=== PATIENT | female | born 1955 | race Caucasian/White ===

== ENCOUNTER → 2017-11-07 06:50 | Outpatient (CLI) | payer MEDICARE, SELFPAY ==
--- NOTE | 2017-11-07 07:16 | CT_ITS ---
STUDY: CT MAXILLOFACIAL SINUSES REASON FOR EXAM: Female, 62 years old. Left nasal congestion. RADIATION DOSAGE (If Supplied By Facility): CTDIvol = ( 33.06 ) mGy, DLP = ( 825.58 ) mGycm TECHNIQUE: The patient was scanned in a multi detector CT scanner. High resolution axial imaging was performed without the administration of intravenous contrast material. Sagittal and coronal images were reconstructed. Individualized dose optimization techniques were used for this CT. COMPARISON: None. FINDINGS: FRONTAL SINUSES: Normal aeration, without mucosal inflammatory disease. ETHMOIDAL SINUSES: Normal aeration, without mucosal inflammatory disease. MAXILLARY SINUSES: Normal aeration, without mucosal inflammatory disease. SPHENOIDAL SINUSES: Normal aeration, without mucosal inflammatory disease. There is patency of the bilateral maxillary infundibuli with normal uncinate processes, ethmoid bullae, and hiatus semilunaris. There is a roxanne bullosa of the right middle turbinate. Normal bilateral inferior turbinates. There is a minimal left sided nasal septal deviation, but without a nasal septal spur. There is patency of the bilateral nasal airways. The visualized osseous structures are normal. The visualized bilateral orbital contents are normal. CT/Sinus/Facial Bone IMPRESSION: Roxanne bullosa of the right middle turbinate. Minimal left nasal septal deviation. Electronically Signed: Brandon Lee MD at 10:17 EST Tel [phone], Service support ,
== END ==
PROVIDERS: Family Provider Family Medicine; PCP Family Medicine; Visit Provider Otolaryngology
DX: J32.9 Chronic sinusitis, unspecified (principal)
CPT/HCPCS: 70486

== ENCOUNTER → 2017-12-26 06:35 | Outpatient (CLI) | payer MEDICARE, SELFPAY ==
[2017-11-22 14:25] VITALS: BP 115/63; PULSE 81; RESP 18; TEMP 36.2; BMI 38.1
--- NOTE | 2017-11-22 15:06 | RAD_ITS ---
STUDY: X-RAY CHEST REASON FOR EXAM: Female, 62 years old. Preoperative evaluation. Cough. TECHNIQUE: PA and lateral views of the chest. COMPARISON: None. FINDINGS: The lungs are clear and expanded. There is no demonstrated pleural abnormality. Normal size heart. Normal mediastinum and clark. Normal visualized pulmonary arteries. Normal visualized aortic arch and descending thoracic aorta. There are diffuse degenerative changes of the visualized thoracic spine. Normal visualized ribs, clavicles, and shoulders. There is no demonstrated abnormality of the visualized soft tissue structures of the upper abdomen. RAD/Chest PA and Lateral IMPRESSION: No acute abnormality is seen. Electronically Signed: Brandon Lee MD at 15:21 EST Tel [phone], Service support ,
[2017-11-22 15:26] LABS: Hematocrit 42.6 % (37-47); Hemoglobin 14.2 g/dl (12.0-15.0); Mean Corp Hgb Conc 33.3 g/gl (32-36); Mean Corpuscular Hgb 31.8 pg (27.0-32.0); Mean Corpuscular Volume 95.5 fL (81-99); Mean Platelet Vol. 8.6 fl (6.2-12.0); Platelet Count 310 K/mm3 (150-450); RBC Distribution Width SD 48.6 fl (35.1-43.9); Red Blood Count 4.46 M/mm3 (4.2-5.4); White Blood Count 10.8 K/mm3 (4.4-11.0)
[2017-11-22 15:33] LABS: Scan Indicated on CBC? Y/N NO
[2017-11-22 15:51] LABS: Anion Gap 9 (5-15); BUN 16 mg/dL (7-18); BUN/Creat Ratio 18.7 RATIO (10-20); Calcium,Total 8.7 mg/dL (8.5-10.1); Chloride 101 mmol/L (98-107); Creatinine, Serum 0.86 mg/dL (0.55-1.02); EST Glomerular Filtration Rate 71 mL/min (>60); Est Glom Filt Rate - Afr Amer 86 mL/min (>60); Estimated Creatinine Clearance 53.64 ml/min; Glucose 90 mg/dL (74-106); Potassium 3.9 mmol/L (3.5-5.1); Sodium Level 137 mmol/L (136-145)
[2017-11-22 16:11] LABS: Hemoglobin A1c 6.4 % (4.2-6.3)
== END ==
PROVIDERS: Anesthesiology; Family Provider Family Medicine; PCP Family Medicine; Visit Provider Otolaryngology
DX: Z01.818 Encounter for other preprocedural examination (principal); R05 Cough; Z01.812 Encounter for preprocedural laboratory examination; Z79.899 Other long term (current) drug therapy; I10 Essential (primary) hypertension; F17.200 Nicotine dependence, unspecified, uncomplicated; G47.30 Sleep apnea, unspecified; K21.9 Gastro-esophageal reflux disease without esophagitis; E11.9 Type 2 diabetes mellitus without complications; E78.00 Pure hypercholesterolemia, unspecified; K76.0 Fatty (change of) liver, not elsewhere classified; F32.9 Major depressive disorder, single episode, unspecified
CPT/HCPCS: 36415; 80048; 83036; 85027

== ENCOUNTER → 2018-10-30 08:02 | Outpatient (CLI) | payer MEDICARE, SELFPAY ==
[2018-10-03 07:10] VITALS: BMI 39.9
[2018-10-30 09:23] VITALS: PULSE 101; PULSE 107; PULSE 109; PULSE 111; PULSE 113; PULSE 83; PULSE 88; PULSE 99; O2SAT 93; O2SAT 94; O2SAT 95; O2SAT 97
--- NOTE | 2018-10-30 14:23 | PCM.PSN.6M ---
PSN 6 Minute Walk Test - 6 Minute Walk Test 6 Minute Walk Test: 6 Minute Walk Test PSN:6-Minute Walk Test Start: 10/30/18 09:23 Freq: Status: Active Protocol: [id number] Document 10/30/18 09:23 [facility] (Rec: 10/30/18 09:27 [facility] [id number]) 6 Minute Walk Test Date Performed 10/30/18 Time Performed 09:00 Height 5 ft 2 in Weight: 218 lb Weight in Pounds [address]: Jasper Lindo Assistive device used: None Pre-test Oxygen Delivery Method Room Air Pulse Ox (%) 95 Pulse Rate (60-100 beats/min) 83 Dyspnea Emerald Scale (0-10) 3 1st minute Oxygen Delivery Method Room Air Pulse Ox (%) 93 Pulse Rate (60-100 beats/min) 99 Dyspnea Emerald Scale (0-10) 3 2nd minute Oxygen Delivery Method Room Air Pulse Ox (%) 93 Pulse Rate (60-100 beats/min) 101 H Dyspnea Emerald Scale (0-10) 3 3rd minute Oxygen Delivery Method Room Air Pulse Ox (%) 94 Pulse Rate (60-100 beats/min) 107 H Dyspnea Emerald Scale (0-10) 4 Reported Symptoms Increased Work of Breathing 4th minute Oxygen Delivery Method Room Air Pulse Ox (%) 94 Pulse Rate (60-100 beats/min) 109 H Dyspnea Emerald Scale (0-10) 4 Reported Symptoms Increased Work of Breathing 5th minute Oxygen Delivery Method Room Air Pulse Ox (%) 94 Pulse Rate (60-100 beats/min) 111 H Dyspnea Emerald Scale (0-10) 5 Reported Symptoms Increased Work of Breathing 6th minute Oxygen Delivery Method Room Air Pulse Ox (%) 94 Pulse Rate (60-100 beats/min) 113 H Dyspnea Emerald Scale (0-10) 5 Reported Symptoms Increased Work of Breathing Post-test Oxygen Delivery Method Room Air Pulse Ox (%) 97 Pulse Rate (60-100 beats/min) 88 Dyspnea Emerald Scale (0-10) 3 Full Laps Walked 23 Partial Lap, Number of Tiles Walked 25 Total Distance Walked (ft) 1382 - Interpretation Interpretation: The patient ambulated 1382 feet over the course of 6 minutes beginning on room air without assistive devices or breaks. Pretesting oxygen saturation was noted to be 95% on room air. With ambulation, the hero oxygen saturation was 93%. There was no significant exertional oxygen desaturation. - Recommendations Recommendations: There is no indication for the use of supplemental oxygen at this time.
== END ==
PROVIDERS: Family Provider Family Medicine; PCP Family Medicine; Referring Provider Internal Medicine Critical Care Medicine; Visit Provider Internal Medicine Critical Care Medicine
DX: J44.9 Chronic obstructive pulmonary disease, unspecified (principal)
CPT/HCPCS: 94618

== ENCOUNTER → 2018-11-20 07:57 | Outpatient (CLI) | payer MEDICARE, SELFPAY ==
[2018-10-03 07:10] VITALS: BMI 39.9
--- NOTE | 2018-11-20 14:38 | PFTCOMP ---
COMPLETE PULMONARY FUNCTION TEST INTERPRETATION Brief HPI: Patient is a 63 year old female, currently under the care of myself, who presents to [facility] for complete pulmonary function tests secondary to diagnosis of dyspnea. Respiratory therapist reports good effort and reproducible results. Interpretation: Forced expiration spirometry shows no large airways obstructive ventilatory defect with an FEV1 of 77% predicted. There is no significant bronchodilator response by strict ATS criteria. Spirograms are of good quality and plateau normally. The respiratory flow volume loop shows a normal pattern. Lung volumes by body plethysmography show a normal total lung capacity at 4.34 L, 97% predicted. All other lung volumes are within normal limits. Diffusion capacity by carbon monoxide is decreased at 63% predicted. The airway resistance is normal. Compared to previous pulmonary function tests from 05/21/13 and 09/16/15, there has been a significant slow but steady improvement in DLCO. Impression: Isolated reduction in diffusion capacity consistent with a pulmonary vascular disorder. This appears to be improving with time.
== END ==
PROVIDERS: Family Provider Family Medicine; PCP Family Medicine; Referring Provider Internal Medicine Critical Care Medicine; Visit Provider Internal Medicine Critical Care Medicine
DX: J44.9 Chronic obstructive pulmonary disease, unspecified (principal)
CPT/HCPCS: 94060; 94726; 94729

== ENCOUNTER 2019-04-26 09:01 | Emergency (ER) | payer MEDICARE, SELFPAY ==
[2018-11-29 08:47] VITALS: BMI 40.4
[2019-04-26 09:02] VITALS: BP 141/70; PULSE 89; RESP 17; TEMP 36.8; O2SAT 97; BMI 39.1
[2019-04-26 09:08] VITALS: BP 141/70; PULSE 89; RESP 18; TEMP 36.8; O2SAT 97
--- NOTE | 2019-04-26 09:14 | CT_ITS ---
STUDY: CT ABDOMEN AND PELVIS WITHOUT CONTRAST REASON FOR EXAM: Female, 63 years old. Abdominal pain. RADIATION DOSAGE (If Supplied By Facility): CTDIvol = ( 19.11 ) mGy, DLP = ( 969.11 ) mGycm TECHNIQUE: Transaxial images were obtained from the dome of the diaphragm to the symphysis pubis without oral contrast, and without intravenous contrast. Sagittal and coronal images were reconstructed. Individualized dose optimization techniques were used for this CT. COMPARISON: May 15, 2014. FINDINGS: The visualized lung bases are unremarkable. The visualized portions of the heart are within normal limits. There is hepatomegaly with diffuse hepatic enlargement. There is decreased attenuation of the liver consistent with steatosis. There are surgical clips in the gallbladder fossa consistent with a prior cholecystectomy. Normal spleen. Normal pancreas. Normal bilateral adrenal glands. Normal right kidney. Normal left kidney. Normal visualized stomach. Normal small intestine. There are multiple colonic diverticula consistent with diverticulosis. There is non-visualization of the appendix. There is diffuse atherosclerotic calcification of the abdominal aorta, without a demonstrated aneurysm. Normal inferior vena cava. Normal retroperitoneum. Normal urinary bladder. There is absence of the uterus consistent with a prior hysterectomy. There is 2.4 cm left adnexal cyst. There is no free fluid in the abdomen or pelvis. Normal abdominal wall. Degenerative change of the spine with levoscoliosis CT/Abdomen/Pelvis without Cont IMPRESSION: Colonic diverticulosis. No obstruction or abscess. Liver is enlarged with diffuse fatty infiltration. Electronically Signed: Aron Crocker MD at 10:44 EDT , Service support ,
--- NOTE | 2019-04-26 09:14 | ED.VIS.GI ---
History of Present Illness Chief Complaint: Flank Pain Informant: Patient - Abdominal Pain/Flank Pain Onset: Yesterday Context: Gradual Onset Timing: Continuous Quality: Aching Location: Right Flank Current Severity: Moderate Maximum Severity: Moderate Worsened by: Nothing Relieved by: Nothing - Nausea/Vomiting/Emesis GI Symptom: Negative for: Nausea, Vomiting - Diarrhea/Melena/Hematochezia GI Symptom: Negative for: Diarrhea, Melena, Hematochezia Associated Symptoms: Frequency, Urgency. Negative for: Dysuria, Hematuria Narrative: Gradual onset of pain in her right low back almost at the same time is urinary frequency and urgency without any burning or hematuria, followed by worsening pain. Now her entire abdomen is hurting she feels bloated but has no nausea. Subjective chills. Never had this before. No history of kidney stones. Still has her gallbladder. - Past Medical History (1) COPD (chronic obstructive pulmonary disease) Status: Chronic (2) Depression Status: Chronic (3) Diabetes Status: Chronic (4) Fibromyalgia Status: Chronic (5) GERD (gastroesophageal reflux disease) Status: Chronic (6) Hyperlipemia Status: Chronic (7) NHI (obstructive sleep apnea) Status: Chronic (8) Restless leg syndrome Status: Chronic (9) Pulmonary hypertension Status: Suspected Past Medical History - Allergies and Home Meds Allergies/Adverse Reactions: Allergies No Known Allergies Allergy (Verified 04/26/19 09:01) Primary Care Physician: Qamar Mcmullen MD [Primary Care Provider] - Surgical History: appendectomy, hysterectomy, - - BTL Lives: Spouse/ Significant Other Smoking Status: Current every day smoker Drugs: None Review of Systems General: Reports: Chills, Malaise. Denies: Fever, Sweats Eyes: Denies: Visual changes - bilaterally, Diplopia ENT: Denies: Rhinorrhea, Sore throat Cardiovascular: Denies: Chest pain, Palpitations Respiratory: Denies: Dyspnea, Cough, Dyspnea on exertion Gastrointestinal: Reports: Abdominal pain. Denies: Nausea, Vomiting, Diarrhea, Melena, Hematochezia Genitourinary: Reports: Frequency. Denies: Dysuria, Hematuria Musculoskeletal: Reports: Back pain. Denies: Neck pain, Swelling, Extremity Pain Skin: Denies: Rash, Wounds Neurological: Denies: Headache, Weakness, Numbness Physical Exam Vital Signs/Narrative: Vital Signs Temp Pulse Resp BP Pulse Ox 04/26/19 09:08 98.2 F 89 18 141/70 H 97 04/26/19 09:02 98.2 F 89 17 141/70 H 97 Inital Vital Signs reviewed: Yes General: Well nourished, Well developed, No Acute Distress Head: Normocephalic, Atraumatic Eyes: Perrl, EOMI ENT: Moist mucous membranes, No rhinorrhea Neck: Supple, Nontender Cardiovascular: Regular rate, Regular rhythm, No murmurs Respiratory: No distress, CTA bilaterally, Chest nontender Abdomen: Soft, Nondistended, Normal bowel sounds, Tender - Diffusely. Negative for: Guarding, Rebound tenderness, Pulsatile mass Back: Normal Inspection - No rash, CVA tenderness - Right side only. Negative for: Spinal tenderness Extremities: Nontender, No edema. Negative for: Calf Tenderness Skin: Normal color, No rash, No Trauma Neurological: Alert, Oriented x3, Cranial nerves II-XII grossly intact, Normal Strength, Normal Sensation Psychological: Normal Mood, - - A little anxious Diagnostic/Tx/Re-eval Impressions Abdomen/Pelvis CT 04/26/19 09:14 IMPRESSION: Colonic diverticulosis. No obstruction or abscess. Liver is enlarged with diffuse fatty infiltration. Electronically Signed: Aron Crocker MD at 10:44 EDT , Service support , 04/26/19 09:14 Abdomen/Pelvis without Cont [CT] Stat Laboratory Results 04/26/19 04/26/19 04/26/19 09:20 09:20 09:30 WBC 16.1 H RBC 4.65 Hgb 15.3 H Hct 44.8 MCV 96.3 MCH 32.9 H MCHC 34.2 RDW Std Deviation 48.7 H RDW Coeff of Tonia 13.7 Plt Count 417 MPV 8.5 Immature Gran % (Auto) 0.600 Neut % (Auto) 69.6 Lymph % (Auto) 21.0 Eddy % (Auto) 7.5 Eos % (Auto) 0.9 Baso % (Auto) 0.4 Absolute Neuts (auto) 11.2 H Absolute Lymphs (auto) 3.38 Absolute Nucleated RBC 0.00 Nucleated RBC % 0 Sodium 136 Potassium 4.2 Chloride 106 Carbon Dioxide 24.0 Anion Gap 6 BUN 16 Creatinine 1.05 H Estim Creat Clear Calc 43.37 Est GFR (MDRD) Af Amer 68 Est GFR (MDRD) Non-Af 56 L BUN/Creatinine Ratio 15.2 Glucose 153 H Calcium 9.2 Total Bilirubin 0.40 AST 15 ALT 19 Alkaline Phosphatase 94 Total Protein 8.5 H Albumin 3.4 Globulin 5.1 H Albumin/Globulin Ratio 0.7 L Lipase 67 L Urine Color Yellow Urine Clarity Cloudy Urine pH 6.0 Ur Specific Cove 1.015 Urine Protein 500 H Urine Glucose (UA) Normal Urine Ketones Negative Urine Occult Blood 250 H Urine Nitrite Positive H Urine Bilirubin Negative Urine Urobilinogen Normal Ur Leukocyte Esterase 500 H Urine RBC 0-5 SEEN Urine WBC >100 SEEN Ur Squamous Epith Cells 0 SEEN Urine Bacteria 1+ Urine Mucus 0 SEEN - Medical Decision Making Patient feels a little better after morphine, she is stable clinically and hemodynamically. Work-up is consistent with urinary infection but the rest of her work-up including imaging is unremarkable. Clinically she is consistent with pyelonephritis. She was given IV Rocephin and discharged in stable condition on Bactrim, advised to return for intractable symptoms or follow-up with her doctor, we did send a culture of her urine. ED Disposition - Plan for ED Patient: Disposition: Home or Assisted Living Diagnosis: Pyelonephritis Instructions: PYELONEPHRITIS, Female (Adult) Prescriptions: Smz/Tmp Ds [Bactrim Ds] 1 tab PO BID #28 tab Transmission Status: Pending to [facility] [place] [facility] Referrals: Qamar Mcmullen MD [Primary Care Provider] - 3-5 Days
[2019-04-26] MEDS: Morphine 2 MG/ML Syringe 4 MG IV (09:27)
[2019-04-26] MEDS: 0.9% Normal Saline 1,000 ML 125 ML IV (09:27)
[2019-04-26 09:31] LABS: Absolute Lymphocyte Count 3.38 X10^3/uL (0.83-4.51); Absolute Neutrophil Count 11.2 X10^3/uL (2.0-7.7); Basophil# 0.06 X10^3/uL; Basophil% 0.4 % (0-1); Eosinophil# 0.15 X10^3/uL; Eosinophils% 0.9 % (0-5); Hematocrit 44.8 % (37-47); Hemoglobin 15.3 g/dL (12.0-15.0); Lymphocyte # 3.38 X10^3/ul (4.0); Mean Corp Hgb Conc 34.2 g/dL (32-36); Mean Corpuscular Hgb 32.9 pg (27.0-32.0); Mean Corpuscular Volume 96.3 fL (81-99); Mean Platelet Vol. 8.5 fl (6.2-12.0); Monocyte# 1.21 X10^3/uL; Monocyte% 7.5 % (0-10); NRBC Flagged by Analyzer 0 % (0-5); Neutrophil # 11.17 X10^3/uL (2.7-7.7); Neutrophil % 69.6 % (47-70); Platelet Count 417 K/mm3 (150-450); RBC Distribution Width CV 13.7 % (11.6-14.6); RBC Distribution Width SD 48.7 fl (35.1-43.9); Red Blood Count 4.65 M/mm3 (4.2-5.4); White Blood Count 16.1 K/mm3 (4.4-11.0)
[2019-04-26 09:44] LABS: ALB/GLOB Ratio 0.7 RATIO (0.9-2.4); AST(SGOT) 15 U/L (15-37); Alanine Aminotransfer ALT/SGPT 19 U/L (13-56); Albumin, Serum 3.4 g/dL (3.2-5.0); Alkaline Phosphatase 94 U/L (45-117); Anion Gap 6 (5-15); BUN 16 mg/dL (7-18); BUN/Creat Ratio 15.2 RATIO (10-20); Calcium,Total 9.2 mg/dL (8.5-10.1); Chloride 106 mmol/L (98-107); Creatinine, Serum 1.05 mg/dL (0.55-1.02); EST Glomerular Filtration Rate 56 mL/min (>60); Est Glom Filt Rate - Afr Amer 68 mL/min (>60); Estimated Creatinine Clearance 43.37 ml/min; Globulin 5.1 g/dL (2.2-4.2); Glucose 153 mg/dL (74-106); Lipase 67 U/L (73-393); Potassium 4.2 mmol/L (3.5-5.1); Protein, Total 8.5 g/dL (6.4-8.2); Sodium Level 136 mmol/L (136-145)
[2019-04-26 09:59] LABS: Mucous, Urine 0 SEEN /hpf (<or=2+); Squamous Epithelial Cells - UA 0 SEEN /hpf (5-10)
[2019-04-26 10:03] LABS: Color, Urine Yellow (Yellow); Glucose, Dipstick Normal (Normal); Ketone-Dipstick Negative (Negative); Leukocyte Esterase-Dipstick 500 /ul (Negative); Nitrite-Dipstick Positive (Negative); Occult Blood-Urine 250 /ul (Negative); Protein-Dipstick 500 mg/dl (Negative); Specific Gravity, Urine 1.015 (1.002-1.030); Urine Bilirubin Dipstick Negative (Negative); Urine Clarity Cloudy (Clear); Urine Urobilinogen Normal (Normal)
[2019-04-26 10:10] LABS: Bacteria 1+ /hpf (None Seen); Red Blood Cells-Urine 0-5 SEEN /hpf (0-5); White Blood Cells >100 SEEN /hpf (0-5)
[2019-04-26] MEDS: Ceftriaxone 1 GM/50 ML BAG IV (11:20)
[2019-04-26 11:23] VITALS: TEMP 37.2
[2019-04-26 12:52] VITALS: BP 131/78; PULSE 77; RESP 16; TEMP 37.1; O2SAT 98
== END 2019-04-26 12:55 | disposition home or self-care (01) ==
PROVIDERS: Emergency Provider Emergency Medicine; Family Provider Family Medicine; PCP Family Medicine
DX: N12 Tubulo-interstitial nephritis, not specified as acute or chronic (principal); K57.30 Diverticulosis of large intestine without perforation or abscess without bleeding; K76.0 Fatty (change of) liver, not elsewhere classified; J44.9 Chronic obstructive pulmonary disease, unspecified; F32.9 Major depressive disorder, single episode, unspecified; E11.9 Type 2 diabetes mellitus without complications; M79.7 Fibromyalgia; E78.5 Hyperlipidemia, unspecified; G47.33 Obstructive sleep apnea (adult) (pediatric); G25.81 Restless legs syndrome; K21.9 Gastro-esophageal reflux disease without esophagitis; Z79.84 Long term (current) use of oral hypoglycemic drugs; Z79.899 Other long term (current) drug therapy; F17.200 Nicotine dependence, unspecified, uncomplicated
CPT/HCPCS: 74176; 80053; 81001; 83690; 85025; 87086; 87088; 87186; 96361; 96365; 96366; 96374; 99283; A4216

== ENCOUNTER → 2020-04-10 08:00 | Outpatient (CLI) | payer MEDICARE, SELFPAY ==
[2020-03-31 09:21] VITALS: BMI 39.1
--- NOTE | 2020-04-10 08:03 | CT_ITS ---
STUDY: LOW DOSE CT LUNG CANCER SCREENING REASON FOR EXAM: Female, 64 years old. 1ppd x 40 years, LUNG SCREENING RADIATION DOSAGE (If Supplied By Facility): CTDIvol = ( 4.02 ) mGy, DLP = ( 130.89 ) mGycm TECHNIQUE: No contrast was administered. Low dose technique was utilized (average mAS-38 and kVp 120). 1.25 mm axial source images with a slice interval of 1.25-mm were reconstructed in lung windows. 2.5 mm axial source images with a slice interval of 2.5-mm were reconstructed in lung windows. 5.0 mm axial source images with a slice interval of 5.0-mm were reconstructed in soft tissue windows. Nodule measured using lung windows on PACS and/or independent workstation with automated measurement of minimum and maximum diameter. Nodule measurement reported as average diameter rounded to the nearest whole number. Growth is defined as an increase ins size of greater than 1.5 mm. COMPARISON: Comparison is made with prior chest radiograph dated November 22, 2017. NODULES: No nodules are seen. Emphysema: Mild degree of emphysematous changes in the upper lobes with a 1.1 cm bulla in the right upper lobe anteriorly. Aorta: Atherosclerotic calcification of the aortic arch. Coronary arteries: Coronary artery calcification. Heart: Unremarkable. Pulmonary artery: Unremarkable Mediastinal nodes: Benign appearing small mediastinal lymph nodes. Other chest and abdominal findings: Multilevel degenerative changes of the thoracic spine. CT/Low Dose CT Lung Screening IMPRESSION: Lung-RADS category 2 - Continue annual screening with LDCT in 12 months. IMPORTANT NOTES FOR USE: ACR Lung-RADS Version 1.0 Assessment Categories Release Date: January 27, 2014 Category: Coded 0-4 bases on nodule(s) with highest degree of suspicion. Negative screen is defined as categories 1 and 2; a positive screen is defined as categories 3 and 4. Category 3 and 4A nodules that are unchanged on interval CT should be coded as category 2, and individuals returned to screening in 12 months. Category 4X: Category 3 or 4 nodules with additional imaging findings that increase the suspicion of lung cancer, such as spiculation, GGN that doubles in size in 1 year, enlarged lymph notes, etc. Category Modifiers: S (significant finding unrelated to lung cancer) and C (prior history of treated lung cancer) may be added to the 0-4 Lung-RADS Electronically Signed: Brandon Lee, at 8:38 EDT , Service support ,
--- NOTE | 2020-04-10 08:11 | US_ITS ---
STUDY: ABDOMINAL ULTRASOUND REASON FOR EXAM: Female, 64 years old. ABD PAIN X 5 MONTHS TECHNIQUE: Transabdominal ultrasound was performed with real-time and static cota scale imaging. TECHNICAL QUALITY: Limited. Examination limited due to a combination of factors including obesity and bowel gas. COMPARISON: Comparison is made with prior study dated January 29, 2016. FINDINGS: Liver: The liver is enlarged and measures 19 cm. There is increased echogenicity consistent with fatty infiltration. The bile ducts are within normal limits. There is hepatic color flow. The direction of portal flow is hepatopetal. There is no demonstrated mass lesion. Gallbladder: Normal distended gallbladder. The gallbladder wall measures 2.0 mm. There is a negative sonographic Andrade''s sign. There is no pericholecystic fluid. There are no gallstones. Common Bile Duct (C.B.D.): The common bile duct measures 3.5 mm. Pancreas: Normal size of the head, body and tail of the pancreas. There is normal echogenicity of the pancreas. There is no demonstrated pancreatic mass or cyst. Spleen: Normal size of the spleen. The spleen measures 7.7 cm x 2.6 x 2.8 cm. Right Kidney: Normal size of the right kidney. The right kidney measures 11.4 cm x 5.7 cm x 4.1 cm. Normal renal cortex. The right cortex measures 1.0 cm. There is no demonstrated renal mass or cyst. There is no right hydronephrosis. Left Kidney: Normal size of the left kidney. The left kidney measures 10.4 cm x 4.8 cm by 4.5 cm. Normal renal cortex. The left cortex measures 1.5 cm. There is no demonstrated renal mass or cyst. There is no left hydronephrosis. Aorta: Unremarkable I.V.C.: The IVC is patent. There is no ascites. US/Abdomen Complete IMPRESSION: Hepatomegaly. Fatty infiltration of the liver. Electronically Signed: Brandon Lee, at 13:36 EDT , Service support ,
== END ==
LOC: US 08:03
PROVIDERS: PCP Nurse Practitioner; Referring Provider Nurse Practitioner; Visit Provider Nurse Practitioner
DX: R10.9 Unspecified abdominal pain (principal); Z87.891 Personal history of nicotine dependence
CPT/HCPCS: 76700; G0297

== ENCOUNTER → 2020-05-13 08:57 | Outpatient (CLI) | payer MEDICARE, SELFPAY ==
[2020-03-31 09:21] VITALS: BMI 39.1
--- NOTE | 2020-05-14 09:01 | PFT ---
INTRODUCTION: The patient is a 64-year-old female that presents for pulmonary function studies secondary to a diagnosis of dyspnea. Respiratory therapy reports good patient effort. Bronchodilators were used during testing. INTERPRETATION: Forced expiration spirometry demonstrates no evidence of a large airways obstructive ventilatory defect. There was no significant response to aerosolized bronchodilators. Spirograms are of fair quality and plateau normally. Body plethysmography was performed and reveals lung volumes to be within normal limits. Diffusing capacity by single breath CO is reduced at 62% of predicted. IMPRESSION: Mild reduction in diffusing capacity with subtle stigmata of small airways disease and robust mid flow bronchodilator response.
== END ==
LOC: PSN 08:58
PROVIDERS: PCP Nurse Practitioner; Referring Provider Internal Medicine Critical Care Medicine; Visit Provider Internal Medicine Critical Care Medicine
DX: R06.00 Dyspnea, unspecified (principal)
CPT/HCPCS: 94060; 94726; 94729

== ENCOUNTER → 2020-05-26 10:19 | Outpatient (CLI) | payer MEDICARE, SELFPAY ==
[2020-03-31 09:21] VITALS: BMI 39.1
--- NOTE | 2020-05-26 10:21 | NM_ITS ---
CLINICAL: 64-year-old female with reported history of right upper quadrant abdominal pain. RADIONUCLIDE HEPATOBILIARY SCINTIGRAPHY COMPARISON: Abdominal ultrasound report 04/10/2020 FINDINGS: Following the intravenous administration of 5.7 mCi of 99m Tc Mebrofenin, hepatobiliary images reveal: 1. Relatively prompt and homogeneous radiopharmaceutical concentration is noted by a normal sized liver. No parenchymal defects are identified. 2. Gallbladder activity is identified at 10 minutes post radiopharmaceutical administration. 3. Small intestinal tract is not visualized during 60 minutes of pre-CCK sequential imaging. Small bowel activity is identified following the administration of cholecystokinin. 4. Washout of the radiopharmaceutical by the hepatic parenchyma appears qualitatively normal. Cholecystokinin (0.02 ug/kg) was administered intravenously over a 30-minute period. The post CCK gallbladder ejection fraction calculated at 20 minutes following Cholecystokinin administration was noted to be 31.0 % (normal greater than 35%). NM/Hepatobilliary Img w/Pharm Int IMPRESSION: 1. ABNORMAL 99m Tc Mebrofenin hepatobiliary imaging examination with Cholecystokinin. A. A gallbladder ejection fraction calculated to be less than 35% following the administration of Cholecystokinin is consistent with a high probability of functional hepatobiliary disease (gallbladder and/or sphincter of Oddi dyskinesia) and/or organic hepatobiliary disease (chronic acalculous cholecystitis and/or cystic duct syndrome) in patients with intermediate to high pretest likelihoods of hepatobiliary illness. (Capo Jerez et al, Journal of Nuclear Medicine 32:1695, 1991). Electronically Signed: Jemal Jaramillo DO at 23:34 EDT Tel , Service support ,
== END ==
LOC: NM 10:20
PROVIDERS: PCP Nurse Practitioner; Referring Provider Nurse Practitioner; Visit Provider Nurse Practitioner
DX: R10.9 Unspecified abdominal pain (principal)
CPT/HCPCS: 78227; A9537; J2805

== ENCOUNTER 2020-06-11 07:34 | Day surgery (SDC) | payer MEDICARE, SELFPAY ==
[2020-05-29 08:28] VITALS: BMI 39.1
--- NOTE | 2020-05-29 10:24 | HP_ITS ---
Intake Vital Signs 05/29/20 Height 5 ft 2.5 in 05/29/20 Weight: 206 lb 4 oz 05/29/20 BMI 37.1 05/29/20 BP 113/56 L 05/29/20 Blood Pressure Location Rt brachial 05/29/20 Position Sitting 05/29/20 Respiration 18 05/29/20 Pulse 77 05/29/20 Temp 97.6 F L 05/29/20 Temp Source Temporal 05/29/20 Pulse Oximetry (%) 97 05/29/20 Oxygen Delivery Method room air Intake Visit Reasons: Abnormal HIDA Scan Chief Complaint: abn hida/ RUQ pain Auto Transport Driver Required: No Is patient in pain?: No Allergies No Known Allergies Allergy (Verified 05/29/20 08:24) Medications Ropinirole HCl [Requip] 0.5 mg PO QHS 05/15/14 [History Confirmed 05/29/20] Albuterol Inhaler [Ventolin Hfa (SP)] 1 - 2 puff INHALATION Q4H PRN PRN 11/22/17 [History Confirmed 05/29/20] Amitriptyline HCl [Elavil] 10 mg PO QHS 11/22/17 [History Confirmed 05/29/20] Ergocalciferol [Vitamin D] 1 tab PO QWEEK 11/22/17 [History Confirmed 05/29/20] Famotidine [Pepcid] 40 mg PO DAILY 11/22/17 [History Confirmed 05/29/20] albuterol sulfate 2.5 mg INHALATION Q4H PRN PRN #180 ml 10/03/18 [Rx Confirmed 05/29/20] ipratropium 0.5 mg-albuterol 3 mg (2.5 mg base)/3 mL nebulization soln 3 ml INHALATION Q4H PRN #180 ml 03/31/20 [Rx Confirmed 05/29/20] venlafaxine 150 mg capsule,extended release 24 hr 150 mg PO DAILY 05/29/20 [History Confirmed 05/29/20] Is last menstrual period known: No Post menopausal: Yes Patient : No PFSH Medical History Trigger finger of left thumb (Chronic) Tobacco abuse (Chronic) NHI (obstructive sleep apnea) (Chronic) Restless leg syndrome (Chronic) Hyperlipemia (Chronic) Fibromyalgia (Chronic) Diabetes (Chronic) Depression (Chronic) COPD (chronic obstructive pulmonary disease) (Chronic) Carpal tunnel syndrome of left wrist (Chronic) GERD (gastroesophageal reflux disease) (Chronic) Pneumonia (Acute) Osteoarthrosis (Chronic) Rheumatoid arthritis (Chronic) Thyroid disease (Chronic) Type 2 diabetes mellitus (Chronic) Surgical History History of tubal ligation (Resolved) History of hysterectomy (Resolved) Normal colonoscopy (Resolved) History of carpal tunnel surgery of right wrist (Resolved) History of carpal tunnel surgery of left wrist (Resolved) History of appendectomy (Resolved) Family History Father Colon cancer Kidney disease Mother Diabetes Heart disease Thyroid disorder Grandfather Alcohol abuse Sister Cancer Breast cancer Social History (Updated 05/29/20 @ 10:[address] Vicente Rendon MD) household members: significant other housing: other details: mobile home Smoking Status: Current every day smoker tobacco type: cigarettes second hand exposure: Yes alcohol intake: never substance use type: does not use HPI HPI Surgical H&P: Yes HPI: RANDEE ADLER, is a 64 F who presents to the office today for Biliary dyskinesia. Patient underwent a HIDA scan with ejection fraction completed at [facility] on 05/26/2020 this showed an ejection fraction of 31%. Patient has been experiencing right upper quadrant abdominal pain as well as looser stools. Pain is worse with food but it really does not matter what food she takes. The HIDA scan with ejection fraction did elicit the same type of abdominal discomfort she has been experiencing. ROS General General: Yes weight change and fatigue; no appetite, colon cancer, breast cancer or weakness HEENT HEENT: No difficulty swallowing, eye injury, eye surgery, swollen glands or hoarseness Endo Endocrine: Yes diabetes mellitus; no thyroid disease, thyroid cancer, Hair loss, heat intolerance or cold intolerance Musc Musculoskeletal: Yes rheumatoid arthritis; no back problems, arthritis, gout or joint pain Cardio Cardiovascular: No murmur, pacemaker, heart disease, atrial fibrillation, high blood pressure, heart attack, heart stent, palpitations, shortness of breat with exertion or chest pain Psych Psychiatric: Yes anxiety; no depression or hearing voices Resp Respiratory: Yes shortness of breath, Yes sleep apnea, No cough, Yes COPD, No asthma, No emphysema, No wheezing Gastro Gastrointestinal: No abdominal pain, No nausea or vomiting, No diarrhea, No constipation, No blood in stool, Yes acid reflux, No hemorrhoids, No ulcers, Yes gallbladder problem, No black,tarry stools Tay Hematologic: No blood thinners, No blood disorders, No bleeding, No anemia, No blood clots Neuro Neurologic: No weakness Exam Const General: no acute distress, well developed, well hydrated Orientation: oriented to person, oriented to place, oriented to time [facility] Head: normocephalic, atraumatic Ears: external ears normal Mouth: moist mucous membranes Eyes Sclera: sclerae normal Pupils: normal by confrontation Neck Neck: no lymphadenopathy noted Neck mass: No Thyroid: thyroid normal, symmetrical Chest Chest palpation & inspection: normal inspection of the chest Resp Effort & Inspection: normal respiratory effort Auscultation: clear to auscultation bilaterally Percussion: percussion normal Cardio Rate: regular rate Rhythm: regular rhythm Heart Sounds: no murmurs GI Palpation: soft, no hepatosplenomegaly, no masses, tender Auscultation: normal bowel sounds Rectal Exam: other Other: Rectal exam deferred. Extrem General: normal to inspection, no clubbing, cyanosis or edema Assessment & Plan Problems 1. Biliary dyskinesia K82.8 2. Right upper quadrant abdominal pain R10.11 Plan Reviewed the anatomy with the patient and discussed the procedure: Robotic assisted laparoscopic cholecystectomy with possible cholangiograms, possible open. Review risks including but not limited to bleeding, infection, hernia, bile leak, retained gallstones requiring another procedure ERCP- Endoscopic Retrograde Cholangiopancreatography, injury to another organ (bile ducts, common bile duct, small bowel, etc.) and conversion to an open procedure. All questions were answered. Coding Level of Care Code Off vis,new,level 3 Diagnoses Biliary dyskinesia K82.8 Right upper quadrant abdominal pain R10.11 COVID (Procedure Consent) Procedure Criteria Procedure Criteria: Yes Elective The surgeon/proceduralist and patient have discussed in detail the risk of exposure to and/or potential harm posed by the COVID-19 virus with having a surgery/procedure at this time versus the risk of? delaying the surgery/procedure. It is not possible to know either the risk of delaying the surgery or procedure or chance of getting an infection with perfect accuracy, but a joint decision was made between the patient and the surgeon/proceduralist ?to proceed at this time with the scheduled surgery/procedure as indicated on the consent form. 05/29/20 1024 <Electronically signed by Vicente tilley MD> Date _ Vicente Rendon MD I have re-examined the patient. There are no clinical changes since date of exam.
--- NOTE | 2020-06-03 08:34 | EKG12_ITS ---
Test Reason : PRE OP Blood Pressure : / mmHG Vent. Rate : 076 BPM Atrial Rate : 076 BPM P-R Int : 148 ms QRS Dur : 072 ms QT Int : 378 ms P-R-T Axes : 065 059 069 degrees QTc Int : 425 ms Normal sinus rhythm Normal ECG Confirmed by RICK RAMIRES, ARIEL ([id number]), online editor GABRIELLA GALEANA ([id number]) on 06/04/2020 11:01:00 AM Referred By: Vicente Rendon Confirmed By:ARIEL CABRERA MD
[2020-06-03 09:26] LABS: Hematocrit 42.4 % (37-47); Hemoglobin 13.7 g/dL (12.0-15.0); Mean Corp Hgb Conc 32.3 g/dL (32-36); Mean Corpuscular Hgb 31.9 pg (27.0-32.0); Mean Corpuscular Volume 98.8 fL (81-99); Mean Platelet Vol. 8.7 fl (6.2-12.0); Platelet Count 447 K/mm3 (150-450); RBC Distribution Width CV 13.9 % (11.6-14.6); RBC Distribution Width SD 50.1 fl (35.1-43.9); Red Blood Count 4.29 M/mm3 (4.2-5.4); White Blood Count 10.6 K/mm3 (4.4-11.0)
[2020-06-03 10:01] LABS: Anion Gap 3 (5-15); BUN 16 mg/dL (7-18); BUN/Creat Ratio 14.8 RATIO (10-20); Calcium,Total 8.7 mg/dL (8.5-10.1); Chloride 105 mmol/L (98-107); Creatinine, Serum 1.08 mg/dL (0.55-1.02); EST Glomerular Filtration Rate 54 mL/min (>60); Est Glom Filt Rate - Afr Amer 66 mL/min (>60); Glucose 121 mg/dL (74-106); Potassium 4.8 mmol/L (3.5-5.1); Sodium Level 135 mmol/L (136-145)
[2020-06-03 10:04] LABS: Hemoglobin A1c 6.5 % (3.8-5.6)
[2020-06-11] VITALS (9 sets, daily range): BP systolic 111–145; BP diastolic 52–95; PULSE 68–77; RESP 16; TEMP 36.2–36.7; O2SAT 92–95; BMI 38.9
[2020-06-11] MEDS: Lactated Ringers 1,000 ML 100 ML IV ×2 (08:08→08:09)
[2020-06-11 08:25] LABS: Bedside Glucose 147 mg/dL (70-110)
--- NOTE | 2020-06-11 08:51 | OP.PCM_ITS ---
Problem List (1) Biliary dyskinesia Status: Acute (2) Right upper quadrant abdominal pain Status: Acute Report of Operation Date of Procedure: 06/11/20 Pre-Operative Diagnosis: 1. Biliary dyskinesia. 2. Right upper quadrant abdominal pain Post-Operative Diagnosis: Same Surgery/Procedure Performed:: Robotic assisted laparoscopic cholecystectomy Specimen's removed: Gallbladder Description of Procedure: Patient was brought into the operating room. Placed in the supine position. Under excellent general endotracheal ovation the bed was placed in the head up and rotated to the left position and the abdomen was sterilely prepped and draped in usual fashion. Local was injected supraumbilically dissection was carried down to the fascia. The fascia was grasped with a Wharton. Varies needle was placed inside the abdomen. The abdomen was insufflated to 15 torr. A 10/12 trocar was placed without difficulty. It was flank by 2 #8 trochars placed under direct visualization and then finally a lateral right sided #5 trocar. All these were placed under direct visualization without injury to underlying structures. The robot was then docked the fundus of the gallbladder was grasped and retracted in a cephalad direction. I went to the robot used a pro-grasper my left hand cauteries in the right hand I removed all the adhesions from the gallbladder which there was a significant amount. I gradually increased placement of the gallbladder in a cephalad direction exposing the cystic duct and cystic artery. I dissected both of these free and then dissected posteriorly towards the liver so I had my triangle completely dissected free once this was done I placed 2 hemo-lock clips proximally and distally on the artery and ligated the artery and then I placed 2 hemoclips proximally distally on the duct and ligated the duct. I used the suction pipe and boiler covers supervisor to make sure I had good hemostasis. I clean my instrument and then with the use of electrocautery I deliver the gallbladder from the gallbladder bed. I had excellent pneumostasis. I placed the specimen in a specimen bag and delivered through the umbilical port without difficulty. Once again I had excellent hemostasis. I remove the trochars under direct visualization good in the stasis was noted. Fascia the umbilical port was closed with a [id number] stitch of 0 Vicryl. Skin incisions were closed with subcuticular stitches of 4-0 Monocryl. Steri-Strips were applied sterile dressings were applied and the patient tolerated the procedure well. - Admit VTE Documentation VTE Present on Admission: No VTE Pharm Prophylaxis ordered?: No Reason prophylaxis not ordered:: Treatment Not Indicated [id number]: [id number] Laparoscopic cholecystectomy
--- NOTE | 2020-06-11 08:52 | PCM.DC.GB ---
Discharge Diet: Light diet - advance as tolerated Discharge Activity: May Not Drive - for 2-3 days or while taking narcotic pain medications., - - Do not drive, work heavy equipment or sign legal documents for 24 hours. May shower in (days): 1 - with the bandage in place. Additional Activity Instructions:: Pain medication may cause nausea. You should typically eat light foods as you take your pain medications. Pain medication may also cause constipation. If this is a problem for you, please discuss with your doctor. Call your doctor if your incision/area has: Continuous Slow Oozing, Sudden Increased Bleeding, Increased Pain/ Swelling, Increased Redness, Foul Smelling Discharge Call your doctor if you observe: Fever of 101 or Higher Suture Line Care: Avoid Pulling/Pushing, Avoid Pinching/Bending Additional Dressing/Incision Instructions:: Leave operative bandaids on for 2 days. When you remove dressing, leave Steri-Strips on until your follow-up appointment, or until the Steri-Strips fall off on their own. Allergies/Adverse Reactions: Allergies No Known Allergies Allergy (Verified 06/11/20 07:41) Medications to take at Discharge Ropinirole HCl [Requip] 0.5 mg PO QHS 05/15/14 Albuterol Inhaler [Ventolin Hfa (SP)] 1 - 2 puff INHALATION Q4H PRN PRN 11/22/17 Amitriptyline HCl [Elavil] 10 mg PO QHS 11/22/17 Ergocalciferol [Vitamin D] 1 tab PO QWEEK 11/22/17 Famotidine [Pepcid] 40 mg PO DAILY 11/22/17 albuterol sulfate 2.5 mg INHALATION Q4H PRN PRN #180 ml 10/03/18 venlafaxine 150 mg capsule,extended release 24 hr 150 mg PO DAILY 05/29/20 Oxycodone HCl/Acetaminophen [Percocet 5/325] 1 - 2 tablet PO Q4H PRN PRN 6 Days #30 tablet 06/11/20 The following prescriptions were given: Oxycodone HCl/Acetaminophen [Percocet 5/325] 1 - 2 tablet PO Q4H PRN PRN 6 Days #30 tablet PRN Reason: Pain Transmission Status: Sent to [facility] Primary Care Physician: Sierra Hopkins ASSISTANT TRACK COACH, ASSISTANT TRACK COACH-C [Primary Care Provider] - Test Results: Test results from this visit will be discussed in further detail at your follow-up appointment, if applicable. Please Follow Up With: Vicente Rendon MD - Please call [phone] to schedule an appointment. When: 7 days after your surgery.
--- NOTE | 2020-06-11 09:30 | GALL_PTH ---
PATIENT: RANDEE ADLER LOC: [facility] [place] U#:[id number] AGE/SX: 64/F ROOM: RE06/11/[address]: Dr. Vicente Rendon MD : 1955 BED: DIS: 06/11/2020 SPEC #: [id number] RECD: 06/11/20 11:36 STATUS: TETO KAYLA #: [id number] IVON: 06/11/20 09:[address]: Vicente Rendon DEPT: SURGICAL PATHOLOGY RECD BY: Marlon Vernon ENTERED: 06/11/20 13:43 SP TYPE: DUSTIN ABDALLA DR: MD Sierra Marie, OPERATIONS SUPERVISOR-C Tissues: Gallbladder, NOS Procedures: Surgery Specimen Level III HEADER OPERATION: Robotic assisted laparoscopic cholecystectomy PRE-OP DIAGNOSIS: Biliary dyskinesia; right upper quadrant abdominal pain TISSUE SUBMITTED: Gallbladder MICROSCOPIC DIAGNOSIS Gallbladder, cholecystectomy: Mild chronic cholecystitis. Benign pericystic lymph node. AM:maik 06/12/20 MICROSCOPIC DESCRIPTION Slides are reviewed. GROSS DESCRIPTION Received is one container labeled with the patient's name and designated gallbladder. The specimen consists of a gallbladder measuring 6.5 cm in length and up to 3 cm in diameter. The external surface is pink-zavala, smooth and glistening for the most part. Focally it is granular, hemorrhagic and contains cautery artifact. The gallbladder contains green-yellow mucoid bile. No stones are identified in the container or in the gallbladder. The mucosa is bile-stained and without any mass lesions. The gallbladder wall measures 0.2 cm in thickness. Also present close to the cystic duct is an ovoid nodule measuring 0.7 cm in greatest dimension, ? possible lymph nodule. Typewriter Ribbon Winder sections from the gallbladder and the cystic duct including entire nodule, a possible lymph node, are submitted in one cassette. / SJ:maik 06/11/20 TC:3 CPT: 88894
[2020-06-11] MEDS: Cefazolin 2 GM in 0.9% Normal Saline 100 ML IV (09:51)
[2020-06-11] MEDS: Bupivacaine Mpf 0.5% 30 ML VIAL (10:38)
[2020-06-11 11:30] LABS: Bedside Glucose 170 mg/dL (70-110)
== END 2020-06-11 12:52 | disposition home or self-care (01) ==
LOC: SDC 07:36 → AC 07:36
PROVIDERS: Anesthesiology; PCP Nurse Practitioner; Referring Provider Surgery; Visit Provider Surgery
PROC: 0FT44ZZ Resection of Gallbladder, Percutaneous Endoscopic Approach (ICD-10-PCS; CPT 47562; principal; 2020-06-11 09:10)
DX: K81.1 Chronic cholecystitis (principal); D13.5 Benign neoplasm of extrahepatic bile ducts; K82.8 Other specified diseases of gallbladder; Z11.59 Encounter for screening for other viral diseases; M79.7 Fibromyalgia; M06.9 Rheumatoid arthritis, unspecified; E11.9 Type 2 diabetes mellitus without complications; G47.33 Obstructive sleep apnea (adult) (pediatric); G25.81 Restless legs syndrome; F32.9 Major depressive disorder, single episode, unspecified; F41.9 Anxiety disorder, unspecified; J44.9 Chronic obstructive pulmonary disease, unspecified; K21.9 Gastro-esophageal reflux disease without esophagitis; G56.02 Carpal tunnel syndrome, left upper limb; Z78.0 Asymptomatic menopausal state; Z87.01 Personal history of pneumonia (recurrent); Z79.899 Other long term (current) drug therapy; F17.210 Nicotine dependence, cigarettes, uncomplicated
CPT/HCPCS: 00790; 47562; S2900; 36415; 80048; 82962; 83036; 85027; 87635; 88304; 93005; C9803; J7120; J2405; U0003

== ENCOUNTER → 2021-01-06 12:03 | Outpatient (CLI) | payer MEDICARE, SELFPAY ==
[2020-11-09 09:17] VITALS: BMI 37.5
[2021-01-06 15:19] LABS: Absolute Lymphocyte Count 3.96 X10^3/uL (0.83-4.51); Absolute Neutrophil Count 5.5 X10^3/uL (2.0-7.7); Basophil# 0.06 X10^3/uL; Basophil% 0.6 % (0-1); Eosinophil# 0.12 X10^3/uL; Eosinophils% 1.2 % (0-5); Hematocrit 43.6 % (37-47); Lymphocyte # 3.96 X10^3/ul (4.0); Mean Corp Hgb Conc 32.1 g/dL (32-36); Mean Corpuscular Volume 99.8 fL (81-99); Monocyte# 0.74 X10^3/uL; Monocyte% 7.1 % (0-10); NRBC Flagged by Analyzer 0 % (0-5); Neutrophil # 5.48 X10^3/uL (2.7-7.7); Neutrophil % 52.5 % (47-70); Platelet Count 416 K/mm3 (150-450); RBC Distribution Width CV 14.2 % (11.6-14.6); RBC Distribution Width SD 52.1 fl (35.1-43.9); Red Blood Count 4.37 M/mm3 (4.2-5.4); White Blood Count 10.4 K/mm3 (4.4-11.0)
[2021-01-06 15:37] LABS: Hemoglobin A1c 6.2 % (3.8-5.6)
[2021-01-06 15:51] LABS: ALB/GLOB Ratio 0.8 RATIO (0.9-2.4); AST(SGOT) 19 U/L (15-37); Alanine Aminotransfer ALT/SGPT 22 U/L (13-56); Albumin, Serum 3.5 g/dL (3.2-5.0); Alkaline Phosphatase 86 U/L (45-117); Anion Gap 5 (5-15); BUN 17 mg/dL (7-18); BUN/Creat Ratio 19.8 RATIO (10-20); Chloride 107 mmol/L (98-107); Cholesterol 241 mg/dL (200); Creatinine, Serum 0.86 mg/dL (0.55-1.02); EST Glomerular Filtration Rate 71 mL/min (>60); Est Glom Filt Rate - Afr Amer 85 mL/min (>60); Globulin 4.5 g/dL (2.2-4.2); Glucose 99 mg/dL (74-106); High Density Lipoprotein 45 mg/dL; Potassium 4.2 mmol/L (3.5-5.1); Sodium Level 136 mmol/L (136-145); Thyroid Stim Hormone (TSH) 3.47 uIU/mL (0.358-3.74); Triglycerides 225 mg/dL; Very Low Density Lipoprotein 45 mg/dL (5-40)
== END ==
PROVIDERS: PCP Nurse Practitioner; Referring Provider Nurse Practitioner; Visit Provider Nurse Practitioner
DX: J44.9 Chronic obstructive pulmonary disease, unspecified (principal); R42 Dizziness and giddiness
CPT/HCPCS: 36415; 80053; 80061; 83036; 84443; 85025

== ENCOUNTER → 2021-01-18 09:24 | Outpatient (CLI) | payer MEDICARE, SELFPAY ==
[2020-11-09 09:17] VITALS: BMI 37.5
== END ==
LOC: PSN 09:25
PROVIDERS: PCP Nurse Practitioner; Referring Provider Nurse Practitioner; Visit Provider Nurse Practitioner
DX: R42 Dizziness and giddiness (principal)
CPT/HCPCS: 93225; 93226

== ENCOUNTER 2021-04-14 08:43 | Day surgery (SDC) | payer MEDICARE, SELFPAY ==
[2021-03-29 13:46] VITALS: BMI 35.8
[2021-04-14 09:14] VITALS: BP 106/66; PULSE 75; RESP 16; TEMP 21.1; O2SAT 95; BMI 35.4
[2021-04-14] MEDS: Lactated Ringers 1,000 ML 100 ML IV ×2 (09:22→10:31)
--- NOTE | 2021-04-14 10:05 | HP.PCM_ITS ---
History and Physical Date of Admission: 04/14/21 Date of Service: 03/29/21 MR#:[id number] Acct:[id number] Name: RANDEE ADLER :1955 Age/Sex: 65/F Rep #:[id number] Provider:Dr. Caro Herrmann MD Location:[facility] Status:Signed Intake Vital Signs 03/29/21 13:34 03/29/21 13:46 Height 5 ft 2 in Weight: 196 lb BMI 36.6 35.8 BP 108/68 Blood Pressure Location Rt brachial Position Sitting Respiration 16 Intake Visit Reasons: CONSTIPATION & ABDOMINAL PAIN Chief Complaint: scopes Ultimate Hoops Scoreboard Operator Required: No Is patient in pain?: No Allergies No Known Allergies Allergy (Verified 03/29/21 13:47) Medications ropinirole 0.5 mg PO QHS 05/15/14 [History Confirmed 03/16/21] amitriptyline 10 mg PO QHS 11/22/17 [History Confirmed 03/16/21] ergocalciferol (vitamin D2) 1 tab PO QWEEK 11/22/17 [History Confirmed 03/16/21] famotidine 40 mg PO DAILY 11/22/17 [History Confirmed 03/16/21] venlafaxine 150 mg capsule,extended release 24 hr 150 mg PO DAILY 05/29/20 [History Confirmed 03/16/21] montelukast 10 mg tablet 10 mg PO QPM #30 tab 06/30/20 [Rx Confirmed 03/16/21] albuterol sulfate 2.5 mg INHALATION Q4H PRN PRN #180 ml 11/09/20 [Rx Confirmed 03/16/21] albuterol sulfate 90 mcg/actuation aerosol inhaler 1 - 2 puff INHALATION Q4H PRN PRN #18 g 11/09/20 [Rx Confirmed 03/16/21] [facility] Medical History (Updated 03/29/21 @ 13:[address] Caro Herrmann MD) Carpal tunnel syndrome of left wrist COPD (chronic obstructive pulmonary disease) Depression Diabetes Fibromyalgia GERD (gastroesophageal reflux disease) Hyperlipemia NHI (obstructive sleep apnea) Osteoarthrosis Pneumonia Restless leg syndrome Rheumatoid arthritis Thyroid disease Tobacco abuse Trigger finger of left thumb Type 2 diabetes mellitus Surgical History History of appendectomy History of carpal tunnel surgery of left wrist History of carpal tunnel surgery of right wrist History of hysterectomy History of tubal ligation Normal colonoscopy S/P laparoscopic cholecystectomy Family History Father Colon cancer Kidney disease Mother Diabetes Heart disease Thyroid disorder Grandfather Alcohol abuse Sister Cancer Breast cancer Social History household members: significant other housing: other details: mobile home Smoking Status: Current every day smoker tobacco type: cigarettes second hand exposure: Yes alcohol intake: never substance use type: does not use HPI HPI HPI: RANDEE ADLER, is a 65 F who presents to the office today for constipation need for colonoscopy. Patient states her father had colon cancer diagnosed at age 50. Patient's last colonoscopy was 12-14 years ago she did have some polyps at that time. Patient states she had her gallbladder removed in June 2020 ever since then she has had to run to the bathroom if she has certain types of food. Will occasionally have fecal incontinence. Patient states she has bowel movements daily however also admits to straining daily. Patient states she drinks plenty of water unsure about her fiber intake. Patient does have reflux she has been on Pepcid for about 10 years denies ever having an EGD. ROS General General: Yes weight change and fatigue; No appetite, colon cancer, breast cancer or weakness HEENT HEENT: No difficulty swallowing, eye injury, eye surgery, swollen glands or hoarseness Endo Endocrine: No thyroid disease, diabetes mellitus, thyroid cancer, Hair loss, heat intolerance or cold intolerance Skin Skin: No rash or changing moles Breast Breast: No left breast lump, right breast lump, nipple discharge, breast pain, abnormal mammogram, abnormal US or breast enlargement Musc Musculoskeletal: Yes rheumatoid arthritis; No back problems, arthritis, gout or joint pain Cardio Cardiovascular: No murmur, pacemaker, heart disease, atrial fibrillation, high blood pressure, heart attack, heart stent, palpitations, shortness of breat with exertion or chest pain Psych Psychiatric: Yes anxiety; No depression or hearing voices Resp Respiratory: Yes shortness of breath, Yes sleep apnea, No cough, Yes COPD, No asthma, No emphysema and No wheezing Gastro Gastrointestinal: No abdominal pain, No nausea or vomiting, Yes diarrhea, No constipation, No blood in stool, Yes acid reflux, No hemorrhoids, No ulcers, Yes gallbladder problem and No black,tarry stools Tay Hematologic: No blood thinners, No blood disorders, No bleeding, No anemia and No blood clots Neuro Neurologic: No system reviewed and no additional complaints, except as documented, No as per HPI, No abnormal gait, No abnormal hearing, No abnormal movements, No abnormal speech, No behavioral changes, No burning sensations, No confusion, No convulsions, No disequilibrium, No dizziness, No localized weakness, No frequent falls, No headache(s), No lack of coordination, No loss of vision, No memory loss, No numbness, No other visual disturbances, No radicular pain, No restless legs, No sensory deficit, No syncope, No tingling, No tremor(s), No weakness and No other Exam Const General: cooperative, healthy appearing, comfortable and no acute distress Neck Neck: normal visual inspection Resp Effort & Inspection: normal respiratory effort Cardio Rate: regular rate GI Inspection: non-distended Palpation: soft, no guarding and nontender Skin General: no rashes or lesions noted Neuro General: patient oriented x3 Psych Affect: normal affect COVID (Procedure Consent) Procedure Criteria Procedure Criteria: Yes Elective The surgeon/proceduralist and patient have discussed in detail the risk of exposure to and/or potential harm posed by the COVID-19 virus with having a surgery/procedure at this time versus the risk of delaying the surgery/procedure. It is not possible to know either the risk of delaying the surgery or procedure or chance of getting an infection with perfect accuracy, but a joint decision was made between the patient and the surgeon/proceduralist to proceed at this time with the scheduled surgery/procedure as indicated on the consent form. Assessment and Plan Assessment and Plan (1) Constipation: Status: Acute (2) Family history of colon cancer in father: Status: Acute (3) GERD (gastroesophageal reflux disease): Status: Chronic Plan - Dr. Caro Herrmann MD: Did also give patient she with information about amount of fiber she should be getting--20 g daily. I have discussed the above with the patient. I have offered the patient EGD and colonoscopy for evaluation. Scheduled for 04/14 per patient request I have explained the risks/benefits of the procedure and described the procedure. I have discussed the risks with the patient, including but not limi elizabeth to: infection, bleeding, perforation of the GI tract requiring emergency surgery, inability to complete the procedure, injury to any internal organs, complications of anesthesia, etc. - the patient understands and agrees to proceed. I have answered all the patient's questions to the patient's satisfaction and the patient has no further questions. The patient has been given instructions for the colon cleansing preparation. 1 day of clears MiraLAX Dulcolax split prep. Caro Herrmann M.D. Pager: [phone] [facility] [address] [place] [address], [address] [place] [address] Office: [phone] Plan Details Other Orders: Orders: Colonoscopy Today EGD Today Coding Level of Care Code Off vis,new,level 3 Diagnoses Constipation K59.00 Family history of colon cancer in father Z80.0 GERD (gastroesophageal reflux disease) K21.9 03/29/21 1351<Electronically signed by Caro Herrmann MD>Date Caro Herrmann MD
--- NOTE | 2021-04-14 10:15 | COLBX_PTH ---
PATIENT: RANDEE ADLER LOC: [place] U#:[id number] AGE/SX: 65/F ROOM: RE04/14/[address]: Dr. Caro Herrmann MD : 1955 BED: DIS: 04/14/2021 SPEC #: [id number] RECD: 04/14/21 11:34 STATUS: TETO KAYLA #: [id number] IVON: 04/14/21 10:[address]: Caro Herrmann DEPT: SURGICAL PATHOLOGY RECD BY: Marlon Vernon ENTERED: 04/14/21 12:16 SP TYPE: COLON BX OTHR DR: Sierra Hopkins, HOUSE MOVER SUPERVISOR-C Tissues: A - Gastric mucous membrane B - Descending colon C - Rectum, NOS Procedures: Surgery Specimen Level IV HEADER OPERATION: Colonoscopy, EGD ([facility] [place] PRE-OP DIAGNOSIS: Constipation, GERD TISSUE SUBMITTED: A - Antrum, H. pylori, path, B - Descending colon polyps x2, C - Rectal polyp x9 MICROSCOPIC DIAGNOSIS A. Antrum biopsy: Mild gastritis. See microscopic description and comment. B. Descending colon polyps x2, biopsy: Fragments of tubular adenoma. C. Rectal polyps x9, biopsy: Fragments of hyperplastic polyp. SJ:maik 04/15/2021 COMMENT A. The results of immunohistochemistry for Helicobacter pylori will be reported separately ([id number]). MICROSCOPIC DESCRIPTION Slides are reviewed. B. The specimen shows fragments of gastric mucosa with chronic inflammatory cell infiltrates in the lamina propria consisting of lymphocytes and plasma cells, consistent with mild chronic gastritis. GROSS DESCRIPTION A - Received in fixative is one container labeled with the patient's name and designated antrum. The specimen consists of one irregular fragment of light zavala soft tissue that measures 0.4 x 0.3 x 0.1 cm. The specimen is totally submitted in one cassette. B - Received in fixative is one container labeled with the patient's name and designated descending colon polyps x2. The specimen consists of multiple irregular fragments of light zavala soft tissue that in aggregate measure 1.4 x 0.3 x 0.1 cm. The specimen is totally submitted in one cassette. C - Received in fixative is one container labeled with the patient's name and designated rectal polyps x9. The specimen consists of multiple irregular fragments of light zavala soft tissue that in aggregate measure 2 x 0.5 x 0.1 cm. The specimen is totally submitted in one cassette. / SJ:maik 04/14/21 TC:1 CPT: 51618 x3
--- NOTE | 2021-04-14 10:15 | IMM_PTH ---
PATIENT: RANDEE ADLER LOC: EN U#:[id number] AGE/SX: 65/F ROOM: RE04/14/[address]: Dr. Caro Herrmann MD : 1955 BED: DIS: 04/14/2021 SPEC #: [id number] RECD: 04/14/21 14:10 STATUS: TETO RELakeisha #: [id number] IVON: 04/14/21 10:[address]: Caro Herrmann DEPT: IMMUNOHISTOCHEMISTRY RECD BY: Osiris German ENTERED: 04/14/21 14:10 SP TYPE: IMMUNO OTHR DR: Sierra Hopkins, COMMERCIAL SPECIALIST-C Tissues: A - Stomach, NOS Procedures: H Pylori (initial) PHYSICIAN & INSTITUTION [place] [address] SPECIMEN INFORMATION: Tissue Source: A ? Antrum biopsy Clinical Info: Constipation, GERD Specimen Number: [id number] CPT code: 51739 METHODOLOGY: Deparaffinized sections of prefer/formalin-fixed tissue or PAP/DQ stained slides are incubated with monoclonal/polyclonal antibodies/oligonucleotide probes. Localization is made via biotin free immunoperoxidase method. Appropriate controls are performed and reacted as expected. Results on target cell population are indicated in the following table: RESULTS: ANTIBODY / CLONE RESULT Block A H Pylori (polyclonal) negative These tests were developed and their performance characteristics determined by [facility]. They may not have been cleared or approved by the U.S. Food and Drug Administration. The FDA has determined that such clearance or approval is not necessary. INTERPRETATION: A. Antrum biopsy: Negative for Helicobacter pylori organisms. SJ:maik 04/15/21
[2021-04-14 10:30] LABS: Bedside Glucose 118 mg/dL (70-110)
--- NOTE | 2021-04-14 11:15 | OP.EGD_ITS ---
Patient Name: Rosa Dean Procedure Date: 04/14/2021 10:14 AM Date of : 1955 Age: 65 Procedure: Upper GI endoscopy Indications: Esophageal reflux Providers: Caro Herrmann MD Referring MD: Sierra Hopkins NP Medicines: Monitored Anesthesia Care Patient Profile: This is a 65 year old female. Complications: No immediate complications. Procedure: Pre-Anesthesia Assessment: - Prior to the procedure, a History and Physical was performed, and patient medications and allergies were reviewed. The patient's tolerance of previous anesthesia was also reviewed. The risks and benefits of the procedure and the sedation options and risks were discussed with the patient. All questions were answered, and informed consent was obtained. Prior Anticoagulants: The patient has taken no previous anticoagulant or antiplatelet agents. ASA Grade Assessment: Per anesthesia. After reviewing the risks and benefits, the patient was deemed in satisfactory condition to undergo the procedure. After obtaining informed consent, the endoscope was passed under direct vision. Throughout the procedure, the patient's blood pressure, pulse, and oxygen saturations were monitored continuously. The gastroscope was introduced through the mouth, and advanced to the second part of duodenum. The upper GI endoscopy was accomplished without difficulty. The patient tolerated the procedure well. Scope In: 10:25:38 AM Scope Out: 10:31:11 AM Total Procedure Duration Time 0 hours 5 minutes 33 seconds Findings: The Z-line was regular [cm from incisors]. Diffuse mildly erythematous mucosa without bleeding was found in the gastric antrum and in the prepyloric region of the stomach. Biopsies were taken with a cold forceps for histology. Biopsies were taken with a cold forceps for Helicobacter pylori cultures. The examined duodenum was normal. The cardia and gastric fundus were normal on retroflexion. Impression: - Z-line regular. - Erythematous mucosa in the antrum and prepyloric region of the stomach. Biopsied. - Normal examined duodenum. Recommendation: - Await pathology results. - Discharge patient to home. - Resume previous diet. - Continue present medications. Procedure Code(s): --- Professional --- 34418, Esophagogastroduodenoscopy, flexible, transoral; with biopsy, single or multiple Diagnosis Code(s): --- Professional --- K31.89, Other diseases of stomach and duodenum K21.9, Gastro-esophageal reflux disease without esophagitis CPT copyright 2017 [employer]. All rights reserved. The codes documented in this report are preliminary and upon farm reporter review may be revised to meet current compliance requirements. MD Caro Zhou MD 04/14/2021 11:14:42 AM This report has been signed electronically. Number of Addenda: 0 Note Initiated On: 04/14/2021 10:14 AM
--- NOTE | 2021-04-14 11:16 | OP.CCLET_ITS ---
04/14/2021 Sierra Hopkins, JEROD [address] [place] [address] Re : Upper GI endoscopy procedure for Rosa Dean Dear Ms. Hopkins This procedure was performed on Wednesday, April 14, 2021. My impressions and recommendations are as follows: Impressions : - Z-line regular. - Erythematous mucosa in the antrum and prepyloric region of the stomach. Biopsied. - Normal examined duodenum. Recommendations : - Await pathology results. - Discharge patient to home. - Resume previous diet. - Continue present medications. My findings are described in the full procedure note, which is enclosed. If I can be of further assistance, please feel free to contact me at Doctor phone number(s): , Work: . Sincerely, MD Caro Zhou MD 04/14/2021 11:14:42 AM This report has been signed electronically.
[2021-04-14 11:20] VITALS: BP 106/66; BP 107/61; PULSE 69; RESP 16; TEMP 35.9; O2SAT 96
--- NOTE | 2021-04-14 11:22 | OP.COLON_ITS ---
Patient Name: Rosa Dean Procedure Date: 04/14/2021 10:31 AM Date of : 1955 Age: 65 Procedure: Colonoscopy Indications: Family history of colon cancer in a first-degree relative, Constipation Providers: Caro Herrmann MD Referring MD: Sierra Hopkins NP Medicines: Monitored Anesthesia Care Patient Profile: This is a 65 year old female. Last Colonoscopy: more than 10 years ago. Complications: No immediate complications. Procedure: Pre-Anesthesia Assessment: - Prior to the procedure, a History and Physical was performed, and patient medications and allergies were reviewed. The patient's tolerance of previous anesthesia was also reviewed. The risks and benefits of the procedure and the sedation options and risks were discussed with the patient. All questions were answered, and informed consent was obtained. Prior Anticoagulants: The patient has taken no previous anticoagulant or antiplatelet agents. ASA Grade Assessment: Per anesthesia. After reviewing the risks and benefits, the patient was deemed in satisfactory condition to undergo the procedure. After I obtained informed consent, the scope was passed under direct vision. Throughout the procedure, the patient's blood pressure, pulse, and oxygen saturations were monitored continuously. The Colonoscope was introduced through the anus and advanced to the cecum, identified by the ileocecal valve. The colonoscopy was performed without difficulty. The patient tolerated the procedure well. The quality of the bowel preparation was good. Scope In: 10:35:02 AM Scope Withdrawal Time 0 hours 25 minutes 6 seconds Scope Out: 11:09:42 AM Total Procedure Duration Time 0 hours 34 minutes 40 seconds Findings: Hemorrhoids were found on perianal exam. Non-bleeding external and internal hemorrhoids were found. The hemorrhoids were Grade I (internal hemorrhoids that do not prolapse). Two sessile polyps were found in the descending colon. The polyps were less than 5 mm in size. These polyps were removed with a cold biopsy forceps. Resection and retrieval were complete. Nine sessile polyps were found in the rectum. The polyps were less than 5 mm in size. These polyps were removed with a cold biopsy forceps. Resection and retrieval were complete. A few small-mouthed diverticula were found in the sigmoid colon. The exam was otherwise without abnormality. Impression: - Hemorrhoids found on perianal exam. - Non-bleeding external and internal hemorrhoids. - Two less than 5 mm polyps in the descending colon, removed with a cold biopsy forceps. Resected and retrieved. - Nine less than 5 mm polyps in the rectum, removed with a cold biopsy forceps. Resected and retrieved. - Diverticulosis in the sigmoid colon. - The examination was otherwise normal. Recommendation: - Discharge patient to home. - High fiber diet. - Continue present medications. - Await pathology results. - Repeat colonoscopy in 3 years for surveillance based on pathology results. Procedure Code(s): --- Professional --- 50426, Colonoscopy, flexible; with biopsy, single or multiple Diagnosis Code(s): --- Professional --- K64.0, First degree hemorrhoids D12.4, Benign neoplasm of descending colon K62.1, Rectal polyp Z80.0, Family history of malignant neoplasm of digestive organs K59.00, Constipation, unspecified K57.30, Diverticulosis of large intestine without perforation or abscess without bleeding CPT copyright 2017 [employer]. All rights reserved. The codes documented in this report are preliminary and upon staff air tactical officer review may be revised to meet current compliance requirements. MD Caro Zhou MD 04/14/2021 11:22:13 AM This report has been signed electronically. Number of Addenda: 0 Note Initiated On: 04/14/2021 10:31 AM
--- NOTE | 2021-04-14 11:22 | OP.CCLET_ITS ---
04/14/2021 Sirera Hopkins, JEROD [address] [place] [address] Re : Colonoscopy procedure for Rosa Dean Dear Ms. Hopkins This procedure was performed on Wednesday, April 14, 2021. My impressions and recommendations are as follows: Impressions : - Hemorrhoids found on perianal exam. - Non-bleeding external and internal hemorrhoids. - Two less than 5 mm polyps in the descending colon, removed with a cold biopsy forceps. Resected and retrieved. - Nine less than 5 mm polyps in the rectum, removed with a cold biopsy forceps. Resected and retrieved. - Diverticulosis in the sigmoid colon. - The examination was otherwise normal. Recommendations : - Discharge patient to home. - High fiber diet. - Continue present medications. - Await pathology results. - Repeat colonoscopy in 3 years for surveillance based on pathology results. My findings are described in the full procedure note, which is enclosed. If I can be of further assistance, please feel free to contact me at Doctor phone number(s): , Work: . Sincerely, MD Caro Zhou MD 04/14/2021 11:22:13 AM This report has been signed electronically.
[2021-04-14 11:25] VITALS: BP 106/66; BP 123/52; PULSE 72; RESP 16; O2SAT 96
[2021-04-14 11:30] VITALS: BP 106/66; BP 115/71; PULSE 72; RESP 16; O2SAT 97
[2021-04-14 11:35] VITALS: BP 106/66; BP 112/63; PULSE 69; RESP 16; TEMP 36.3; O2SAT 96
[2021-04-14 12:14] VITALS: BP 106/66
== END 2021-04-14 12:20 ==
LOC: EN 08:44 → AC 08:45
PROVIDERS: PCP Nurse Practitioner; Referring Provider Nurse Practitioner; Visit Provider Surgery
PROC: 0DJD8ZZ Inspection of Lower Intestinal Tract, Via Natural or Artificial Opening Endoscopic (ICD-10-PCS; CPT 45378; principal; 2021-04-14 10:10)
DX: K29.70 Gastritis, unspecified, without bleeding (principal); K21.9 Gastro-esophageal reflux disease without esophagitis; D12.4 Benign neoplasm of descending colon; K62.1 Rectal polyp; K64.0 First degree hemorrhoids; K64.4 Residual hemorrhoidal skin tags; K57.30 Diverticulosis of large intestine without perforation or abscess without bleeding; Z80.0 Family history of malignant neoplasm of digestive organs; G56.02 Carpal tunnel syndrome, left upper limb; J44.9 Chronic obstructive pulmonary disease, unspecified; F32.9 Major depressive disorder, single episode, unspecified; E11.9 Type 2 diabetes mellitus without complications; M79.7 Fibromyalgia; E78.5 Hyperlipidemia, unspecified; G47.33 Obstructive sleep apnea (adult) (pediatric); M19.90 Unspecified osteoarthritis, unspecified site; G25.81 Restless legs syndrome; M06.9 Rheumatoid arthritis, unspecified; Z87.01 Personal history of pneumonia (recurrent); Z79.899 Other long term (current) drug therapy; F17.210 Nicotine dependence, cigarettes, uncomplicated
CPT/HCPCS: 43239; 45380; 82962; 87426; 88305; 88342; C9803; J7120; J2405

== ENCOUNTER → 2021-04-19 14:57 | Outpatient (CLI) | payer MEDICARE, SELFPAY ==
[2021-03-29 13:46] VITALS: BMI 35.8
[2021-04-14 09:14] VITALS: BMI 35.4
--- NOTE | 2021-04-19 14:59 | CT_ITS ---
STUDY: LOW DOSE CT LUNG CANCER SCREENING REASON FOR EXAM: Female, 65 years old. Current smoker and gt; 30 pack years RADIATION DOSAGE (If Supplied By Facility): CTDIvol = ( 2.39 ) mGy, DLP = ( 71.76 ) mGycm TECHNIQUE: No contrast was administered. Low dose technique was utilized (average mAS-38 and kVp 120). 1.25 mm axial source images with a slice interval of 1.25-mm were reconstructed in lung windows. 2.5 mm axial source images with a slice interval of 2.5-mm were reconstructed in lung windows. 5.0 mm axial source images with a slice interval of 5.0-mm were reconstructed in soft tissue windows. Nodule measured using lung windows on PACS and/or independent workstation with automated measurement of minimum and maximum diameter. Nodule measurement reported as average diameter rounded to the nearest whole number. Growth is defined as an increase ins size of greater than 1.5 mm. COMPARISON: Comparison is made with prior study dated 04/10/2020. NODULES: No suspicious nodules are seen. Emphysema: Stable mild degree of emphysematous changes in the upper lobes with a 1.1 cm bulla in the right upper lobe anteriorly. Endobronchial lesion: None Aorta: Atherosclerotic plaque formation of the aortic arch. Coronary arteries: Coronary artery calcifications. Heart: Unremarkable. Pulmonary artery: Unremarkable. Mediastinal nodes: Stable small benign-appearing mediastinal lymph nodes. Other chest and abdominal findings: CT/Low Dose CT Lung Screening IMPRESSION: Lung-RADS category 2 - Continue annual screening with LDCT in 12 months. IMPORTANT NOTES FOR USE: ACR Lung-RADS Version 1.1 Assessment Categories Release Date: 2018 Category: Coded 0-4 bases on nodule(s) with highest degree of suspicion. Negative screen is defined as categories 1 and 2; a positive screen is defined as categories 3 and 4. Category 3 and 4A nodules that are unchanged on interval CT should be coded as category 2, and individuals returned to screening in 12 months. Category 4X: Category 3 or 4 nodules with additional imaging findings that increase the suspicion of lung cancer, such as spiculation, GGN that doubles in size in 1 year, enlarged lymph notes, etc. Category Modifiers: S (significant finding unrelated to lung cancer) Electronically Signed: Brandon Lee MD at 9:34 EDT , Service support ,
== END ==
PROVIDERS: PCP Nurse Practitioner; Referring Provider Nurse Practitioner Acute Care; Visit Provider Nurse Practitioner Acute Care
DX: F17.210 Nicotine dependence, cigarettes, uncomplicated (principal)
CPT/HCPCS: 71271

== ENCOUNTER → 2022-06-22 | Outpatient (CLI) | payer MEDICARE, SELFPAY ==
--- NOTE | 2022-06-22 08:08 | CT_ITS ---
STUDY: LOW DOSE CT LUNG CANCER SCREENING REASON FOR EXAM: Female, 66 years old. 40+ pack year history of smoking RADIATION DOSAGE (If Supplied By Facility): CTDIvol = ( 3.02 ) mGy, DLP = ( 104.95 ) mGycm TECHNIQUE: No contrast was administered. Low dose technique was utilized (average mAS-38 and kVp 120). 1.25 mm axial source images with a slice interval of 1.25-mm were reconstructed in lung windows. 2.5 mm axial source images with a slice interval of 2.5-mm were reconstructed in lung windows. 5.0 mm axial source images with a slice interval of 5.0-mm were reconstructed in soft tissue windows. COMPARISON: 04/19/2021 FINDINGS: Lung windows show underlying emphysema with bleb formation in the upper lobes. Chronic interstitial changes in both lung coates with nonspecific pleural thickening, there is no suspicious noncalcified mass or nodule organized infiltrate. Soft tissue windows show normal-appearing thyroid gland. No suspicious adenopathy. There are calcified coronary vessels, no pleural or pericardial effusions. Limited cuts through the upper abdomen do not show suspicious abnormality. Bony structures show degenerative change. CT/Low Dose CT Lung Screening IMPRESSION: Lung-RADS category 2 - Continue annual screening with LDCT in 12 months. IMPORTANT NOTES FOR USE: ACR Lung-RADS Version 1.1 Assessment Categories Release Date: 2018 Category: Coded 0-4 bases on nodule(s) with highest degree of suspicion. Negative screen is defined as categories 1 and 2; a positive screen is defined as categories 3 and 4. Category 3 and 4A nodules that are unchanged on interval CT should be coded as category 2, and individuals returned to screening in 12 months. Category 4X: Category 3 or 4 nodules with additional imaging findings that increase the suspicion of lung cancer, such as spiculation, GGN that doubles in size in 1 year, enlarged lymph notes, etc. Category Modifiers: S (significant finding unrelated to lung cancer) Electronically Signed: Ulysses Allan MD at 8:33 EDT ,
== END | disposition home or self-care (01) ==
PROVIDERS: PCP Nurse Practitioner; Referring Provider Nurse Practitioner Acute Care; Visit Provider Nurse Practitioner Acute Care
DX: F17.210 Nicotine dependence, cigarettes, uncomplicated (principal)
CPT/HCPCS: 71271

== ENCOUNTER → 2022-07-14 | Outpatient (CLI) | payer MEDICARE, SELFPAY ==
--- NOTE | 2022-07-14 14:38 | PFTCOMP ---
COMPLETE PULMONARY FUNCTION TEST INTERPRETATION Brief HPI: Patient is a 66-year-old female, currently under the care of Princess Horan, who presents to [facility] for complete pulmonary function tests secondary to diagnosis of COPD. Respiratory therapist reports good effort and reproducible results. Interpretation: Forced expiration spirometry shows no large airways obstructive ventilatory defect with an FEV1 of 72% predicted. There is no significant bronchodilator response by strict ATS criteria. Spirograms are of good quality and plateau slowly, indicating slowly emptying areas of the lungs. The respiratory flow volume loop shows decreased expiratory flow rates at high lung volumes consistent with small airways obstruction. Lung volumes by body plethysmography show a normal total lung capacity at 4.53 L, 102% predicted. All other lung volumes are within normal limits. Diffusion capacity by carbon monoxide is decreased at 64% predicted. The airway resistance is elevated. Compared to previous pulmonary function tests from 05/13/2020, there has been slight worsening in air trapping. Impression: Isolated reduction diffusion capacity with some stigmata of small airways disease
== END | disposition home or self-care (01) ==
LOC: PSN 13:00
PROVIDERS: PCP Nurse Practitioner; Referring Provider Nurse Practitioner Acute Care; Visit Provider Nurse Practitioner Acute Care
DX: J44.9 Chronic obstructive pulmonary disease, unspecified (principal)
CPT/HCPCS: 94060; 94726; 94729

== ENCOUNTER 2023-04-29 10:26 | Emergency (ER) | payer MEDICARE, SELFPAY ==
[2023-04-29 10:28] VITALS: BP 118/65; PULSE 73; RESP 18; TEMP 36.6; O2SAT 99; BMI 38.5
--- NOTE | 2023-04-29 11:17 | RAD_ITS ---
STUDY: X-RAY - RIGHT KNEE REASON FOR EXAM: Female, 67 years old. fall TECHNIQUE: 4 view(s) of the knee. COMPARISON: None. FINDINGS: Normal visualized distal femur. Normal visualized proximal tibia and fibula. Normal proximal tibiofibular articulation. Normal medial femorotibial compartment. Normal lateral femorotibial compartment. Normal patellofemoral articulation. The soft tissue structures are unremarkable. RAD/Knee 4 or More Views IMPRESSION: Normal x-ray examination of the knee. Electronically Signed: Jemal Warren MD at 11:59 EDT ,
--- NOTE | 2023-04-29 11:17 | RAD_ITS ---
STUDY: X-RAY - PELVIS AND RIGHT HIP REASON FOR EXAM: Female, 67 years old. fall TECHNIQUE: 3 views of the pelvis and hip. COMPARISON: None. FINDINGS: There is a non-specific bowel gas pattern. Normal visualized soft tissue structures. Normal bilateral iliac wings, sacroiliac joints and visualized sacrum. Normal bilateral superior and inferior pubic rami. Normal pubic symphysis. Normal bilateral ischial tuberosities. Normal visualized femoral head. Normal acetabulum. Normal hip joint. RAD/HIP, UNI W/ Pelvis 2-3 Views IMPRESSION: Normal x-ray examination of the pelvis and hip. Electronically Signed: Jemal Warren MD at 11:56 EDT ,
--- NOTE | 2023-04-29 11:19 | EDS_ITS ---
HPI <FADIA Robbins - Last Filed: 04/29/23 18:19> History of Present Illness Chief Complaint: Back Narrative Narrative: Patient is a 67-year-old female with history of anxiety, depression who presents to the emergency department with a fall 4 days ago. Patient states that she was leaving her trailer and going out to feed the birds when she slipped falling on her right side. Patient states she has right hip pain, right knee pain. She is having difficulty walking and the pain goes from her buttock all the way down to her foot. She did see her PCP who thought it was her sciatica and gave her an injection. Patient states she still having pain. She denies any head or neck injury. She denies any LOC. PFSH <FADIA Robbins - Last Filed: 04/29/23 18:19> [facility] Medical History Anxiety Arthritis Carpal tunnel syndrome of left wrist COPD (chronic obstructive pulmonary disease) COPD (chronic obstructive pulmonary disease) CPAP (continuous positive airway pressure) dependence Depression Diabetes Fibromyalgia Gastric reflux GERD (gastroesophageal reflux disease) High cholesterol Hyperlipemia Injury of head and neck NHI (obstructive sleep apnea) Osteoarthrosis Pneumonia Restless leg syndrome Rheumatoid arthritis Shortness of breath on exertion Sleep apnea Smoker Thyroid disease Tobacco abuse Trigger finger of left thumb Type 2 diabetes mellitus Wears dentures Wears glasses Home Medications amitriptyline 10 mg tablet 10 mg PO QHS 11/22/17 [History Last Taken Unknown] ergocalciferol (vitamin D2) 1,250 mcg (50,000 unit) capsule 1 tab PO QWEEK 11/22/17 [History Last Taken Unknown] famotidine 40 mg tablet 40 mg PO DAILY REFLUX 11/22/17 [History Last Taken Unknown] venlafaxine 150 mg capsule,extended release 24 hr 150 mg PO DAILY 05/29/20 [History Last Taken Unknown] montelukast 10 mg tablet 10 mg PO QPM #30 tabs 05/19/22 [Rx Last Taken Unknown] albuterol sulfate 90 mcg/actuation aerosol inhaler 1 - 2 puff inhalation Q4H PRN PRN Wheezing #18 grams 11/23/22 [Rx Last Taken Unknown] albuterol sulfate 2.5 mg/3 mL (0.083 %) solution for nebulization 2.5 mg (3 mL) inhalation Q4H PRN PRN Wheezing #180 mL 11/30/22 [Rx Last Taken Unknown] budesonide 160 mcg-glycopyr 9 mcg-formot 4.8 mcg/actuation HFA inhaler (Breztri Aerosphere) 2 inh inhalation BID #10.7 grams 03/08/23 [Rx Last Taken Unknown] prednisone 20 mg tablet 60 mg (3 x 20 mg) PO QDAY #15 tabs 03/08/23 [Rx Last Taken Unknown] oxycodone-acetaminophen 5 mg-325 mg tablet (Percocet) 1 tab PO Q8H PRN pain 3 days #10 tabs 04/29/23 [Rx Last Taken Unknown] Allergy/AdvReac Type Severity Reaction Status Date / Time No Known Allergies Allergy Verified 03/08/23 07:49 Family History (Reviewed 03/08/23 @ 08:04 by Princess Horan BUILDING SERVICES TECHNICIAN, BUILDING SERVICES TECHNICIAN-C) Father Colon cancer Kidney disease Mother Diabetes Heart disease Thyroid disorder Grandfather Alcohol abuse Sister Cancer Breast cancer Surgical History (Reviewed 03/08/23 @ 08:04 by Princess Horan BUILDING SERVICES TECHNICIAN, BUILDING SERVICES TECHNICIAN-C) History of appendectomy History of carpal tunnel surgery of left wrist History of carpal tunnel surgery of right wrist History of hysterectomy History of tubal ligation Normal colonoscopy S/P laparoscopic cholecystectomy Social History (Reviewed 03/08/23 @ 08:04 by Princess Horan BUILDING SERVICES TECHNICIAN, BUILDING SERVICES TECHNICIAN-C) household members: significant other housing: other details: mobile home Smoking Status: Current every day smoker tobacco type: cigarettes second hand exposure: Yes alcohol intake: never substance use type: does not use ROS <FADIA Robbins - Last Filed: 04/29/23 18:19> ROS ED ROS Narrative Constitutional: Negative for fever, chills, weight loss, weakness Eyes: Negative for vision loss, vision change, double vision ENT: Negative for any sore throat, ear pain, congestion Cardiovascular: Negative for any chest pain, tightness, palpitations Respiratory: Negative for any cough, sputum production, hemoptysis, dyspnea, dyspnea on exertion, orthopnea Gastrointestinal: Negative for any abdominal pain, nausea, vomiting, diarrhea, constipation, blood in stool, blood in vomit : Negative for any urinary frequency, dysuria, retention, blood in urine Muscle skeletal: Negative for any muscle joint pain, stiffness, myalgias, arthralgias, neck pain, back pain. Positive right hip pain, right leg pain right knee pain Neurological: Negative for any headache, syncope, numbness or tingling, dizziness Skin: Negative for any rashes, lumps, itching, abrasions, lacerations Psychiatric: Negative for any depression, anxiety, stress, suicidal ideation, homicidal ideation Hematologic: Negative for any easy bruising, excessive bruising, easy bleeding Allergies: Negative for any eczema, hives, rash EXAM <FADIA Robbins - Last Filed: 04/29/23 18:19> Physical Exam Narrative Exam Narrative: Vital signs reviewed. HEET: Head normocephalic atraumatic, TMs clear bilaterally. Posterior pharynx is clear, moist mucous membranes. Nares clear bilaterally. Neck: Supple with no lymphadenopathy or tenderness. No signs of meningismus, negative jolt sign. Cardiac: Regular rate and rhythm no murmurs gallops or rubs, equal peripheral pulses bilaterally. Respiratory: Lungs clear to auscultation bilaterally. No chest tenderness. Abdomen: Soft, nontender, nondistended. No abdominal bruit or pulsatile masses. No hepatosplenomegaly Extremities: No peripheral edema, no signs of gross trauma or deformity. Patient is laying on her left side because laying on her right side is causing worsening pain. Patient has pain to the right hip that radiates down the buttock to the thigh. Patient has knee pain, she does have an intact extensor medicine. No neurological focal deficit. There is no shortening. No signs of ecchymosis or trauma. Neuro: Cranial nerves II through XII intact, no focal neurological deficits. Skin: Clean dry and intact with no rash, purpura, petechiae, vesicles or pustules. Backs/flank: No CVA tenderness, no midline spinal tenderness, no deformity. Psych: Normal mood and affect. No SI, HI or acute psychosis. Const Vital Signs: 04/29/23 10:28 04/29/23 12:36 Temperature 97.8 F Temperature Source Temporal Pulse Rate 73 Respiratory Rate 18 18 Blood Pressure 118/65 Blood Pressure Mean 82 Pulse Ox 99 Oxygen Delivery Method Room Air <Dr. Ned Bennett DO - Last Filed: 04/29/23 18:20> Physical Exam Const Vital Signs: 04/29/23 10:28 04/29/23 12:36 Temperature 97.8 F Temperature Source Temporal Pulse Rate 73 Respiratory Rate 18 18 Blood Pressure 118/65 Blood Pressure Mean 82 Pulse Ox 99 Oxygen Delivery Method Room Air [facility] <FADIA Robbins - Last Filed: 04/29/23 18:19> [facility] Radiography Diagnostic Testing: Clinical Impression(s) from Imaging Studies Hip/Pelvis X-Ray 04/29/23 11:17 IMPRESSION: Normal x-ray examination of the pelvis and hip. Electronically Signed: Jemal Warren MD at 11:56 EDT Reading Location ID and State: [id number] / [employer] Tel , Service support , Knee X-Ray 04/29/23 11:17 IMPRESSION: Normal x-ray examination of the knee. Electronically Signed: Jemal Warren MD at 11:59 EDT Reading Location ID and State: [id number] / [employer] Tel , Service support , Treatment and Re-Evaluation :: Patient appears to be in mild distress secondary to pain to the right hip. Patient presents after a fall 4 days ago. Patient received x-rays of the right hip as well as the right knee. On physical examination, there is no obvious osseous abnormality, no obvious trauma with shortening or rotation. Patient will receive IM morphine, Zofran. On reassessment, the patient was feeling better. The patient could move more easily. She was ambulatory. Patient's x-ray of the hip showed normal examination of the hip and pelvis. Patient's x-ray of the right knee shows no acute osseous process. Patient is likely suffering from muscle skeletal pain, contusions. Patient be given Percocet for home instructed to ice, rest, form gentle stretching. All questions answered, she was given strict return precaution. Patient does have a cane at home and she was instructed to use that. Patient stable for discharge. <Dr. Ned Bennett DO - Last Filed: 04/29/23 18:20> [facility] Radiography Diagnostic Testing: Clinical Impression(s) from Imaging Studies Hip/Pelvis X-Ray 04/29/23 11:17 IMPRESSION: Normal x-ray examination of the pelvis and hip. Electronically Signed: Jemal Warren MD at 11:56 EDT , Knee X-Ray 04/29/23 11:17 IMPRESSION: Normal x-ray examination of the knee. Electronically Signed: Jemal Warren MD at 11:59 EDT , Treatment and Re-Evaluation :: Patient appears to be in mild distress secondary to pain to the right hip. Patient presents after a fall 4 days ago. Patient received x-rays of the right hip as well as the right knee. On physical examination, there is no obvious osseous abnormality, no obvious trauma with shortening or rotation. Patient will receive IM morphine, Zofran. On reassessment, the patient was feeling better. The patient could move more easily. She was ambulatory. Patient's x-ray of the hip showed normal examination of the hip and pelvis. Patient's x-ray of the right knee shows no acute osseous process. Patient is likely suffering from muscle skeletal pain, contusions. Patient be given Percocet for home instructed to ice, rest, form gentle stretching. All questions answered, she was given strict return precaution. Patient does have a cane at home and she was instructed to use that. Patient stable for discharge. I, Dr Bennett, have reviewed the above progress note and course of action in the ER; agree with the above. I have personally seen and evaluated this patient, gone over history and physical, and discussed disposition and treatment plan with the patient. Discharge Plan Triage Chief Complaint: Back ED Midlevel Provider: Liu Mckeon ED Provider: Ned Bennett Dx/Rx/DC Orders Clinical Impression: Contusion of hip, Contusion of knee, Fall Instructions: Bruises (Contusions), Bone Contusion Prescriptions: New oxycodone-acetaminophen [Percocet] 5-325 mg tablet 1 tab PO Q8H PRN (Reason: pain) 3 Days Qty: 10 0RF No Action venlafaxine 150 mg capsule,extended release 24hr 150 mg PO DAILY montelukast 10 mg tablet 10 mg PO QPM Qty: 30 3RF Breztri Aerosphere 160-9-4.8 mcg/actuation HFA aerosol inhaler 2 inh inhalation BID Qty: 10.7 6RF prednisone 20 mg tablet 60 mg PO QDAY Qty: 15 0RF Rx Instructions: administer with food or milk famotidine 40 MG tablet 40 mg PO DAILY amitriptyline 10 MG tablet 10 mg PO QHS ergocalciferol (vitamin D2) 50,000 UNIT capsule 1 tab PO QWEEK albuterol sulfate 90 mcg/actuation HFA aerosol inhaler 1 - 2 puff inhalation Q4H PRN PRN (Reason: Wheezing) Qty: 18 6RF albuterol sulfate 2.5 mg /3 mL (0.083 %) solution for nebulization 2.5 mg inhalation Q4H PRN PRN (Reason: Wheezing) Qty: 180 3RF Primary Care Provider: Zunilda Suarez Referrals: Zunilda Suarez, BUILDING SERVICES TECHNICIAN-C [Primary Care Provider] - Disposition Disposition: Home, Self Care Discharge Date/Time: 04/29/23 12:37
[2023-04-29] MEDS: Ondansetron ODT 4 MG Tablet PO (11:24)
[2023-04-29] MEDS: Morphine 4 MG/ML Syringe IM (11:24)
[2023-04-29 12:36] VITALS: RESP 18
== END 2023-04-29 12:37 | disposition home or self-care (01) ==
LOC: ED 12:24
PROVIDERS: Emergency Provider Emergency Medicine; PCP Nurse Practitioner Family; Visit Provider Emergency Medicine
DX: S70.01XA Contusion of right hip, initial encounter (principal); J44.9 Chronic obstructive pulmonary disease, unspecified; E11.9 Type 2 diabetes mellitus without complications; E78.00 Pure hypercholesterolemia, unspecified; K21.9 Gastro-esophageal reflux disease without esophagitis; Z79.899 Other long term (current) drug therapy; F32.A Depression, unspecified; Z90.49 Acquired absence of other specified parts of digestive tract; Z90.710 Acquired absence of both cervix and uterus; F17.210 Nicotine dependence, cigarettes, uncomplicated; W01.0XXA Fall on same level from slipping, tripping and stumbling without subsequent striking against object, initial encounter; Y92.89 Other specified places as the place of occurrence of the external cause; S80.01XA Contusion of right knee, initial encounter
CPT/HCPCS: 73502; 73564; 96372; 99283

== ENCOUNTER → 2023-11-07 | Outpatient (CLI) | payer MEDICARE, SELFPAY ==
--- NOTE | 2023-11-07 08:19 | CT_ITS ---
STUDY: LOW DOSE CT LUNG CANCER SCREENING REASON FOR EXAM: Female, 68 years old. Smoker. Patient smoked 1 pack per day for 40 years. RADIATION DOSAGE (If Supplied By Facility): CTDIvol = ( 3.02 ) mGy, DLP = ( 105.33 ) mGycm TECHNIQUE: No contrast was administered. Low dose technique was utilized (average mAS-38 and kVp 120). 1.25 mm axial source images with a slice interval of 1.25-mm were reconstructed in lung windows. 2.5 mm axial source images with a slice interval of 2.5-mm were reconstructed in lung windows. 5.0 mm axial source images with a slice interval of 5.0-mm were reconstructed in soft tissue windows. COMPARISON: Comparison is made with prior study June 22, 2022. NODULES: No suspicious nodules are seen. Emphysema: Mild emphysematous changes. Endobronchial lesion: None Aorta: Calcific plaques of the aortic arch. CORONARY ARTERIES: Coronary artery calcification is seen. Heart: Pulmonary artery: Unremarkable Mediastinal nodes: Small mediastinal lymph nodes. Other chest and abdominal findings: CT/Low Dose CT Lung Screening IMPRESSION: Lung-RADS category 2 - Continue annual screening with LDCT in 12 months. IMPORTANT NOTES FOR USE: ACR Lung-RADS Version 1.1 Assessment Categories Release Date: 2018 Category: Coded 0-4 bases on nodule(s) with highest degree of suspicion. Negative screen is defined as categories 1 and 2; a positive screen is defined as categories 3 and 4. Category 3 and 4A nodules that are unchanged on interval CT should be coded as category 2, and individuals returned to screening in 12 months. Category 4X: Category 3 or 4 nodules with additional imaging findings that increase the suspicion of lung cancer, such as spiculation, GGN that doubles in size in 1 year, enlarged lymph notes, etc. Category Modifiers: S (significant finding unrelated to lung cancer) Electronically Signed: Brandon Lee MD at 9:57 EST ,
--- OUTSIDE RECORDS SUMMARY | 2023-11-07 08:33 | XMS RPT_ITS | CCD ---
Author Name Unknown Address [address] [place] [address] Organization [facility] Care Team Providers Care Water Chaser Name Role Phone SUE VELA Ashwini Unavailable Unavailable Sierra Hopkins Unavailable Vicente Armando Unavailable Lusi Sesay Unavailable Unavailable Keyona Patel Unavailable Unavailable Unavailable Unavailable Buffy Stone Unavailable Unavailable Thalia Silverio Unavailable Unavailable Luis Mariano Unavailable Unavailable Sierra Hopkins CNP Unavailable Luis Mariano LPN Unavailable Unavailable Thalia Silverio LPN Unavailable Unavailable Unavailable Unavailable Caro Herrmann Unavailable Qamar Mcmullen MD Primary Care Provider Sierra Hopkins Unavailable Qamar Mcmullen MD Primary Care Provider Sierra Hopkins Unavailable Tala Garduno LPN Unavailable Unavailable Zunilda Suarez CNP Unavailable Sierra Hopkins Attending Unavailable Sierra Hopkins Consulting Unavailable Lashell Ferreira MA Unavailable Unavailable Kristy Salter MD Unavailable Medications Completed/Discontinued Medications Medication Drug Class(es) Dates Sig (Normalized) Sig (Original) [id number] 200 actuat albuterol 0.09 mg/actuat metered dose inhaler (6 sources) beta2-Adrenergic Agonist Start: 07-31-2020 take 2 puff(s) by inhalation every four hours as needed for wheezing albuterol HFA (VENTOLIN HFA) 90 mcg/actuation inhaler Indications: Chronic obstructive pulmonary disease, unspecified COPD type (HCC) inhale 2 puffs every 4 hours as needed for shortness of breath and wheezing 18 g 5 07/31/2020 Active Problems Active Problems Problem Classification Problem Date Documented Da te Episodic/Chronic Abdominal pain (20 sources) Abdominal pain; Translations: [Abdominal pain] Resolved: 03-22-2021 01-03-2020 Episodic Past or Other Problems Problem Classification Problem Date Documented Da te Episodic/Chronic Chronic obstructive pulmonary disease and bronchiectasis (20 sources) Chronic obstructive pulmonary disease and bronchiectasis Other connective tissue disease (11 sources) Pain in right hand; Translations: [Right hand pain] 01-20-2020 Results Test Name Value Interpretation Reference Range Facil ity Vital Signs Date Time Vital Sign Value Performing Clinician Facility 04-18-2023 14:27-0400 Body height 158.75 cm Tala Garduno LPN [facility] Work Phone: 04-18-2023 14:27-0400 Body mass index (BMI) [Ratio] 34.74 kg/m2 Tala Garduno LPN [facility]; [facility] Work Phone: 04-18-2023 14:27-0400 Body surface area Derived from formula 1.89 m2 Tala Garduno LPN [facility]; [facility] Work Phone: 04-18-2023 14:27-0400 Body temperature 96.7 [degF] Tala Garduno LPN [facility]; [facility] Work Phone: Encounters Encounter Date Encounter Type Care Provider Facility Start: 05-11-2023 End: 05-11-2023 Phone Encounter Sierra Karmenyaimakaylie Work Phone: [facility] Start: 05-05-2023 End: 05-05-2023 Patient encounter procedure Sierra Hopkins Work Phone: [facility] Start: 04-18-2023 End: 04-18-2023 Office outpatient visit 15 minutes Sierra Hopkins Work Phone: [facility] Start: 02-20-2023 End: 02-21-2023 Annotation/Addendum Sierra Hopkins Work Phone: [facility] Start: 02-17-2023 End: 02-17-2023 Office outpatient visit 15 minutes Sierra Hopkins Work Phone: [facility] Start: 12-07-2022 ambulatory [facility] Start: 08-10-2022 End: 08-21-2022 Office outpatient visit 25 minutes Sierra Hopkins Work Phone: [facility] Start: 08-10-2022 Review Sierra Hopkins Work Phone: [facility] Start: 07-12-2022 End: 07-12-2022 Patient encounter procedure Sierra Hopkins Work Phone: [facility] Start: 06-14-2022 End: 06-14-2022 Annotation/Addendum Sierra Hopkins Work Phone: [facility] Start: 06-09-2022 End: 06-09-2022 Prescription Refill Sierra Hopkins Work Phone: [facility] Start: 06-08-2022 End: 06-14-2022 Office outpatient visit 15 minutes Sierra Hopkins Work Phone: [facility] Start: 06-03-2022 End: 06-14-2022 Office outpatient visit 25 minutes Sierra Hopkins Work Phone: [facility] Start: 01-31-2022 ambulatory [facility] [place] Procedures Date Procedure Procedure Detail Performing Clinician Start: 04-29-2023 End: 04-29-2023 Emergency Department Summary Procedure Note: See Note; NOTES: [facility] Medical Records Department [address] [place] [address] Emergency Department Summary 04/29/23 MR#: [id number] Acct: [id number] Name: ROSA DEAN Rep #: [id number] : 1955 67 From: Liu LOAIZA PCP: FADIA Gerardo Status:DEP ER Location: ED HPI <FADIA Robbins - Last Filed: 07/29/23 18:19> History of Present Illness Chief Complaint: Back Narrative Narrative: Patient is a 67-year-old female with history of anxiety, depression who presents to the emergency department with a fall 4 days ago. Patient states that she was leaving her trailer and going out to feed the birds when she slipped falling on her right side. Patient states she has right hip pain, right knee pain. She is having difficulty walking and the pain goes from her buttock all the way down to her foot. She did see her PCP who thought it was her sciatica and gave her an injection. Patient states she still having pain. She denies any head or neck injury. She denies any LOC. [facility] <AMIRA RobbinsC - Last Filed: 04/29/23 18:19> [facility] Medical History Anxiety Arthritis Carpal tunnel syndrome of left wrist COPD (chronic obstructive pulmonary disease) COPD (chronic obstructive pulmonary disease) CPAP (continuous positive airway pressure) dependence Depression Diabetes Fibromyalgia Gastric reflux GERD (gastroesophageal reflux disease) High cholesterol Hyperlipemia Injury of head and neck NHI (obstructive sleep apnea) Osteoarthrosis Pneumonia Restless leg syndrome Rheumatoid arthritis Shortness of breath on exertion Sleep apnea Smoker Thyroid disease Tobacco abuse Trigger finger of left thumb Type 2 diabetes mellitus Wears dentures Wears glasses Home Medications amitriptyline 10 mg tablet 10 mg PO QHS 11/22/17 [History Last Taken Unknown] ergocalciferol (vitamin D2) 1,250 mcg (50,000 unit) capsule 1 tab PO QWEEK 11/22/17 [History Last Taken Unknown] famotidine 40 mg tablet 40 mg PO DAILY REFLUX 11/22/17 [History Last Taken Unknown] venlafaxine 150 mg capsule,extended release 24 hr 150 mg PO DAILY 05/29/20 [History Last Taken Unknown] montelukast 10 mg tablet 10 mg PO QPM #30 tabs 05/19/22 [Rx Last Taken Unknown] albuterol sulfate 90 mcg/actuation aerosol inhaler 1 - 2 puff inhalation Q4H PRN PRN Wheezing #18 grams 11/23/22 [Rx Last Taken Unknown] albuterol sulfate 2.5 mg/3 mL (0.083 %) solution for nebulization 2.5 mg (3 mL) inhalation Q4H PRN PRN Wheezing #180 mL 11/30/22 [Rx Last Taken Unknown] budesonide 160 mcg-glycopyr 9 mcg-formot 4.8 mcg/actuation HFA inhaler (Breztri Aerosphere) 2 inh inhalation BID #10.7 grams 03/08/23 [Rx Last Taken Unknown] prednisone 20 mg tablet 60 mg (3 x 20 mg) PO QDAY #15 tabs 03/08/23 [Rx Last Taken Unknown] oxycodone-acetaminophen 5 mg-325 mg tablet (Percocet) 1 tab PO Q8H PRN pain 3 days #10 tabs 04/29/23 [Rx Last Taken Unknown] Allergy/AdvReac Type Severity Reaction Status Date / Time No Known Allergies Allergy Verified 03/08/23 07:49 Family History Father Colon cancer Kidney disease Mother Diabetes Heart disease Thyroid disorder Grandfather Alcohol abuse Sister Cancer Breast cancer Surgical History History of appendectomy History of carpal tunnel surgery of left wrist History of carpal tunnel surgery of right wrist History of hysterectomy History of tubal ligation Normal colonoscopy S/P laparoscopic cholecystectomy Social History household members: significant other housing: other details: mobile home Smoking Status: Current every day smoker tobacco type: cigarettes second hand exposure: Yes alcohol intake: never substance use type: does not use ROS <FADIA Robbins - Last Filed: 04/29/23 18:19> ROS ED ROS Narrative Constitutional: Negative for fever, chills, weight loss, weakness Eyes: Negative for vision loss, vision change, double vision ENT: Negative for any sore throat, ear pain, congestion Cardiovascular: Negative for any chest pain, tightness, palpitations Respiratory: Negative for any cough, sputum production, hemoptysis, dyspnea, dyspnea on exertion, orthopnea Gastrointestinal: Negative for any abdominal pain, nausea, vomiting, diarrhea, constipation, blood in stool, blood in vomit : Negative for any urinary frequency, dysuria, retention, blood in urine Muscle skeletal: Negative for any muscle joint pain, stiffness, myalgias, arthralgias, neck pain, back pain. Positive right hip pain, right leg pain right knee pain Neurological: Negative for any headache, syncope, numbness or tingling, dizziness Skin: Negative for any rashes, lumps, itching, abrasions, lacerations Psychiatric: Negative for any depression, anxiety, stress, suicidal ideation, homicidal ideation Hematologic: Negative for any easy bruising, excessive bruising, easy bleeding Allergies: Negative for any eczema, hives, rash EXAM <FADIA Robbins - Last Filed: 04/29/23 18:19> Physical Exam Narrative Exam Narrative: Vital signs reviewed. HEET: Head normocephalic atraumatic, TMs clear bilaterally. Posterior pharynx is clear, moist mucous membranes. Nares clear bilaterally. Neck: Supple with no lymphadenopathy or tenderness. No signs of meningismus, negative jolt sign. Cardiac: Regular rate and rhythm no murmurs gallops or rubs, equal peripheral pulses bilaterally. Respiratory: Lungs clear to auscultation bilaterally. No chest tenderness. Abdomen: Soft, nontender, nondistended. No abdominal bruit or pulsatile masses. No hepatosplenomegaly Extremities: No peripheral edema, no signs of gross trauma or deformity. Patient is laying on her left side because laying on her right side is causing worsening pain. Patient has pain to the right hip that radiates down the buttock to the thigh. Patient has knee pain, she does have an intact extensor medicine. No neurological focal deficit. There is no shortening. No signs of ecchymosis or trauma. Neuro: Cranial nerves II through XII intact, no focal neurological deficits. Skin: Clean dry and intact with no rash, purpura, petechiae, vesicles or pustules. Backs/flank: No CVA tenderness, no midline spinal tenderness, no deformity. Psych: Normal mood and affect. No SI, HI or acute psychosis. Const Vital Signs: 04/29/23 10:28 04/29/23 12:36 Temperature 97.8 F Temperature Source Temporal Pulse Rate 73 Respiratory Rate 18 18 Blood Pressure 118/65 Blood Pressure Mean 82 Pulse Ox 99 Oxygen Delivery Method Room Air <Dr. Ned Bennett DO - Last Filed: 04/29/23 18:20> Physical Exam Const Vital Signs: 04/29/23 10:28 04/29/23 12:36 Temperature 97.8 F Temperature Source Temporal Pulse Rate 73 Respiratory Rate 18 18 Blood Pressure 118/65 Blood Pressure Mean 82 Pulse Ox 99 Oxygen Delivery Method Room Air [facility] <FADIA Robbins - Last Filed: 04/29/23 18:19> [facility] Radiography Diagnostic Testing: Clinical Impression(s) from Imaging Studies Hip/Pelvis X-Ray 04/29/23 11:17 IMPRESSION: Normal x-ray examination of the pelvis and hip. Electronically Signed: Jemal Warren MD at 11:56 EDT Reading Location ID and State: [id number] / [employer] Tel , Service support , Knee X-Ray 04/29/23 11:17 IMPRESSION: Normal x-ray examination of the knee. Electronically Signed: Jemal Warren MD at 11:59 EDT Reading Location ID and State: [email or web address] / [employer] Tel , Service support , Treatment and Re-Evaluation :: Patient appears to be in mild distress secondary to pain to the right hip. Patient presents after a fall 4 days ago. Patient received x-rays of the right hip as well as the right knee. On physical examination, there is no obvious osseous abnormality, no obvious trauma with shortening or rotation. Patient will receive IM morphine, Zofran. On reassessment, the patient was feeling better. The patient could move more easily. She was ambulatory. Patient's x-ray of the hip showed normal examination of the hip and pelvis. Patient's x-ray of the right knee shows no acute osseous process. Patient is likely suffering from muscle skeletal pain, contusions. Patient be given Percocet for home instructed to ice, rest, form gentle stretching. All questions answered, she was given strict return precaution. Patient does have a cane at home and she was instructed to use that. Patient stable for discharge. <Dr. Ned Bennett DO - Last Filed: 04/29/23 18:20> [facility] Radiography Diagnostic Testing: Clinical Impression(s) from Imaging Studies Hip/Pelvis X-Ray 04/29/23 11:17 IMPRESSION: Normal x-ray examination of the pelvis and hip. Electronically Signed: Jemal Warren MD at 11:56 EDT , Knee X-Ray 04/29/23 11:17 IMPRESSION: Normal x-ray examination of the knee. Electronically Signed: Jemal Warren MD at 11:59 EDT , Treatment and Re-Evaluation :: Patient appears to be in mild distress secondary to pain to the right hip. Patient presents after a fall 4 days ago. Patient received x-rays of the right hip as well as the right knee. On physical examination, there is no obvious osseous abnormality, no obvious trauma with shortening or rotation. Patient will receive IM morphine, Zofran. On reassessment, the patient was feeling better. The patient could move more easily. She was ambulatory. Patient's x-ray of the hip showed normal examination of the hip and pelvis. Patient's x-ray of the right knee shows no acute osseous process. Patient is likely suffering from muscle skeletal pain, contusions. Patient be given Percocet for home instructed to ice, rest, form gentle stretching. All questions answered, she was given strict return precaution. Patient does have a cane at home and she was instructed to use that. Patient stable for discharge. I, Dr Bennett, have reviewed the above progress note and course of action in the ER; agree with the above. I have personally seen and evaluated this patient, gone over history and physical, and discussed disposition and treatment plan with the patient. Discharge Plan Triage Chief Complaint: Back ED Midlevel Provider: Liu Mckeon ED Provider: Ned Bennett Dx/Rx/DC Orders Clinical Impression: Contusion of hip, Contusion of knee, Fall Instructions: Bruises (Contusions), Bone Contusion Prescriptions: New oxycodone-acetaminophen [Percocet] 5-325 mg tablet 1 tab PO Q8H PRN (Reason: pain) 3 Days Qty: 10 0RF No Action venlafaxine 150 mg capsule,extended release 24hr 150 mg PO DAILY montelukast 10 mg tablet 10 mg PO QPM Qty: 30 3RF Breztri Aerosphere 160-9-4.8 mcg/actuation HFA aerosol inhaler 2 inh inhalation BID Qty: 10.7 6RF prednisone 20 mg tablet 60 mg PO QDAY Qty: 15 0RF Rx Instructions: administer with food or milk famotidine 40 MG tablet 40 mg PO DAILY amitriptyline 10 MG tablet 10 mg PO QHS ergocalciferol (vitamin D2) 50,000 UNIT capsule 1 tab PO QWEEK albuterol sulfate 90 mcg/actuation HFA aerosol inhaler 1 - 2 puff inhalation Q4H PRN PRN (Reason: Wheezing) Qty: 18 6RF albuterol sulfate 2.5 mg /3 mL (0.083 %) solution for nebulization 2.5 mg inhalation Q4H PRN PRN (Reason: Wheezing) Qty: 180 3RF Primary Care Provider: Zunilda Suarez Referrals: Zunilda Suarez NP-C [Primary Care Provider] - Disposition Disposition: Home, Self Care Discharge Date/Time: 04/29/23 12:37 What to do if you have Problems For any increased pain, shortness of breath, bleeding, nausea or vomiting, chest pain, or any unexpected problems, contact your Primary Care Provider. Call [facility] ([phone]) or report to the closest Emergency Room. Call 911 if necessary. 04/29/231818 <Electronically signed by Liu LOAIZA> Cosigner Signature (if applicable): 04/29/231819 <Electronically signed by Ned Bennett DO> CC: OPHTHALMIC TECHRonaldo Suarez Signed Sierra Hopkins Work Phone: Start: 04-29-2023 End: 04-29-2023 HIP, UNI W/ Pelvis 2-3 Views Procedure Note: See Note; NOTES: [facility] Imaging Services [address] [place] [address] HIP, UNI W/ Pelvis 2-3 Views MR#: [id number] Acct: [id number] Name: ROSA DEAN Rep #: [id number] : 1955 F 67 From: Jemal Warren MD PCP: FADIA Gerardo Status: PRE ER Study: HIP, UNI W/ Pelvis 2-3 Views Date of Exam: Exam# [id number] Ordering Dr: Liu Mckeon STUDY: X-RAY - PELVIS AND RIGHT HIP REASON FOR EXAM: Female, 67 years old. fall TECHNIQUE: 3 views of the pelvis and hip. COMPARISON: None. FINDINGS: There is a non-specific bowel gas pattern. Normal visualized soft tissue structures. Normal bilateral iliac wings, sacroiliac joints and visualized sacrum. Normal bilateral superior and inferior pubic rami. Normal pubic symphysis. Normal bilateral ischial tuberosities. Normal visualized femoral head. Normal acetabulum. Normal hip joint. RAD/HIP, UNI W/ Pelvis 2-3 Views IMPRESSION: Normal x-ray examination of the pelvis and hip. Electronically Signed: Jemal Warren MD at 11:56 EDT , CC: FADIA Suarez; FADIA Mckeon Machine Setter And Repairer: Signed Sierra Hopkins Work Phone: Start: 04-29-2023 End: 04-29-2023 Knee 4 or More Views Procedure Note: See Note; NOTES: [facility] Imaging Services [address] [place] [id number] Knee 4 or More Views MR#: [id number] Acct: [id number] Name: ROSA DEAN Rep #: [id number] : 1955 F 67 From: Jemal Warren MD PCP: FADIA Gerardo Status: PRE ER Study: Knee 4 or More Views Date of Exam: 04/29/23 Exam# [id number] Ordering Dr: Liu Mckeon STUDY: X-RAY - RIGHT KNEE REASON FOR EXAM: Female, 67 years old. fall TECHNIQUE: 4 view(s) of the knee. COMPARISON: None. FINDINGS: Normal visualized distal femur. Normal visualized proximal tibia and fibula. Normal proximal tibiofibular articulation. Normal medial femorotibial compartment. Normal lateral femorotibial compartment. Normal patellofemoral articulation. The soft tissue structures are unremarkable. RAD/Knee 4 or More Views IMPRESSION: Normal x-ray examination of the knee. Electronically Signed: Jemal Warren MD at 11:59 EDT , CC: FADIA Suarez; FADIA Mckeon Machine Setter And Repairer: Signed Sierra Hopkins Work Phone: Start: 03-08-2023 End: 03-08-2023 Pulmonary Visit Report Procedure Note: See Note; NOTES: [facility] of [address] [place] [address] OFFICE VISIT Date of Service: 03/08/23 MR#: [id number] Acct: [id number] Name: ROSA DEAN Rep #: [id number] : 1955 Provider: FADIA Horan Age/Sex: 67/F Location: [facility] Status: Signed Assessment and Plan Assessment and Plan (1) Stage 1 mild COPD by GOLD classification: Status: Acute Plan: Deteriorated, however she does not appear to be an exacerbation of COPD today. No need for prednisone or antibiotic. Given that she has a combination of asthma and COPD and she has wheezing on exam today I am going to step up therapy to triple therapy. She is going to be ordered Breztri. She is somewhat apprehensive, as she liked Stiolto. She has been encouraged to contact the office and give us an update how she is responding to the new medication. No additional testing at this time. Contact the office for any new or worsening symptoms. An acute visit and typically be arranged within 1-2 days. Follow-up in July with Dr. Lindo. (2) Smoking greater than 30 pack years: Status: Acute Plan: Continue to encourage complete smoking cessation. She is appropriate for repeat LDCT which will be due in June, ordered accordingly. Follow-up with Dr. Lindo in July to discuss test results. (3) Asthma: Status: Suspected Qualifiers: Asthma severity: unspecified severity Asthma persistence: unspecified Asthma complication type: unspecified Qualified Code(s): J45.909 - Unspecified asthma, uncomplicated Plan: See assessment and plan for COPD as the patient has likely asthma/COPD overlap syndrome. (4) NHI (obstructive sleep apnea): Status: Chronic Plan: She is using and benefiting from Pap therapy, as evidenced by the headgear dumont on her cheeks. No indication for titration study at this time. Continue to encourage weight loss. Contact the office for any new or worsening symptoms in the meantime. Follow-up in July with Dr. Lindo. Orders: Orders NIOX Today J45.909 - Unspecified asthma, uncomplicated Low Dose CT Lung Screening 06/02/23 F17.200 - Nicotine dependence, unspecified, uncomplicated, F17.210 - Nicotine dependence, cigarettes, uncomplicated Medications: New eiuicjihad-tnsnebpy-xdqitmhz ol 160-9-4.8 mcg/actuation (Breztri Aerosphere) 2 inhalations inhalation BID 10.7 grams 6RF F17.210 - Nicotine dependence, cigarettes, uncomplicated prednisone administer with food or milk 60 mg (3 x 20 mg) PO QDAY 15 tabs 0RF F17.210 - Nicotine dependence, cigarettes, uncomplicated Discontinued tiotropium-olodaterol 2.5-2.5 mcg/actuation (Stiolto Respimat) Discontinued Reason: Order Changed [Sample] #2 Plan Details Follow Up: 07/02/23 (Kaylie) HPI HPI Comments Details: This patient presents to the office today for follow-up of her asthma, COPD and obstructive sleep apnea. She is ambulatory and currently on room air. She has not recently been seen in the ED or urgent care for any respiratory illness. She has not required any antibiotics or prednisone for any breathing problems. She is compliant with use of Stiolto 2 puffs once daily. She is also compliant with Singulair daily. She is currently utilizing her rescue inhaler 2 times per day. She continues to smoke cigarettes and is currently smoking 1 pack/day. She denies any difficulty with shortness of breath. She occasionally has a cough that is productive of clear-colored sputum. She has occasional wheezing but denies any chest tightness, chest pain or palpitations. She has not had any fever, chills or body aches. She does report sinus congestion and sinus drainage that has been present for couple days that she believes is related to pollen . She does report excellent compliance with her Pap device. She states that not only does she sleep with it at night but if she takes a nap during the day she puts it on. She denies difficulty with dry mouth, morning headaches or excessive nocturia. She wakes up feeling rested and refreshed. Compliance report not available for review today. Her machine is not uploading data but she is using every night. Intake Vital Signs 03/08/23 07:43 Height 5 ft 2 in Weight: 199 lb BMI 36.3 BP 103/67 Blood Pressure Location Lt brachial Position Sitting Respiration 18 Pulse 84 Pulse Source Monitor Temp 97.1 F L Temperature Source Temporal Artery Pulse Oximetry (%) 94 Oxygen Delivery Method room air Intake Visit Reasons: Sleep problems Chief Complaint: abn hida/ RUQ pain Case Filler Required: No DME [facility] Accompanied by: Self Is patient in pain?: No Allergies No Known Allergies Allergy (Verified 03/08/23 07:49) Medications amitriptyline 10 mg tablet 10 mg PO QHS 11/22/17 [History Confirmed 03/08/23] ergocalciferol (vitamin D2) 1,250 mcg (50,000 unit) capsule 1 tab PO QWEEK 11/22/17 [History Confirmed 03/08/23] famotidine 40 mg tablet 40 mg PO DAILY REFLUX 11/22/17 [History Confirmed 03/08/23] venlafaxine 150 mg capsule,extended release 24 hr 150 mg PO DAILY 05/29/20 [History Confirmed 03/08/23] montelukast 10 mg tablet 10 mg PO QPM #30 tabs 05/19/22 [Rx Confirmed 03/08/23] albuterol sulfate 90 mcg/actuation aerosol inhaler 1 - 2 puff inhalation Q4H PRN PRN Wheezing #18 grams 11/23/22 [Rx Confirmed 03/08/23] albuterol sulfate 2.5 mg/3 mL (0.083 %) solution for nebulization 2.5 mg (3 mL) inhalation Q4H PRN PRN Wheezing #180 mL 11/30/22 [Rx Confirmed 03/08/23] budesonide 160 mcg-glycopyr 9 mcg-formot 4.8 mcg/actuation HFA inhaler (Breztri Aerosphere) 2 inh inhalation BID #10.7 grams 03/08/23 [Rx Confirmed 03/08/23] prednisone 20 mg tablet 60 mg PO QDAY #15 tabs 03/08/23 [Rx Confirmed 03/08/23] PFSH Medical History Anxiety Arthritis Carpal tunnel syndrome of left wrist COPD (chronic obstructive pulmonary disease) COPD (chronic obstructive pulmonary disease) CPAP (continuous positive airway pressure) dependence Depression Diabetes Fibromyalgia Gastric reflux GERD (gastroesophageal reflux disease) High cholesterol Hyperlipemia Injury of head and neck NHI (obstructive sleep apnea) Osteoarthrosis Pneumonia Restless leg syndrome Rheumatoid arthritis Shortness of breath on exertion Sleep apnea Smoker Thyroid disease Tobacco abuse Trigger finger of left thumb Type 2 diabetes mellitus Wears dentures Wears glasses Surgical History History of appendectomy History of carpal tunnel surgery of left wrist History of carpal tunnel surgery of right wrist History of hysterectomy History of tubal ligation Normal colonoscopy S/P laparoscopic cholecystectomy Family History Father Colon cancer Kidney disease Mother Diabetes Heart disease Thyroid disorder Grandfather Alcohol abuse Sister Cancer Breast cancer Social History household members: significant other housing: other details: mobile home Smoking Status: Current every day smoker tobacco type: cigarettes second hand exposure: Yes alcohol intake: never substance use type: does not use Review of Systems Resp Respiratory: Yes as per HPI Exam Const Constitutional: Positive conversant, cooperative, in no acute respiratory distress, healthy appearing, well developed, well nourished, good hygiene, smells of smoke and obese Head Head: Yes normocephalic, Yes atraumatic and No cyanosis of lips/distal nose Eyes Eye: Positive clear conjunctiva; Negative nystagmus Ears Ear: Positive hearing normal and external ears normal Nose Nose: Yes external nose normal Mouth Mouth: Positive oral mucosae normal Neck Neck: Positive normal visual inspection, full ROM and trachea midline Chest Wall Chest: Positive normal inspection of the chest and symmetric chest movement Resp lung sounds: Positive diminished lung sounds, wheezes and prolonged expiratory time; Negative rhonchi, rales or use of accessory muscles Cardio Cardiac: Positive regular rate, regular rhythm, S1 normal and S2 normal; Negative murmur, rub or gallop GI GI: Positive normal to inspection and obese Genitourinary: Positive deferred Musc Musculoskeletal: Positive steady gait; Negative using an assistive device for ambulation, kyphosis or scoliosis Skin Pulmonary Skin Exam: Positive intact; Negative lesion, rash, ulcers or erythema Extremities Extremities: Yes capillary refill normal, Yes clubbing, No cyanosis and No edema Neuro Neurologic: Yes no focal neuro deficits, Yes conversant, Yes cooperative, Yes normal cognition, Yes normal coordination, Yes normal concentration and Yes understands questions Psych Appearance: Positive grossly normal Mental Status: Positive mental status grossly normal Mood: Positive congruent mood Affect: Positive normal affect Office Procedures Niox Air Inflam Monitor NIOX Result Details:: Pt unable to complete. attempted x5 Coding Level of Care Code Off vis,est,level 3 Diagnoses Stage 1 mild COPD by GOLD classification J44.9 Smoking greater than 30 pack years F17.210 Asthma J45.909 Asthma severity: unspecified severity Asthma persistence: unspecified Asthma complication type: unspecified NHI (obstructive sleep apnea) G47.33 03/08/23 1527 <Electronically signed by Princess Horan NP OPHTHALMIC TECH-C> Date Princess Horan NP OPHTHALMIC TECH-C Cosigner Signature: Date (if applicable) CC: OPHTHALMIC TECH-C Zunilda Suarez Sierra Hopkins Work Phone: Start: 08-17-2022 End: 08-17-2022 Pulmonary Visit Report Procedure Note: See Note; NOTES: [facility] [place] [address] [place] [address] OFFICE VISIT Date of Service: 08/17/22 MR#: [id number] Acct: [id number] Name: ROSA DEAN Rep #: [id number] : 1955 Provider: Dr. Jasper Lindo MD Age/Sex: 67/F Location: [facility].PMW Status: Signed Assessment and Plan Assessment and Plan (1) Stage 1 mild COPD by GOLD classification: Status: Acute (2) Asthma: Status: Suspected Qualifiers: Asthma severity: unspecified severity Asthma persistence: unspecified Asthma complication type: unspecified Qualified Code(s): J45.909 - Unspecified asthma, uncomplicated (3) Tobacco abuse: Status: Chronic (4) NHI (obstructive sleep apnea): Status: Chronic Orders: Orders Influenza Immunization Today Z23 - Encounter for immunization Smoking Cessation Today Medications: New tiotropium-olodaterol 2.5-2.5 mcg/actuation (Stiolto Respimat) [Sample] #2 Plan Patient appears to be using albuterol significantly during the day. Will place patient on a dual bronchodilator. Samples have been given. Patient appears to be precontemplative from a smoking cessation standpoint. Patient will be given a flu shot today to prepare for the season. Did discuss with the patient about the sick policy and signs and symptoms of exacerbation. Patient voiced understanding. Initiate Stiolto therapy. Encourage smoking cessation. Plan Details Follow Up: 6 Months ([facility]) HPI 3 M FU Details: Patient is a 67-year-old female, currently under care of Zunilda Suarez, who presents for evaluation secondary to recent test results. Since last visit, patient denies any ER visits, hospitalizations or prednisone burst. Patient overall feels subjectively unchanged. Patient states that she has been doing okay. Patient does have an albuterol inhaler. Patient states that she uses this approximately 2-3 times per day. Patient does have a cough productive of clear to white sputum on a daily basis. Patient states she does have some shortness of breath on exertion, but typically does not use her albuterol as she feels that this would be in excess. Patient states that she does continue to smoke approximately a pack a day. Patient states her triggers are watching TV, eating and driving. Patient has attempted to quit in the past. Patient spouse is currently not using tobacco using a patch. Patient feels that this is not for her. Patient states that her breathing is not bad enough to worry about it right now. Patient is not reporting any significant desaturation. Patient does watch her oxygen saturations closely as her does use oxygen as needed. Patient states she has been compliant with her BiPAP therapy. Patient has had difficulty in obtaining supplies. Patient states that there was a mixup in her delivery and her DME is trying to charge her for the supplies. Patient states she has not been able to obtain a new mask since that time. Patient does state that she tends to have a leak. Patient will have a buzzing sound when she turns her machine on, but after further discussion this appears to be related to the fact that she is on BiPAP. Review of systems otherwise negative from a constitutional, HEENT, respiratory, cardiovascular, GI, genitourinary, musculoskeletal, skin, neurologic, psychiatric and hematologic system unless stated above. Testing personally reviewed with the patient Low-dose CT (06/22/2022): Underlying emphysematous changes predominantly in the upper lobes with chronic interstitial changes of the lower lobe. There was no suspicious mass or nodule noted. No mediastinal lymphadenopathy noted. Complete PFT (07/14/2022): Isolated reduction diffusion capacity with some stigmata of small airways disease (FVC 79%, FEV1 72%, TLC 102%, RV 131%, DLCO 64%) Intake Vital Signs 08/17/22 05:37 08/17/22 09:47 Height 5 ft 2 in 5 ft 2 in Weight: 88.904 kg BMI 35.8 BP 120/66 Blood Pressure Location Rt brachial Position Sitting Respiration 18 Pulse 78 Pulse Source Monitor Temp 36.6 C Temperature Source Temporal Artery Pulse Oximetry (%) 97 Oxygen Delivery Method room air Intake Visit Reasons: 3 M FU Chief Complaint: abn hida/ RUQ pain Case Filler Required: No DME Vendor: c-pap-- [employer] Is patient in pain?: No Allergies No Known Allergies Allergy (Verified 08/17/22 09:49) Medications amitriptyline 10 mg tablet 10 mg PO QHS 11/22/17 [History Confirmed 08/17/22] ergocalciferol (vitamin D2) 1,250 mcg (50,000 unit) capsule 1 tab PO QWEEK 11/22/17 [History Confirmed 08/17/22] famotidine 40 mg tablet 40 mg PO DAILY REFLUX 11/22/17 [History Confirmed 08/17/22] venlafaxine 150 mg capsule,extended release 24 hr 150 mg PO DAILY 05/29/20 [History Confirmed 08/17/22] albuterol sulfate 2.5 mg/3 mL (0.083 %) solution for nebulization 2.5 mg (3 mL) inhalation Q4H PRN PRN Wheezing #180 mL 05/19/22 [Rx Confirmed 08/17/22] albuterol sulfate 90 mcg/actuation aerosol inhaler 1 - 2 puff inhalation Q4H PRN PRN Wheezing #18 grams 05/19/22 [Rx Confirmed 08/17/22] montelukast 10 mg tablet 10 mg PO QPM #30 tabs 05/19/22 [Rx Confirmed 08/17/22] tiotropium 2.5 mcg-olodaterol 2.5 mcg/actuation mist for inhalation (Stiolto Respimat) 2.5-2.5 mcg/actuation Mist#2 Samples 08/17/22 [Sample Confirmed 08/17/22] [facility] Medical History Anxiety Arthritis Carpal tunnel syndrome of left wrist COPD (chronic obstructive pulmonary disease) COPD (chronic obstructive pulmonary disease) CPAP (continuous positive airway pressure) dependence Depression Diabetes Fibromyalgia Gastric reflux GERD (gastroesophageal reflux disease) High cholesterol Hyperlipemia Injury of head and neck NHI (obstructive sleep apnea) Osteoarthrosis Pneumonia Restless leg syndrome Rheumatoid arthritis Shortness of breath on exertion Sleep apnea Smoker Thyroid disease Tobacco abuse Trigger finger of left thumb Type 2 diabetes mellitus Wears dentures Wears glasses Surgical History History of appendectomy History of carpal tunnel surgery of left wrist History of carpal tunnel surgery of right wrist History of hysterectomy History of tubal ligation Normal colonoscopy S/P laparoscopic cholecystectomy Family History Father Colon cancer Kidney disease Mother Diabetes Heart disease Thyroid disorder Grandfather Alcohol abuse Sister Cancer Breast cancer Social History household members: significant other housing: other details: mobile home Smoking Status: Current every day smoker tobacco type: cigarettes second hand exposure: Yes alcohol intake: never substance use type: does not use Exam Const Constitutional: Positive conversant, cooperative, in no acute respiratory distress, healthy appearing, well developed, well nourished, good hygiene and obese Head Head: Yes normocephalic, Yes atraumatic and No cyanosis of lips/distal nose Eyes Eye: Negative nystagmus or scleral abnormality Ears Ear: Positive hearing normal and external ears normal; Negative hard of hearing Nose Nose: Yes external nose normal Mouth Mouth: Positive oral mucosae normal Neck Neck: Positive normal visual inspection, full ROM and trachea midline Chest Wall Chest: Positive normal inspection of the chest and symmetric chest movement Resp lung sounds: Positive diminished lung sounds and prolonged expiratory time; Negative wheezes, wheeze present on forced exhalation, rhonchi, rales, dullness or use of accessory muscles Cardio Cardiac: Positive regular rate, regular rhythm, S1 normal and S2 normal; Negative murmur, rub or gallop GI GI: Positive normal to inspection, normal bowel sounds and obese; Negative distended, ascites or epigastric tenderness Genitourinary: Positive deferred Musc Musculoskeletal: Positive steady gait; Negative using an assistive device for ambulation, kyphosis or scoliosis Skin Pulmonary Skin Exam: Positive intact; Negative lesion, rash, ulcers or erythema Extremities Extremities: Yes capillary refill normal, Yes clubbing, No cyanosis and No edema Neuro Neurologic: Yes no focal neuro deficits, Yes conversant, Yes cooperative, Yes normal cognition, Yes normal coordination, Yes normal concentration and Yes understands questions Psych Appearance: Positive grossly normal Mental Status: Positive mental status grossly normal Mood: Positive congruent mood Affect: Positive normal affect Office Procedures Smoking Cessation Smoking Cessation Extensive discussion with the patient for 12 minutes on the importance of smoking cessation to avoid progression of disease. Patient understands the link between smoking and COPD, but also expressed the increased risk for malignancy and coronary vascular disease. Patient remains precontemplative at this time. Patient tends to underestimate the ability to progress given that she only has mild COPD after extensive smoking. Did discuss the behavioral options for moving forward in trying to use her as an example. Patient is not willing to use nicotine patches at this time. Time Spent greater than 10 minutes: Yes Immunizations Fluad Quad (65y up)(PF) 60 mcg (15 mcg x 4)/0.5 mL Performing Provider: Jasper Lindo MD Administered by: Sophie Terrazas on 08/17/22 10:22 Dose Route Admin Location Lot Number Expiration Date [facility] Manufactu rer 60 mcg IM Right Deltoid [id number] 01/20/23 [id number] [employer], [employer]. VIS Given Date VIS Provided VIS Publication Date 08/17/22 Single Vaccine 21 Eligibility Eligibility Date Funding Source None Supplemental Info Obtained consent for injection. Under sterile conditions, injected the patients RT DELTOID with FLUAD 65+. The patient tolerated the injection well without any noted complication. Patient should call our office if redness develops, pain worsens or if they have any concerns. Coding Level of Care Code Off vis,est,level 4 Diagnoses Stage 1 mild COPD by GOLD classification J44.9 Asthma J45.909 Asthma severity: unspecified severity Asthma persistence: unspecified Asthma complication type: unspecified Tobacco abuse Z72.0 NHI (obstructive sleep apnea) G47.33 CPT Codes Time Spent - greater than 10 minutes: Yes (20273) 08/17/22 1258 <Electronically signed by Jasper Lindo MD> Date Jasper Lindo MD Cosigner Signature: Date (if applicable) CC: OPHTHALMIC TECH-C Zunilda Suarez Sierra Hopkins Work Phone: Start: 07-14-2022 End: 07-14-2022 Pulmonary Function Report Comp Procedure Note: See Note; NOTES: [facility] Pulmonary Services/Neurology [address] [place] [address] MR#: [id number] Acct: [id number] Name: ROSA DEAN Rep #: [id number] : 1955 66 From: Jasper Lindo MD Referring Dr: Princess Horan NP OPHTHALMIC TECH-C Status: [facility] Location: [facility] Date: 07/14/22 Sex: F C COMPLETE PULMONARY FUNCTION TEST INTERPRETATION Brief HPI: Patient is a 66-year-old female, currently under the care of Princess Horan, who presents to [facility] for complete pulmonary function tests secondary to diagnosis of COPD. Respiratory therapist reports good effort and reproducible results. Interpretation: Forced expiration spirometry shows no large airways obstructive ventilatory defect with an FEV1 of 72% predicted. There is no significant bronchodilator response by strict ATS criteria. Spirograms are of good quality and plateau slowly, indicating slowly emptying areas of the lungs. The respiratory flow volume loop shows decreased expiratory flow rates at high lung volumes consistent with small airways obstruction. Lung volumes by body plethysmography show a normal total lung capacity at 4.53 L, 102% predicted. All other lung volumes are within normal limits. Diffusion capacity by carbon monoxide is decreased at 64% predicted. The airway resistance is elevated. Compared to previous pulmonary function tests from 05/13/2020, there has been slight worsening in air trapping. Impression: Isolated reduction diffusion capacity with some stigmata of small airways disease 07/14/22 1440 <Electronically signed by Jasper Lindo MD> Date Jasper Lindo MD CC: OPHTHALMIC TECH-C Princess Horan; OPHTHALMIC TECH-C Sierra Hopkins; Dr. Jasper Lindo MD Date Dictated: 07/14/221437 Date Transcribed: 07/14/221437 Machine Setter And Repairer: ESTELA Signed Sierra Hopkins Work Phone: Start: 06-22-2022 End: 06-22-[address] Lung Screening Procedure Note: See Note; NOTES: [facility] Imaging Services [address] [place] [address] Lung Screening MR#: [id number] Acct: [id number] Name: ROSA DEAN Rep #: [id number] : 1955 F 66 From: Josue Allan MD PCP: AMIRA SantanaC Status: REG CLI Study: Low Dose CT Lung Screening Date of Exam: 06/22 Exam# [id number] Ordering Dr: Princess Horan NP OPHTHALMIC TECH-C STUDY: LOW DOSE CT LUNG CANCER SCREENING REASON FOR EXAM: Female, 66 years old. 40+ pack year history of smoking RADIATION DOSAGE (If Supplied By Facility): CTDIvol = ( 3.02 ) mGy, DLP = ( 104.95 ) mGycm TECHNIQUE: No contrast was administered. Low dose technique was utilized (average mAS-38 and kVp 120). 1.25 mm axial source images with a slice interval of 1.25-mm were reconstructed in lung windows. 2.5 mm axial source images with a slice interval of 2.5-mm were reconstructed in lung windows. 5.0 mm axial source images with a slice interval of 5.0-mm were reconstructed in soft tissue windows. COMPARISON: 04/19/2021 FINDINGS: Lung windows show underlying emphysema with bleb formation in the upper lobes. Chronic interstitial changes in both lung coates with nonspecific pleural thickening, there is no suspicious noncalcified mass or nodule organized infiltrate. Soft tissue windows show normal-appearing thyroid gland. No suspicious adenopathy. There are calcified coronary vessels, no pleural or pericardial effusions. Limited cuts through the upper abdomen do not show suspicious abnormality. Bony structures show degenerative change. CT/Low Dose CT Lung Screening IMPRESSION: Lung-RADS category 2 - Continue annual screening with LDCT in 12 months. IMPORTANT NOTES FOR USE: ACR Lung-RADS Version 1.1 Assessment Categories Release Date: 2018 Category: Coded 0-4 bases on nodule(s) with highest degree of suspicion. Negative screen is defined as categories 1 and 2; a positive screen is defined as categories 3 and 4. Category 3 and 4A nodules that are unchanged on interval CT should be coded as category 2, and individuals returned to screening in 12 months. Category 4X: Category 3 or 4 nodules with additional imaging findings that increase the suspicion of lung cancer, such as spiculation, GGN that doubles in size in 1 year, enlarged lymph notes, etc. Category Modifiers: S (significant finding unrelated to lung cancer) Electronically Signed: Ulysses Allan MD at 8:33 EDT Reading Location ID and State: [facility] / [place] , Service support , CC: FADIA Horan; FADIA Hopkins Machine Setter And Repairer: Signed Sierra Hopkins Work Phone: Start: 05-19-2022 End: 05-19-2022 Pulmonary Visit Report Procedure Note: See Note; NOTES: [facility]monary Medicine of [address] [place] [address] OFFICE VISIT Date of Service: 05/19/22 MR#: [id number] Acct: [id number] Name: ROSA DEAN Rep #: [id number] : 1955 Provider: FADIA Horan Age/Sex: 66/F Location: [facility] Status: Signed Assessment and Plan Assessment and Plan (1) COPD (chronic obstructive pulmonary disease): Status: Chronic Qualifiers: COPD type: unspecified COPD Qualified Code(s): J44.9 - Chronic obstructive pulmonary disease, unspecified Plan: The patient continues to smoke cigarettes, sending her for repeat pulmonary function test and walking oximetry. She is not currently on any maintenance inhalers but is having shortness of breath on exertion. She may benefit from maintenance inhalers, she may require supplemental oxygen with ambulation. Plan for her to follow-up with Dr. Lindo after testing to review those and to determine plan. (2) NHI (obstructive sleep apnea): Status: Chronic Plan: She is using and benefiting from Pap therapy. No indication for titration study at this time. Her machine is greater than 5 years old and is beginning to make abnormal noises which is keeping her awake at night. I do believe she would benefit from a replacement device, ordered for her DME. Continue to encourage weight loss. Contact the office for any new or worsening symptoms in the meantime. Follow-up in [address] Lindo. (3) Smoking greater than 30 pack years: Status: Acute Plan: Continue to encourage complete smoking cessation. The patient remains appropriate for low-dose CT lung cancer screening. Ordered to be completed now. Follow-up with Dr. Lindo to discuss test results. Orders: Orders Low Dose CT Lung Screening Today F17.200 - Nicotine dependence, unspecified, uncomplicated, F17.210 - Nicotine dependence, cigarettes, uncomplicated Pulmonary Function Test (Comp) Today J44.9 - Chronic obstructive pulmonary disease, unspecified Simple Pulmonary Exercise Test Today J44.9 - Chronic obstructive pulmonary disease, unspecified Medications: Refilled montelukast 10 mg PO QPM 30 tabs 3RF J44.9 - Chronic obstructive pulmonary disease, unspecified albuterol sulfate 2.5 mg (3 mL) inhalation Q4H PRN PRN 180 mL 3RF Wheezing J44.9 - Chronic obstructive pulmonary disease, unspecified albuterol sulfate 90 mcg/actuation 1 - 2 puffs inhalation Q4H PRN PRN 18 grams 6RF Wheezing J44.9 - Chronic obstructive pulmonary disease, unspecified Plan Details Follow Up: 3 Months ([facility]) HPI 3 M FU Chief Complaint: Shortness of breath HPI Comments Details: This patient presents to the office today to follow-up on her asthma and obstructive sleep apnea complicated by pulmonary hypertension. She is ambulatory and currently on room air. She has not been seen in the ED or urgent care for any respiratory illnesses since her last office visit. She has not required any antibiotics or prednisone for any breathing problems. She is not currently on any maintenance medications. She does have albuterol both in the HFA format as well as a nebulized format. She uses either 1 or the other approximately once per day. She does believe it is somewhat helpful in reducing her shortness of breath. Currently she is smoking 1 pack/day of cigarettes. She does have shortness of breath on exertion, she does believe it may have progressed since her last office visit. She does have a daily cough that is productive of clear to white-colored sputum. She denies any wheezing, chest tightness, chest pain or palpitations. She denies any fever, chills or body aches. She reports excellent compliance with the use of her Pap device. She states that she cannot sleep without it. She is not having excessive nocturia. She denies taking naps or nodding off unintentionally. She is not having difficulty with dry mouth or morning headaches. Compliance report available for review today is dated from December 15 through January 13, is noted that the patient likely has a device on the 3G network that is no longer able to upload data. According to that particular compliance report she was 100% compliant with an average use of nearly 10 hours per night. Current setting of 17 cmH2O with a residual AHI of 0.8 events per hour. Leaks did not appear to be an issue. Intake Vital Signs 04/14/21 09:14 05/19/22 08:17 Height 5 ft 2 in 5 ft 2 in Weight: 197 lb 2 oz BMI 36.0 BP 116/70 Blood Pressure Location Rt brachial Position Sitting Respiration 17 Pulse 71 Pulse Source Monitor Temp 97.2 F L Temperature Source Temporal Artery Pulse Oximetry (%) 95 Oxygen Delivery Method room air Intake Visit Reasons: 3 M FU Case Filler Required: No Accompanied by: None Allergies No Known Allergies Allergy (Verified 05/19/22 10:56) Medications amitriptyline 10 mg tablet 10 mg PO QHS 11/22/17 [History Confirmed 05/19/22] ergocalciferol (vitamin D2) 1,250 mcg (50,000 unit) capsule 1 tab PO QWEEK 11/22/17 [History Confirmed 05/19/22] famotidine 40 mg tablet 40 mg PO DAILY REFLUX 11/22/17 [History Confirmed 05/19/22] venlafaxine 150 mg capsule,extended release 24 hr 150 mg PO DAILY 05/29/20 [History Confirmed 05/19/22] albuterol sulfate 2.5 mg/3 mL (0.083 %) solution for nebulization 2.5 mg (3 mL) inhalation Q4H PRN PRN Wheezing #180 mL 05/19/22 [Rx Confirmed 05/19/22] albuterol sulfate 90 mcg/actuation aerosol inhaler 1 - 2 puff inhalation Q4H PRN PRN Wheezing #18 grams 05/19/22 [Rx Confirmed 05/19/22] montelukast 10 mg tablet 10 mg PO QPM #30 tabs 05/19/22 [Rx Confirmed 05/19/22] [facility] Medical History Anxiety Arthritis Carpal tunnel syndrome of left wrist COPD (chronic obstructive pulmonary disease) COPD (chronic obstructive pulmonary disease) CPAP (continuous positive airway pressure) dependence Depression Diabetes Fibromyalgia Gastric reflux GERD (gastroesophageal reflux disease) High cholesterol Hyperlipemia Injury of head and neck NHI (obstructive sleep apnea) Osteoarthrosis Pneumonia Restless leg syndrome Rheumatoid arthritis Shortness of breath on exertion Sleep apnea Smoker Thyroid disease Tobacco abuse Trigger finger of left thumb Type 2 diabetes mellitus Wears dentures Wears glasses Surgical History History of appendectomy History of carpal tunnel surgery of left wrist History of carpal tunnel surgery of right wrist History of hysterectomy History of tubal ligation Normal colonoscopy S/P laparoscopic cholecystectomy Family History Father Colon cancer Kidney disease Mother Diabetes Heart disease Thyroid disorder Grandfather Alcohol abuse Sister Cancer Breast cancer Social History household members: significant other housing: other details: mobile home Smoking Status: Current every day smoker tobacco type: cigarettes second hand exposure: Yes alcohol intake: never substance use type: does not use Review of Systems Resp Respiratory: Yes as per HPI Exam Const Constitutional: Positive conversant, cooperative, in no acute respiratory distress, healthy appearing, well developed, well nourished, good hygiene and obese Head Head: Yes normocephalic, Yes atraumatic and No cyanosis of lips/distal nose Eyes Eye: Negative nystagmus or scleral abnormality Ears Ear: Positive hearing normal and external ears normal; Negative hard of hearing Nose Nose: Yes external nose normal Mouth Mouth: Positive oral mucosae normal Neck Neck: Positive normal visual inspection, full ROM and trachea midline Chest Wall Chest: Positive normal inspection of the chest and symmetric chest movement Resp lung sounds: Positive diminished lung sounds and prolonged expiratory time; Negative wheezes, wheeze present on forced exhalation, rhonchi, rales, dullness or use of accessory muscles Cardio Cardiac: Positive regular rate, regular rhythm, S1 normal and S2 normal; Negative murmur, rub or gallop GI GI: Positive normal to inspection, normal bowel sounds and obese; Negative distended, ascites or epigastric tenderness Genitourinary: Positive deferred Musc Musculoskeletal: Positive steady gait; Negative using an assistive device for ambulation, kyphosis or scoliosis Skin Pulmonary Skin Exam: Positive intact; Negative lesion, rash, ulcers or erythema Extremities Extremities: Yes capillary refill normal, Yes clubbing, No cyanosis and No edema Neuro Neurologic: Yes no focal neuro deficits, Yes conversant, Yes cooperative, Yes normal cognition, Yes normal coordination, Yes normal concentration and Yes understands questions Psych Appearance: Positive grossly normal Mental Status: Positive mental status grossly normal Mood: Positive congruent mood Affect: Positive normal affect Coding Level of Care Code Off vis,est,level 3 Diagnoses COPD (chronic obstructive pulmonary disease) J44.9 COPD type: unspecified COPD NHI (obstructive sleep apnea) G47.33 Smoking greater than 30 pack years F17.210 05/19/22 1307 <Electronically signed by Princess Horan NP, NP-C> Date Princess Horan NP OPHTHALMIC TECH-C Cosigner Signature: Date (if applicable) CC: OPHTHALMIC TECH-C Sierra Hopkins Work Phone: Start: 04-19-2021 End: 04-20-[address] Lung Screening Comments: See Note; NOTES: [facility] Imaging Services [address] [place] [address] Lung Screening MR#: [id number] Acct: [id number] Name: ROSA DEAN Rep #: [id number] : 1955 F 65 From: Brandon hidalgo MD PCP: FADIA Santana Status: [facility] Study: Low Dose CT Lung Screening Date of Exam: 04/19 Exam# [id number] Ordering Dr: Princess Horan NP STUDY: LOW DOSE CT LUNG CANCER SCREENING REASON FOR EXAM: Female, 65 years old. Current smoker and gt; 30 pack years RADIATION DOSAGE (If Supplied By Facility): CTDIvol = ( 2.39 ) mGy, DLP = ( 71.76 ) mGycm TECHNIQUE: No contrast was administered. Low dose technique was utilized (average mAS-38 and kVp 120). 1.25 mm axial source images with a slice interval of 1.25-mm were reconstructed in lung windows. 2.5 mm axial source images with a slice interval of 2.5-mm were reconstructed in lung windows. 5.0 mm axial source images with a slice interval of 5.0-mm were reconstructed in soft tissue windows. Nodule measured using lung windows on PACS and/or independent workstation with automated measurement of minimum and maximum diameter. Nodule measurement reported as average diameter rounded to the nearest whole number. Growth is defined as an increase ins size of greater than 1.5 mm. COMPARISON: Comparison is made with prior study dated 04/10/2020. NODULES: No suspicious nodules are seen. Emphysema: Stable mild degree of emphysematous changes in the upper lobes with a 1.1 cm bulla in the right upper lobe anteriorly. Endobronchial lesion: None Aorta: Atherosclerotic plaque formation of the aortic arch. Coronary arteries: Coronary artery calcifications. Heart: Unremarkable. Pulmonary artery: Unremarkable. Mediastinal nodes: Stable small benign-appearing mediastinal lymph nodes. Other chest and abdominal findings: CT/Low Dose CT Lung Screening IMPRESSION: Lung-RADS category 2 - Continue annual screening with LDCT in 12 months. IMPORTANT NOTES FOR USE: ACR Lung-RADS Version 1.1 Assessment Categories Release Date: 2018 Category: Coded 0-4 bases on nodule(s) with highest degree of suspicion. Negative screen is defined as categories 1 and 2; a positive screen is defined as categories 3 and 4. Category 3 and 4A nodules that are unchanged on interval CT should be coded as category 2, and individuals returned to screening in 12 months. Category 4X: Category 3 or 4 nodules with additional imaging findings that increase the suspicion of lung cancer, such as spiculation, GGN that doubles in size in 1 year, enlarged lymph notes, etc. Category Modifiers: S (significant finding unrelated to lung cancer) Electronically Signed: Brandon Lee MD at 9:34 EDT , Service support , CC: FADIA Horan; FADIA Hopkins Machine Setter And Repairer: Signed Sierra Hopkins CNP Work Phone: Start: 04-14-2021 End: 04-14-2021 Colonoscopy Report Comments: See Note; NOTES: [facility] Medical Records Department [address] [place] [address] Colonoscopy Report MR#: [id number] Acct: [id number] Name: ROSA DEAN Rep #: [id number] : 1955 65 From: Caro Herrmann MD PCP: FADIA Santana Status:[facility] Patient Name: Rosa Daen Procedure Date: 04/14/2021 10:31 AM Date of : 1955 Age: 65 Procedure: Colonoscopy Indications: Family history of colon cancer in a first-degree relative, Constipation Providers: Caro Herrmann MD Referring MD: Sierra Hopkins NP Medicines: Monitored Anesthesia Care Patient Profile: This is a 65 year old female. Last Colonoscopy: more than 10 years ago. Complications: No immediate complications. Procedure: Pre-Anesthesia Assessment: - Prior to the procedure, a History and Physical was performed, and patient medications and allergies were reviewed. The patient's tolerance of previous anesthesia was also reviewed. The risks and benefits of the procedure and the sedation options and risks were discussed with the patient. All questions were answered, and informed consent was obtained. Prior Anticoagulants: The patient has taken no previous anticoagulant or antiplatelet agents. ASA Grade Assessment: Per anesthesia. After reviewing the risks and benefits, the patient was deemed in satisfactory condition to undergo the procedure. After I obtained informed consent, the scope was passed under direct vision. Throughout the procedure, the patient's blood pressure, pulse, and oxygen saturations were monitored continuously. The Colonoscope was introduced through the anus and advanced to the cecum, identified by the ileocecal valve. The colonoscopy was performed without difficulty. The patient tolerated the procedure well. The quality of the bowel preparation was good. Scope In: 10:35:02 AM Scope Withdrawal Time 0 hours 25 minutes 6 seconds Scope Out: 11:09:42 AM Total Procedure Duration Time 0 hours 34 minutes 40 seconds Findings: Hemorrhoids were found on perianal exam. Non-bleeding external and internal hemorrhoids were found. The hemorrhoids were Grade I (internal hemorrhoids that do not prolapse). Two sessile polyps were found in the descending colon. The polyps were less than 5 mm in size. These polyps were removed with a cold biopsy forceps. Resection and retrieval were complete. Nine sessile polyps were found in the rectum. The polyps were less than 5 mm in size. These polyps were removed with a cold biopsy forceps. Resection and retrieval were complete. A few small-mouthed diverticula were found in the sigmoid colon. The exam was otherwise without abnormality. Impression: - Hemorrhoids found on perianal exam. - Non-bleeding external and internal hemorrhoids. - Two less than 5 mm polyps in the descending colon, removed with a cold biopsy forceps. Resected and retrieved. - Nine less than 5 mm polyps in the rectum, removed with a cold biopsy forceps. Resected and retrieved. - Diverticulosis in the sigmoid colon. - The examination was otherwise normal. Recommendation: - Discharge patient to home. - High fiber diet. - Continue present medications. - Await pathology results. - Repeat colonoscopy in 3 years for surveillance based on pathology results. Procedure Code(s): --- Professional --- 62264, Colonoscopy, flexible; with biopsy, single or multiple Diagnosis Code(s): --- Professional --- K64.0, First degree hemorrhoids D12.4, Benign neoplasm of descending colon K62.1, Rectal polyp Z80.0, Family history of malignant neoplasm of digestive organs K59.00, Constipation, unspecified K57.30, Diverticulosis of large intestine without perforation or abscess without bleeding CPT copyright 2017 [employer]. All rights reserved. The codes documented in this report are preliminary and upon terminal block assembler review may be revised to meet current compliance requirements. MD Caro Zhou MD 04/14/2021 11:22:13 AM This report has been signed electronically. Number of Addenda: 0 Note Initiated On: 04/14/2021 10:31 AM 04/14/21 1122 Date Caro Herrmann MD Cosigner Signature: Date (if indicated) CC: OPHTHALMIC TECH-C Sierra Hopkins; Dr. Caro Herrmann MD Date Dictated: 04/14/21 1031 Date Transcribed: Machine Setter And Repairer: MANI Signed Sierra Hopkins CNP Work Phone: Start: 04-14-2021 End: 04-14-2021 EGD Report Comments: See Note; NOTES: [facility] Medical Records Department [address] [place] [address] EGD Report MR#: [id number] Acct: [id number] Name: ROSA DEAN Rep #: [id number] : 1955 65 From: Caro Herrmann MD PCP: FADIA Santana Status:[facility] Patient Name: Rosa Dean Procedure Date: 04/14/2021 10:14 AM Date of : 1955 Age: 65 Procedure: Upper GI endoscopy Indications: Esophageal reflux Providers: Caro Herrmann MD Referring MD: Sierra Hopkins NP Medicines: Monitored Anesthesia Care Patient Profile: This is a 65 year old female. Complications: No immediate complications. Procedure: Pre-Anesthesia Assessment: - Prior to the procedure, a History and Physical was performed, and patient medications and allergies were reviewed. The patient's tolerance of previous anesthesia was also reviewed. The risks and benefits of the procedure and the sedation options and risks were discussed with the patient. All questions were answered, and informed consent was obtained. Prior Anticoagulants: The patient has taken no previous anticoagulant or antiplatelet agents. ASA Grade Assessment: Per anesthesia. After reviewing the risks and benefits, the patient was deemed in satisfactory condition to undergo the procedure. After obtaining informed consent, the endoscope was passed under direct vision. Throughout the procedure, the patient's blood pressure, pulse, and oxygen saturations were monitored continuously. The gastroscope was introduced through the mouth, and advanced to the second part of duodenum. The upper GI endoscopy was accomplished without difficulty. The patient tolerated the procedure well. Scope In: 10:25:38 AM Scope Out: 10:31:11 AM Total Procedure Duration Time 0 hours 5 minutes 33 seconds Findings: The Z-line was regular [cm from incisors]. Diffuse mildly erythematous mucosa without bleeding was found in the gastric antrum and in the prepyloric region of the stomach. Biopsies were taken with a cold forceps for histology. Biopsies were taken with a cold forceps for Helicobacter pylori cultures. The examined duodenum was normal. The cardia and gastric fundus were normal on retroflexion. Impression: - Z-line regular. - Erythematous mucosa in the antrum and prepyloric region of the stomach. Biopsied. - Normal examined duodenum. Recommendation: - Await pathology results. - Discharge patient to home. - Resume previous diet. - Continue present medications. Procedure Code(s): --- Professional --- 14185, Esophagogastroduodenoscopy, flexible, transoral; with biopsy, single or multiple Diagnosis Code(s): --- Professional --- K31.89, Other diseases of stomach and duodenum K21.9, Gastro-esophageal reflux disease without esophagitis CPT copyright 2017 [employer]. All rights reserved. The codes documented in this report are preliminary and upon terminal block assembler review may be revised to meet current compliance requirements. MD Caro Zhou MD 04/14/2021 11:14:42 AM This report has been signed electronically. Number of Addenda: 0 Note Initiated On: 04/14/2021 10:14 AM 04/14/21 1114 Date Caro Herrmann MD Cosigner Signature: Date (if indicated) CC: OPHTHALMIC TECHRonaldo Hopkins; Dr. Caro Herrmann MD Date Dictated: 04/14/21 1014 Date Transcribed: Machine Setter And Repairer: TR Signed Sierra Hopkins KINDERGARTEN ASSISTANT Work Phone: Start: 04-14-2021 End: 04-14-2021 History and Physical Exam Comments: See Note; NOTES: [facility] Medical Records Department [address] [place] [address] History Physical Exam 04/14/21 1005 MR#: [id number] Acct: [id number] Name: ROSA DEAN Rep #: [id number] : 1955 65 From: Caro Herrmann MD PCP: Sierra Hopkins OPHTHALMIC TECH-C Status:[facility] Location: [place] [address] History and Physical Date of Admission: 04/14/21 Date of Service: 03/29/21 MR#:[id number] Acct:[id number] Name: ROSA DEAN :1955 Age/Sex: 65/F Rep #:[id number] Provider:Dr. Caro Herrmann MD Location:[facility] Status:Signed Intake Vital Signs 03/29/21 13:34 03/29/21 13:46 Height 5 ft 2 in Weight: 196 lb BMI 36.6 35.8 BP 108/68 Blood Pressure Location Rt brachial Position Sitting Respiration 16 Intake Visit Reasons: CONSTIPATION ABDOMINAL PAIN Chief Complaint: scopes Case Filler Required: No Is patient in pain?: No Allergies No Known Allergies Allergy (Verified 03/29/21 13:47) Medications ropinirole 0.5 mg PO QHS 05/15/14 [History Confirmed 03/16/21] amitriptyline 10 mg PO QHS 11/22/17 [History Confirmed 03/16/21] ergocalciferol (vitamin D2) 1 tab PO QWEEK 11/22/17 [History Confirmed 03/16/21] famotidine 40 mg PO DAILY 11/22/17 [History Confirmed 03/16/21] venlafaxine 150 mg capsule,extended release 24 hr 150 mg PO DAILY 05/29/20 [History Confirmed 03/16/21] montelukast 10 mg tablet 10 mg PO QPM #30 tab 06/30/20 [Rx Confirmed 03/16/21] albuterol sulfate 2.5 mg INHALATION Q4H PRN PRN #180 ml 11/09/20 [Rx Confirmed 03/16/21] albuterol sulfate 90 mcg/actuation aerosol inhaler 1 - 2 puff INHALATION Q4H PRN PRN #18 g 11/09/20 [Rx Confirmed 03/16/21] PFSH Medical History (Updated 03/29/21 @ 13:[address] Caro Herrmann MD) Carpal tunnel syndrome of left wrist COPD (chronic obstructive pulmonary disease) Depression Diabetes Fibromyalgia GERD (gastroesophageal reflux disease) Hyperlipemia NHI (obstructive sleep apnea) Osteoarthrosis Pneumonia Restless leg syndrome Rheumatoid arthritis Thyroid disease Tobacco abuse Trigger finger of left thumb Type 2 diabetes mellitus Surgical History History of appendectomy History of carpal tunnel surgery of left wrist History of carpal tunnel surgery of right wrist History of hysterectomy History of tubal ligation Normal colonoscopy S/P laparoscopic cholecystectomy Family History Father Colon cancer Kidney disease Mother Diabetes Heart disease Thyroid disorder Grandfather Alcohol abuse Sister Cancer Breast cancer Social History household members: significant other housing: other details: mobile home Smoking Status: Current every day smoker tobacco type: cigarettes second hand exposure: Yes alcohol intake: never substance use type: does not use HPI HPI HPI: ROSA DEAN, is a 65 F who presents to the office today for constipation need for colonoscopy. Patient states her father had colon cancer diagnosed at age 50. Patient's last colonoscopy was 12-14 years ago she did have some polyps at that time. Patient states she had her gallbladder removed in June 2020 ever since then she has had to run to the bathroom if she has certain types of food. Will occasionally have fecal incontinence. Patient states she has bowel movements daily however also admits to straining daily. Patient states she drinks plenty of water unsure about her fiber intake. Patient does have reflux she has been on Pepcid for about 10 years denies ever having an EGD. ROS General General: Yes weight change and fatigue; No appetite, colon cancer, breast cancer or weakness HEENT HEENT: No difficulty swallowing, eye injury, eye surgery, swollen glands or hoarseness Endo Endocrine: No thyroid disease, diabetes mellitus, thyroid cancer, Hair loss, heat intolerance or cold intolerance Skin Skin: No rash or changing moles Breast Breast: No left breast lump, right breast lump, nipple discharge, breast pain, abnormal mammogram, abnormal US or breast enlargement Musc Musculoskeletal: Yes rheumatoid arthritis; No back problems, arthritis, gout or joint pain Cardio Cardiovascular: No murmur, pacemaker, heart disease, atrial fibrillation, high blood pressure, heart attack, heart stent, palpitations, shortness of breat with exertion or chest pain Psych Psychiatric: Yes anxiety; No depression or hearing voices Resp Respiratory: Yes shortness of breath, Yes sleep apnea, No cough, Yes COPD, No asthma, No emphysema and No wheezing Gastro Gastrointestinal: No abdominal pain, No nausea or vomiting, Yes diarrhea, No constipation, No blood in stool, Yes acid reflux, No hemorrhoids, No ulcers, Yes gallbladder problem and No black,tarry stools Tay Hematologic: No blood thinners, No blood disorders, No bleeding, No anemia and No blood clots Neuro Neurologic: No system reviewed and no additional complaints, except as documented, No as per HPI, No abnormal gait, No abnormal hearing, No abnormal movements, No abnormal speech, No behavioral changes, No burning sensations, No confusion, No convulsions, No disequilibrium, No dizziness, No localized weakness, No frequent falls, No headache(s), No lack of coordination, No loss of vision, No memory loss, No numbness, No other visual disturbances, No radicular pain, No restless legs, No sensory deficit, No syncope, No tingling, No tremor(s), No weakness and No other Exam Const General: cooperative, healthy appearing, comfortable and no acute distress Neck Neck: normal visual inspection Resp Effort Inspection: normal respiratory effort Cardio Rate: regular rate GI Inspection: non-distended Palpation: soft, no guarding and nontender Skin General: no rashes or lesions noted Neuro General: patient oriented x3 Psych Affect: normal affect COVID (Procedure Consent) Procedure Criteria Procedure Criteria: Yes Elective The surgeon/proceduralist and patient have discussed in detail the risk of exposure to and/or potential harm posed by the COVID-19 virus with having a surgery/procedure at this time versus the risk of delaying the surgery/procedure. It is not possible to know either the risk of delaying the surgery or procedure or chance of getting an infection with perfect accuracy, but a joint decision was made between the patient and the surgeon/proceduralist to proceed at this time with the scheduled surgery/procedure as indicated on the consent form. Assessment and Plan Assessment and Plan (1) Constipation: Status: Acute (2) Family history of colon cancer in father: Status: Acute (3) GERD (gastroesophageal reflux disease): Status: Chronic Plan - Dr. Caro Herrmann MD: Did also give patient she with information about amount of fiber she should be getting--20 g daily. I have discussed the above with the patient. I have offered the patient EGD and colonoscopy for evaluation. Scheduled for 04/14 per patient request I have explained the risks/benefits of the procedure and described the procedure. I have discussed the risks with the patient, including but not limited to: infection, bleeding, perforation of the GI tract requiring emergency surgery, inability to complete the procedure, injury to any internal organs, complications of anesthesia, etc. - the patient understands and agrees to proceed. I have answered all the patient's questions to the patient's satisfaction and the patient has no further questions. The patient has been given instructions for the colon cleansing preparation. 1 day of clears MiraLAX Dulcolax split prep. Caro Herrmann M.D. Pager: [phone] [facility] [address] [place] [address], [address] [place] [address] Office: [phone] Plan Details Other Orders: Orders: Colonoscopy Today EGD Today Coding Level of Care Code Off vis,new,level 3 Diagnoses Constipation K59.00 Family history of colon cancer in father Z80.0 GERD (gastroesophageal reflux disease) K21.9 03/29/21 1351<Electronically signed by Caro Herrmann MD>Date Caro Herrmann MD 04/14/21 1006 <Electronically signed by Caro Herrmann MD> Cosigner Signature (if applicable): CC: FADIA Hopkins; Dr. Caro Herrmann MD Signed Sierra Hopkins KINDERGARTEN ASSISTANT Work Phone: Start: 03-29-2021 End: 03-29-2021 Surgery Visit Report Comments: See Note; NOTES: [facility] [address] [place], [place] [id number] OFFICE VISIT Date of Service: 03/29/21 MR#: [id number] Acct: [id number] Name: ROSA DEAN Rep #: [id number] : 1955 Provider: Dr. Caro diop MD Age/Sex: 65/F Location: [facility] Status: Signed Intake Vital Signs 03/29/21 13:34 03/29/21 13:46 Height 5 ft 2 in Weight: 196 lb BMI 36.6 35.8 BP 108/68 Blood Pressure Location Rt brachial Position Sitting Respiration 16 Intake Visit Reasons: CONSTIPATION ABDOMINAL PAIN Chief Complaint: scopes Case Filler Required: No Is patient in pain?: No Allergies No Known Allergies Allergy (Verified 03/29/21 13:47) Medications ropinirole 0.5 mg PO QHS 05/15/14 [History Confirmed 03/16/21] amitriptyline 10 mg PO QHS 11/22/17 [History Confirmed 03/16/21] ergocalciferol (vitamin D2) 1 tab PO QWEEK 11/22/17 [History Confirmed 03/16/21] famotidine 40 mg PO DAILY 11/22/17 [History Confirmed 03/16/21] venlafaxine 150 mg capsule,extended release 24 hr 150 mg PO DAILY 05/29/20 [History Confirmed 03/16/21] montelukast 10 mg tablet 10 mg PO QPM #30 tab 06/30/20 [Rx Confirmed 03/16/21] albuterol sulfate 2.5 mg INHALATION Q4H PRN PRN #180 ml 11/09/20 [Rx Confirmed 03/16/21] albuterol sulfate 90 mcg/actuation aerosol inhaler 1 - 2 puff INHALATION Q4H PRN PRN #18 g 11/09/20 [Rx Confirmed 03/16/21] PFSH Medical History (Updated 03/29/21 @ 13:[address] Caro Herrmann MD) Carpal tunnel syndrome of left wrist COPD (chronic obstructive pulmonary disease) Depression Diabetes Fibromyalgia GERD (gastroesophageal reflux disease) Hyperlipemia NHI (obstructive sleep apnea) Osteoarthrosis Pneumonia Restless leg syndrome Rheumatoid arthritis Thyroid disease Tobacco abuse Trigger finger of left thumb Type 2 diabetes mellitus Surgical History History of appendectomy History of carpal tunnel surgery of left wrist History of carpal tunnel surgery of right wrist History of hysterectomy History of tubal ligation Normal colonoscopy S/P laparoscopic cholecystectomy Family History Father Colon cancer Kidney disease Mother Diabetes Heart disease Thyroid disorder Grandfather Alcohol abuse Sister Cancer Breast cancer Social History household members: significant other housing: other details: mobile home Smoking Status: Current every day smoker tobacco type: cigarettes second hand exposure: Yes alcohol intake: never substance use type: does not use HPI HPI HPI: ROSA DEAN, is a 65 F who presents to the office today for constipation need for colonoscopy. Patient states her father had colon cancer diagnosed at age 50. Patient's last colonoscopy was 12-14 years ago she did have some polyps at that time. Patient states she had her gallbladder removed in June 2020 ever since then she has had to run to the bathroom if she has certain types of food. Will occasionally have fecal incontinence. Patient states she has bowel moods daily however also admits to straining daily. Patient states she drinks plenty of water unsure about her fiber intake. Patient does have reflux she has been on Pepcid for about 10 years denies ever having an EGD. ROS General General: Yes weight change and fatigue; No appetite, colon cancer, breast cancer or weakness HEENT HEENT: No difficulty swallowing, eye injury, eye surgery, swollen glands or hoarseness Endo Endocrine: No thyroid disease, diabetes mellitus, thyroid cancer, Hair loss, heat intolerance or cold intolerance Skin Skin: No rash or changing moles Breast Breast: No left breast lump, right breast lump, nipple discharge, breast pain, abnormal mammogram, abnormal US or breast enlargement Musc Musculoskeletal: Yes rheumatoid arthritis; No back problems, arthritis, gout or joint pain Cardio Cardiovascular: No murmur, pacemaker, heart disease, atrial fibrillation, high blood pressure, heart attack, heart stent, palpitations, shortness of breat with exertion or chest pain Psych Psychiatric: Yes anxiety; No depression or hearing voices Resp Respiratory: Yes shortness of breath, Yes sleep apnea, No cough, Yes COPD, No asthma, No emphysema and No wheezing Gastro Gastrointestinal: No abdominal pain, No nausea or vomiting, Yes diarrhea, No constipation, No blood in stool, Yes acid reflux, No hemorrhoids, No ulcers, Yes gallbladder problem and No black,tarry stools Tay Hematologic: No blood thinners, No blood disorders, No bleeding, No anemia and No blood clots Neuro Neurologic: No system reviewed and no additional complaints, except as documented, No as per HPI, No abnormal gait, No abnormal hearing, No abnormal movements, No abnormal speech, No behavioral changes, No burning sensations, No confusion, No convulsions, No disequilibrium, No dizziness, No localized weakness, No frequent falls, No headache(s), No lack of coordination, No loss of vision, No memory loss, No numbness, No other visual disturbances, No radicular pain, No restless legs, No sensory deficit, No syncope, No tingling, No tremor(s), No weakness and No other Exam Const General: cooperative, healthy appearing, comfortable and no acute distress Neck Neck: normal visual inspection Resp Effort Inspection: normal respiratory effort Cardio Rate: regular rate GI Inspection: non-distended Palpation: soft, no guarding and nontender Skin General: no rashes or lesions noted Neuro General: patient oriented x3 Psych Affect: normal affect COVID (Procedure Consent) Procedure Criteria Procedure Criteria: Yes Elective The surgeon/proceduralist and patient have discussed in detail the risk of exposure to and/or potential harm posed by the COVID-19 virus with having a surgery/procedure at this time versus the risk of??? delaying the surgery/procedure. It is not possible to know either the risk of delaying the surgery or procedure or chance of getting an infection with perfect accuracy, but a joint decision was made between the patient and the surgeon/proceduralist ???to proceed at this time with the scheduled surgery/procedure as indicated on the consent form. Assessment and Plan Assessment and Plan (1) Constipation: Status: Acute (2) Family history of colon cancer in father: Status: Acute (3) GERD (gastroesophageal reflux disease): Status: Chronic Plan - Dr. Caro Herrmann MD: Did also give patient she with information about amount of fiber she should be getting--20 g daily. I have discussed the above with the patient. I have offered the patient EGD and colonoscopy for evaluation. Scheduled for 04/14 per patient request I have explained the risks/benefits of the procedure and described the procedure. I have discussed the risks with the patient, including but not limited to: infection, bleeding, perforation of the GI tract requiring emergency surgery, inability to complete the procedure, injury to any internal organs, complications of anesthesia, etc. - the patient understands and agrees to proceed. I have answered all the patient's questions to the patient's satisfaction and the patient has no further questions. The patient has been given instructions for the colon cleansing preparation. 1 day of clears MiraLAX Dulcolax split prep. Caro Herrmann M.D. Pager: [phone] [facility] [address] [place] [address] [address] [place] [address] Office: [phone] Plan Details Other Orders: Orders: Colonoscopy Today EGD Today Coding Level of Care Code Off vis,new,level 3 Diagnoses Constipation K59.00 Family history of colon cancer in father Z80.0 GERD (gastroesophageal reflux disease) K21.9 03/29/21 1351 <Electronically signed by Caro Herrmann MD> Date Caro Herrmann MD Cosigner Signature: Date (if applicable) CC: OPHTHALMIC TECHRonaldo Esquivel Kellie [facility] Work Phone: Start: 03-16-2021 End: 03-16-2021 Pulmonary Visit Report Comments: See Note; NOTES: [facility] [address] [place], [place] [address] OFFICE VISIT Date of Service: 03/16/21 MR#: [id number] Acct: [id number] Name: ROSA DEAN Rep #: [id number] : 1955 Provider: Dr. Jasper Lindo MD Age/Sex: 65/F Location: [facility] Status: Signed Assessment and Plan Assessment and Plan (1) Asthma: Status: Suspected Qualifiers: Asthma complication type: unspecified Asthma persistence: unspecified Asthma severity: unspecified severity Qualified Code(s): J45.909 - Unspecified asthma, uncomplicated (2) Smoking greater than 30 pack years: Status: Acute (3) Pulmonary hypertension: Status: Suspected (4) NHI (obstructive sleep apnea): Status: Chronic Plan - Dr. Jasper Lindo MD: Patient appears to be doing okay from a respiratory standpoint. Patient on as needed albuterol secondary to failure of maintenance inhalers in the past. There is no indication for repeat titration study. Signs and symptoms of exacerbation and sick policy were reviewed in detail. Patient voiced understanding. Did encourage patient to follow through with her smoking cessation plan. Continue current therapy. Call with issues. Plan Details Follow Up: 3 Months (CSM) HPI 3 M FU Details: Patient is a 65-year-old female, currently under the care of Sierra Hopkins, who presents for evaluation secondary to routine follow-up. Since last visit, patient denies any ER visits, hospitalizations or prednisone burst. Patient overall feels subjectively slightly worse compared to previous. Patient has not been able to tolerate maintenance inhalers in the past. Patient is using albuterol by MDI and nebulizers approximately 2-4 times per day. Patient states that she feels this is helpful. Patient denies any complications such as dry mouth, hoarseness or tremor. Patient states that she has felt more short of breath but she attributes this to anxiety. Patient has lost 6 family members in the last 2 years and currently her is not doing well. He has been to the ER couple of times secondary to nausea and vomiting. He was treated for dehydration, but she is convinced that he has cancer. Patient has been compliant with her NHI therapy. Patient denies any pain at the interface site, hoarseness or sore throat. Patient wakes up feeling refreshed, but does admit that she has been taking naps during the day. Patient does take naps with her CPAP in place. Patient feels that she is taking more naps secondary to depression. Patient is not interested in finding a counselor or someone to talk to. Patient is very worried that she is going to lose her . Patient does continue to smoke 1/2 pack/day. Patient states that she is attempting to cut back now and plans on a quit date of May 30. This is the birthday of her brother that recently passed. Documentation personally reviewed with the patient Compliance report (March 2021): Compliant 100% of the time for an average of 10 hours 7 minutes on CPAP 17 cmH2O with residual AHI of 0.5 and well-controlled leak. Intake Vital Signs 03/16/21 05:46 Height 5 ft 2 in Weight: 90.747 kg BMI 36.6 BP 142/84 H Blood Pressure Location Rt brachial Position Sitting Respiration 16 Pulse 94 Pulse Source Monitor Temp 36.9 C Temperature Source Tympanic Pulse Oximetry (%) 95 Oxygen Delivery Method room air Intake Visit Reasons: 3 M FU [facility] Vendor: [employer] Allergies No Known Allergies Allergy (Verified 03/16/21 08:48) Medications ropinirole 0.5 mg PO QHS 05/15/14 [History Confirmed 03/16/21] amitriptyline 10 mg PO QHS 11/22/17 [History Confirmed 03/16/21] ergocalciferol (vitamin D2) 1 tab PO QWEEK 11/22/17 [History Confirmed 03/16/21] famotidine 40 mg PO DAILY 11/22/17 [History Confirmed 03/16/21] venlafaxine 150 mg capsule,extended release 24 hr 150 mg PO DAILY 05/29/20 [History Confirmed 03/16/21] montelukast 10 mg tablet 10 mg PO QPM #30 tab 06/30/20 [Rx Confirmed 03/16/21] albuterol sulfate 2.5 mg INHALATION Q4H PRN PRN #180 ml 11/09/20 [Rx Confirmed 03/16/21] albuterol sulfate 90 mcg/actuation aerosol inhaler 1 - 2 puff INHALATION Q4H PRN PRN #18 g 11/09/20 [Rx Confirmed 03/16/21] PFSH Medical History Carpal tunnel syndrome of left wrist COPD (chronic obstructive pulmonary disease) Depression Diabetes Fibromyalgia GERD (gastroesophageal reflux disease) Hyperlipemia NHI (obstructive sleep apnea) Osteoarthrosis Pneumonia Restless leg syndrome Rheumatoid arthritis Thyroid disease Tobacco abuse Trigger finger of left thumb Type 2 diabetes mellitus Surgical History History of appendectomy History of carpal tunnel surgery of left wrist History of carpal tunnel surgery of right wrist History of hysterectomy History of tubal ligation Normal colonoscopy S/P laparoscopic cholecystectomy Family History Father Colon cancer Kidney disease Mother Diabetes Heart disease Thyroid disorder Grandfather Alcohol abuse Sister Cancer Breast cancer Social History household members: significant other housing: other details: mobile home Smoking Status: Current every day smoker tobacco type: cigarettes second hand exposure: Yes alcohol intake: never substance use type: does not use Review of Systems Resp Respiratory: Yes as per HPI Exam Const Constitutional: Positive conversant, cooperative, in no acute respiratory distress, healthy appearing, well developed, well nourished, good hygiene and obese Head Head: Yes normocephalic, Yes atraumatic and No cyanosis of lips/distal nose Eyes Eye: Positive clear conjunctiva; Negative nystagmus, scleral abnormality or cataract present Ears Ear: Positive hearing normal and external ears normal; Negative hard of hearing Nose Nose: Yes external nose normal, No nasal polyp and Yes septum normal Mouth Mouth: Positive oral mucosae normal, no lesions and good dentition; Negative oral thrush present or post nasal drip Mallampati Score: II: Mallampati Score Neck Neck: Positive normal visual inspection, full ROM and trachea midline; Negative lymphadenopathy or JVD Chest Wall Chest: Positive normal inspection of the chest and symmetric chest movement; Negative crepitus or tenderness Resp lung sounds: Positive diminished lung sounds and prolonged expiratory time; Negative wheezes, wheeze present on forced exhalation, rhonchi, rales, dullness or use of accessory muscles Cardio Cardiac: Positive regular rate, regular rhythm, S1 normal and S2 normal; Negative murmur, rub or gallop GI GI: Positive normal to inspection, normal bowel sounds and obese; Negative distended, ascites or epigastric tenderness Genitourinary: Positive deferred Musc Musculoskeletal: Positive steady gait; Negative using an assistive device for ambulation, kyphosis or scoliosis Skin Pulmonary Skin Exam: Positive intact; Negative lesion, rash, ulcers or erythema Pulses Pulse: Yes radial pulses present Extremities Extremities: Yes capillary refill normal, Yes clubbing, No cyanosis and No edema Neuro Neurologic: Yes no focal neuro deficits, Yes conversant, Yes cooperative, Yes normal cognition, Yes normal coordination, Yes normal concentration and Yes understands questions Lymph Lymphatic: No lymphadenopathy Psych Appearance: Positive grossly normal Mental Status: Positive mental status grossly normal Mood: Positive congruent mood Affect: Positive normal affect Coding Level of Care Code Off vis,est,level 3 Diagnoses Asthma J45.909 Asthma complication type: unspecified Asthma persistence: unspecified Asthma severity: unspecified severity Smoking greater than 30 pack years F17.210 Pulmonary hypertension I27.20 NHI (obstructive sleep apnea) G47.33 03/16/21 0915 <Electronically signed by Jasper Lindo MD> Date Jasper Lindo MD Cosigner Signature: Date (if applicable) CC: FADIA Hopkins [facility] Work Phone: Start: 11-09-2020 End: 11-09-2020 Pulmonary Visit Report Comments: See Note; NOTES: [facility] [address] [place] [address] OFFICE VISIT Date of Service: 11/09/20 MR#: [id number] Acct: [id number] Name: ROSA DEAN Rep #: [id number] : 1955 Provider: FADIA Horan Age/Sex: 65/F Location: [facility] Status: Signed Assessment Plan 1. Chronic obstructive pulmonary disease, unspecified COPD type J44.9 Plan Does not appear to be an exacerbation of Asthma/COPD today. No need for prednisone or antibiotic. Continue current maintenance medication. No additional testing at this time. Contact the office for any new or worsening symptoms. An acute visit and typically be arranged within 1-2 days. Follow-up as previously scheduled. 2. NHI (obstructive sleep apnea) G47.33 Plan Patient is using and benefiting from Pap therapy. No indication for titration study at this time. Continue to encourage weight loss. Contact the office for any new or worsening symptoms in the meantime. Follow-up in March with Dr Lindo. 3. Smoking greater than 30 pack years F17.210 Plan Continue to encourage smoking cessation. Keep LDCT in April 2021. 4. Asthma, unspecified asthma severity, unspecified whether complicated, unspecified whether persistent J45.909 Plan Stable. She has not been able to tolerate combination inhalers in the past and has remained stable and controlled on albuterol alone. Attempted to obtain a NIOX to see if a steroid inhaler is needed. No additional testing at this time. Keep previously scheduled follow up with Dr Lindo. Orders Orders: NIOX Today 5. Depression, unspecified depression type F32.9 Plan Deteriorated. I believe the patient is experiencing worsening depression which is being exhibited by persistent fatigue despite good control of her obstructive sleep apnea. I have encouraged her to talk about this with her primary care provider. She is also on several sedating medications that could also be compounding her drowsiness. Plan Detail Other Medications New: albuterol sulfate 90 mcg/actuation 1 - 2 puffs inhalation Q4H PRN PRN 18 grams 6RF Wheezing Refilled: albuterol sulfate 2.5 mg (3 mL) inhalation Q4H PRN PRN 180 mL 3RF Wheezing HPI 3 M FU: Chief Complaint: Shortness of breath HPI Comments Details: This patient presents to the office today to follow-up on her COPD and obstructive sleep apnea. She is ambulatory and currently on room air. She has not been seen in the ED or urgent care for any respiratory illnesses since her last office visit. She has not required any antibiotics or prednisone for any breathing problems. She is not currently on any maintenance inhalers. She states that in the past she was tried on medication such as Advair and Symbicort. She did not like the way they made her feel . She reports that they gave her severe dry mouth. She states that her symptoms are quite well controlled with the use of as needed albuterol only. Currently she is using the albuterol rescue inhaler a couple times per week, but uses albuterol by nebulizer routinely once daily. She reports good compliance with the use of Pap therapy. She continues to have hypersomnia and is unsure why. She states that she cannot sleep without her Pap device. She wakes up feeling rested but after few hours takes a long nap (wearing the Pap with a nap). She denies any difficulty with dry mouth, snoring through the mask or having excessive episodes of nocturia. She continues to experience shortness of breath on exertion, but she reports that it has not worsened. For the most part, it is relieved with rest. Currently she denies any cough, sputum production or hemoptysis. She denies any wheezing, chest tightness, chest pain or palpitations. She continues to smoke 15 cigarettes/day. She is trying to cut back . She reports that she is under a lot of stress. Her significant other is dealing with respiratory problems. Her brother was recently diagnosed with lung cancer. In the last 12 months she lost 3 friends and a [id number] to cancer as well. She admits that she believes she is dealing with depression, which may be contributing to her persistent fatigue. Compliance report for the past 30 days shows 100% compliance with an average use of over 10 hours/day. Current setting is 17 cm of water with a residual AHI of 0.3 events per hour and leaks do not appear to be an issue. Intake Vital Signs 11/09/20 Height 5 ft 2 in 11/09/20 Weight: 205 lb 11/09/20 BMI 37.5 11/09/20 BP 128/72 H 11/09/20 Blood Pressure Location Lt brachial 11/09/20 Position Sitting 11/09/20 Respiration 18 11/09/20 Pulse 88 11/09/20 Pulse Source Monitor 11/09/20 Temp 97.2 F L 11/09/20 Temperature Source Tympanic 11/09/20 Pulse Oximetry (%) 98 11/09/20 Oxygen Delivery Method room air Intake Visit Reasons: 3 M FU [facility] Vendor: [employer] Allergies No Known Allergies Allergy (Verified 11/09/20 09:10) Medications Ropinirole HCl [Requip] 0.5 mg PO QHS 05/15/14 [History Confirmed 11/09/20] Amitriptyline HCl [Elavil] 10 mg PO QHS 11/22/17 [History Confirmed 11/09/20] Ergocalciferol [Vitamin D] 1 tab PO QWEEK 11/22/17 [History Confirmed 11/09/20] Famotidine [Pepcid] 40 mg PO DAILY 11/22/17 [History Confirmed 11/09/20] venlafaxine 150 mg capsule,extended release 24 hr 150 mg PO DAILY 05/29/20 [History Confirmed 11/09/20] montelukast 10 mg tablet 10 mg PO QPM #30 tab 06/30/20 [Rx Confirmed 11/09/20] albuterol sulfate 2.5 mg INHALATION Q4H PRN PRN #180 ml 11/09/20 [Rx Confirmed 11/09/20] albuterol sulfate 90 mcg/actuation aerosol inhaler 1 - 2 puff INHALATION Q4H PRN PRN #18 g 11/09/20 [Rx Confirmed 11/09/20] [facility] Medical History Trigger finger of left thumb (Chronic) Tobacco abuse (Chronic) NHI (obstructive sleep apnea) (Chronic) Restless leg syndrome (Chronic) Hyperlipemia (Chronic) Fibromyalgia (Chronic) Diabetes (Chronic) Depression (Chronic) COPD (chronic obstructive pulmonary disease) (Chronic) Carpal tunnel syndrome of left wrist (Chronic) GERD (gastroesophageal reflux disease) (Chronic) Pneumonia (Acute) Osteoarthrosis (Chronic) Rheumatoid arthritis (Chronic) Thyroid disease (Chronic) Type 2 diabetes mellitus (Chronic) Surgical History History of tubal ligation (Resolved) History of hysterectomy (Resolved) Normal colonoscopy (Resolved) History of carpal tunnel surgery of right wrist (Resolved) History of carpal tunnel surgery of left wrist (Resolved) History of appendectomy (Resolved) S/P laparoscopic cholecystectomy (Acute) Family History Father Colon cancer Kidney disease Mother Diabetes Heart disease Thyroid disorder Grandfather Alcohol abuse Sister Cancer Breast cancer Social History (Updated 11/09/20 @ 14:38 by Princess Horan NP, OPHTHALMIC TECH-C) household members: significant other housing: other details: mobile home Smoking Status: Current every day smoker tobacco type: cigarettes second hand exposure: Yes alcohol intake: never substance use type: does not use Review of Systems Resp Respiratory: Yes as per HPI Exam Const Constitutional: Positive conversant, cooperative, in no acute respiratory distress, healthy appearing, well developed, well nourished, good hygiene, smells of smoke and obese Head Head: Yes normocephalic, Yes atraumatic, No cyanosis of lips/distal nose Eyes Eye: Positive clear conjunctiva Ears Ear: Positive hearing normal and external ears normal; negative hard of hearing Neck Neck: Positive normal visual inspection, full ROM, trachea midline and female neck greater than 37 cm (15 in); negative lymphadenopathy or JVD Chest Wall Chest: Positive normal inspection of the chest and symmetric chest movement; negative crepitus or tenderness Resp lung sounds: Positive diminished and prolonged expiratory time; negative wheezes, rhonchi, rales or use of accessory muscles Cardio Cardiac: Positive regular rate, regular rhythm, S1 normal and S2 normal; negative murmur, rub or gallop GI GI: Positive obese Genitourinary: Positive deferred Musc Musculoskeletal: Positive steady gait; negative using an assistive device for ambulation, kyphosis or scoliosis Skin Pulmonary Skin Exam: Positive intact; negative lesion, rash, ulcers, erythema, scaly or dermal atrophy Extremities Extremities: No clubbing, No cyanosis Neuro Neurologic: Yes no focal neuro deficits, Yes conversant, Yes cooperative, Yes normal cognition, Yes normal coordination, Yes normal concentration, Yes understands questions Psych Appearance: Positive grossly normal Mental Status: Positive mental status grossly normal Mood: Positive congruent mood Affect: Positive normal affect Coding Level of Care Code Off vis,est,level 3 Diagnoses Chronic obstructive pulmonary disease, unspecified COPD type J44.9 ?COPD type: unspecified COPD NHI (obstructive sleep apnea) G47.33 Smoking greater than 30 pack years F17.210 Asthma, unspecified asthma severity, unspecified whether complicated, unspecified whether persistent J45.909 ?Asthma severity: unspecified severity ?Asthma persistence: unspecified ?Asthma complication type: unspecified Depression, unspecified depression type F32.9 ?Depression Type: unspecified 11/09/20 1438 <Electronically signed by Princess Horan NP OPHTHALMIC TECH-C> Date Princess Marley Signature: Date (if applicable) CC: OPHTHALMIC TECH-Patricio Sierra Hopkins Start: 06-30-2020 End: 06-30-2020 Pulmonary Visit Report Comments: See Note; NOTES: [facility] [place] [address] [place] [address] OFFICE VISIT Date of Service: 06/30/20 MR#: [id number] Acct: [id number] Name: ROSA DEAN Rep #: [id number] : 1955 Provider: FADIA Horan Age/Sex: 64/F Location: [facility] Status: Signed Assessment Plan 1. Chronic obstructive pulmonary disease, unspecified COPD type J44.9 Plan Recent PFTs look more like asthma. No change in maintenance medications. No need for antibiotics or prednisone today (NIOX procedure performed in the office today within normal limits). Did enc ourage the patient to utilize the nebulizer before bedtime as she has noticed an increase in symptoms with bedtime. Also placing her on Singulair to be used 1 hour before bedtime. Follow-up with Dr. Lindo in 3 months. Contact the office with any new or worsening symptoms in the meantime. 2. Smoking greater than 30 pack years F17.210 Plan Stable examination. Repeat CT lung screening in April 2021. A 7 minute, face to face discussion occurred with the patient regarding smoking cessation. Risks of continued tobacco abuse was covered such as heart disease, stroke, cancer, and emphysema, among others. The many health benefits quitting, was discussed and the patient was educated on the fact that smokers lose an average of 10 minutes of life for every cigarette smoked. We discussed the pathophysiology of smoking addiction and its dual addictive components of nicotine addiction and psychological addiction. Nicotine replacement was discussed. We also talked about medications that may be helpful such as Bupropion (Wellbutrin) or Varenicline (Chantix). Advise was also offered on preoccupying the mind during trigger times with activities such as chewing gum, sucking on hard candy or utilizing their hands with an activity such as drawing. Currently the patient is smoking 1.5-2 ppd. At this time, ROSA remains pre-contemplative. We will continue to monitor the tobacco abuse and encourage cessation. You may call the free hotline 2-523-VIQTNOW. People who use this line are THREE times more likely to remain smoke free. Orders Orders: Low Dose CT Lung Screening 04/12/21 3. NHI (obstructive sleep apnea) G47.33 Plan Patient is using Pap therapy with good compliance. No indication for titration study at this time. Given significant control of AHI, doubt that the patient's fatigue is related to suboptimal manag ement of her obstructive sleep apnea. Recommended that the patient discuss her fatigue with her primary care provider for additional work-up. Continue to encourage weight loss. Contact the office for any new or worsening symptoms in the meantime. Follow-up in [address] Lindo. Plan Detail Other Orders Orders: NIO[facility] Today J45.[address] Lung Screening 04/12/21 F17.200 Other Medications New: montelukast 10 mg PO QPM 30 tabs 3RF Follow Up 3 Months ([facility]) HPI 3 M FU: Chief Complaint: Shortness of breath HPI Comments Details: This patient presents to the office today to follow-up on her obstructive sleep apnea and COPD. She is ambulatory. She is on room air and accompanied today by her . She has not been seen in the ED or urgent care for any respiratory illnesses since her last office visit. She has not required any antibiotics or prednisone for any breathing problems. She continues to experience shortness of breath constantly . She is exerted quite easily. She has persistent fatigue throughout the day. She has a daily productive cough of clear-colored sputum. She notices an increase in throat congestion at night. She is using the DuoNeb's in the morning and in the afternoon. She is unsure if it helps to reduce her shortness of breath. She continues to smoke 1.5-2 packs of cigarettes daily. She reports good compliance with the use of her Pap machine. She is unsure if it is helping to relieve her daytime hypersomnia. She states that she still is tired throughout the day. She denies any difficulty with dry mouth. She has about 1 episode of nocturia each night. She is not having problems with headaches. She denies any chest pain or palpitations. She has not had any wheezing or chest tightness. She denies any fever, chills or body aches. Test results personally reviewed with the patient: Pulmonary function test completed on May 13, 2020 showing a mild reduction in diffusing capacity with subtle stigmata of small airway disease and a robust mid flow bronchodilator response. Low-dose CT lung screening completed on April 10, 2020 shows a mild degree of emphysematous changes in the upper lobes with a 1.1 cm bulla in the right upper lobe anteriorly. Recommendation is to repeat the low-dose CT lung screening in 12 months. Compliance report for the past 30 days shows 100% compliance with an average use of 11 hours per night. Current setting is 17 cmH2O with a residual AHI of 0.2 events per hour. Leaks do not appear to be an issue. Intake Vital Signs 06/30/20 Weight: 210 lb 06/30/20 BP 111/64 06/30/20 Blood Pressure Location Lt brachial 06/30/20 Position Sitting 06/30/20 Respiration 17 06/30/20 Pulse 75 06/30/20 Pulse Source Pulmonary Artery 06/30/20 Pulse Oximetry (%) 98 06/30/20 Oxygen Delivery Method room air Intake Visit Reasons: 3 M FU Chief Complaint: abn hida/ RUQ pain DME Vendor: [employer] Is patient in pain?: No Allergies No Known Allergies Allergy (Verified 06/30/20 08:01) Medications Ropinirole HCl [Requip] 0.5 mg PO QHS 05/15/14 [History Confirmed 06/30/20] Albuterol Inhaler [Ventolin Hfa (SP)] 1 - 2 puff INHALATION Q4H PRN PRN 11/22/17 [History Confirmed 06/30/20] Amitriptyline HCl [Elavil] 10 mg PO QHS 11/22/17 [History Confirmed 06/30/20] Ergocalciferol [Vitamin D] 1 tab PO QWEEK 11/22/17 [History Confirmed 06/30/20] Famotidine [Pepcid] 40 mg PO DAILY 11/22/17 [History Confirmed 06/30/20] albuterol sulfate 2.5 mg INHALATION Q4H PRN PRN #180 ml 10/03/18 [Rx Confirmed 06/30/20] venlafaxine 150 mg capsule,extended release 24 hr 150 mg PO DAILY 05/29/20 [History Confirmed 06/30/20] montelukast 10 mg tablet 10 mg PO QPM #30 tab 06/30/20 [Rx Confirmed 06/30/20] PFSH Medical History Trigger finger of left thumb (Chronic) Tobacco abuse (Chronic) NHI (obstructive sleep apnea) (Chronic) Restless leg syndrome (Chronic) Hyperlipemia (Chronic) Fibromyalgia (Chronic) Diabetes (Chronic) Depression (Chronic) COPD (chronic obstructive pulmonary disease) (Chronic) Carpal tunnel syndrome of left wrist (Chronic) GERD (gastroesophageal reflux disease) (Chronic) Pneumonia (Acute) Osteoarthrosis (Chronic) Rheumatoid arthritis (Chronic) Thyroid disease (Chronic) Type 2 diabetes mellitus (Chronic) Surgical History History of tubal ligation (Resolved) History of hysterectomy (Resolved) Normal colonoscopy (Resolved) History of carpal tunnel surgery of right wrist (Resolved) History of carpal tunnel surgery of left wrist (Resolved) History of appendectomy (Resolved) S/P laparoscopic cholecystectomy (Acute) Family History Father Colon cancer Kidney disease Mother Diabetes Heart disease Thyroid disorder Grandfather Alcohol abuse Sister Cancer Breast cancer Social History (Updated 06/30/20 @ 12:40 by Princess Horan OPHTHALMIC TECH, OPHTHALMIC TECH-C) household members: significant other housing: other details: mobile home Smoking Status: Current every day smoker tobacco type: cigarettes second hand exposure: Yes alcohol intake: never substance use type: does not use Review of Systems Const CONSTITUTIONAL: Yes daytime sleepiness, No fever(s), No night sweats, No weight loss, Yes fatigue, No headache(s), Yes seasonal allergies EETM Ear Nose Throat Mouth: No Dry mouth in morning, No headache(s) Cardio Cadriovascular: No chest pain, No palpitations Resp Respiratory: Yes as per HPI Gastro Gastrointestional: Negative change in appetite Genitourinary: Positive nocturia Musc Musculoskeletal: Negative body pain Skin/Breast Skin/Breast: No unusual bruising Neuro Neurological: Negative confusion or weakness Psych Psychocological: Positive anxiety Exam Const Constitutional: Positive conversant, cooperative, in no acute respiratory distress, healthy appearing, well developed, well nourished, good hygiene, smells of smoke and obese Head Head: Yes normocephalic, Yes atraumatic, No cyanosis of lips/distal nose Eyes Eye: Positive clear conjunctiva Ears Ear: Positive hearing normal and external ears normal; negative hard of hearing Nose Nose: Yes external nose normal Neck Neck: Positive normal visual inspection, full ROM, trachea midline and female neck greater than 37 cm (15 in); negative lymphadenopathy or JVD Chest Wall Chest: Positive normal inspection of the chest and symmetric chest movement; negative crepitus or tenderness Resp lung sounds: Positive diminished, wheeze present on forced exhalation, prolonged expiratory time and increased work of breathing; negative wheezes, rhonchi, rales or use of accessory muscles Cardio Cardiac: Positive regular rate, regular rhythm, S1 normal and S2 normal; negative murmur, rub or gallop GI GI: Positive obese Genitourinary: Positive deferred Musc Musculoskeletal: Positive steady gait; negative using an assistive device for ambulation, kyphosis or scoliosis Skin Pulmonary Skin Exam: Positive intact; negative lesion, rash, ulcers, erythema, scaly or dermal atrophy Extremities Extremities: Yes capillary refill normal, No clubbing, No cyanosis, No edema Neuro Neurologic: Yes no focal neuro deficits, Yes conversant, Yes cooperative, Yes normal cognition, Yes normal coordination, Yes normal concentration, Yes understands questions Psych Appearance: Positive grossly normal Mental Status: Positive mental status grossly normal Mood: Positive congruent mood Affect: Positive normal affect Office Procedures Smoking Cessation Time Spent 3-10 minutes: Yes Coding Level of Care Code Off vis,est,level 4 Diagnoses Chronic obstructive pulmonary disease, unspecified COPD type J44.9 ?COPD type: unspecified COPD Smoking greater than 30 pack years F17.210 NHI (obstructive sleep apnea) G47.33 Additional Codes Time Spent - 3-10 minutes: Yes ([id number]) 06/30/20 1240 <Electronically signed by Princess Horan NP OPHTHALMIC TECH-C> Date Princess Marley Signature: Date (if applicable) CC: OPHTHALMIC TECH-Patricio Sierra Hopkins Start: 06-17-2020 End: 06-20-2020 Surgery Visit Report Comments: See Note; NOTES: [facility] [address] [place] [address] OFFICE VISIT Date of Service: 06/17/20 MR#: [id number] Acct: [id number] Name: ROSA DEAN Rep #: [id number] : 1955 Provider: Dr. Vicente khan MD Age/Sex: 64/F Location: [facility] Status: Signed Intake Intake Visit Reasons: ONE WEEK F/U CHOLECYSTECTOMY Chief Complaint: f/u lap adi Case Filler Required: No Is patient in pain?: No Allergies No Known Allergies Allergy (Verified 06/17/20 10:05) Medications Ropinirole HCl [Requip] 0.5 mg PO QHS 05/15/14 [History Confirmed 06/17/20] Albuterol Inhaler [Ventolin Hfa (SP)] 1 - 2 puff INHALATION Q4H PRN PRN 11/22/17 [History Confirmed 06/17/20] Amitriptyline HCl [Elavil] 10 mg PO QHS 11/22/17 [History Confirmed 06/17/20] Ergocalciferol [Vitamin D] 1 tab PO QWEEK 11/22/17 [History Confirmed 06/17/20] Famotidine [Pepcid] 40 mg PO DAILY 11/22/17 [History Confirmed 06/17/20] albuterol sulfate 2.5 mg INHALATION Q4H PRN PRN #180 ml 10/03/18 [Rx Confirmed 06/17/20] venlafaxine 150 mg capsule,extended release 24 hr 150 mg PO DAILY 05/29/20 [History Confirmed 06/17/20] Subjective Details: Patient is status post a robotic assisted laparoscopic cholecystectomy on 06/11/2020. Pathology report came back as mild chronic cholecystitis and a benign pericystic lymph node was identified. Patient is tolerating a diet she is complaining of a little bit of discomfort around her periumbilical incision. Objective Details: Incisions are healing up nicely there is moderate amount of bruising around the periumbilical incision. No signs of herniation cellulitis or infection are identified. Assessment Plan Problems 1. Aftercare Z51.89 Plan Patient can follow-up with me on an as-needed basis. I want her to gradually increase her activities. Anticipate her to make a complete recovery. Coding Level of Care Code Global Post Op Diagnoses Aftercare Z51.89 06/20/20 1120 <Electronically signed by Vicente Rendon MD> Date Vicente Rendon MD Cosigner Signature: Date (if applicable) CC: OPHTHALMIC TECH-C Sierra Hopkins Start: 06-11-2020 End: 06-11-2020 Discharge Instruction Comments: See Note; NOTES: [facility] Medical Records Department [address] [place] [address] Instructions for Home/Discharge Instructions 06/11/20 0852 MR#: [id number] Acct: [id number] Name: ROSA DEAN Kesha Rep #: [id number] : 1955 64 From: Vicente Rendon MD PCP: FADIA Santana Status:REG [facility] Discharge Diet: Light diet - advance as tolerated Discharge Activity: May Not Drive - for 2-3 days or while taking narcotic pain medications., - - Do not drive, work heavy equipment or sign legal documents for 24 hours. May shower in (days): 1 - with the bandage in place. Additional Activity Instructions:: Pain medication may cause nausea. You should typically eat light foods as you take your pain medications. Pain medication may also cause constipation. If this is a problem for you, please discuss with your doctor. Call your doctor if your incision/area has: Continuous Slow Oozing, Sudden Increased Bleeding, Increased Pain/ Swelling, Increased Redness, Foul Smelling Discharge Call your doctor if you observe: Fever of 101 or Higher Suture Line Care: Avoid Pulling/Pushing, Avoid Pinching/Bending Additional Dressing/Incision Instructions:: Leave operative bandaids on for 2 days. When you remove dressing, leave Steri-Strips on until your follow-up appointment, or until the Steri-Strips fall off on their own. Allergies/Adverse Reactions: Allergies No Known Allergies Allergy (Verified 06/11/20 07:41) Medications to take at Discharge Ropinirole HCl [Requip] 0.5 mg PO QHS 05/15/14 Albuterol Inhaler [Ventolin Hfa (SP)] 1 - 2 puff INHALATION Q4H PRN PRN 11/22/17 Amitriptyline HCl [Elavil] 10 mg PO QHS 11/22/17 Ergocalciferol [Vitamin D] 1 tab PO QWEEK 11/22/17 Famotidine [Pepcid] 40 mg PO DAILY 11/22/17 albuterol sulfate 2.5 mg INHALATION Q4H PRN PRN #180 ml 10/03/18 venlafaxine 150 mg capsule,extended release 24 hr 150 mg PO DAILY 05/29/20 Oxycodone HCl/Acetaminophen [Percocet 5/325] 1 - 2 tablet PO Q4H PRN PRN 6 Days #30 tablet 06/11/20 The following prescriptions were given: Oxycodone HCl/Acetaminophen [Percocet 5/325] 1 - 2 tablet PO Q4H PRN PRN 6 Days #30 tablet PRN Reason: Pain Transmission Status: Sent to [facility] Primary Care Physician: Sierra Hopkins OPHTHALMIC TECH, OPHTHALMIC TECH-C [Primary Care Provider] - Test Results: Test results from this visit will be discussed in further detail at your follow-up appointment, if applicable. Please Follow Up With: Vicente Rendon MD - Please call [phone] to schedule an appointment. When: 7 days after your surgery. 06/11/20 0852 <Electronically signed by Vicente Rendon MD> Date Vicente Rendon MD CC: OPHTHALMIC TECHRonaldo Hopkins; Dr. Iván Garcia MD Signed Sierra Hopkins Start: 06-11-2020 End: 06-11-2020 Operative Report Comments: See Note; NOTES: [facility] Medical Records Department [address] [place] [address] Operative Report 06/11/20 0851 MR#: [id number] Acct: [id number] Name: ROSA DEAN Rep #: [id number] : 1955 64 From: Vicente Rendon MD PCP: FADIA Santana Status:REG SDC Y Location: [place] [address] Problem List (1) Biliary dyskinesia Status: Acute (2) Right upper quadrant abdominal pain Status: Acute Report of Operation Date of Procedure: 06/11/20 Pre-Operative Diagnosis: 1. Biliary dyskinesia. 2. Right upper quadrant abdominal pain Post-Operative Diagnosis: Same Surgery/Procedure Performed:: Robotic assisted laparoscopic cholecystectomy Specimen's removed: Gallbladder Description of Procedure: Patient was brought into the operating room. Placed in the supine position. Under excellent general endotracheal ovation the bed was placed in the head up and rotated to the left position and the abdomen was sterilely prepped and draped in usual fashion. Local was injected supraumbilically dissection was carried down to the fascia. The fascia was grasped with a [place]. Varies needle was placed inside the abdomen. The abdomen was insufflated to 15 torr. A 10/12 trocar was placed without difficulty. It was flank by 2 #8 trochars placed under direct visualization and then finally a lateral right sided #5 trocar. All these were placed under direct visualization without injury to underlying structures. The robot was then docked the fundus of the gallbladder was grasped and retracted in a cephalad direction. I went to the robot used a pro-grasper my left hand cauteries in the right hand I removed all the adhesions from the gallbladder which there was a significant amount. I gradually increased p lacement of the gallbladder in a cephalad direction exposing the cystic duct and cystic artery. I dissected both of these free and then dissected posteriorly towards the liver so I had my triangle completely dissected free once this was done I placed 2 hemo-lock clips proximally and distally on the artery and ligated the artery and then I placed 2 hemoclips proximally distally on the duct and ligated the duct. I used the suction manual machinist to make sure I had good hemostasis. I clean my instrument and then with the use of electrocautery I deliver the gallbladder from the gallbladder bed. I had excellent pneumostasis. I placed the specimen in a specimen bag and delivered through the umbilical port without difficulty. Once again I had excellent hemostasis. I remove the trochars under direct visualization good in the stasis was noted. Fascia the umbilical port was closed with a [id number] stitch of 0 Vicryl. Skin incisions were closed with subcuticular stitches of 4-0 Monocryl. Steri-Strips were applied sterile dressings were applied and the patient tolerated the procedure well. - Admit VTE Documentation VTE Present on Admission: No VTE Pharm Prophylaxis ordered?: No Reason prophylaxis not ordered:: Treatment Not Indicated [id number]: [id number] Laparoscopic cholecystectomy 06/11/20 1048 <Electronically signed by Vicente Rendon MD> Date Vicente Rendon MD CC: OPHTHALMIC TECH-C Sierra Hopkins; Dr. Iván Garcia MD; Dr. Vicente Rendon MD Signed Sierra Hopkins Start: 06-03-2020 End: 06-04-2020 12 Lead EKG Comments: See Note; NOTES: [facility] Cardiovascular Services [address] [place] [address] 12 Lead EKG 06/03/20 0847 MR#: [id number] Acct: [id number] Name: ROSA DEAN Rep #: [id number] : 1955 64 From: Josse Villagran MD Attending Dr: Dr. Vicente Rendon MD Status: SC E SDC Ordering Dr: Iván Garcia MD Date: 06/03/20 Location: [facility] Sex: F C Admitted: Test Reason : PRE OP Blood Pressure : / mmHG Vent. Rate : 076 BPM Atrial Rate : 076 BPM P-R Int : 148 ms QRS Dur : 072 ms QT Int : 378 ms P-R-T Axes : 065 059 069 degrees QTc Int : 425 ms Normal sinus rhythm Normal ECG Confirmed by JOSSE VILLAGRAN MD ([id number]), publishing editor GABRIELLA GALEANA ([id number]) on 06/04/2020 11:01:00 AM Referred By: Vicente Rendon Confirmed By:JOSSE VILLAGRAN MD 06/04/20 1101 Date Josse Villagran MD CC: OPHTHALMIC TECHUrvashiC Sierra Hopkins; Dr. Iván Gracia MD; Dr. Vicente Rendon MD Signed Sierra Hopkins Start: 05-29-2020 End: 06-11-2020 History and Physical Exam Comments: See Note; NOTES: [facility] Medical Records Department [address] [place] [id number] History and Physical 05/29/20 1024 MR#: [id number] Acct: [id number] Name: ROSA DEAN Rep #: [id number] : 1955 64 From: Vicente Rendon MD PCP: FADIA Santana Status:REG [facility] Location: [place] [address] Intake Vital Signs 05/29/20 Height 5 ft 2.5 in 05/29/20 Weight: 206 lb 4 oz 05/29/20 BMI 37.1 05/29/20 BP 113/56 L 05/29/20 Blood Pressure Location Rt brachial 05/29/20 Position Sitting 05/29/20 Respiration 18 05/29/20 Pulse 77 05/29/20 Temp 97.6 F L 05/29/20 Temp Source Temporal 05/29/20 Pulse Oximetry (%) 97 05/29/20 Oxygen Delivery Method room air Intake Visit Reasons: Abnormal HIDA Scan Chief Complaint: abn hida/ RUQ pain Case Filler Required: No Is patient in pain?: No Allergies No Known Allergies Allergy (Verified 05/29/20 08:24) Medications Ropinirole HCl [Requip] 0.5 mg PO QHS 08/14/14 [History Confirmed 05/29/20] Albuterol Inhaler [Ventolin Hfa (SP)] 1 - 2 puff INHALATION Q4H PRN PRN 11/22/17 [History Confirmed 05/29/20] Amitriptyline HCl [Elavil] 10 mg PO QHS 11/22/17 [History Confirmed 05/29/20] Ergocalciferol [Vitamin D] 1 tab PO QWEEK 11/22/17 [History Confirmed 05/29/20] Famotidine [Pepcid] 40 mg PO DAILY 11/22/17 [History Confirmed 05/29/20] albuterol sulfate 2.5 mg INHALATION Q4H PRN PRN #180 ml 10/03/18 [Rx Confirmed 05/29/20] ipratropium 0.5 mg-albuterol 3 mg (2.5 mg base)/3 mL nebulization soln 3 ml INHALATION Q4H PRN #180 ml 03/31/20 [Rx Confirmed 05/29/20] venlafaxine 150 mg capsule,extended release 24 hr 150 mg PO DAILY 05/29/20 [History Confirmed 05/29/20] Is last menstrual period known: No Post menopausal: Yes Patient : No PFSH Medical History Trigger finger of left thumb (Chronic) Tobacco abuse (Chronic) NHI (obstructive sleep apnea) (Chronic) Restless leg syndrome (Chronic) Hyperlipemia (Chronic) Fibromyalgia (Chronic) Diabetes (Chronic) Depression (Chronic) COPD (chronic obstructive pulmonary disease) (Chronic) Carpal tunnel syndrome of left wrist (Chronic) GERD (gastroesophageal reflux disease) (Chronic) Pneumonia (Acute) Osteoarthrosis (Chronic) Rheumatoid arthritis (Chronic) Thyroid disease (Chronic) Type 2 diabetes mellitus (Chronic) Surgical History History of tubal ligation (Resolved) History of hysterectomy (Resolved) Normal colonoscopy (Resolved) History of carpal tunnel surgery of right wrist (Resolved) History of carpal tunnel surgery of left wrist (Resolved) History of appendectomy (Resolved) Family History Father Colon cancer Kidney disease Mother Diabetes Heart disease Thyroid disorder Grandfather Alcohol abuse Sister Cancer Breast cancer Social History (Updated 05/29/20 @ 10:[address] Vicente Rendon MD) household members: significant other housing: other details: mobile home Smoking Status: Current every day smoker tobacco type: cigarettes second hand exposure: Yes alcohol intake: never substance use type: does not use HPI HPI Surgical H P: Yes HPI: ROSA DEAN, is a 64 F who presents to the office today for Biliary dyskinesia. Patient underwent a HIDA scan with ejection fraction completed at [facility] on 05/26/2020 this showed an ejection fraction of 31%. Patient has been experiencing right upper quadrant abdominal pain as well as looser stools. Pain is worse with food but it really does not matter what food she takes. The HIDA scan with ejection fraction did elicit the same type of abdominal discomfort she has been experiencing. ROS General General: Yes weight change and fatigue; no appetite, colon cancer, breast cancer or weakness HEENT HEENT: No difficulty swallowing, eye injury, eye surgery, swollen glands or hoarseness Endo Endocrine: Yes diabetes mellitus; no thyroid disease, thyroid cancer, Hair loss, heat intolerance or cold intolerance Musc Musculoskeletal: Yes rheumatoid arthritis; no back problems, arthritis, gout or joint pain Cardio Cardiovascular: No murmur, pacemaker, heart disease, atrial fibrillation, high blood pressure, heart attack, heart stent, palpitations, shortness of breat with exertion or chest pain Psych Psychiatric: Yes anxiety; no depression or hearing voices Resp Respiratory: Yes shortness of breath, Yes sleep apnea, No cough, Yes COPD, No asthma, No emphysema, No wheezing Gastro Gastrointestinal: No abdominal pain, No nausea or vomiting, No diarrhea, No constipation, No blood in stool, Yes acid reflux, No hemorrhoids, No ulcers, Yes gallbladder problem, No black,tarry stools Tay Hematologic: No blood thinners, No blood disorders, No bleeding, No anemia, No blood clots Neuro Neurologic: No weakness Exam Const General: no acute distress, well developed, well hydrated Orientation: oriented to person, oriented to place, oriented to time [facility] Head: normocephalic, atraumatic Ears: external ears normal Mouth: moist mucous membranes Eyes Sclera: sclerae normal Pupils: normal by confrontation Neck Neck: no lymphadenopathy noted Neck mass: No Thyroid: thyroid normal, symmetrical Chest Chest palpation inspection: normal inspection of the chest Resp Effort Inspection: normal respiratory effort Auscultation: clear to auscultation bilaterally Percussion: percussion normal Cardio Rate: regular rate Rhythm: regular rhythm Heart Sounds: no murmurs GI Palpation: soft, no hepatosplenomegaly, no masses, tender Auscultation: normal bowel sounds Rectal Exam: other Other: Rectal exam deferred. Extrem General: normal to inspection, no clubbing, cyanosis or edema Assessment Plan Problems 1. Biliary dyskinesia K82.8 2. Right upper quadrant abdominal pain R10.11 Plan Reviewed the anatomy with the patient and discussed the procedure: Robotic assisted laparoscopic cholecystectomy with possible cholangiograms, possible open. Review risks including but not limited to bleeding, infection, hernia, bile leak, retained gallstones requiring another procedure ERCP- Endoscopic Retrograde Cholangiopancreatography, injury to another organ (bile ducts, common bile duct, small bowel, etc.) and conversion to an open procedure. All questions were answered. Coding Level of Care Code Off vis,new,level 3 Diagnoses Biliary dyskinesia K82.8 Right upper quadrant abdominal pain R10.11 COVID (Procedure Consent) Procedure Criteria Procedure Criteria: Yes Elective The surgeon/proceduralist and patient have discussed in detail the risk of exposure to and/or potential harm posed by the COVID-19 virus with having a surgery/procedure at this time versus the risk of??? delaying the surgery/procedure. It is not possible to know either the risk of delaying the surgery or procedure or chance of getting an infection with perfect accuracy, but a joint decision was made between the patient and the surgeon/proceduralist ???to proceed at this time with the scheduled surgery/procedure as indicated on the consent form. 05/29/20 1024 <Electronically signed by Vicente Rendon MD> Date Vicente Rendon MD I have re-examined the patient. There are no clinical changes since date of exam. 06/11/20 0846 <Electronically signed by Vicente Rendon MD> Date: Time: Vicente Rendon MD CC: OPHTHALMIC TECH-C Sierra Hopkins; Dr. Vicente Rendon MD Date Dictated: 05/29/20 1024 Date Transcribed: 05/29/20 1415 Machine Setter And Repairer: VIJAY Signed Sierra Hopkins Start: 05-29-2020 End: 05-29-2020 Surgery Visit Report Comments: See Note; NOTES: [facility] [address] [place] [address] OFFICE VISIT Date of Service: 05/29/20 MR#: [id number] Acct: [id number] Name: ROSA DEAN Rep #: [id number] : 1955 Provider: Dr. Vicente khan MD Age/Sex: 64/F Location: [facility] Status: Signed Intake Vital Signs 05/29/20 Height 5 ft 2.5 in 05/29/20 Weight: 206 lb 4 oz 05/29/20 BMI 37.1 05/29/20 BP 113/56 L 05/29/20 Blood Pressure Location Rt brachial 05/29/20 Position Sitting 05/29/20 Respiration 18 05/29/20 Pulse 77 05/29/20 Temp 97.6 F L 05/29/20 Temp Source Temporal 05/29/20 Pulse Oximetry (%) 97 05/29/20 Oxygen Delivery Method room air Intake Visit Reasons: Abnormal HIDA Scan Chief Complaint: abn hida/ RUQ pain Case Filler Required: No Is patient in pain?: No Allergies No Known Allergies Allergy (Verified 05/29/20 08:24) Medications Ropinirole HCl [Requip] 0.5 mg PO QHS 05/15/14 [History Confirmed 05/29/20] Albuterol Inhaler [Ventolin Hfa (SP)] 1 - 2 puff INHALATION Q4H PRN PRN 11/22/17 [History Confirmed 05/29/20] Amitriptyline HCl [Elavil] 10 mg PO QHS 11/22/17 [History Confirmed 05/29/20] Ergocalciferol [Vitamin D] 1 tab PO QWEEK 11/22/17 [History Confirmed 05/29/20] Famotidine [Pepcid] 40 mg PO DAILY 11/22/17 [History Confirmed 05/29/20] albuterol sulfate 2.5 mg INHALATION Q4H PRN PRN #180 ml 10/03/18 [Rx Confirmed 05/29/20] ipratropium 0.5 mg-albuterol 3 mg (2.5 mg base)/3 mL nebulization soln 3 ml INHALATION Q4H PRN #180 ml 03/31/20 [Rx Confirmed 05/29/20] venlafaxine 150 mg capsule,extended release 24 hr 150 mg PO DAILY 05/29/20 [History Confirmed 05/29/20] Is last menstrual period known: No Post menopausal: Yes Patient : No PFSH Medical History Trigger finger of left thumb (Chronic) Tobacco abuse (Chronic) NHI (obstructive sleep apnea) (Chronic) Restless leg syndrome (Chronic) Hyperlipemia (Chronic) Fibromyalgia (Chronic) Diabetes (Chronic) Depression (Chronic) COPD (chronic obstructive pulmonary disease) (Chronic) Carpal tunnel syndrome of left wrist (Chronic) GERD (gastroesophageal reflux disease) (Chronic) Pneumonia (Acute) Osteoarthrosis (Chronic) Rheumatoid arthritis (Chronic) Thyroid disease (Chronic) Type 2 diabetes mellitus (Chronic) Surgical History History of tubal ligation (Resolved) History of hysterectomy (Resolved) Normal colonoscopy (Resolved) History of carpal tunnel surgery of right wrist (Resolved) History of carpal tunnel surgery of left wrist (Resolved) History of appendectomy (Resolved) Family History Father Colon cancer Kidney disease Mother Diabetes Heart disease Thyroid disorder Grandfather Alcohol abuse Sister Cancer Breast cancer Social History (Updated 05/29/20 @ 10:[address] Vicente Rendon MD) household members: significant other housing: other details: mobile home Smoking Status: Current every day smoker tobacco type: cigarettes second hand exposure: Yes alcohol intake: never substance use type: does not use HPI HPI HPI: ROSA DEAN, is a 64 F who presents to the office today for HPI HPI Surgical H P: Yes HPI: ROSA DEAN, is a 64 F who presents to the office today for Biliary dyskinesia. Patient underwent a HIDA scan with ejection fraction completed at [facility] on 05/26/2020 this showed an ejection fraction of 31%. Patient has been experiencing right upper quadrant abdominal pain as well as looser stools. Pain is worse with food but it really does not matter what food she takes. The HIDA scan with ejection fraction did elicit the same type of abdominal discomfort she has been experiencing. ROS General General: Yes weight change and fatigue; no appetite, colon cancer, breast cancer or weakness HEENT HEENT: No difficulty swallowing, eye injury, eye surgery, swollen glands or hoarseness Endo Endocrine: Yes diabetes mellitus; no thyroid disease, thyroid cancer, Hair loss, heat intolerance or cold intolerance Musc Musculoskeletal: Yes rheumatoid arthritis; no back problems, arthritis, gout or joint pain Cardio Cardiovascular: No murmur, pacemaker, heart disease, atrial fibrillation, high blood pressure, heart attack, heart stent, palpitations, shortness of breat with exertion or chest pain Psych Psychiatric: Yes anxiety; no depression or hearing voices Resp Respiratory: Yes shortness of breath, Yes sleep apnea, No cough, Yes COPD, No asthma, No emphysema, No wheezing Gastro Gastrointestinal: No abdominal pain, No nausea or vomiting, No diarrhea, No constipation, No blood in stool, Yes acid reflux, No hemorrhoids, No ulcers, Yes gallbladder problem, No black,tarry stools Tay Hematologic: No blood thinners, No blood disorders, No bleeding, No anemia, No blood clots Neuro Neurologic: No weakness Exam Const General: no acute distress, well developed, well hydrated Orientation: oriented to person, oriented to place, oriented to time [facility] Head: normocephalic, atraumatic Ears: external ears normal Mouth: moist mucous membranes Eyes Sclera: sclerae normal Pupils: normal by confrontation Neck Neck: no lymphadenopathy noted Neck mass: No Thyroid: thyroid normal, symmetrical Chest Chest palpation inspection: normal inspection of the chest Resp Effort Inspection: normal respiratory effort Auscultation: clear to auscultation bilaterally Percussion: percussion normal Cardio Rate: regular rate Rhythm: regular rhythm Heart Sounds: no murmurs GI Palpation: soft, no hepatosplenomegaly, no masses, tender Auscultation: normal bowel sounds Rectal Exam: other Other: Rectal exam deferred. Extrem General: normal to inspection, no clubbing, cyanosis or edema Assessment Plan Problems 1. Biliary dyskinesia K82.8 2. Right upper quadrant abdominal pain R10.11 Plan Reviewed the anatomy with the patient and discussed the procedure: Robotic assisted laparoscopic cholecystectomy with possible cholangiograms, possible open. Review risks including but not limited to bleeding, infection, hernia, bile leak, retained gallstones requiring another procedure ERCP- Endoscopic Retrograde Cholangiopancreatography, injury to another organ (bile ducts, common bile duct, small bowel, etc.) and conversion to an open procedure. All questions were answered. Coding Level of Care Code Off vis,new,level 3 Diagnoses Biliary dyskinesia K82.8 Right upper quadrant abdominal pain R10.11 COVID (Procedure Consent) Procedure Criteria Procedure Criteria: Yes Elective The surgeon/proceduralist and patient have discussed in detail the risk of exposure to and/or potential harm posed by the COVID-19 virus with having a surgery/procedure at this time versus the risk of??? delaying the surgery/procedure. It is not possible to know either the risk of delaying the surgery or procedure or chance of getting an infection with perfect accuracy, but a joint decision was made between the patient and the surgeon/proceduralist ???to proceed at this time with the scheduled surgery/procedure as indicated on the consent form. 05/29/20 1024 <Electronically signed by Vicente Rendon MD> Date Vicente Rendon MD Cosigner Signature: Date (if applicable) CC: OPHTHALMIC TECHRonaldo Perazayaimakaylie Sierra Hopkins Start: 05-26-2020 End: 05-26-2020 Hepatobilliary Img w/Pharm Int Comments: See Note; NOTES: [facility] [address] [place] [address] Hepatobilliary Img w/Pharm Int MR#: [id number] Acct: [id number] Name: ROSA DEAN Rep #: [id number] : 1955 F 64 From: Jemal Zhang PCP: FADIA Santana Status: REG CLI Study: Hepatobilliary Img w/Pharm Int Date of Exam: 0 05/26/20 Exam# [id number] Ordering Dr: Sierra Hopkins CLINICAL: 64-year-old female with reported history of right upper quadrant abdominal pain. RADIONUCLIDE HEPATOBILIARY SCINTIGRAPHY COMPARISON: Abdominal ultrasound report 04/10/2020 FINDINGS: Following the intravenous administration of 5.7 mCi of 99m Tc Mebrofenin, hepatobiliary images reveal: 1. Relatively prompt and homogeneous radiopharmaceutical concentration is noted by a normal sized liver. No parenchymal defects are identified. 2. Gallbladder activity is identified at 10 minutes post radiopharmaceutical administration. 3. Small intestinal tract is not visualized during 60 minutes of pre-CCK sequential imaging. Small bowel activity is identified following the administration of cholecystokinin. 4. Washout of the radiopharmaceutical by the hepatic parenchyma appears qualitatively normal. Cholecystokinin (0.02 ug/kg) was administered intravenously over a 30-minute period. The post CCK gallbladder ejection fraction calculated at 20 minutes following Cholecystokinin administration was noted to be 31.0 % (normal greater than 35%). NM/Hepatobilliary Img w/Pharm Int IMPRESSION: 1. ABNORMAL 99m Tc Mebrofenin hepatobiliary imaging examination with Cholecystokinin. A. A gallbladder ejection fraction calculated to be less than 35% following the administration of Cholecystokinin is consistent with a high probability of functional hepatobiliary disease (gallbladder and/or sphincter of Oddi dyskinesia) and/or organic hepatobiliary disease (chronic acalculous cholecystitis and/or cystic duct syndrome) in patients with intermediate to high pretest likelihoods of hepatobiliary illness. (Capo Jerez et al, Journal of Nuclear Medicine 32:1695, 1990). Electronically Signed: Jemal Jaramillo DO at 23:34 EDT Tel , Service support , CC: FADIA Hopkins Machine Setter And Repairer: Signed Sierra Hopkins Work Phone: Start: 05-14-2020 End: 05-14-2020 Pulmonary Function Test Comments: See Note; NOTES: [facility]monary Services/Neurology [address] [place] [address] MR#: [id number] Acct: [id number] Name: ROSA DEAN Rep #: [id number] : 1955 64 From: Daren Mcintyre DO Referring Dr: Jasper Lindo MD Status: REG CLI Location: [facility] Date: 05/13/20 Sex: F C INTRODUCTION: The patient is a 64-year-old female that presents for pulmonary function studies secondary to a diagnosis of dyspnea. Respiratory therapy reports good patient effort. Bronchodilators were used during testing. INTERPRETATION: Forced expiration spirometry demonstrates no evidence of a large airways obstructive ventilatory defect. There was no significant response to aerosolized bronchodilators. Spirograms are of fair quality and plateau normally. Body plethysmography was performed and reveals lung volumes to be within normal limits. Diffusing capacity by single breath CO is reduced at 62% of predicted. IMPRESSION: Mild reduction in diffusing capacity with subtle stigmata of small airways disease and robust mid flow bronchodilator response. 05/14/20903 <Electronically signed by Daren Mcintyre DO> Date Daren Mcintyre DO CC: OPHTHALMIC TECH-C Sierra Hopkins; Dr. Jasper Lindo MD Date Dictated: 05/14/20900 Date Transcribed: 05/14/20900 Machine Setter And Repairer: DB Signed Sierra Hopkins Start: 04-10-2020 End: 04-10-2020 Abdomen Complete Comments: See Note; NOTES: [facility] [address] [place] [address] Abdomen Complete MR#: [id number] Acct: [id number] Name: ROSA DEAN Rep #: [id number] : 1955 F 64 From: Brandon hidalgo MD PCP: FADIA Santana Status: REG CLI Study: Abdomen Complete Date of Exam: 04/10/20 Exam# [id number] Ordering Dr: Sierra Hopkins STUDY: ABDOMINAL ULTRASOUND REASON FOR EXAM: Female, 64 years old. ABD PAIN X 5 MONTHS TECHNIQUE: Transabdominal ultrasound was performed with real-time and static cota scale imaging. TECHNICAL QUALITY: Limited. Examination limited due to a combination of factors including obesity and bowel gas. COMPARISON: Comparison is made with prior study dated January 29, 2016. FINDINGS: Liver: The liver is enlarged and measures 19 cm. There is increased echogenicity consistent with fatty infiltration. The bile ducts are within normal limits. There is hepatic color flow. The direction of portal flow is hepatopetal. There is no demonstrated mass lesion. Gallbladder: Normal distended gallbladder. The gallbladder wall measures 2.0 mm. There is a negative sonographic Andrade''s sign. There is no pericholecystic fluid. There are no gallstones. Common Bile Duct (C.B.D.): The common bile duct measures 3.5 mm. Pancreas: Normal size of the head, body and tail of the pancreas. There is normal echogenicity of the pancreas. There is no demonstrated pancreatic mass or cyst. Spleen: Normal size of the spleen. The spleen measures 7.7 cm x 2.6 x 2.8 cm. Right Kidney: Normal size of the right kidney. The right kidney measures 11.4 cm x 5.7 cm x 4.1 cm. Normal renal cortex. The right cortex measures 1.0 cm. There is no demonstrated renal mass or cyst. There is no right hydronephrosis. Left Kidney: Normal size of the left kidney. The left kidney measures 10.4 cm x 4.8 cm by 4.5 cm. Normal renal cortex. The left cortex measures 1.5 cm. There is no demonstrated renal mass or cyst. There is no left hydronephrosis. Aorta: Unremarkable I.V.C.: The IVC is patent. There is no ascites. US/Abdomen Complete IMPRESSION: Hepatomegaly. Fatty infiltration of the liver. Electronically Signed: Brandon Lee, at 13:36 EDT , Service support , CC: FADIA Hopkins Machine Setter And Repairer: Signed Leila Kellie Work Phone: Start: 04-10-2020 End: 04-10-[address] Lung Screening Comments: See Note; NOTES: [facility] Services [address] [place] [id number] Lung Screening MR#: [id number] Acct: [id number] Name: ROSA DEAN Rep #: [id number] : 1955 F 64 From: Brandon hidalgo MD PCP: FADIA Santana Status: REG CLI Study: Low Dose CT Lung Screening Date of Exam: 04/10 Exam# [id number] Ordering Dr: Jasper Lindo MD STUDY: LOW DOSE CT LUNG CANCER SCREENING REASON FOR EXAM: Female, 64 years old. 1ppd x 40 years, LUNG SCREENING RADIATION DOSAGE (If Supplied By Facility): CTDIvol = ( 4.02 ) mGy, DLP = ( 130.89 ) mGycm TECHNIQUE: No contrast was administered. Low dose technique was utilized (average mAS-38 and kVp 120). 1.25 mm axial source images with a slice interval of 1.25-mm were reconstructed in lung windows. 2.5 mm axial source images with a slice interval of 2.5-mm were reconstructed in lung windows. 5.0 mm axial source images with a slice interval of 5.0-mm were reconstructed in soft tissue windows. Nodule measured using lung windows on PACS and/or independent workstation with automated measurement of minimum and maximum diameter. Nodule measurement reported as average diameter rounded to the nearest whole number. Growth is defined as an increase ins size of greater than 1.5 mm. COMPARISON: Comparison is made with prior chest radiograph dated November 22, 2017. NODULES: No nodules are seen. Emphysema: Mild degree of emphysematous changes in the upper lobes with a 1.1 cm bulla in the right upper lobe anteriorly. Aorta: Atherosclerotic calcification of the aortic arch. Coronary arteries: Coronary artery calcification. Heart: Unremarkable. Pulmonary artery: Unremarkable Mediastinal nodes: Benign appearing small mediastinal lymph nodes. Other chest and abdominal findings: Multilevel degenerative changes of the thoracic spine. CT/Low Dose CT Lung Screening IMPRESSION: Lung-RADS category 2 - Continue annual screening with LDCT in 12 months. IMPORTANT NOTES FOR USE: ACR Lung-RADS Version 1.0 Assessment Categories Release Date: January 27, 2014 Category: Coded 0-4 bases on nodule(s) with highest degree of suspicion. Negative screen is defined as categories 1 and 2; a positive screen is defined as categories 3 and 4. Category 3 and 4A nodules that are unchanged on interval CT should be coded as category 2, and individuals returned to screening in 12 months. Category 4X: Category 3 or 4 nodules with additional imaging findings that increase the suspicion of lung cancer, such as spiculation, GGN that doubles in size in 1 year, enlarged lymph notes, etc. Category Modifiers: S (significant finding unrelated to lung cancer) and C (prior history of treated lung cancer) may be added to the 0-4 Lung-RADS Electronically Signed: Brandon Lee, at 8:38 EDT , Service support , CC: FADIA Hopkins; Dr. Jasper Lindo MD Machine Setter And Repairer: Signed Sierra Hopkins Start: 03-31-2020 End: 03-31-2020 Pulmonary Visit Report Comments: See Note; NOTES: [facility] Medicine of [address] [place] [address] OFFICE VISIT Date of Service: 03/31/20 MR#: [id number] Acct: [id number] Name: ROSA DEAN Rep #: [id number] : 1955 Provider: Dr. Jasper Lindo MD Age/Sex: 64/F Location: [facility] Status: Signed Assessment Plan Problems 1. Dyspnea on exertion R06.09 2. NHI (obstructive sleep apnea) G47.33 3. Pulmonary hypertension I27.20 4. Tobacco abuse Z72.0 Plan Unclear etiology at this time. Patient's previous pulmonary function test showed improving DLCO consistent with improvement in pulmonary hypertension with NHI compliance. Patient is reporting significant daytime hypersomnolence despite controlled sleep apnea per compliance report. Will obtain a complete pulmonary function test and walking oximetry for quantification clarification of lung function. We will also obtain a low-dose CT scan for possible malignancy. Stressed the importance of smoking cessation. Patient will be placed on duo nebs during the day and was given a nebulizer at this office visit. Add duo nebs. Obtain complete PFT, walking oximetry and low-dose CT scan. Nebulizer provided at this office visit. Orders Orders: Smoking Cessation Today R06.09 Pulmonary Function Test (Comp) Today R06.00 Simple Pulmonary Exercise Test Today R06.[address] Lung Screening Today R06.00, Z72.0 Medications New: ipratropium-albuterol 0.5 mg-3 mg(2.5 mg base)/3 mL 3 mL inhalation Q4H PRN 180 mL 6RF shortness of breath or wheezing R06.00 Plan Detail Follow Up 3 Months (CSM) HPI cough, rt lung pain: Chief Complaint: Shortness of breath Details: Patient is a 64-year-old female, currently under care of Sierra Hopkins, who presents for evaluation secondary to worsening shortness of breath. Since last visit, patient denies any ER visits, hospitalizations or prednisone burst. However, patient feels subjectively worse compared to previous. Patient reports that she has been compliant with her NHI therapy. Patient uses this with all sleep per her report. Patient states that she tends to go to bed at 10 and sleep until 8 AM and then may take a 4 to 5-hour nap during the day. Patient states that she is constantly tired during the day despite using her NHI therapy. Patient does not report any change in medications, increased alcohol use or [id number] sleep aids. Patient is reporting worsening shortness of breath. Patient states that she was changed from Proventil to pro-air by her insurance and feels this does not work as well. Patient also states that her nebulizer has not been functioning well at home and has to be restarted multiple times. Patient estimates that this nebulizer is over 8 years old and was originally prescribed to her mother. Patient does believe the nebulizer works better than the MDI. Patient continues to have a cough productive of clear to white sputum. This has not changed recently. Patient is not reporting any chest pain or lower extremity edema. No palpitations of been reported. Patient is not reporting any unexplained weight loss. Patient is still smoking approximately 1 pack/day. Patient does not have a pulse oximeter at home to check her saturations. Patient has tried patches in the past, but these have not worked for her. Patient knows that she should quit, but appears to be pre-contemplative at this time. Patient is not open to interventions at this time. Patient's spouse also smokes. Documentation personally reviewed with the patient Compliance report (March 2020): Compliant 97% of the time for an average of 9 hours 2 minutes on CPAP 17 cm of water with a residual AHI of 0.3 and well-controlled leak. Intake Vital Signs 03/31/20 Height 5 ft 2 in 03/31/20 Weight: 97.069 kg 03/31/20 BMI 39.1 03/31/20 BP 126/74 H 03/31/20 Blood Pressure Location Lt brachial 03/31/20 Position Sitting 03/31/20 Respiration 18 03/31/20 Pulse 92 03/31/20 Pulse Source Monitor 03/31/20 Temp 36.7 C 03/31/20 Temperature Source Tympanic 03/31/20 Pulse Oximetry (%) 94 03/31/20 Oxygen Delivery Method room air Intake Visit Reasons: cough, rt lung pain DME Vendor: [facility] Allergies No Known Allergies Allergy (Verified 03/31/20 09:16) Medications Effexor 150 mg PO DAILY 11/07/13 [History Confirmed 03/31/20] Metformin HCl 500 mg PO BID 11/07/13 [History Confirmed 03/31/20] Dicyclomine HCl [Bentyl] 20 mg PO 4X/DAY PRN #20 tab 05/15/14 [Rx Confirmed 03/31/20] Ropinirole HCl [Requip] 0.5 mg PO QHS 05/15/14 [History Confirmed 03/31/20] Albuterol Inhaler [Ventolin Hfa (SP)] 1 - 2 puff INHALATION Q4H PRN PRN 11/22/17 [History Confirmed 03/31/20] Amitriptyline HCl [Elavil] 10 mg PO QHS 11/22/17 [History Confirmed 03/31/20] Ergocalciferol [Vitamin D] 1 tab PO QWEEK 11/22/17 [History Confirmed 03/31/20] Famotidine [Pepcid] 40 mg PO DAILY 11/22/17 [History Confirmed 03/31/20] Lisinopril [Prinivil] 5 mg PO DAILY 11/22/17 [History Confirmed 03/31/20] fexofenadine 180 mg tablet 180 mg PO DAILY 09/12/18 [History Confirmed 03/31/20] pregabalin 50 mg capsule 50 mg PO TID 09/12/18 [History Confirmed 03/31/20] rosuvastatin 10 mg tablet 10 mg PO DAILY 09/12/18 [History Confirmed 03/31/20] albuterol sulfate 2.5 mg INHALATION Q4H PRN PRN #180 ml 10/03/18 [Rx Confirmed 03/31/20] Smz/Tmp Ds [Bactrim Ds] 1 tab PO BID #28 tab 04/26/19 [Rx Confirmed 03/31/20] ipratropium 0.5 mg-albuterol 3 mg (2.5 mg base)/3 mL nebulization soln 3 ml INHALATION Q4H PRN #180 ml 03/31/20 [Rx Confirmed 03/31/20] PFSH Medical History Trigger finger of left thumb (Chronic) Tobacco abuse (Chronic) NHI (obstructive sleep apnea) (Chronic) Restless leg syndrome (Chronic) Hyperlipemia (Chronic) Fibromyalgia (Chronic) Diabetes (Chronic) Depression (Chronic) COPD (chronic obstructive pulmonary disease) (Chronic) Carpal tunnel syndrome of left wrist (Chronic) GERD (gastroesophageal reflux disease) (Chronic) Pneumonia (Acute) Osteoarthrosis (Chronic) Rheumatoid arthritis (Chronic) Thyroid disease (Chronic) Type 2 diabetes mellitus (Chronic) Surgical History History of tubal ligation (Resolved) History of hysterectomy (Resolved) Normal colonoscopy (Resolved) History of carpal tunnel surgery of right wrist (Resolved) History of carpal tunnel surgery of left wrist (Resolved) History of appendectomy (Resolved) Family History Father Colon cancer Kidney disease Mother Diabetes Heart disease Social History (Updated 03/31/20 @ 09:[address] Jasper Lindo MD) household members: significant other housing: other details: mobile home Smoking Status: Current every day smoker tobacco type: cigarettes second hand exposure: Yes alcohol intake: never substance use type: does not use Review of Systems Const CONSTITUTIONAL: No anorexia, No body ache, No chills, No daytime sleepiness, No fever(s), No night sweats, No stops breathing during sleep, No weight loss, No weight gain, No sleeping in chair, No orthopnea, No fatigue, No headache(s), No frequent colds, No seasonal allergies, No other EETM Ear Nose Throat Mouth: No hoarseness, No Dry mouth in morning, No change in vision, No itchy eyes, No eye pain, No Swallowing Difficulty, No ear pain, No nose bleed, No headache(s), No mouth pain, No nasal congestion, No nasal discharge, No sinus pain, No sinus pressure, No sore throat, No other Cardio Cadriovascular: No chest pain, No chest pain at rest, No chest pain with activity, No irregular heart rhythm, No shortness of breath when lying down, No palpitations, No other Resp Respiratory: Yes as per HPI Gastro Gastrointestional: Negative bloody stools, change in appetite, difficulty swallowing, reflux, hematemesis, melena stool, loose stool, constipation or other Genitourinary: Negative blood in urine, nocturia, pain with urination or other Musc Musculoskeletal: Negative body pain, back pain, neck pain or other Skin/Breast Skin/Breast: No dry skin, No itching, No unusual bruising, No breast lump, No other Neuro Neurological: Negative restless legs, confusion, weakness or other Psych Psychocological: Negative abnormal sleep pattern, anxiety, thoughts of hurting self/others, hopelessness or other Lymph Lymphatic: No easy bleeding, No easy bruising, No other Exam Const Constitutional: Positive conversant, cooperative, in no acute respiratory distress, healthy appearing, well developed, well nourished, good hygiene, smells of smoke and obese; negative dyspenic, wearing supplemental oxygen or ill appearing Head Head: Yes normocephalic, Yes atraumatic, No cyanosis of lips/distal nose Eyes Eye: Positive clear conjunctiva; negative nystagmus, scleral abnormality or cataract present Ears Ear: Positive hearing normal and external ears normal; negative hard of hearing Nose Nose: Yes external nose normal, No nasal polyp, Yes septum normal, Yes clear nasal discharge Mouth Mouth: Positive oral mucosae normal, no lesions and crowded posterior oropharynx; negative malodorous breath, oral thrush present or post nasal drip Mallampati Score: III: Mallampati Score Neck Neck: Positive normal visual inspection, full ROM, trachea midline and female neck greater than 37 cm (15 in); negative lymphadenopathy or JVD Chest Wall Chest: Positive normal inspection of the chest and symmetric chest movement; negative crepitus or tenderness Resp lung sounds: Positive clear to auscultation, wheeze present on forced exhalation, prolonged expiratory time and increased work of breathing; negative wheezes, rhonchi, rales, dullness to percussion or use of accessory muscles Cardio Cardiac: Positive regular rate, regular rhythm, S1 normal and S2 normal; negative murmur, rub or gallop GI GI: Positive obese Genitourinary: Positive deferred Musc Musculoskeletal: Positive steady gait; negative using an assistive device for ambulation, kyphosis or scoliosis Skin Pulmonary Skin Exam: Positive intact; negative lesion, rash, ulcers, erythema, scaly or dermal atrophy Pulses Pulse: Yes radial pulses present Extremities Extremities: Yes capillary refill normal, No clubbing, No cyanosis, No edema Neuro Neurologic: Yes no focal neuro deficits, Yes conversant Lymph Lymphatic: No lymphadenopathy Psych Appearance: Positive grossly normal Mental Status: Positive mental status grossly normal Mood: Positive congruent mood Affect: Positive normal affect Office Procedures Smoking Cessation Smoking Cessation Conversation about the importance of smoking cessation and the overall disease plan of care. Patient's previous pulmonary function test did not show any significant obstruction, but symptomatology is much worse at this time. Unclear if fatigue is associated with the development of malignancy. Patient has attempted patches in the past with no improvement. Patient appears to be pre-contemplative at this time. Time Spent greater than 10 minutes: Yes Coding Level of Care Code Off vis,est,level 5 Diagnoses Dyspnea on exertion R06.09 ?Dyspnea type: dyspnea on exertion NHI (obstructive sleep apnea) G47.33 Pulmonary hypertension I27.20 Tobacco abuse Z72.0 Additional Codes Time Spent - greater than 10 minutes: Yes (88848) 03/31/20 0959 <Electronically signed by Jasper Lindo MD> Date Jasper Lindo MD Cosigner Signature: Date (if applicable) CC: OPHTHALMIC TECHRonaldo Hopkins Start: 05-04-2012 Colonoscopy Melany Berg MA Appendectomy Luis Sesay Plan of Treatment Date Care Activity Detail Author Start: 03-19-2025 Urine microalbumin profile DTAP,TDAP,TD (2 - Td or Tdap) [facility] Start: 04-18-2023 Procedure Education Eprescribed prescriptions (G8553) [facility] Work Phone: Start: 04-18-2023 Provider Instructions for Treatment [facility] Work Phone: Start: 02-17-2023 Procedure Education Eprescribed prescriptions (G8553) [facility] Work Phone: Start: 02-17-2023 Provider Instructions for Treatment Follow up if no improvement or if symptoms worsen [facility] Work Phone: Start: 08-21-2022 Provider Instructions for Treatment [facility] Work Phone: Start: 08-10-2022 Procedure Education Eprescribed prescriptions (G8553) [facility] Work Phone: Start: 08-10-2022 Provider Instructions for Treatment Follow up in 4 months [facility] Work Phone: Start: 08-10-2022 25 hydroxy includes fractions if performed CALCIFEDIOL (96638) [facility] Work Phone: Start: 08-10-2022 Cyanocobalamin vitamin b-12 VITAMIN B12 AND FOLATES (79123) [facility] Work Phone: Start: 07-05-2022 End: 09-04-2022 LIPID PANEL BASIC LIPID PANEL BASIC Lab Routine Hyperlipidemia, unspecified hyperlipidemia type Expected: 07/05/2022 (Approximate), Expires: 09/04/2022 [facility] Work Phone: Immunizations Immunization Date Immunization Notes Care Provider Maribell valles 08-21-2017 influenza, injectabl e, quadrivalent, contains preservative Melany Berg MA [facility] 12-22-2016 pneumococcal polysaccharide vaccine, 23 valent Melany Berg MA [facility] 06-24-2016 influenza, injectabl e, quadrivalent, contains preservative Melany Berg MA [facility] 03-19-2015 tetanus toxoid, redu андрей diphtheria toxoid, and acellular pertussis vaccine, adsorbed Melany Berg MA [facility] Payers Date Payer Category Payer Unknown [id number] 2019 Medicare UHC AARP MEDICAR E UHC AARP MEDICARE HMO [id number] 2019-Present [phone] [address] [address] [place] [address] O [id number] 1955 Unknown [id number] Unknown [facility] ADV PLAN Social History Date Type Detail Facility Alcohol Use: Alcohol Use: [facility] Work Phone: Caffeine Use Caffeine Use [facility] Work Phone: Medical Equipment Procedure Code Equipment Code Equipment Origin al Text Equipment Identifier Dates Protcr Nrv 40mm 10mm Axoguard - [id number] Start: 03-23-2015 Clinical Notes 06-17-2016 to 01-31-2022 Melany Berg Ma - 01/31/2022 1:15 PM Rosalina Berg Ma - 01/03/2022 1:17 PM Rosalina Berg Ma - 01/03/2022 1:16 PM Yulissa Askew APRN.KINDERGARTEN ASSISTANT - 01/03/2022 10:53 AM EDT Note Date & Type Note Facility 01-31-2022 Note HNO ID: [id number] Author: Melany Berg Ma Service: ? Author Type: ? Type: Progress Notes Filed: 03/03/2022 3:00 AM Note Text: POPULATION HEALTH NAVIGATION OUTREACH Action/FYI Pt was left a vm to return call and schedule a follow up appt with pcp or director inpatient headache program. Pt identified by name and : YES, via phone Outreach Outcome/Action Unable to reach patient: Left message Reason for Outreach Care Gap or Scheduling/Wellness visits Payer: Payor: [facility] MEDICARE / Plan: [facility] MEDICARE HMO / Product Type: HMO / Care Gap Reviewed:: Follow-up appointment Reminder: Reminder note to check Health Maintenance for items below Health Maintenance items due: COVID-19 VACCINE(1) Never done SHINGRIX VACCINE(1 of 2) Never done DIABETIC FOOT EXAM due on 11/19/2019 BONE DENSITY Never done ANNUAL PCP TEAM CHRONIC DISEASE VISIT due on 02/19/2021 HBA1C due on 06/11/2021 ADVANCE DIRECTIVE DISCUSSION Never done DILATED RETINAL EXAM due on 10/15/2021 URINE ALBUMIN:CREATININE RATIO due on 12/09/2021 LDL CHOLESTEROL due on 12/09/2021 PNEUMOVAX AGE 65 AND OVER WITH 5YR LOOKBACK(1) due on 12/22/2021 Message Sent to Practice: Yes Navigation Signature: Melany Berg Ma January 31, 2022 1:16 PM [facility] 01-31-2022 Note HNO ID: [id number] Author: Melany Berg Ma Service: ? Author Type: ? Type: Progress Notes Filed: 01/31/2022 1:15 PM Note Text: See outreach enc. [facility] 01-31-2022 Note Patient Outreach (FA MPWS) ROSA DEAN ([id number]) 1955 F Date Time Provider Department 01/31/22 ADALBERTO ASKEW During your visit today, we recorded the following information about you: Adalberto Askew APRN.CNP 01/31/2022 1:15 PM Signed STAMP Please reach out to patient for overdue appointment for chronic disease management with myself, Dr. Mcmullen, or Thalia Alejandra. Labs are ordered. If he/she is no longer following with Dr. Mcmullen, please remove name from PCP field. DENI Kim Ma 01/31/2022 1:15 PM Signed See outreach enc. Allergies As of Date: 01/31/2022 (No Known Allergies) Date Reviewed: 02/20/2020 Reviewed by: Adalberto (Jake) [place] - Fully Assessed Prescriptions as of 01/31/2022 - venlafaxine ER (EFFEXOR XR) 150 mg 24 hr capsule Take 1 capsule by mouth once daily. - famotidine (PEPCID) 40 mg tablet Take 1 tablet by mouth once daily. - cholecalciferol, Vitamin D3, (VITAMIN D3) 1,250 mcg (50,000 unit) cap capsule Take 1 capsule by mouth one time a week. - albuterol HFA (VENTOLIN HFA) 90 mcg/actuation inhaler inhale 2 puffs every 4 hours as needed for shortness of breath and wheezing - fluticasone (FLOVENT HFA) 220 mcg/actuation inhaler Inhale 1 Puff as instructed twice daily. - rosuvastatin (CRESTOR) 20 mg tablet Take 1 tablet by mouth once daily. - rOPINIRole (REQUIP) 2 mg tablet Take 1 tablet by mouth daily at bedtime. - clotrimazole-betamethasone (LOTRISONE) cream Apply 1 application to affected area twice daily. - amitriptyline (ELAVIL) 10 mg tablet Take 1 tablet by mouth daily at bedtime. - fexofenadine (LISA) 180 mg tablet TAKE 1 TABLET EVERY DAY - lisinopril (ZESTRIL, PRINIVIL) 5 mg tablet Take 1 tablet by mouth once daily. - COMPOUNDED PRESCRIPTION Mask, filter, tubing for CPAP; use as directed ICD 10: G47.33 - CPAP Use nightly at 10 cm H20 pressure. - Nebulizer NEBULIZER FOR HOME USE. DX: (J44.9) Chronic obstructive pulmonary disease, unspecified COPD type (HCC) - Spirometers and Accessories gurwinder Incentive spirometer. Use hourly as directed. .(J44.9) Chronic obstructive pulmonary disease, unspecified COPD type (HCC) - albuterol (PROVENTIL) 2.5 mg /3 mL (0.083 %) nebulizer solution Use 3 mL via nebulizer every 6 hours as needed for Wheezing/Shortness of Breath (Use over 5 - 15 minutes). Problem List As Of Date 01/31/2022 Noted Resolved Carpal tunnel syndrome [G56.00] 03/16/2010 02/27/2019 Trigger finger [M65.30] 03/16/2010 04/14/2015 Hand pain [M79.643] 12/18/2010 04/14/2015 Sleep apnea [G47.30] 02/27/2019 COPD (chronic obstructive pulmonary disease) (H* Numbness and tingling in left hand [R20.0, R20.*04/06/2015 08/04/2015 Work-related condition [Z56.89] 04/14/2015 12/22/2016 Arthritis of lsfyxf-ofopoxgpc-mdcdgrdwr joint [*08/04/2015 12/22/2016 Controlled type 2 diabetes mellitus without com*04/19/2016 Trochanteric bursitis of right hip [M70.61] 06/17/2016 02/27/2019 Vitamin D deficiency [E55.9] 06/24/2016 NHI (obstructive sleep apnea) [G47.33] 07/05/2016 Fibromyalgia [M79.7] 12/22/2016 Hyperlipidemia [E78.5] 12/22/2016 Anxiety [F41.9] 12/22/2016 Depression [F32.A] 12/22/2016 Tobacco abuse [Z72.0] 08/21/2017 Periodic limb movement sleep disorder [G47.61] 10/25/2017 Nasal septal deviation [J34.2] 10/25/2017 Nasal congestion [R09.81] 10/25/2017 Encounter Status:Closed by MELANY BERG MA on 01/31/22 [facility] 01-31-2022 Note Patient Outreach (FA MPWS) VITORROSA Kesha ([id number]) 1955 F Date Time Provider Department 01/31/22 MELANY BERG During your visit today, we recorded the following information about you: Melany Berg Ma 03/03/2022 3:00 AM Signed POPULATION HEALTH NAVIGATION OUTREACH Action/FYI Pt was left a vm to return call and schedule a follow up appt with pcp or director inpatient headache program. Pt identified by name and : YES, via phone Outreach Outcome/Action Unable to reach patient: Left message Reason for Outreach Care Gap or Scheduling/Wellness visits Payer: Payor: [facility] MEDICARE / Plan: [employer] AARP MEDICARE HMO / Product Type: HMO / Care Gap Reviewed:: Follow-up appointment Reminder: Reminder note to check Health Maintenance for items below Health Maintenance items due: COVID-19 VACCINE(1) Never done SHINGRIX VACCINE(1 of 2) Never done DIABETIC FOOT EXAM due on 11/19/2019 BONE DENSITY Never done ANNUAL PCP TEAM CHRONIC DISEASE VISIT due on 02/19/2021 HBA1C due on 06/11/2021 ADVANCE DIRECTIVE DISCUSSION Never done DILATED RETINAL EXAM due on 10/15/2021 URINE ALBUMIN:CREATININE RATIO due on 12/09/2021 LDL CHOLESTEROL due on 12/09/2021 PNEUMOVAX AGE 65 AND OVER WITH 5YR LOOKBACK(1) due on 12/22/2021 Message Sent to Practice: Yes Navigation Signature: Melany Berg Ma January 31, 2022 1:16 PM Allergies As of Date: 01/31/2022 (No Known Allergies) Date Reviewed: 02/20/2020 Reviewed by: Adalberto Askwe - Fully Assessed Reason for Visit: PHMA/Care Gap Outreach [[id number]] Prescriptions as of 03/03/2022 - venlafaxine ER (EFFEXOR XR) 150 mg 24 hr capsule Take 1 capsule by mouth once daily. - famotidine (PEPCID) 40 mg tablet Take 1 tablet by mouth once daily. - cholecalciferol, Vitamin D3, (VITAMIN D3) 1,250 mcg (50,000 unit) cap capsule Take 1 capsule by mouth one time a week. - albuterol HFA (VENTOLIN HFA) 90 mcg/actuation inhaler inhale 2 puffs every 4 hours as needed for shortness of breath and wheezing - fluticasone (FLOVENT HFA) 220 mcg/actuation inhaler Inhale 1 Puff as instructed twice daily. - rosuvastatin (CRESTOR) 20 mg tablet Take 1 tablet by mouth once daily. - rOPINIRole (REQUIP) 2 mg tablet Take 1 tablet by mouth daily at bedtime. - clotrimazole-betamethasone (LOTRISONE) cream Apply 1 application to affected area twice daily. - amitriptyline (ELAVIL) 10 mg tablet Take 1 tablet by mouth daily at bedtime. - fexofenadine (LISA) 180 mg tablet TAKE 1 TABLET EVERY DAY - lisinopril (ZESTRIL, PRINIVIL) 5 mg tablet Take 1 tablet by mouth once daily. - COMPOUNDED PRESCRIPTION Mask, filter, tubing for CPAP; use as directed ICD 10: G47.33 - CPAP Use nightly at 10 cm H20 pressure. - Nebulizer NEBULIZER FOR HOME USE. DX: (J44.9) Chronic obstructive pulmonary disease, unspecified COPD type (HCC) - Spirometers and Accessories gurwinder Incentive spirometer. Use hourly as directed. .(J44.9) Chronic obstructive pulmonary disease, unspecified COPD type (HCC) - albuterol (PROVENTIL) 2.5 mg /3 mL (0.083 %) nebulizer solution Use 3 mL via nebulizer every 6 hours as needed for Wheezing/Shortness of Breath (Use over 5 - 15 minutes). Problem List As Of Date 01/31/2022 Noted Resolved Carpal tunnel syndrome [G56.00] 03/16/2010 02/27/2019 Trigger finger [M65.30] 03/16/2010 04/14/2015 Hand pain [M79.643] 12/18/2010 04/14/2015 Sleep apnea [G47.30] 02/27/2019 COPD (chronic obstructive pulmonary disease) (H* Numbness and tingling in left hand [R20.0, R20.*04/06/2015 08/04/2015 Work-related condition [Z56.89] 04/14/2015 12/22/2016 Arthritis of myldlx-vajfqwfsv-zbvhotgtr joint [*08/04/2015 12/22/2016 Controlled type 2 diabetes mellitus without com*04/19/2016 Trochanteric bursitis of right hip [M70.61] 06/17/2016 02/27/2019 Vitamin D deficiency [E55.9] 06/24/2016 NHI (obstructive sleep apnea) [G47.33] 07/05/2016 Fibromyalgia [M79.7] 12/22/2016 Hyperlipidemia [E78.5] 12/22/2016 Anxiety [F41.9] 12/22/2016 Depression [F32.A] 12/22/2016 Tobacco abuse [Z72.0] 08/21/2017 Periodic limb movement sleep disorder [G47.61] 10/25/2017 Nasal septal deviation [J34.2] 10/25/2017 Nasal congestion [R09.81] 10/25/2017 Encounter Status:Closed by TYRELL HERNANDEZ on 03/03/22 [facility] 01-31-2022 History of Present illness Narrative POPULATION HEALTH NAVIGATION OUTREACH Action/FYI Pt was left a vm to return call and schedule a follow up appt with pcp or director inpatient headache program. Pt identified by name and : YES, via phone Outreach Outcome/Action Unable to reach patient: Left message Reason for Outreach Care Gap or Scheduling/Wellness visits Payer: Payor: [facility] MEDICARE / Plan: [employer] AARP MEDICARE HMO / Product Type: HMO / Care Gap Reviewed:: Follow-up appointment Reminder: Reminder note to check Health Maintenance for items below Health Maintenance items due: COVID-19 VACCINE(1) Never done SHINGRIX VACCINE(1 of 2) Never done DIABETIC FOOT EXAM due on 11/19/2019 BONE DENSITY Never done ANNUAL PCP TEAM CHRONIC DISEASE VISIT due on 02/19/2021 HBA1C due on 06/11/2021 ADVANCE DIRECTIVE DISCUSSION Never done DILATED RETINAL EXAM due on 10/15/2021 URINE ALBUMIN:CREATININE RATIO due on 12/09/2021 LDL CHOLESTEROL due on 12/09/2021 PNEUMOVAX AGE 65 AND OVER WITH 5YR LOOKBACK(1) due on 12/22/2021 Message Sent to Practice: Yes Navigation Signature: Melany Berg Ma January 31, 2022 1:16 PM documented in this encounter [facility] 01-31-2022 Note HNO ID: [id number] Author: Adalberto Askew APRN.JAKE Service: ? Author Type: Nurse Practitioner Type: Progress Notes Filed: 01/31/2022 1:15 PM Note Text: STAMP Please reach out to patient for overdue appointment for chronic disease management with myself, Dr. Mcmullen, or Thalia Alejandra. Labs are ordered. If he/she is no longer following with Dr. Mcmullen, please remove name from PCP field. Adalberto Askew APRN.JAKE [facility] 01-03-2022 Note HNO ID: [id number] Author: Melany Berg Ma Service: ? Author Type: ? Type: Progress Notes Filed: 01/03/2022 1:22 PM Note Text: POPULATION HEALTH NAVIGATION OUTREACH Action/FYI Pt has been scheduled with [facility], will have lab work done prior to appointment. Pt identified by name and : YES, via phone Outreach Outcome/Action Spoke to patient or caregiver: Patient scheduled Reason for Outreach Care Gap or Scheduling/Wellness visits Payer: Payor: [facility] MEDICARE / Plan: [employer] AARP MEDICARE HMO / Product Type: HMO / Care Gap Reviewed:: Follow-up appointment Reminder: Reminder note to check Health Maintenance for items below Health Maintenance items due: COVID-19 VACCINE(1) Never done SHINGRIX VACCINE(1 of 2) Never done DIABETIC FOOT EXAM due on 11/19/2019 BONE DENSITY Never done ANNUAL PCP TEAM CHRONIC DISEASE VISIT due on 02/19/2021 HBA1C due on 06/11/2021 ADVANCE DIRECTIVE DISCUSSION Never done DILATED RETINAL EXAM due on 10/15/2021 URINE ALBUMIN:CREATININE RATIO due on 12/09/2021 LDL CHOLESTEROL due on 12/09/2021 PNEUMOVAX AGE 65 AND OVER WITH 5YR LOOKBACK(1) due on 12/22/2021 Message Sent to Practice: Yes Navigation Signature: Melany Berg Ma January 03, 2022 1:17 PM [facility] 01-03-2022 Note HNO ID: [id number] Author: Melany Berg Ma Service: ? Author Type: ? Type: Progress Notes Filed: 01/03/2022 1:22 PM Note Text: See outreach enc. [facility] 01-03-2022 Note Patient Outreach (FA MPWS) ROSA DEAN ([id number]) 1955 F Date Time Provider Department 01/03/22 MELANY BERG During your visit today, we recorded the following information about you: Melany Berg Ma 01/03/2022 1:22 PM Signed POPULATION HEALTH NAVIGATION OUTREACH Action/FYI Pt has been scheduled with [facility], will have lab work done prior to appointment. Pt identified by name and : YES, via phone Outreach Outcome/Action Spoke to patient or caregiver: Patient scheduled Reason for Outreach Care Gap or Scheduling/Wellness visits Payer: Payor: [facility] MEDICARE / Plan: [facility] MEDICARE HMO / Product Type: HMO / Care Gap Reviewed:: Follow-up appointment Reminder: Reminder note to check Health Maintenance for items below Health Maintenance items due: COVID-19 VACCINE(1) Never done SHINGRIX VACCINE(1 of 2) Never done DIABETIC FOOT EXAM due on 11/19/2019 BONE DENSITY Never done ANNUAL PCP TEAM CHRONIC DISEASE VISIT due on 02/19/2021 HBA1C due on 06/11/2021 ADVANCE DIRECTIVE DISCUSSION Never done DILATED RETINAL EXAM due on 10/15/2021 URINE ALBUMIN:CREATININE RATIO due on 12/09/2021 LDL CHOLESTEROL due on 12/09/2021 PNEUMOVAX AGE 65 AND OVER WITH 5YR LOOKBACK(1) due on 12/22/2021 Message Sent to Practice: Yes Navigation Signature: Melany Berg Ma January 03, 2022 1:17 PM Allergies As of Date: 01/03/2022 (No Known Allergies) Date Reviewed: 02/20/2020 Reviewed by: Adalberto Ann) [place] - Fully Assessed Reason for Visit: PHMA/Care Gap Outreach [[id number]] Prescriptions as of 01/03/2022 - venlafaxine ER (EFFEXOR XR) 150 mg 24 hr capsule Take 1 capsule by mouth once daily. - famotidine (PEPCID) 40 mg tablet Take 1 tablet by mouth once daily. - cholecalciferol, Vitamin D3, (VITAMIN D3) 1,250 mcg (50,000 unit) cap capsule Take 1 capsule by mouth one time a week. - albuterol HFA (VENTOLIN HFA) 90 mcg/actuation inhaler inhale 2 puffs every 4 hours as needed for shortness of breath and wheezing - fluticasone (FLOVENT HFA) 220 mcg/actuation inhaler Inhale 1 Puff as instructed twice daily. - rosuvastatin (CRESTOR) 20 mg tablet Take 1 tablet by mouth once daily. - rOPINIRole (REQUIP) 2 mg tablet Take 1 tablet by mouth daily at bedtime. - clotrimazole-betamethasone (LOTRISONE) cream Apply 1 application to affected area twice daily. - amitriptyline (ELAVIL) 10 mg tablet Take 1 tablet by mouth daily at bedtime. - fexofenadine (LISA) 180 mg tablet TAKE 1 TABLET EVERY DAY - lisinopril (ZESTRIL, PRINIVIL) 5 mg tablet Take 1 tablet by mouth once daily. - COMPOUNDED PRESCRIPTION Mask, filter, tubing for CPAP; use as directed ICD 10: G47.33 - CPAP Use nightly at 10 cm H20 pressure. - Nebulizer NEBULIZER FOR HOME USE. DX: (J44.9) Chronic obstructive pulmonary disease, unspecified COPD type ([facility]) - Spirometers and Accessories gurwinder Incentive spirometer. Use hourly as directed. .(J44.9) Chronic obstructive pulmonary disease, unspecified COPD type ([facility]) - albuterol (PROVENTIL) 2.5 mg /3 mL (0.083 %) nebulizer solution Use 3 mL via nebulizer every 6 hours as needed for Wheezing/Shortness of Breath (Use over 5 - 15 minutes). Problem List As Of Date 01/03/2022 Noted Resolved Carpal tunnel syndrome [G56.00] 03/16/2010 02/27/2019 Trigger finger [M65.30] 03/16/2010 04/14/2015 Hand pain [M79.643] 12/18/2010 04/14/2015 Sleep apnea [G47.30] 02/27/2019 COPD (chronic obstructive pulmonary disease) (H* Numbness and tingling in left hand [R20.0, R20.*04/06/2015 08/04/2015 Work-related condition [Z56.89] 04/14/2015 12/22/2016 Arthritis of lougae-noztnvrtp-ssdfvfkbu joint [*08/04/2015 12/22/2016 Controlled type 2 diabetes mellitus without com*04/19/2016 Trochanteric bursitis of right hip [M70.61] 06/17/2016 02/27/2019 Vitamin D deficiency [E55.9] 06/24/2016 NHI (obstructive sleep apnea) [G47.33] 07/05/2016 Fibromyalgia [M79.7] 12/22/2016 Hyperlipidemia [E78.5] 12/22/2016 Anxiety [F41.9] 12/22/2016 Depression [F32.A] 12/22/2016 Tobacco abuse [Z72.0] 08/21/2017 Periodic limb movement sleep disorder [G47.61] 10/25/2017 Nasal septal deviation [J34.2] 10/25/2017 Nasal congestion [R09.81] 10/25/2017 Encounter Status:Closed by MELANY BERG MA on 01/03/22 [facility] 01-03-2022 Note Patient Outreach (FA MPWS) ROSA DEAN ([id number]) 1955 F Date Time Provider Department 01/03/22 ADALBERTO ASKEW During your visit today, we recorded the following information about you: Adalberto Askew APRN.CNP 01/03/2022 1:22 PM Signed STAMP Please reach out to patient for overdue appointment for chronic disease management with myself, Dr. Mcmullen, or Thalia Tannhof. Labs are ordered. If he/she is no longer following with Dr. Mcmullen, please remove name from PCP field. Adalberto Askew APRN.JAKE Berg Ma 01/03/2022 1:22 PM Signed See outreach enc. Allergies As of Date: 01/03/2022 (No Known Allergies) Date Reviewed: 02/20/2020 Reviewed by: Adalberto (Jake) [place] - Fully Assessed Primary Visit Diagnosis:Hyperlipidemia, unspecified hyperlipidemia type [E78.5] Other Visit Diagnoses:Controlled type 2 diabetes mellitus without complication, without long-term current use of insulin (HCC) [E11.9] Vitamin D deficiency [E55.9] Order(s):HGB A1C [TXOOK5T] Order #: [id number] FUTURE ALBUMIN/CREAT RATIO RND UR [SQUACR] Order #: [id number] FUTURE COMP METABOLIC PANEL [SQCMP] Order #: [id number] FUTURE LIPID PANEL BASIC [SQLIPB] Order #: [id number] FUTURE VITAMIN D 25 HYDROXY [SQVITD] Order #: [id number] FUTURE Prescriptions as of 01/03/2022 - venlafaxine ER (EFFEXOR XR) 150 mg 24 hr capsule Take 1 capsule by mouth once daily. - famotidine (PEPCID) 40 mg tablet Take 1 tablet by mouth once daily. - cholecalciferol, Vitamin D3, (VITAMIN D3) 1,250 mcg (50,000 unit) cap capsule Take 1 capsule by mouth one time a week. - albuterol HFA (VENTOLIN HFA) 90 mcg/actuation inhaler inhale 2 puffs every 4 hours as needed for shortness of breath and wheezing - fluticasone (FLOVENT HFA) 220 mcg/actuation inhaler Inhale 1 Puff as instructed twice daily. - rosuvastatin (CRESTOR) 20 mg tablet Take 1 tablet by mouth once daily. - rOPINIRole (REQUIP) 2 mg tablet Take 1 tablet by mouth daily at bedtime. - clotrimazole-betamethasone (LOTRISONE) cream Apply 1 application to affected area twice daily. - amitriptyline (ELAVIL) 10 mg tablet Take 1 tablet by mouth daily at bedtime. - fexofenadine (LISA) 180 mg tablet TAKE 1 TABLET EVERY DAY - lisinopril (ZESTRIL, PRINIVIL) 5 mg tablet Take 1 tablet by mouth once daily. - COMPOUNDED PRESCRIPTION Mask, filter, tubing for CPAP; use as directed ICD 10: G47.33 - CPAP Use nightly at 10 cm H20 pressure. - Nebulizer NEBULIZER FOR HOME USE. DX: (J44.9) Chronic obstructive pulmonary disease, unspecified COPD type (HCC) - Spirometers and Accessories gurwinder Incentive spirometer. Use hourly as directed. .(J44.9) Chronic obstructive pulmonary disease, unspecified COPD type (HCC) - albuterol (PROVENTIL) 2.5 mg /3 mL (0.083 %) nebulizer solution Use 3 mL via nebulizer every 6 hours as needed for Wheezing/Shortness of Breath (Use over 5 - 15 minutes). Problem List As Of Date 01/03/2022 Noted Resolved Carpal tunnel syndrome [G56.00] 03/16/2010 02/27/2019 Trigger finger [M65.30] 03/16/2010 04/14/2015 Hand pain [M79.643] 12/18/2010 04/14/2015 Sleep apnea [G47.30] 02/27/2019 COPD (chronic obstructive pulmonary disease) (H* Numbness and tingling in left hand [R20.0, R20.*04/06/2015 08/04/2015 Work-related condition [Z56.89] 04/14/2015 12/22/2016 Arthritis of uwoyoo-vogsjftww-cxmyufbpk joint [*08/04/2015 12/22/2016 Controlled type 2 diabetes mellitus without com*04/19/2016 Trochanteric bursitis of right hip [M70.61] 06/17/2016 02/27/2019 Vitamin D deficiency [E55.9] 06/24/2016 NHI (obstructive sleep apnea) [G47.33] 07/05/2016 Fibromyalgia [M79.7] 12/22/2016 Hyperlipidemia [E78.5] 12/22/2016 Anxiety [F41.9] 12/22/2016 Depression [F32.A] 12/22/2016 Tobacco abuse [Z72.0] 08/21/2017 Periodic limb movement sleep disorder [G47.61] 10/25/2017 Nasal septal deviation [J34.2] 10/25/2017 Nasal congestion [R09.81] 10/25/2017 Encounter Status:Closed by MELANY BERG MA on 01/03/22 [facility] 01-03-2022 History of Present illness Narrative POPULATION HEALTH NAVIGATION OUTREACH Action/FYI Pt has been scheduled with [facility], will have lab work done prior to appointment. Pt identified by name and : YES, via phone Outreach Outcome/Action Spoke to patient or caregiver: Patient scheduled Reason for Outreach Care Gap or Scheduling/Wellness visits Payer: Payor: [facility] MEDICARE / Plan: [facility] MEDICARE HMO / Product Type: HMO / Care Gap Reviewed:: Follow-up appointment Reminder: Reminder note to check Health Maintenance for items below Health Maintenance items due: COVID-19 VACCINE(1) Never done SHINGRIX VACCINE(1 of 2) Never done DIABETIC FOOT EXAM due on 11/19/2019 BONE DENSITY Never done ANNUAL PCP TEAM CHRONIC DISEASE VISIT due on 02/19/2021 HBA1C due on 06/11/2021 ADVANCE DIRECTIVE DISCUSSION Never done DILATED RETINAL EXAM due on 10/15/2021 URINE ALBUMIN:CREATININE RATIO due on 12/09/2021 LDL CHOLESTEROL due on 12/09/2021 PNEUMOVAX AGE 65 AND OVER WITH 5YR LOOKBACK(1) due on 12/22/2021 Message Sent to Practice: Yes Navigation Signature: Melany Berg Ma January 03, 2022 1:17 PM documented in this encounter [facility] 01-03-2022 History of Present illness Narrative See outreach enc. STAMP Please reach out to patient for overdue appointment for chronic disease management with myself, Dr. Mcmullen, or Thalia Alejandra. Labs are ordered. If he/she is no longer following with Dr. Mcmullen, please remove name from PCP field. Adalberto Askew APRN.JAKE documented in this encounter [facility] 01-03-2022 Note HNO ID: [id number] Author: Adalberto Askew APRN.JAKE Service: ? Author Type: Nurse Practitioner Type: Progress Notes Filed: 01/03/2022 1:22 PM Note Text: STAMP Please reach out to patient for overdue appointment for chronic disease management with myself, Dr. Mcmullen, or Thalia Alejandra. Labs are ordered. If he/she is no longer following with Dr. Mcmullen, please remove name from PCP field. Adalberto Askew APRN.CNP [facility] documented as of this encounter (statuses as of 01/03/2022) [facility]09-16-2016 History of Past illness Narrative* Problem Noted Date Resolved Date Trochanteric bursitis of right hip 06/17/2016 02/27/2019 Arthritis of vdfent-uifqhxwmn-onmidyjyk joint 12/22/2016 Work-related condition 04/14/2015 7 Numbness and tingling in left hand 04/06/2015 08/04/2015 Hand pain 12/18/2010 04/14/2015 Carpal tunnel syndrome 03/16/2010 9 Trigger finger 03/16/2010 04/14/2015 Sleep apnea 02/27/2019 Overview: Patient uses [employer] as her [employer] company. documented as of this encounter (statuses as of 01/03/2022) [facility] History of Past illness Narrative* Problem Noted Date Resolved Date Trochanteric bursitis of right hip 06/17/2016 02/27/2019 Arthritis of uyxhri-bhqmpxqkn-fpcwzneov joint 12/22/2016 Work-related condition 04/14/2015 7 Numbness and tingling in left hand 04/06/2015 08/04/2015 Hand pain 12/18/2010 04/14/2015 Carpal tunnel syndrome 03/16/2010 9 Trigger finger 03/16/2010 04/14/2015 Sleep apnea 02/27/2019 Overview: Patient uses [employer] as her DME company. documented as of this encounter (statuses as of 03/03/2022) [facility] Diagnosis Hyperlipidemia, unspecified hyperlipidemia type- Primary Controlled type 2 diabetes mellitus without complication, without long-term current use of insulin (HCC) Vitamin D deficiency Unspecified vitamin D deficiency documented in this encounter [facility]* Name Dates Details Patient Instructions Indication:Smoker Start:06-Jan-2021 Instruction Type:Provider Instructions for Treatment How to Access Health Informa tion Online using Patient Portal and [employer] Apps Indication:Smoker Start:06-Jan-2021 Instruction Type:Patient Education How to access health informa tion online Indication:Smoker Start:27-May-2020 Instruction Type:Patient Education How to access health informa tion online - Detail Indication:Smoker Start:27-May-2020 Instruction Type:Patient Education Patient Instructions Indication:BMI 37.0-37.9, adult Start:27-May-2020 Instruction Type:Provider Instructions for Treatment How to access health informa tion online Indication:Smoker Start:13-Apr-2020 Instruction Type:Patient Education How to access health informa tion online - Detail Indication:Smoker Start:13-Apr-2020 Instruction Type:Patient Education Patient Instructions Indication:BMI 37.0-37.9, adult Start:13-Apr-2020 Instruction Type:Provider Instructions for Treatment How to access health informa tion online Indication:BMI 37.0-37.9, adult Start:03-Jan-2020 Instruction Type:Patient Education How to access health informa tion online - Detail Indication:BMI 37.0-37.9, adult Start:03-Jan-2020 Instruction Type:Patient Education Patient Instructions Indication:BMI 37.0-37.9, adult Start:03-Jan-2020 Instruction Type:Provider Instructions for Treatment How to access health informa tion online Indication:Smoker Start:19-Dec-2019 Instruction Type:Patient Education How to access health informa tion online - Detail Indication:Smoker Start:19-Dec-2019 Instruction Type:Patient Education Patient Instructions Indication:Smoker Start:19-Dec-2019 Instruction Type:Provider Instructions for Treatment How to access health informa tion online Indication:Anxiety Start:11-Dec-2019 Instruction Type:Patient Education How to access health informa tion online - Detail Indication:Anxiety Start:11-Dec-2019 Instruction Type:Patient Education Patient Instructions Indication:Contact dermatitis Start:11-Dec-2019 Instruction Type:Provider Instructions for Treatment [facility] Work Phone: Instructions* Name Dates Details Patient Instructions Indication:Smoker Start:27-Jan-2021 Instruction Type:Provider Instructions for Treatment How to Access Health Informa tion Online using Patient Portal and [employer] Apps Indication:Smoker Start:27-Jan-2021 Instruction Type:Patient Education Patient Instructions Indication:Smoker Start:06-Jan-2021 Instruction Type:Provider Instructions for Treatment How to Access Health Informa tion Online using Patient Portal and [employer] Apps Indication:Smoker Start:06-Jan-2021 Instruction Type:Patient Education How to access health informa tion online Indication:Smoker Start:27-May-2020 Instruction Type:Patient Education How to access health informa tion online - Detail Indication:Smoker Start:27-May-2020 Instruction Type:Patient Education Patient Instructions Indication:BMI 37.0-37.9, adult Start:27-May-2020 Instruction Type:Provider Instructions for Treatment How to access health informa tion online Indication:Smoker Start:13-Apr-2020 Instruction Type:Patient Education How to access health informa tion online - Detail Indication:Smoker Start:13-Apr-2020 Instruction Type:Patient Education Patient Instructions Indication:BMI 37.0-37.9, adult Start:13-Apr-2020 Instruction Type:Provider Instructions for Treatment How to access health informa tion online Indication:BMI 37.0-37.9, adult Start:03-Jan-2020 Instruction Type:Patient Education How to access health informa tion online - Detail Indication:BMI 37.0-37.9, adult Start:03-Jan-2020 Instruction Type:Patient Education Patient Instructions Indication:BMI 37.0-37.9, adult Start:03-Jan-2020 Instruction Type:Provider Instructions for Treatment How to access health informa tion online Indication:Smoker Start:19-Dec-2019 Instruction Type:Patient Education How to access health informa tion online - Detail Indication:Smoker Start:19-Dec-2019 Instruction Type:Patient Education Patient Instructions Indication:Smoker Start:19-Dec-2019 Instruction Type:Provider Instructions for Treatment How to access health informa tion online Indication:Anxiety Start:11-Dec-2019 Instruction Type:Patient Education How to access health informa tion online - Detail Indication:Anxiety Start:11-Dec-2019 Instruction Type:Patient Education Patient Instructions Indication:Contact dermatitis Start:11-Dec-2019 Instruction Type:Provider Instructions for Treatment [facility]; [facility] Work Phone: Instructions* Name Dates Details Patient Instructions Indication:BMI 36.0-36.9,adult Start:09-Feb-2021 Instruction Type:Provider Instructions for Treatment How to Access Health Informa tion Online using Patient Portal and [employer] Apps Indication:Smoker Start:09-Feb-2021 Instruction Type:Patient Education Patient Instructions Indication:Smoker Start:06-Jan-2021 Instruction Type:Provider Instructions for Treatment How to Access Health Informa tion Online using Patient Portal and [employer] Apps Indication:Smoker Start:06-Jan-2021 Instruction Type:Patient Education How to access health informa tion online Indication:Smoker Start:27-May-2020 Instruction Type:Patient Education How to access health informa tion online - Detail Indication:Smoker Start:27-May-2020 Instruction Type:Patient Education Patient Instructions Indication:BMI 37.0-37.9, adult Start:27-May-2020 Instruction Type:Provider Instructions for Treatment How to access health informa tion online Indication:Smoker Start:13-Apr-2020 Instruction Type:Patient Education How to access health informa tion online - Detail Indication:Smoker Start:13-Apr-2020 Instruction Type:Patient Education Patient Instructions Indication:BMI 37.0-37.9, adult Start:13-Apr-2020 Instruction Type:Provider Instructions for Treatment How to access health informa tion online Indication:BMI 37.0-37.9, adult Start:03-Jan-2020 Instruction Type:Patient Education How to access health informa tion online - Detail Indication:BMI 37.0-37.9, adult Start:03-Jan-2020 Instruction Type:Patient Education Patient Instructions Indication:BMI 37.0-37.9, adult Start:03-Jan-2020 Instruction Type:Provider Instructions for Treatment How to access health informa tion online Indication:Smoker Start:19-Dec-2019 Instruction Type:Patient Education How to access health informa tion online - Detail Indication:Smoker Start:19-Dec-2019 Instruction Type:Patient Education Patient Instructions Indication:Smoker Start:19-Dec-2019 Instruction Type:Provider Instructions for Treatment How to access health informa tion online Indication:Anxiety Start:11-Dec-2019 Instruction Type:Patient Education How to access health informa tion online - Detail Indication:Anxiety Start:11-Dec-2019 Instruction Type:Patient Education Patient Instructions Indication:Contact dermatitis Start:11-Dec-2019 Instruction Type:Provider Instructions for Treatment [facility] Work Phone: Instructions* Name Dates Details Patient Instructions Indication:Smoker Start:22-Mar-2021 Instruction Type:Provider Instructions for Treatment How to Access Health Informa tion Online using Patient Portal and [employer] Apps Indication:Smoker Start:22-Mar-2021 Instruction Type:Patient Education Patient Instructions Indication:BMI 36.0-36.9,adult Start:09-Feb-2021 Instruction Type:Provider Instructions for Treatment How to Access Health Informa tion Online using Patient Portal and [employer] Apps Indication:Smoker Start:09-Feb-2021 Instruction Type:Patient Education Patient Instructions Indication:Smoker Start:06-Jan-2021 Instruction Type:Provider Instructions for Treatment How to Access Health Informa tion Online using Patient Portal and [employer] Apps Indication:Smoker Start:06-Jan-2021 Instruction Type:Patient Education How to access health informa tion online Indication:Smoker Start:27-May-2020 Instruction Type:Patient Education How to access health informa tion online - Detail Indication:Smoker Start:27-May-2020 Instruction Type:Patient Education Patient Instructions Indication:BMI 37.0-37.9, adult Start:27-May-2020 Instruction Type:Provider Instructions for Treatment How to access health informa tion online Indication:Smoker Start:13-Apr-2020 Instruction Type:Patient Education How to access health informa tion online - Detail Indication:Smoker Start:13-Apr-2020 Instruction Type:Patient Education Patient Instructions Indication:BMI 37.0-37.9, adult Start:13-Apr-2020 Instruction Type:Provider Instructions for Treatment How to access health informa tion online Indication:BMI 37.0-37.9, adult Start:03-Jan-2020 Instruction Type:Patient Education How to access health informa tion online - Detail Indication:BMI 37.0-37.9, adult Start:03-Jan-2020 Instruction Type:Patient Education Patient Instructions Indication:BMI 37.0-37.9, adult Start:03-Jan-2020 Instruction Type:Provider Instructions for Treatment How to access health informa tion online Indication:Smoker Start:19-Dec-2019 Instruction Type:Patient Education How to access health informa tion online - Detail Indication:Smoker Start:19-Dec-2019 Instruction Type:Patient Education Patient Instructions Indication:Smoker Start:19-Dec-2019 Instruction Type:Provider Instructions for Treatment How to access health informa tion online Indication:Anxiety Start:11-Dec-2019 Instruction Type:Patient Education How to access health informa tion online - Detail Indication:Anxiety Start:11-Dec-2019 Instruction Type:Patient Education Patient Instructions Indication:Contact dermatitis Start:11-Dec-2019 Instruction Type:Provider Instructions for Treatment [facility]; [facility] Work Phone: Instructions* Name Dates Details Patient Instructions Indication:Smoker Start:22-Mar-2021 Instruction Type:Provider Instructions for Treatment How to Access Health Informa tion Online using Patient Portal and [employer] Apps Indication:Smoker Start:22-Mar-2021 Instruction Type:Patient Education Patient Instructions Indication:BMI 36.0-36.9,adult Start:09-Feb-2021 Instruction Type:Provider Instructions for Treatment How to Access Health Informa tion Online using Patient Portal and [employer] Apps Indication:Smoker Start:09-Feb-2021 Instruction Type:Patient Education Patient Instructions Indication:Smoker Start:06-Jan-2021 Instruction Type:Provider Instructions for Treatment How to Access Health Informa tion Online using Patient Portal and [employer] Apps Indication:Smoker Start:06-Jan-2021 Instruction Type:Patient Education How to access health informa tion online Indication:Smoker Start:27-May-2020 Instruction Type:Patient Education How to access health informa tion online - Detail Indication:Smoker Start:27-May-2020 Instruction Type:Patient Education Patient Instructions Indication:BMI 37.0-37.9, adult Start:27-May-2020 Instruction Type:Provider Instructions for Treatment How to access health informa tion online Indication:Smoker Start:13-Apr-2020 Instruction Type:Patient Education How to access health informa tion online - Detail Indication:Smoker Start:13-Apr-2020 Instruction Type:Patient Education Patient Instructions Indication:BMI 37.0-37.9, adult Start:13-Apr-2020 Instruction Type:Provider Instructions for Treatment How to access health informa tion online Indication:BMI 37.0-37.9, adult Start:03-Jan-2020 Instruction Type:Patient Education How to access health informa tion online - Detail Indication:BMI 37.0-37.9, adult Start:03-Jan-2020 Instruction Type:Patient Education Patient Instructions Indication:BMI 37.0-37.9, adult Start:03-Jan-2020 Instruction Type:Provider Instructions for Treatment How to access health informa tion online Indication:Smoker Start:19-Dec-2019 Instruction Type:Patient Education How to access health informa tion online - Detail Indication:Smoker Start:19-Dec-2019 Instruction Type:Patient Education Patient Instructions Indication:Smoker Start:19-Dec-2019 Instruction Type:Provider Instructions for Treatment How to access health informa tion online Indication:Anxiety Start:11-Dec-2019 Instruction Type:Patient Education How to access health informa tion online - Detail Indication:Anxiety Start:11-Dec-2019 Instruction Type:Patient Education Patient Instructions Indication:Contact dermatitis Start:11-Dec-2019 Instruction Type:Provider Instructions for Treatment [facility]; [facility] Work Phone: Instructions* Name Dates Details Patient Instructions Indication:Smoker Start:22-Mar-2021 Instruction Type:Provider Instructions for Treatment How to Access Health Informa tion Online using Patient Portal and [employer] Apps Indication:Smoker Start:22-Mar-2021 Instruction Type:Patient Education Patient Instructions Indication:BMI 36.0-36.9,adult Start:09-Feb-2021 Instruction Type:Provider Instructions for Treatment How to Access Health Informa tion Online using Patient Portal and [employer] Apps Indication:Smoker Start:09-Feb-2021 Instruction Type:Patient Education Patient Instructions Indication:Smoker Start:06-Jan-2021 Instruction Type:Provider Instructions for Treatment How to Access Health Informa tion Online using Patient Portal and [employer] Apps Indication:Smoker Start:06-Jan-2021 Instruction Type:Patient Education How to access health informa tion online Indication:Smoker Start:27-May-2020 Instruction Type:Patient Education How to access health informa tion online - Detail Indication:Smoker Start:27-May-2020 Instruction Type:Patient Education Patient Instructions Indication:BMI 37.0-37.9, adult Start:27-May-2020 Instruction Type:Provider Instructions for Treatment How to access health informa tion online Indication:Smoker Start:13-Apr-2020 Instruction Type:Patient Education How to access health informa tion online - Detail Indication:Smoker Start:13-Apr-2020 Instruction Type:Patient Education Patient Instructions Indication:BMI 37.0-37.9, adult Start:13-Apr-2020 Instruction Type:Provider Instructions for Treatment How to access health informa tion online Indication:BMI 37.0-37.9, adult Start:03-Jan-2020 Instruction Type:Patient Education How to access health informa tion online - Detail Indication:BMI 37.0-37.9, adult Start:03-Jan-2020 Instruction Type:Patient Education Patient Instructions Indication:BMI 37.0-37.9, adult Start:03-Jan-2020 Instruction Type:Provider Instructions for Treatment How to access health informa tion online Indication:Smoker Start:19-Dec-2019 Instruction Type:Patient Education How to access health informa tion online - Detail Indication:Smoker Start:19-Dec-2019 Instruction Type:Patient Education Patient Instructions Indication:Smoker Start:19-Dec-2019 Instruction Type:Provider Instructions for Treatment How to access health informa tion online Indication:Anxiety Start:11-Dec-2019 Instruction Type:Patient Education How to access health informa tion online - Detail Indication:Anxiety Start:11-Dec-2019 Instruction Type:Patient Education Patient Instructions Indication:Contact dermatitis Start:11-Dec-2019 Instruction Type:Provider Instructions for Treatment [facility]; [facility] Work Phone: Instructions* Name Dates Details Patient Instructions Indication:Smoker Start:22-Mar-2021 Instruction Type:Provider Instructions for Treatment How to Access Health Informa tion Online using Patient Portal and [employer] Apps Indication:Smoker Start:22-Mar-2021 Instruction Type:Patient Education Patient Instructions Indication:BMI 36.0-36.9,adult Start:09-Feb-2021 Instruction Type:Provider Instructions for Treatment How to Access Health Informa tion Online using Patient Portal and [employer] Apps Indication:Smoker Start:09-Feb-2021 Instruction Type:Patient Education Patient Instructions Indication:Smoker Start:06-Jan-2021 Instruction Type:Provider Instructions for Treatment How to Access Health Informa tion Online using Patient Portal and [employer]rd [employer] Apps Indication:Smoker Start:06-Jan-2021 Instruction Type:Patient Education How to access health informa tion online Indication:Smoker Start:27-May-2020 Instruction Type:Patient Education How to access health informa tion online - Detail Indication:Smoker Start:27-May-2020 Instruction Type:Patient Education Patient Instructions Indication:BMI 37.0-37.9, adult Start:27-May-2020 Instruction Type:Provider Instructions for Treatment How to access health informa tion online Indication:Smoker Start:13-Apr-2020 Instruction Type:Patient Education How to access health informa tion online - Detail Indication:Smoker Start:13-Apr-2020 Instruction Type:Patient Education Patient Instructions Indication:BMI 37.0-37.9, adult Start:13-Apr-2020 Instruction Type:Provider Instructions for Treatment How to access health informa tion online Indication:BMI 37.0-37.9, adult Start:03-Jan-2020 Instruction Type:Patient Education How to access health informa tion online - Detail Indication:BMI 37.0-37.9, adult Start:03-Jan-2020 Instruction Type:Patient Education Patient Instructions Indication:BMI 37.0-37.9, adult Start:03-Jan-2020 Instruction Type:Provider Instructions for Treatment How to access health informa tion online Indication:Smoker Start:19-Dec-2019 Instruction Type:Patient Education How to access health informa tion online - Detail Indication:Smoker Start:19-Dec-2019 Instruction Type:Patient Education Patient Instructions Indication:Smoker Start:19-Dec-2019 Instruction Type:Provider Instructions for Treatment How to access health informa tion online Indication:Anxiety Start:11-Dec-2019 Instruction Type:Patient Education How to access health informa tion online - Detail Indication:Anxiety Start:11-Dec-2019 Instruction Type:Patient Education Patient Instructions Indication:Contact dermatitis Start:11-Dec-2019 Instruction Type:Provider Instructions for Treatment [facility]; [facility] Work Phone: Instructions* Name Dates Details Patient Instructions Indication:Smoker Start:22-Mar-2021 Instruction Type:Provider Instructions for Treatment How to Access Health Informa tion Online using Patient Portal and [employer]rd [employer] Apps Indication:Smoker Start:22-Mar-2021 Instruction Type:Patient Education Patient Instructions Indication:BMI 36.0-36.9,adult Start:09-Feb-2021 Instruction Type:Provider Instructions for Treatment How to Access Health Informa tion Online using Patient Portal and [employer]rd [employer] Apps Indication:Smoker Start:09-Feb-2021 Instruction Type:Patient Education Patient Instructions Indication:Smoker Start:06-Jan-2021 Instruction Type:Provider Instructions for Treatment How to Access Health Informa tion Online using Patient Portal and [employer]rd [employer] Apps Indication:Smoker Start:06-Jan-2021 Instruction Type:Patient Education How to access health informa tion online Indication:Smoker Start:27-May-2020 Instruction Type:Patient Education How to access health informa tion online - Detail Indication:Smoker Start:27-May-2020 Instruction Type:Patient Education Patient Instructions Indication:BMI 37.0-37.9, adult Start:27-May-2020 Instruction Type:Provider Instructions for Treatment How to access health informa tion online Indication:Smoker Start:13-Apr-2020 Instruction Type:Patient Education How to access health informa tion online - Detail Indication:Smoker Start:13-Apr-2020 Instruction Type:Patient Education Patient Instructions Indication:BMI 37.0-37.9, adult Start:13-Apr-2020 Instruction Type:Provider Instructions for Treatment How to access health informa tion online Indication:BMI 37.0-37.9, adult Start:03-Jan-2020 Instruction Type:Patient Education How to access health informa tion online - Detail Indication:BMI 37.0-37.9, adult Start:03-Jan-2020 Instruction Type:Patient Education Patient Instructions Indication:BMI 37.0-37.9, adult Start:03-Jan-2020 Instruction Type:Provider Instructions for Treatment How to access health informa tion online Indication:Smoker Start:19-Dec-2019 Instruction Type:Patient Education How to access health informa tion online - Detail Indication:Smoker Start:19-Dec-2019 Instruction Type:Patient Education Patient Instructions Indication:Smoker Start:19-Dec-2019 Instruction Type:Provider Instructions for Treatment How to access health informa tion online Indication:Anxiety Start:11-Dec-2019 Instruction Type:Patient Education How to access health informa tion online - Detail Indication:Anxiety Start:11-Dec-2019 Instruction Type:Patient Education Patient Instructions Indication:Contact dermatitis Start:11-Dec-2019 Instruction Type:Provider Instructions for Treatment [facility]; [facility] Work Phone: Instructions* Name Dates Details Patient Instructions Indication:Smoker Start:22-Mar-2021 Instruction Type:Provider Instructions for Treatment How to Access Health Informa tion Online using Patient Portal and [employer]rd [employer] Apps Indication:Smoker Start:22-Mar-2021 Instruction Type:Patient Education Patient Instructions Indication:BMI 36.0-36.9,adult Start:09-Feb-2021 Instruction Type:Provider Instructions for Treatment How to Access Health Informa tion Online using Patient Portal and [employer]rd [employer] Apps Indication:Smoker Start:09-Feb-2021 Instruction Type:Patient Education Patient Instructions Indication:Smoker Start:06-Jan-2021 Instruction Type:Provider Instructions for Treatment How to Access Health Informa tion Online using Patient Portal and [employer]rd [employer] Apps Indication:Smoker Start:06-Jan-2021 Instruction Type:Patient Education How to access health informa tion online Indication:Smoker Start:27-May-2020 Instruction Type:Patient Education How to access health informa tion online - Detail Indication:Smoker Start:27-May-2020 Instruction Type:Patient Education Patient Instructions Indication:BMI 37.0-37.9, adult Start:27-May-2020 Instruction Type:Provider Instructions for Treatment How to access health informa tion online Indication:Smoker Start:13-Apr-2020 Instruction Type:Patient Education How to access health informa tion online - Detail Indication:Smoker Start:13-Apr-2020 Instruction Type:Patient Education Patient Instructions Indication:BMI 37.0-37.9, adult Start:13-Apr-2020 Instruction Type:Provider Instructions for Treatment How to access health informa tion online Indication:BMI 37.0-37.9, adult Start:03-Jan-2020 Instruction Type:Patient Education How to access health informa tion online - Detail Indication:BMI 37.0-37.9, adult Start:03-Jan-2020 Instruction Type:Patient Education Patient Instructions Indication:BMI 37.0-37.9, adult Start:03-Jan-2020 Instruction Type:Provider Instructions for Treatment How to access health informa tion online Indication:Smoker Start:19-Dec-2019 Instruction Type:Patient Education How to access health informa tion online - Detail Indication:Smoker Start:19-Dec-2019 Instruction Type:Patient Education Patient Instructions Indication:Smoker Start:19-Dec-2019 Instruction Type:Provider Instructions for Treatment How to access health informa tion online Indication:Anxiety Start:11-Dec-2019 Instruction Type:Patient Education How to access health informa tion online - Detail Indication:Anxiety Start:11-Dec-2019 Instruction Type:Patient Education Patient Instructions Indication:Contact dermatitis Start:11-Dec-2019 Instruction Type:Provider Instructions for Treatment [facility]; [facility] Work Phone: Instructions* Name Dates Details Patient Instructions Indication:Smoker Start:08-Jun-2022 Instruction Type:Provider Instructions for Treatment How to Access Health Informa tion Online using Patient Portal and [employer]rd [employer] Apps Indication:Smoker Start:08-Jun-2022 Instruction Type:Patient Education Patient Instructions Indication:BMI 35.0-35.9,adult Start:03-Jun-2022 Instruction Type:Provider Instructions for Treatment How to Access Health Informa tion Online using Patient Portal and [employer]rd [employer] Apps Indication:BMI 35.0-35.9,adult Start:03-Jun-2022 Instruction Type:Patient Education Patient Instructions Indication:Smoker Start:22-Mar-2021 Instruction Type:Provider Instructions for Treatment How to Access Health Informa tion Online using Patient Portal and [employer]rd [employer] Apps Indication:Smoker Start:22-Mar-2021 Instruction Type:Patient Education Patient Instructions Indication:BMI 36.0-36.9,adult Start:09-Feb-2021 Instruction Type:Provider Instructions for Treatment How to Access Health Informa tion Online using Patient Portal and [employer]rd [employer] Apps Indication:Smoker Start:09-Feb-2021 Instruction Type:Patient Education Patient Instructions Indication:Smoker Start:06-Jan-2021 Instruction Type:Provider Instructions for Treatment How to Access Health Informa tion Online using Patient Portal and [employer]rd [employer] Apps Indication:Smoker Start:06-Jan-2021 Instruction Type:Patient Education How to access health informa tion online Indication:Smoker Start:27-May-2020 Instruction Type:Patient Education How to access health informa tion online - Detail Indication:Smoker Start:27-May-2020 Instruction Type:Patient Education Patient Instructions Indication:BMI 37.0-37.9, adult Start:27-May-2020 Instruction Type:Provider Instructions for Treatment How to access health informa tion online Indication:Smoker Start:13-Apr-2020 Instruction Type:Patient Education How to access health informa tion online - Detail Indication:Smoker Start:13-Apr-2020 Instruction Type:Patient Education Patient Instructions Indication:BMI 37.0-37.9, adult Start:13-Apr-2020 Instruction Type:Provider Instructions for Treatment How to access health informa tion online Indication:BMI 37.0-37.9, adult Start:03-Jan-2020 Instruction Type:Patient Education How to access health informa tion online - Detail Indication:BMI 37.0-37.9, adult Start:03-Jan-2020 Instruction Type:Patient Education Patient Instructions Indication:BMI 37.0-37.9, adult Start:03-Jan-2020 Instruction Type:Provider Instructions for Treatment How to access health informa tion online Indication:Smoker Start:19-Dec-2019 Instruction Type:Patient Education How to access health informa tion online - Detail Indication:Smoker Start:19-Dec-2019 Instruction Type:Patient Education Patient Instructions Indication:Smoker Start:19-Dec-2019 Instruction Type:Provider Instructions for Treatment How to access health informa tion online Indication:Anxiety Start:11-Dec-2019 Instruction Type:Patient Education How to access health informa tion online - Detail Indication:Anxiety Start:11-Dec-2019 Instruction Type:Patient Education Patient Instructions Indication:Contact dermatitis Start:11-Dec-2019 Instruction Type:Provider Instructions for Treatment [facility]; [facility] Work Phone: Instructions* Name Dates Details Patient Instructions Indication:Smoker Start:08-Jun-2022 Instruction Type:Provider Instructions for Treatment How to Access Health Informa tion Online using Patient Portal and [employer]rd [employer] Apps Indication:Smoker Start:08-Jun-2022 Instruction Type:Patient Education Patient Instructions Indication:BMI 35.0-35.9,adult Start:03-Jun-2022 Instruction Type:Provider Instructions for Treatment How to Access Health Informa tion Online using Patient Portal and [employer] Apps Indication:BMI 35.0-35.9,adult Start:03-Jun-2022 Instruction Type:Patient Education Patient Instructions Indication:Smoker Start:22-Mar-2021 Instruction Type:Provider Instructions for Treatment How to Access Health Informa tion Online using Patient Portal and [employer] Apps Indication:Smoker Start:22-Mar-2021 Instruction Type:Patient Education Patient Instructions Indication:BMI 36.0-36.9,adult Start:09-Feb-2021 Instruction Type:Provider Instructions for Treatment How to Access Health Informa tion Online using Patient Portal and [employer] Apps Indication:Smoker Start:09-Feb-2021 Instruction Type:Patient Education Patient Instructions Indication:Smoker Start:06-Jan-2021 Instruction Type:Provider Instructions for Treatment How to Access Health Informa tion Online using Patient Portal and [employer]rd [employer] Apps Indication:Smoker Start:06-Jan-2021 Instruction Type:Patient Education How to access health informa tion online Indication:Smoker Start:27-May-2020 Instruction Type:Patient Education How to access health informa tion online - Detail Indication:Smoker Start:27-May-2020 Instruction Type:Patient Education Patient Instructions Indication:BMI 37.0-37.9, adult Start:27-May-2020 Instruction Type:Provider Instructions for Treatment How to access health informa tion online Indication:Smoker Start:13-Apr-2020 Instruction Type:Patient Education How to access health informa tion online - Detail Indication:Smoker Start:13-Apr-2020 Instruction Type:Patient Education Patient Instructions Indication:BMI 37.0-37.9, adult Start:13-Apr-2020 Instruction Type:Provider Instructions for Treatment How to access health informa tion online Indication:BMI 37.0-37.9, adult Start:03-Jan-2020 Instruction Type:Patient Education How to access health informa tion online - Detail Indication:BMI 37.0-37.9, adult Start:03-Jan-2020 Instruction Type:Patient Education Patient Instructions Indication:BMI 37.0-37.9, adult Start:03-Jan-2020 Instruction Type:Provider Instructions for Treatment How to access health informa tion online Indication:Smoker Start:19-Dec-2019 Instruction Type:Patient Education How to access health informa tion online - Detail Indication:Smoker Start:19-Dec-2019 Instruction Type:Patient Education Patient Instructions Indication:Smoker Start:19-Dec-2019 Instruction Type:Provider Instructions for Treatment How to access health informa tion online Indication:Anxiety Start:11-Dec-2019 Instruction Type:Patient Education How to access health informa tion online - Detail Indication:Anxiety Start:11-Dec-2019 Instruction Type:Patient Education Patient Instructions Indication:Contact dermatitis Start:11-Dec-2019 Instruction Type:Provider Instructions for Treatment [facility]; [facility] Work Phone: Instructions* Name Dates Details Patient Instructions Indication:Type II diabetes mellitus, well controlled Start:10-Aug-2022 Instruction Type:Provider Instructions for Treatment How to Access Health Informa tion Online using Patient Portal and [employer]rd [employer] Apps Indication:Type II diabetes mellitus, well controlled Start:10-Aug-2022 Instruction Type:Patient Education Patient Instructions Indication:Smoker Start:08-Jun-2022 Instruction Type:Provider Instructions for Treatment How to Access Health Informa tion Online using Patient Portal and [employer]rd [employer] Apps Indication:Smoker Start:08-Jun-2022 Instruction Type:Patient Education Patient Instructions Indication:BMI 35.0-35.9,adult Start:03-Jun-2022 Instruction Type:Provider Instructions for Treatment How to Access Health Informa tion Online using Patient Portal and [employer] Apps Indication:BMI 35.0-35.9,adult Start:03-Jun-2022 Instruction Type:Patient Education Patient Instructions Indication:Smoker Start:22-Mar-2021 Instruction Type:Provider Instructions for Treatment How to Access Health Informa tion Online using Patient Portal and [employer] Apps Indication:Smoker Start:22-Mar-2021 Instruction Type:Patient Education Patient Instructions Indication:BMI 36.0-36.9,adult Start:09-Feb-2021 Instruction Type:Provider Instructions for Treatment How to Access Health Informa tion Online using Patient Portal and [employer]rd [employer] Apps Indication:Smoker Start:09-Feb-2021 Instruction Type:Patient Education Patient Instructions Indication:Smoker Start:06-Jan-2021 Instruction Type:Provider Instructions for Treatment How to Access Health Informa tion Online using Patient Portal and [employer] Apps Indication:Smoker Start:06-Jan-2021 Instruction Type:Patient Education How to access health informa tion online Indication:Smoker Start:27-May-2020 Instruction Type:Patient Education How to access health informa tion online - Detail Indication:Smoker Start:27-May-2020 Instruction Type:Patient Education Patient Instructions Indication:BMI 37.0-37.9, adult Start:27-May-2020 Instruction Type:Provider Instructions for Treatment How to access health informa tion online Indication:Smoker Start:13-Apr-2020 Instruction Type:Patient Education How to access health informa tion online - Detail Indication:Smoker Start:13-Apr-2020 Instruction Type:Patient Education Patient Instructions Indication:BMI 37.0-37.9, adult Start:13-Apr-2020 Instruction Type:Provider Instructions for Treatment How to access health informa tion online Indication:BMI 37.0-37.9, adult Start:03-Jan-2020 Instruction Type:Patient Education How to access health informa tion online - Detail Indication:BMI 37.0-37.9, adult Start:03-Jan-2020 Instruction Type:Patient Education Patient Instructions Indication:BMI 37.0-37.9, adult Start:03-Jan-2020 Instruction Type:Provider Instructions for Treatment How to access health informa tion online Indication:Smoker Start:19-Dec-2019 Instruction Type:Patient Education How to access health informa tion online - Detail Indication:Smoker Start:19-Dec-2019 Instruction Type:Patient Education Patient Instructions Indication:Smoker Start:19-Dec-2019 Instruction Type:Provider Instructions for Treatment How to access health informa tion online Indication:Anxiety Start:11-Dec-2019 Instruction Type:Patient Education How to access health informa tion online - Detail Indication:Anxiety Start:11-Dec-2019 Instruction Type:Patient Education Patient Instructions Indication:Contact dermatitis Start:11-Dec-2019 Instruction Type:Provider Instructions for Treatment [facility]; [facility] Work Phone: Instructions* Name Dates Details Patient Instructions Indication:Type II diabetes mellitus, well controlled Start:10-Aug-2022 Instruction Type:Provider Instructions for Treatment How to Access Health Informa tion Online using Patient Portal and [employer]rd [employer] Apps Indication:Type II diabetes mellitus, well controlled Start:10-Aug-2022 Instruction Type:Patient Education Patient Instructions Indication:Smoker Start:08-Jun-2022 Instruction Type:Provider Instructions for Treatment How to Access Health Informa tion Online using Patient Portal and [employer]rd [employer] Apps Indication:Smoker Start:08-Jun-2022 Instruction Type:Patient Education Patient Instructions Indication:BMI 35.0-35.9,adult Start:03-Jun-2022 Instruction Type:Provider Instructions for Treatment How to Access Health Informa tion Online using Patient Portal and [employer]rd [employer] Apps Indication:BMI 35.0-35.9,adult Start:03-Jun-2022 Instruction Type:Patient Education Patient Instructions Indication:Smoker Start:22-Mar-2021 Instruction Type:Provider Instructions for Treatment How to Access Health Informa tion Online using Patient Portal and [employer]rd [employer] Apps Indication:Smoker Start:22-Mar-2021 Instruction Type:Patient Education Patient Instructions Indication:BMI 36.0-36.9,adult Start:09-Feb-2021 Instruction Type:Provider Instructions for Treatment How to Access Health Informa tion Online using Patient Portal and [employer]rd [employer] Apps Indication:Smoker Start:09-Feb-2021 Instruction Type:Patient Education Patient Instructions Indication:Smoker Start:06-Jan-2021 Instruction Type:Provider Instructions for Treatment How to Access Health Informa tion Online using Patient Portal and [employer]rd [employer] Apps Indication:Smoker Start:06-Jan-2021 Instruction Type:Patient Education How to access health informa tion online Indication:Smoker Start:27-May-2020 Instruction Type:Patient Education How to access health informa tion online - Detail Indication:Smoker Start:27-May-2020 Instruction Type:Patient Education Patient Instructions Indication:BMI 37.0-37.9, adult Start:27-May-2020 Instruction Type:Provider Instructions for Treatment How to access health informa tion online Indication:Smoker Start:13-Apr-2020 Instruction Type:Patient Education How to access health informa tion online - Detail Indication:Smoker Start:13-Apr-2020 Instruction Type:Patient Education Patient Instructions Indication:BMI 37.0-37.9, adult Start:13-Apr-2020 Instruction Type:Provider Instructions for Treatment How to access health informa tion online Indication:BMI 37.0-37.9, adult Start:03-Jan-2020 Instruction Type:Patient Education How to access health informa tion online - Detail Indication:BMI 37.0-37.9, adult Start:03-Jan-2020 Instruction Type:Patient Education Patient Instructions Indication:BMI 37.0-37.9, adult Start:03-Jan-2020 Instruction Type:Provider Instructions for Treatment How to access health informa tion online Indication:Smoker Start:19-Dec-2019 Instruction Type:Patient Education How to access health informa tion online - Detail Indication:Smoker Start:19-Dec-2019 Instruction Type:Patient Education Patient Instructions Indication:Smoker Start:19-Dec-2019 Instruction Type:Provider Instructions for Treatment How to access health informa tion online Indication:Anxiety Start:11-Dec-2019 Instruction Type:Patient Education How to access health informa tion online - Detail Indication:Anxiety Start:11-Dec-2019 Instruction Type:Patient Education Patient Instructions Indication:Contact dermatitis Start:11-Dec-2019 Instruction Type:Provider Instructions for Treatment [facility]; [facility] Work Phone: Instructions* Name Dates Details Patient Instructions Indication:Type II diabetes mellitus, well controlled Start:10-Aug-2022 Instruction Type:Provider Instructions for Treatment How to Access Health Informa tion Online using Patient Portal and [employer] Apps Indication:Type II diabetes mellitus, well controlled Start:10-Aug-2022 Instruction Type:Patient Education Patient Instructions Indication:Smoker Start:08-Jun-2022 Instruction Type:Provider Instructions for Treatment How to Access Health Informa tion Online using Patient Portal and [employer]rd [employer] Apps Indication:Smoker Start:08-Jun-2022 Instruction Type:Patient Education Patient Instructions Indication:BMI 35.0-35.9,adult Start:03-Jun-2022 Instruction Type:Provider Instructions for Treatment How to Access Health Informa tion Online using Patient Portal and [employer]rd [employer] Apps Indication:BMI 35.0-35.9,adult Start:03-Jun-2022 Instruction Type:Patient Education Patient Instructions Indication:Smoker Start:22-Mar-2021 Instruction Type:Provider Instructions for Treatment How to Access Health Informa tion Online using Patient Portal and [employer]rd [employer] Apps Indication:Smoker Start:22-Mar-2021 Instruction Type:Patient Education Patient Instructions Indication:BMI 36.0-36.9,adult Start:09-Feb-2021 Instruction Type:Provider Instructions for Treatment How to Access Health Informa tion Online using Patient Portal and [employer] Apps Indication:Smoker Start:09-Feb-2021 Instruction Type:Patient Education Patient Instructions Indication:Smoker Start:06-Jan-2021 Instruction Type:Provider Instructions for Treatment How to Access Health Informa tion Online using Patient Portal and [employer] Apps Indication:Smoker Start:06-Jan-2021 Instruction Type:Patient Education How to access health informa tion online Indication:Smoker Start:27-May-2020 Instruction Type:Patient Education How to access health informa tion online - Detail Indication:Smoker Start:27-May-2020 Instruction Type:Patient Education Patient Instructions Indication:BMI 37.0-37.9, adult Start:27-May-2020 Instruction Type:Provider Instructions for Treatment How to access health informa tion online Indication:Smoker Start:13-Apr-2020 Instruction Type:Patient Education How to access health informa tion online - Detail Indication:Smoker Start:13-Apr-2020 Instruction Type:Patient Education Patient Instructions Indication:BMI 37.0-37.9, adult Start:13-Apr-2020 Instruction Type:Provider Instructions for Treatment How to access health informa tion online Indication:BMI 37.0-37.9, adult Start:03-Jan-2020 Instruction Type:Patient Education How to access health informa tion online - Detail Indication:BMI 37.0-37.9, adult Start:03-Jan-2020 Instruction Type:Patient Education Patient Instructions Indication:BMI 37.0-37.9, adult Start:03-Jan-2020 Instruction Type:Provider Instructions for Treatment How to access health informa tion online Indication:Smoker Start:19-Dec-2019 Instruction Type:Patient Education How to access health informa tion online - Detail Indication:Smoker Start:19-Dec-2019 Instruction Type:Patient Education Patient Instructions Indication:Smoker Start:19-Dec-2019 Instruction Type:Provider Instructions for Treatment How to access health informa tion online Indication:Anxiety Start:11-Dec-2019 Instruction Type:Patient Education How to access health informa tion online - Detail Indication:Anxiety Start:11-Dec-2019 Instruction Type:Patient Education Patient Instructions Indication:Contact dermatitis Start:11-Dec-2019 Instruction Type:Provider Instructions for Treatment [facility]; [facility] Work Phone: Instructions* Name Dates Details Patient Instructions Indication:Type II diabetes mellitus, well controlled Start:10-Aug-2022 Instruction Type:Provider Instructions for Treatment How to Access Health Informa tion Online using Patient Portal and [employer]rd [employer] Apps Indication:Type II diabetes mellitus, well controlled Start:10-Aug-2022 Instruction Type:Patient Education Patient Instructions Indication:Smoker Start:08-Jun-2022 Instruction Type:Provider Instructions for Treatment How to Access Health Informa tion Online using Patient Portal and 3rd [employer] Apps Indication:Smoker Start:08-Jun-2022 Instruction Type:Patient Education Patient Instructions Indication:BMI 35.0-35.9,adult Start:03-Jun-2022 Instruction Type:Provider Instructions for Treatment How to Access Health Informa tion Online using Patient Portal and 3rd [employer] Apps Indication:BMI 35.0-35.9,adult Start:03-Jun-2022 Instruction Type:Patient Education Patient Instructions Indication:Smoker Start:22-Mar-2021 Instruction Type:Provider Instructions for Treatment How to Access Health Informa tion Online using Patient Portal and 3rd [employer] Apps Indication:Smoker Start:22-Mar-2021 Instruction Type:Patient Education Patient Instructions Indication:BMI 36.0-36.9,adult Start:09-Feb-2021 Instruction Type:Provider Instructions for Treatment How to Access Health Informa tion Online using Patient Portal and 3rd [employer] Apps Indication:Smoker Start:09-Feb-2021 Instruction Type:Patient Education Patient Instructions Indication:Smoker Start:06-Jan-2021 Instruction Type:Provider Instructions for Treatment How to Access Health Informa tion Online using Patient Portal and 3rd [employer] Apps Indication:Smoker Start:06-Jan-2021 Instruction Type:Patient Education How to access health informa tion online Indication:Smoker Start:27-May-2020 Instruction Type:Patient Education How to access health informa tion online - Detail Indication:Smoker Start:27-May-2020 Instruction Type:Patient Education Patient Instructions Indication:BMI 37.0-37.9, adult Start:27-May-2020 Instruction Type:Provider Instructions for Treatment How to access health informa tion online Indication:Smoker Start:13-Apr-2020 Instruction Type:Patient Education How to access health informa tion online - Detail Indication:Smoker Start:13-Apr-2020 Instruction Type:Patient Education Patient Instructions Indication:BMI 37.0-37.9, adult Start:13-Apr-2020 Instruction Type:Provider Instructions for Treatment How to access health informa tion online Indication:BMI 37.0-37.9, adult Start:03-Jan-2020 Instruction Type:Patient Education How to access health informa tion online - Detail Indication:BMI 37.0-37.9, adult Start:03-Jan-2020 Instruction Type:Patient Education Patient Instructions Indication:BMI 37.0-37.9, adult Start:03-Jan-2020 Instruction Type:Provider Instructions for Treatment How to access health informa tion online Indication:Smoker Start:19-Dec-2019 Instruction Type:Patient Education How to access health informa tion online - Detail Indication:Smoker Start:19-Dec-2019 Instruction Type:Patient Education Patient Instructions Indication:Smoker Start:19-Dec-2019 Instruction Type:Provider Instructions for Treatment How to access health informa tion online Indication:Anxiety Start:11-Dec-2019 Instruction Type:Patient Education How to access health informa tion online - Detail Indication:Anxiety Start:11-Dec-2019 Instruction Type:Patient Education Patient Instructions Indication:Contact dermatitis Start:11-Dec-2019 Instruction Type:Provider Instructions for Treatment [facility]; [facility] Work Phone: Instructions* Name Dates Details Patient Instructions Indication:Cough Start:17-Feb-2023 Instruction Type:Provider Instructions for Treatment How to Access Health Informa tion Online using Patient Portal and [employer]rd [employer] Apps Indication:Cough Start:17-Feb-2023 Instruction Type:Patient Education Patient Instructions Indication:Type II diabetes mellitus, well controlled Start:10-Aug-2022 Instruction Type:Provider Instructions for Treatment How to Access Health Informa tion Online using Patient Portal and [employer]rd [employer] Apps Indication:Type II diabetes mellitus, well controlled Start:10-Aug-2022 Instruction Type:Patient Education Patient Instructions Indication:Smoker Start:08-Jun-2022 Instruction Type:Provider Instructions for Treatment How to Access Health Informa tion Online using Patient Portal and 3rd [employer] Apps Indication:Smoker Start:08-Jun-2022 Instruction Type:Patient Education Patient Instructions Indication:BMI 35.0-35.9,adult Start:03-Jun-2022 Instruction Type:Provider Instructions for Treatment How to Access Health Informa tion Online using Patient Portal and 3rd [employer] Apps Indication:BMI 35.0-35.9,adult Start:03-Jun-2022 Instruction Type:Patient Education Patient Instructions Indication:Smoker Start:22-Mar-2021 Instruction Type:Provider Instructions for Treatment How to Access Health Informa tion Online using Patient Portal and [employer]rd [employer] Apps Indication:Smoker Start:22-Mar-2021 Instruction Type:Patient Education Patient Instructions Indication:BMI 36.0-36.9,adult Start:09-Feb-2021 Instruction Type:Provider Instructions for Treatment How to Access Health Informa tion Online using Patient Portal and [employer]rd [employer] Apps Indication:Smoker Start:09-Feb-2021 Instruction Type:Patient Education Patient Instructions Indication:Smoker Start:06-Jan-2021 Instruction Type:Provider Instructions for Treatment How to Access Health Informa tion Online using Patient Portal and 3rd [employer] Apps Indication:Smoker Start:06-Jan-2021 Instruction Type:Patient Education How to access health informa tion online Indication:Smoker Start:27-May-2020 Instruction Type:Patient Education How to access health informa tion online - Detail Indication:Smoker Start:27-May-2020 Instruction Type:Patient Education Patient Instructions Indication:BMI 37.0-37.9, adult Start:27-May-2020 Instruction Type:Provider Instructions for Treatment How to access health informa tion online Indication:Smoker Start:13-Apr-2020 Instruction Type:Patient Education How to access health informa tion online - Detail Indication:Smoker Start:13-Apr-2020 Instruction Type:Patient Education Patient Instructions Indication:BMI 37.0-37.9, adult Start:13-Apr-2020 Instruction Type:Provider Instructions for Treatment How to access health informa tion online Indication:BMI 37.0-37.9, adult Start:03-Jan-2020 Instruction Type:Patient Education How to access health informa tion online - Detail Indication:BMI 37.0-37.9, adult Start:03-Jan-2020 Instruction Type:Patient Education Patient Instructions Indication:BMI 37.0-37.9, adult Start:03-Jan-2020 Instruction Type:Provider Instructions for Treatment How to access health informa tion online Indication:Smoker Start:19-Dec-2019 Instruction Type:Patient Education How to access health informa tion online - Detail Indication:Smoker Start:19-Dec-2019 Instruction Type:Patient Education Patient Instructions Indication:Smoker Start:19-Dec-2019 Instruction Type:Provider Instructions for Treatment How to access health informa tion online Indication:Anxiety Start:11-Dec-2019 Instruction Type:Patient Education How to access health informa tion online - Detail Indication:Anxiety Start:11-Dec-2019 Instruction Type:Patient Education Patient Instructions Indication:Contact dermatitis Start:11-Dec-2019 Instruction Type:Provider Instructions for Treatment [facility]; [facility] Work Phone: Instructions* Name Dates Details Patient Instructions Indication:Right hip pain Start:18-Apr-2023 Instruction Type:Provider Instructions for Treatment How to Access Health Informa tion Online using Patient Portal and [employer]rd [employer] Apps Indication:Right hip pain Start:18-Apr-2023 Instruction Type:Patient Education Patient Instructions Indication:Cough Start:17-Feb-2023 Instruction Type:Provider Instructions for Treatment How to Access Health Informa tion Online using Patient Portal and 3rd [employer] Apps Indication:Cough Start:17-Feb-2023 Instruction Type:Patient Education Patient Instructions Indication:Type II diabetes mellitus, well controlled Start:10-Aug-2022 Instruction Type:Provider Instructions for Treatment How to Access Health Informa tion Online using Patient Portal and [employer]rd [employer] Apps Indication:Type II diabetes mellitus, well controlled Start:10-Aug-2022 Instruction Type:Patient Education Patient Instructions Indication:Smoker Start:08-Jun-2022 Instruction Type:Provider Instructions for Treatment How to Access Health Informa tion Online using Patient Portal and 3rd [employer] Apps Indication:Smoker Start:08-Jun-2022 Instruction Type:Patient Education Patient Instructions Indication:BMI 35.0-35.9,adult Start:03-Jun-2022 Instruction Type:Provider Instructions for Treatment How to Access Health Informa tion Online using Patient Portal and 3rd [employer] Apps Indication:BMI 35.0-35.9,adult Start:03-Jun-2022 Instruction Type:Patient Education Patient Instructions Indication:Smoker Start:22-Mar-2021 Instruction Type:Provider Instructions for Treatment How to Access Health Informa tion Online using Patient Portal and [employer]rd [employer] Apps Indication:Smoker Start:22-Mar-2021 Instruction Type:Patient Education Patient Instructions Indication:BMI 36.0-36.9,adult Start:09-Feb-2021 Instruction Type:Provider Instructions for Treatment How to Access Health Informa tion Online using Patient Portal and [employer]rd [employer] Apps Indication:Smoker Start:09-Feb-2021 Instruction Type:Patient Education Patient Instructions Indication:Smoker Start:06-Jan-2021 Instruction Type:Provider Instructions for Treatment How to Access Health Informa tion Online using Patient Portal and 3rd [employer] Apps Indication:Smoker Start:06-Jan-2021 Instruction Type:Patient Education How to access health informa tion online Indication:Smoker Start:27-May-2020 Instruction Type:Patient Education How to access health informa tion online - Detail Indication:Smoker Start:27-May-2020 Instruction Type:Patient Education Patient Instructions Indication:BMI 37.0-37.9, adult Start:27-May-2020 Instruction Type:Provider Instructions for Treatment How to access health informa tion online Indication:Smoker Start:13-Apr-2020 Instruction Type:Patient Education How to access health informa tion online - Detail Indication:Smoker Start:13-Apr-2020 Instruction Type:Patient Education Patient Instructions Indication:BMI 37.0-37.9, adult Start:13-Apr-2020 Instruction Type:Provider Instructions for Treatment How to access health informa tion online Indication:BMI 37.0-37.9, adult Start:03-Jan-2020 Instruction Type:Patient Education How to access health informa tion online - Detail Indication:BMI 37.0-37.9, adult Start:03-Jan-2020 Instruction Type:Patient Education Patient Instructions Indication:BMI 37.0-37.9, adult Start:03-Jan-2020 Instruction Type:Provider Instructions for Treatment How to access health informa tion online Indication:Smoker Start:19-Dec-2019 Instruction Type:Patient Education How to access health informa tion online - Detail Indication:Smoker Start:19-Dec-2019 Instruction Type:Patient Education Patient Instructions Indication:Smoker Start:19-Dec-2019 Instruction Type:Provider Instructions for Treatment How to access health informa tion online Indication:Anxiety Start:11-Dec-2019 Instruction Type:Patient Education How to access health informa tion online - Detail Indication:Anxiety Start:11-Dec-2019 Instruction Type:Patient Education Patient Instructions Indication:Contact dermatitis Start:11-Dec-2019 Instruction Type:Provider Instructions for Treatment [facility]; [facility] Work Phone: Instructions* Name Dates Details Patient Instructions Indication:Right hip pain Start:18-Apr-2023 Instruction Type:Provider Instructions for Treatment How to Access Health Informa tion Online using Patient Portal and [employer]rd [employer] Apps Indication:Right hip pain Start:18-Apr-2023 Instruction Type:Patient Education Patient Instructions Indication:Cough Start:17-Feb-2023 Instruction Type:Provider Instructions for Treatment How to Access Health Informa tion Online using Patient Portal and [employer]rd [employer] Apps Indication:Cough Start:17-Feb-2023 Instruction Type:Patient Education Patient Instructions Indication:Type II diabetes mellitus, well controlled Start:10-Aug-2022 Instruction Type:Provider Instructions for Treatment How to Access Health Informa tion Online using Patient Portal and 3rd [employer] Apps Indication:Type II diabetes mellitus, well controlled Start:10-Aug-2022 Instruction Type:Patient Education Patient Instructions Indication:Smoker Start:08-Jun-2022 Instruction Type:Provider Instructions for Treatment How to Access Health Informa tion Online using Patient Portal and [employer]rd [employer] Apps Indication:Smoker Start:08-Jun-2022 Instruction Type:Patient Education Patient Instructions Indication:BMI 35.0-35.9,adult Start:03-Jun-2022 Instruction Type:Provider Instructions for Treatment How to Access Health Informa tion Online using Patient Portal and 3rd [employer] Apps Indication:BMI 35.0-35.9,adult Start:03-Jun-2022 Instruction Type:Patient Education Patient Instructions Indication:Smoker Start:22-Mar-2021 Instruction Type:Provider Instructions for Treatment How to Access Health Informa tion Online using Patient Portal and [employer]rd [employer] Apps Indication:Smoker Start:22-Mar-2021 Instruction Type:Patient Education Patient Instructions Indication:BMI 36.0-36.9,adult Start:09-Feb-2021 Instruction Type:Provider Instructions for Treatment How to Access Health Informa tion Online using Patient Portal and [employer]rd [employer] Apps Indication:Smoker Start:09-Feb-2021 Instruction Type:Patient Education Patient Instructions Indication:Smoker Start:06-Jan-2021 Instruction Type:Provider Instructions for Treatment How to Access Health Informa tion Online using Patient Portal and [employer]rd [employer] Apps Indication:Smoker Start:06-Jan-2021 Instruction Type:Patient Education How to access health informa tion online Indication:Smoker Start:27-May-2020 Instruction Type:Patient Education How to access health informa tion online - Detail Indication:Smoker Start:27-May-2020 Instruction Type:Patient Education Patient Instructions Indication:BMI 37.0-37.9, adult Start:27-May-2020 Instruction Type:Provider Instructions for Treatment How to access health informa tion online Indication:Smoker Start:13-Apr-2020 Instruction Type:Patient Education How to access health informa tion online - Detail Indication:Smoker Start:13-Apr-2020 Instruction Type:Patient Education Patient Instructions Indication:BMI 37.0-37.9, adult Start:13-Apr-2020 Instruction Type:Provider Instructions for Treatment How to access health informa tion online Indication:BMI 37.0-37.9, adult Start:03-Jan-2020 Instruction Type:Patient Education How to access health informa tion online - Detail Indication:BMI 37.0-37.9, adult Start:03-Jan-2020 Instruction Type:Patient Education Patient Instructions Indication:BMI 37.0-37.9, adult Start:03-Jan-2020 Instruction Type:Provider Instructions for Treatment How to access health informa tion online Indication:Smoker Start:19-Dec-2019 Instruction Type:Patient Education How to access health informa tion online - Detail Indication:Smoker Start:19-Dec-2019 Instruction Type:Patient Education Patient Instructions Indication:Smoker Start:19-Dec-2019 Instruction Type:Provider Instructions for Treatment How to access health informa tion online Indication:Anxiety Start:11-Dec-2019 Instruction Type:Patient Education How to access health informa tion online - Detail Indication:Anxiety Start:11-Dec-2019 Instruction Type:Patient Education Patient Instructions Indication:Contact dermatitis Start:11-Dec-2019 Instruction Type:Provider Instructions for Treatment [facility]; [facility] Work Phone: Instructions* Name Dates Details Patient Instructions Indication:Right hip pain Start:18-Apr-2023 Instruction Type:Provider Instructions for Treatment How to Access Health Informa tion Online using Patient Portal and [employer]rd [employer] Apps Indication:Right hip pain Start:18-Apr-2023 Instruction Type:Patient Education Patient Instructions Indication:Cough Start:17-Feb-2023 Instruction Type:Provider Instructions for Treatment How to Access Health Informa tion Online using Patient Portal and 3rd [employer] Apps Indication:Cough Start:17-Feb-2023 Instruction Type:Patient Education Patient Instructions Indication:Type II diabetes mellitus, well controlled Start:10-Aug-2022 Instruction Type:Provider Instructions for Treatment How to Access Health Informa tion Online using Patient Portal and [employer]rd [employer] Apps Indication:Type II diabetes mellitus, well controlled Start:10-Aug-2022 Instruction Type:Patient Education Patient Instructions Indication:Smoker Start:08-Jun-2022 Instruction Type:Provider Instructions for Treatment How to Access Health Informa tion Online using Patient Portal and [employer]rd [employer] Apps Indication:Smoker Start:08-Jun-2022 Instruction Type:Patient Education Patient Instructions Indication:BMI 35.0-35.9,adult Start:03-Jun-2022 Instruction Type:Provider Instructions for Treatment How to Access Health Informa tion Online using Patient Portal and 3rd [employer] Apps Indication:BMI 35.0-35.9,adult Start:03-Jun-2022 Instruction Type:Patient Education Patient Instructions Indication:Smoker Start:22-Mar-2021 Instruction Type:Provider Instructions for Treatment How to Access Health Informa tion Online using Patient Portal and [employer]rd [employer] Apps Indication:Smoker Start:22-Mar-2021 Instruction Type:Patient Education Patient Instructions Indication:BMI 36.0-36.9,adult Start:09-Feb-2021 Instruction Type:Provider Instructions for Treatment How to Access Health Informa tion Online using Patient Portal and [employer]rd [employer] Apps Indication:Smoker Start:09-Feb-2021 Instruction Type:Patient Education Patient Instructions Indication:Smoker Start:06-Jan-2021 Instruction Type:Provider Instructions for Treatment How to Access Health Informa tion Online using Patient Portal and [employer]rd [employer] Apps Indication:Smoker Start:06-Jan-2021 Instruction Type:Patient Education How to access health informa tion online Indication:Smoker Start:27-May-2020 Instruction Type:Patient Education How to access health informa tion online - Detail Indication:Smoker Start:27-May-2020 Instruction Type:Patient Education Patient Instructions Indication:BMI 37.0-37.9, adult Start:27-May-2020 Instruction Type:Provider Instructions for Treatment How to access health informa tion online Indication:Smoker Start:13-Apr-2020 Instruction Type:Patient Education How to access health informa tion online - Detail Indication:Smoker Start:13-Apr-2020 Instruction Type:Patient Education Patient Instructions Indication:BMI 37.0-37.9, adult Start:13-Apr-2020 Instruction Type:Provider Instructions for Treatment How to access health informa tion online Indication:BMI 37.0-37.9, adult Start:03-Jan-2020 Instruction Type:Patient Education How to access health informa tion online - Detail Indication:BMI 37.0-37.9, adult Start:03-Jan-2020 Instruction Type:Patient Education Patient Instructions Indication:BMI 37.0-37.9, adult Start:03-Jan-2020 Instruction Type:Provider Instructions for Treatment How to access health informa tion online Indication:Smoker Start:19-Dec-2019 Instruction Type:Patient Education How to access health informa tion online - Detail Indication:Smoker Start:19-Dec-2019 Instruction Type:Patient Education Patient Instructions Indication:Smoker Start:19-Dec-2019 Instruction Type:Provider Instructions for Treatment How to access health informa tion online Indication:Anxiety Start:11-Dec-2019 Instruction Type:Patient Education How to access health informa tion online - Detail Indication:Anxiety Start:11-Dec-2019 Instruction Type:Patient Education Patient Instructions Indication:Contact dermatitis Start:11-Dec-2019 Instruction Type:Provider Instructions for Treatment [facility]; [facility] Work Phone: Instructions* Name Dates Details Patient Instructions Indication:Right hip pain Start:18-Apr-2023 Instruction Type:Provider Instructions for Treatment How to Access Health Informa tion Online using Patient Portal and [employer]rd [employer] Apps Indication:Right hip pain Start:18-Apr-2023 Instruction Type:Patient Education Patient Instructions Indication:Cough Start:17-Feb-2023 Instruction Type:Provider Instructions for Treatment How to Access Health Informa tion Online using Patient Portal and 3rd [employer] Apps Indication:Cough Start:17-Feb-2023 Instruction Type:Patient Education Patient Instructions Indication:Type II diabetes mellitus, well controlled Start:10-Aug-2022 Instruction Type:Provider Instructions for Treatment How to Access Health Informa tion Online using Patient Portal and [employer]rd [employer] Apps Indication:Type II diabetes mellitus, well controlled Start:10-Aug-2022 Instruction Type:Patient Education Patient Instructions Indication:Smoker Start:08-Jun-2022 Instruction Type:Provider Instructions for Treatment How to Access Health Informa tion Online using Patient Portal and [employer]rd [employer] Apps Indication:Smoker Start:08-Jun-2022 Instruction Type:Patient Education Patient Instructions Indication:BMI 35.0-35.9,adult Start:03-Jun-2022 Instruction Type:Provider Instructions for Treatment How to Access Health Informa tion Online using Patient Portal and [employer]rd [employer] Apps Indication:BMI 35.0-35.9,adult Start:03-Jun-2022 Instruction Type:Patient Education Patient Instructions Indication:Smoker Start:22-Mar-2021 Instruction Type:Provider Instructions for Treatment How to Access Health Informa tion Online using Patient Portal and [employer] Apps Indication:Smoker Start:22-Mar-2021 Instruction Type:Patient Education Patient Instructions Indication:BMI 36.0-36.9,adult Start:09-Feb-2021 Instruction Type:Provider Instructions for Treatment How to Access Health Informa tion Online using Patient Portal and [employer]rd [employer] Apps Indication:Smoker Start:09-Feb-2021 Instruction Type:Patient Education Patient Instructions Indication:Smoker Start:06-Jan-2021 Instruction Type:Provider Instructions for Treatment How to Access Health Informa tion Online using Patient Portal and [employer]rd [employer] Apps Indication:Smoker Start:06-Jan-2021 Instruction Type:Patient Education How to access health informa tion online Indication:Smoker Start:27-May-2020 Instruction Type:Patient Education How to access health informa tion online - Detail Indication:Smoker Start:27-May-2020 Instruction Type:Patient Education Patient Instructions Indication:BMI 37.0-37.9, adult Start:27-May-2020 Instruction Type:Provider Instructions for Treatment How to access health informa tion online Indication:Smoker Start:13-Apr-2020 Instruction Type:Patient Education How to access health informa tion online - Detail Indication:Smoker Start:13-Apr-2020 Instruction Type:Patient Education Patient Instructions Indication:BMI 37.0-37.9, adult Start:13-Apr-2020 Instruction Type:Provider Instructions for Treatment How to access health informa tion online Indication:BMI 37.0-37.9, adult Start:03-Jan-2020 Instruction Type:Patient Education How to access health informa tion online - Detail Indication:BMI 37.0-37.9, adult Start:03-Jan-2020 Instruction Type:Patient Education Patient Instructions Indication:BMI 37.0-37.9, adult Start:03-Jan-2020 Instruction Type:Provider Instructions for Treatment How to access health informa tion online Indication:Smoker Start:19-Dec-2019 Instruction Type:Patient Education How to access health informa tion online - Detail Indication:Smoker Start:19-Dec-2019 Instruction Type:Patient Education Patient Instructions Indication:Smoker Start:19-Dec-2019 Instruction Type:Provider Instructions for Treatment How to access health informa tion online Indication:Anxiety Start:11-Dec-2019 Instruction Type:Patient Education How to access health informa tion online - Detail Indication:Anxiety Start:11-Dec-2019 Instruction Type:Patient Education Patient Instructions Indication:Contact dermatitis Start:11-Dec-2019 Instruction Type:Provider Instructions for Treatment [facility]; [facility] Work Phone: Instructions* Name Dates Details Patient Instructions Indication:Right hip pain Start:18-Apr-2023 Instruction Type:Provider Instructions for Treatment How to Access Health Informa tion Online using Patient Portal and 3rd [employer] Apps Indication:Right hip pain Start:18-Apr-2023 Instruction Type:Patient Education Patient Instructions Indication:Cough Start:17-Feb-2023 Instruction Type:Provider Instructions for Treatment How to Access Health Informa tion Online using Patient Portal and [employer]rd [employer] Apps Indication:Cough Start:17-Feb-2023 Instruction Type:Patient Education Patient Instructions Indication:Type II diabetes mellitus, well controlled Start:10-Aug-2022 Instruction Type:Provider Instructions for Treatment How to Access Health Informa tion Online using Patient Portal and [employer]rd [employer] Apps Indication:Type II diabetes mellitus, well controlled Start:10-Aug-2022 Instruction Type:Patient Education Patient Instructions Indication:Smoker Start:08-Jun-2022 Instruction Type:Provider Instructions for Treatment How to Access Health Informa tion Online using Patient Portal and [employer]rd [employer] Apps Indication:Smoker Start:08-Jun-2022 Instruction Type:Patient Education Patient Instructions Indication:BMI 35.0-35.9,adult Start:03-Jun-2022 Instruction Type:Provider Instructions for Treatment How to Access Health Informa tion Online using Patient Portal and [employer]rd [employer] Apps Indication:BMI 35.0-35.9,adult Start:03-Jun-2022 Instruction Type:Patient Education Patient Instructions Indication:Smoker Start:22-Mar-2021 Instruction Type:Provider Instructions for Treatment How to Access Health Informa tion Online using Patient Portal and [employer]rd [employer] Apps Indication:Smoker Start:22-Mar-2021 Instruction Type:Patient Education Patient Instructions Indication:BMI 36.0-36.9,adult Start:09-Feb-2021 Instruction Type:Provider Instructions for Treatment How to Access Health Informa tion Online using Patient Portal and [employer]rd [employer] Apps Indication:Smoker Start:09-Feb-2021 Instruction Type:Patient Education Patient Instructions Indication:Smoker Start:06-Jan-2021 Instruction Type:Provider Instructions for Treatment How to Access Health Informa tion Online using Patient Portal and [employer]rd [employer] Apps Indication:Smoker Start:06-Jan-2021 Instruction Type:Patient Education How to access health informa tion online Indication:Smoker Start:27-May-2020 Instruction Type:Patient Education How to access health informa tion online - Detail Indication:Smoker Start:27-May-2020 Instruction Type:Patient Education Patient Instructions Indication:BMI 37.0-37.9, adult Start:27-May-2020 Instruction Type:Provider Instructions for Treatment How to access health informa tion online Indication:Smoker Start:13-Apr-2020 Instruction Type:Patient Education How to access health informa tion online - Detail Indication:Smoker Start:13-Apr-2020 Instruction Type:Patient Education Patient Instructions Indication:BMI 37.0-37.9, adult Start:13-Apr-2020 Instruction Type:Provider Instructions for Treatment How to access health informa tion online Indication:BMI 37.0-37.9, adult Start:03-Jan-2020 Instruction Type:Patient Education How to access health informa tion online - Detail Indication:BMI 37.0-37.9, adult Start:03-Jan-2020 Instruction Type:Patient Education Patient Instructions Indication:BMI 37.0-37.9, adult Start:03-Jan-2020 Instruction Type:Provider Instructions for Treatment How to access health informa tion online Indication:Smoker Start:19-Dec-2019 Instruction Type:Patient Education How to access health informa tion online - Detail Indication:Smoker Start:19-Dec-2019 Instruction Type:Patient Education Patient Instructions Indication:Smoker Start:19-Dec-2019 Instruction Type:Provider Instructions for Treatment How to access health informa tion online Indication:Anxiety Start:11-Dec-2019 Instruction Type:Patient Education How to access health informa tion online - Detail Indication:Anxiety Start:11-Dec-2019 Instruction Type:Patient Education Patient Instructions Indication:Contact dermatitis Start:11-Dec-2019 Instruction Type:Provider Instructions for Treatment [facility]; [facility] Work Phone: Instructions* Name Dates Details Patient Instructions Indication:Right hip pain Start:18-Apr-2023 Instruction Type:Provider Instructions for Treatment How to Access Health Informa tion Online using Patient Portal and [employer]rd [employer] Apps Indication:Right hip pain Start:18-Apr-2023 Instruction Type:Patient Education Patient Instructions Indication:Cough Start:17-Feb-2023 Instruction Type:Provider Instructions for Treatment How to Access Health Informa tion Online using Patient Portal and [employer]rd [employer] Apps Indication:Cough Start:17-Feb-2023 Instruction Type:Patient Education Patient Instructions Indication:Type II diabetes mellitus, well controlled Start:10-Aug-2022 Instruction Type:Provider Instructions for Treatment How to Access Health Informa tion Online using Patient Portal and [employer]rd [employer] Apps Indication:Type II diabetes mellitus, well controlled Start:10-Aug-2022 Instruction Type:Patient Education Patient Instructions Indication:Smoker Start:08-Jun-2022 Instruction Type:Provider Instructions for Treatment How to Access Health Informa tion Online using Patient Portal and [employer]rd [employer] Apps Indication:Smoker Start:08-Jun-2022 Instruction Type:Patient Education Patient Instructions Indication:BMI 35.0-35.9,adult Start:03-Jun-2022 Instruction Type:Provider Instructions for Treatment How to Access Health Informa tion Online using Patient Portal and [employer]rd [employer] Apps Indication:BMI 35.0-35.9,adult Start:03-Jun-2022 Instruction Type:Patient Education Patient Instructions Indication:Smoker Start:22-Mar-2021 Instruction Type:Provider Instructions for Treatment How to Access Health Informa tion Online using Patient Portal and [employer]rd [employer] Apps Indication:Smoker Start:22-Mar-2021 Instruction Type:Patient Education Patient Instructions Indication:BMI 36.0-36.9,adult Start:09-Feb-2021 Instruction Type:Provider Instructions for Treatment How to Access Health Informa tion Online using Patient Portal and [employer]rd [employer] Apps Indication:Smoker Start:09-Feb-2021 Instruction Type:Patient Education Patient Instructions Indication:Smoker Start:06-Jan-2021 Instruction Type:Provider Instructions for Treatment How to Access Health Informa tion Online using Patient Portal and [employer]rd [employer] Apps Indication:Smoker Start:06-Jan-2021 Instruction Type:Patient Education How to access health informa tion online Indication:Smoker Start:27-May-2020 Instruction Type:Patient Education How to access health informa tion online - Detail Indication:Smoker Start:27-May-2020 Instruction Type:Patient Education Patient Instructions Indication:BMI 37.0-37.9, adult Start:27-May-2020 Instruction Type:Provider Instructions for Treatment How to access health informa tion online Indication:Smoker Start:13-Apr-2020 Instruction Type:Patient Education How to access health informa tion online - Detail Indication:Smoker Start:13-Apr-2020 Instruction Type:Patient Education Patient Instructions Indication:BMI 37.0-37.9, adult Start:13-Apr-2020 Instruction Type:Provider Instructions for Treatment How to access health informa tion online Indication:BMI 37.0-37.9, adult Start:03-Jan-2020 Instruction Type:Patient Education How to access health informa tion online - Detail Indication:BMI 37.0-37.9, adult Start:03-Jan-2020 Instruction Type:Patient Education Patient Instructions Indication:BMI 37.0-37.9, adult Start:03-Jan-2020 Instruction Type:Provider Instructions for Treatment How to access health informa tion online Indication:Smoker Start:19-Dec-2019 Instruction Type:Patient Education How to access health informa tion online - Detail Indication:Smoker Start:19-Dec-2019 Instruction Type:Patient Education Patient Instructions Indication:Smoker Start:19-Dec-2019 Instruction Type:Provider Instructions for Treatment How to access health informa tion online Indication:Anxiety Start:11-Dec-2019 Instruction Type:Patient Education How to access health informa tion online - Detail Indication:Anxiety Start:11-Dec-2019 Instruction Type:Patient Education Patient Instructions Indication:Contact dermatitis Start:11-Dec-2019 Instruction Type:Provider Instructions for Treatment [facility]; [facility] Work Phone: Summary Purpose Family History Unknown Family Member Name Dates Details Alcohol Abuse Comments:grandfather Status:Active Cancer Comments:father, sister colo n cancer, stomach, breast Status:Active Diabetes Mellitus Type II Comments:Mother. Status:Active Heart/Lung Disease Comments:Mother. Status:Active Hypercholesterolemia Comments:Mother. Status:Active Thyroid problems Comments:Mother. Sister. Status:Active Unknown Family Member Name Dates Details Alcohol Abuse Comments:grandfather Status:Active Cancer Comments:father, sister colo n cancer, stomach, breast Status:Active Diabetes Mellitus Type II Comments:Mother. Status:Active Heart/Lung Disease Comments:Mother. Status:Active Hypercholesterolemia Comments:Mother. Status:Active Thyroid problems Comments:Mother. Sister. Status:Active Unknown Family Member Name Dates Details Alcohol Abuse Comments:grandfather Status:Active Cancer Comments:father, sister colo n cancer, stomach, breast Status:Active Diabetes Mellitus Type II Comments:Mother. Status:Active Heart/Lung Disease Comments:Mother. Status:Active Hypercholesterolemia Comments:Mother. Status:Active Thyroid problems Comments:Mother. Sister. Status:Active Unknown Family Member Name Dates Details Alcohol Abuse Comments:grandfather Status:Active Cancer Comments:father, sister colo n cancer, stomach, breast Status:Active Diabetes Mellitus Type II Comments:Mother. Status:Active Heart/Lung Disease Comments:Mother. Status:Active Hypercholesterolemia Comments:Mother. Status:Active Thyroid problems Comments:Mother. Sister. Status:Active Unknown Family Member Name Dates Details Alcohol Abuse Comments:grandfather Status:Active Cancer Comments:father, sister colo n cancer, stomach, breast Status:Active Diabetes Mellitus Type II Comments:Mother. Status:Active Heart/Lung Disease Comments:Mother. Status:Active Hypercholesterolemia Comments:Mother. Status:Active Thyroid problems Comments:Mother. Sister. Status:Active Unknown Family Member Name Dates Details Alcohol Abuse Comments:grandfather Status:Active Cancer Comments:father, sister colo n cancer, stomach, breast Status:Active Diabetes Mellitus Type II Comments:Mother. Status:Active Heart/Lung Disease Comments:Mother. Status:Active Hypercholesterolemia Comments:Mother. Status:Active Thyroid problems Comments:Mother. Sister. Status:Active Unknown Family Member Name Dates Details Alcohol Abuse Comments:grandfather Status:Active Cancer Comments:father, sister colo n cancer, stomach, breast Status:Active Diabetes Mellitus Type II Comments:Mother. Status:Active Heart/Lung Disease Comments:Mother. Status:Active Hypercholesterolemia Comments:Mother. Status:Active Thyroid problems Comments:Mother. Sister. Status:Active Unknown Family Member Name Dates Details Alcohol Abuse Comments:grandfather Status:Active Cancer Comments:father, sister colo n cancer, stomach, breast Status:Active Diabetes Mellitus Type II Comments:Mother. Status:Active Heart/Lung Disease Comments:Mother. Status:Active Hypercholesterolemia Comments:Mother. Status:Active Thyroid problems Comments:Mother. Sister. Status:Active Unknown Family Member Name Dates Details Alcohol Abuse Comments:grandfather Status:Active Cancer Comments:father, sister colo n cancer, stomach, breast Status:Active Diabetes Mellitus Type II Comments:Mother. Status:Active Heart/Lung Disease Comments:Mother. Status:Active Hypercholesterolemia Comments:Mother. Status:Active Thyroid problems Comments:Mother. Sister. Status:Active Unknown Family Member Name Dates Details Alcohol Abuse Comments:grandfather Status:Active Cancer Comments:father, sister colo n cancer, stomach, breast Status:Active Diabetes Mellitus Type II Comments:Mother. Status:Active Heart/Lung Disease Comments:Mother. Status:Active Hypercholesterolemia Comments:Mother. Status:Active Thyroid problems Comments:Mother. Sister. Status:Active Unknown Family Member Name Dates Details Alcohol Abuse Comments:grandfather Status:Active Cancer Comments:father, sister colo n cancer, stomach, breast Status:Active Diabetes Mellitus Type II Comments:Mother. Status:Active Heart/Lung Disease Comments:Mother. Status:Active Hypercholesterolemia Comments:Mother. Status:Active Thyroid problems Comments:Mother. Sister. Status:Active Unknown Family Member Name Dates Details Alcohol Abuse Comments:grandfather Status:Active Cancer Comments:father, sister colo n cancer, stomach, breast Status:Active Diabetes Mellitus Type II Comments:Mother. Status:Active Heart/Lung Disease Comments:Mother. Status:Active Hypercholesterolemia Comments:Mother. Status:Active Thyroid problems Comments:Mother. Sister. Status:Active Unknown Family Member Name Dates Details Alcohol Abuse Comments:grandfather Status:Active Cancer Comments:father, sister colo n cancer, stomach, breast Status:Active Diabetes Mellitus Type II Comments:Mother. Status:Active Heart/Lung Disease Comments:Mother. Status:Active Hypercholesterolemia Comments:Mother. Status:Active Thyroid problems Comments:Mother. Sister. Status:Active Unknown Family Member Name Dates Details Alcohol Abuse Comments:grandfather Status:Active Cancer Comments:father, sister colo n cancer, stomach, breast Status:Active Diabetes Mellitus Type II Comments:Mother. Status:Active Heart/Lung Disease Comments:Mother. Status:Active Hypercholesterolemia Comments:Mother. Status:Active Thyroid problems Comments:Mother. Sister. Status:Active Unknown Family Member Name Dates Details Alcohol Abuse Comments:grandfather Status:Active Cancer Comments:father, sister colo n cancer, stomach, breast Status:Active Diabetes Mellitus Type II Comments:Mother. Status:Active Heart/Lung Disease Comments:Mother. Status:Active Hypercholesterolemia Comments:Mother. Status:Active Thyroid problems Comments:Mother. Sister. Status:Active Unknown Family Member Name Dates Details Alcohol Abuse Comments:grandfather Status:Active Cancer Comments:father, sister colo n cancer, stomach, breast Status:Active Diabetes Mellitus Type II Comments:Mother. Status:Active Heart/Lung Disease Comments:Mother. Status:Active Hypercholesterolemia Comments:Mother. Status:Active Thyroid problems Comments:Mother. Sister. Status:Active Unknown Family Member Name Dates Details Alcohol Abuse Comments:grandfather Status:Active Cancer Comments:father, sister colo n cancer, stomach, breast Status:Active Diabetes Mellitus Type II Comments:Mother. Status:Active Heart/Lung Disease Comments:Mother. Status:Active Hypercholesterolemia Comments:Mother. Status:Active Thyroid problems Comments:Mother. Sister. Status:Active Unknown Family Member Name Dates Details Alcohol Abuse Comments:grandfather Status:Active Cancer Comments:father, sister colo n cancer, stomach, breast Status:Active Diabetes Mellitus Type II Comments:Mother. Status:Active Heart/Lung Disease Comments:Mother. Status:Active Hypercholesterolemia Comments:Mother. Status:Active Thyroid problems Comments:Mother. Sister. Status:Active Unknown Family Member Name Dates Details Alcohol Abuse Comments:grandfather Status:Active Cancer Comments:father, sister colo n cancer, stomach, breast Status:Active Diabetes Mellitus Type II Comments:Mother. Status:Active Heart/Lung Disease Comments:Mother. Status:Active Hypercholesterolemia Comments:Mother. Status:Active Thyroid problems Comments:Mother. Sister. Status:Active Unknown Family Member Name Dates Details Alcohol Abuse Comments:grandfather Status:Active Cancer Comments:father, sister colo n cancer, stomach, breast Status:Active Diabetes Mellitus Type II Comments:Mother. Status:Active Heart/Lung Disease Comments:Mother. Status:Active Hypercholesterolemia Comments:Mother. Status:Active Thyroid problems Comments:Mother. Sister. Status:Active Unknown Family Member Name Dates Details Alcohol Abuse Comments:grandfather Status:Active Cancer Comments:father, sister colo n cancer, stomach, breast Status:Active Diabetes Mellitus Type II Comments:Mother. Status:Active Heart/Lung Disease Comments:Mother. Status:Active Hypercholesterolemia Comments:Mother. Status:Active Thyroid problems Comments:Mother. Sister. Status:Active Unknown Family Member Name Dates Details Alcohol Abuse Comments:grandfather Status:Active Cancer Comments:father, sister colo n cancer, stomach, breast Status:Active Diabetes Mellitus Type II Comments:Mother. Status:Active Heart/Lung Disease Comments:Mother. Status:Active Hypercholesterolemia Comments:Mother. Status:Active Thyroid problems Comments:Mother. Sister. Status:Active Unknown Family Member Name Dates Details Alcohol Abuse Comments:grandfather Status:Active Cancer Comments:father, sister colo n cancer, stomach, breast Status:Active Diabetes Mellitus Type II Comments:Mother. Status:Active Heart/Lung Disease Comments:Mother. Status:Active Hypercholesterolemia Comments:Mother. Status:Active Thyroid problems Comments:Mother. Sister. Status:Active Unknown Family Member Name Dates Details Alcohol Abuse Comments:grandfather Status:Active Cancer Comments:father, sister colo n cancer, stomach, breast Status:Active Diabetes Mellitus Type II Comments:Mother. Status:Active Heart/Lung Disease Comments:Mother. Status:Active Hypercholesterolemia Comments:Mother. Status:Active Thyroid problems Comments:Mother. Sister. Status:Active Unknown Family Member Name Dates Details Alcohol Abuse Comments:grandfather Status:Active Cancer Comments:father, sister colo n cancer, stomach, breast Status:Active Diabetes Mellitus Type II Comments:Mother. Status:Active Heart/Lung Disease Comments:Mother. Status:Active Hypercholesterolemia Comments:Mother. Status:Active Thyroid problems Comments:Mother. Sister. Status:Active Unknown Family Member Name Dates Details Alcohol Abuse Comments:grandfather Status:Active Cancer Comments:father, sister colo n cancer, stomach, breast Status:Active Diabetes Mellitus Type II Comments:Mother. Status:Active Heart/Lung Disease Comments:Mother. Status:Active Hypercholesterolemia Comments:Mother. Status:Active Thyroid problems Comments:Mother. Sister. Status:Active Unknown Family Member Name Dates Details Alcohol Abuse Comments:grandfather Status:Active Cancer Comments:father, sister colo n cancer, stomach, breast Status:Active Diabetes Mellitus Type II Comments:Mother. Status:Active Heart/Lung Disease Comments:Mother. Status:Active Hypercholesterolemia Comments:Mother. Status:Active Thyroid problems Comments:Mother. Sister. Status:Active Unknown Family Member Name Dates Details Alcohol Abuse Comments:grandfather Status:Active Cancer Comments:father, sister colo n cancer, stomach, breast Status:Active Diabetes Mellitus Type II Comments:Mother. Status:Active Heart/Lung Disease Comments:Mother. Status:Active Hypercholesterolemia Comments:Mother. Status:Active Thyroid problems Comments:Mother. Sister. Status:Active Unknown Family Member Name Dates Details Alcohol Abuse Comments:grandfather Status:Active Cancer Comments:father, sister colo n cancer, stomach, breast Status:Active Diabetes Mellitus Type II Comments:Mother. Status:Active Heart/Lung Disease Comments:Mother. Status:Active Hypercholesterolemia Comments:Mother. Status:Active Thyroid problems Comments:Mother. Sister. Status:Active Unknown Family Member Name Dates Details Alcohol Abuse Comments:grandfather Status:Active Cancer Comments:father, sister colo n cancer, stomach, breast Status:Active Diabetes Mellitus Type II Comments:Mother. Status:Active Heart/Lung Disease Comments:Mother. Status:Active Hypercholesterolemia Comments:Mother. Status:Active Thyroid problems Comments:Mother. Sister. Status:Active Unknown Family Member Name Dates Details Alcohol Abuse Comments:grandfather Status:Active Cancer Comments:father, sister colo n cancer, stomach, breast Status:Active Diabetes Mellitus Type II Comments:Mother. Status:Active Heart/Lung Disease Comments:Mother. Status:Active Hypercholesterolemia Comments:Mother. Status:Active Thyroid problems Comments:Mother. Sister. Status:Active Advance Directives No Advanced Directives Records FoundNo Advanced Directives Records FoundNo Advanced Directives Records Found Instructions Name Dates Details How to access health informa tion online Indication:BMI 37.0-37.9, adult Start:03-Jan-2020 Instruction Type:Patient Education How to access health informa tion online - Detail Indication:BMI 37.0-37.9, adult Start:03-Jan-2020 Instruction Type:Patient Education Patient Instructions Indication:BMI 37.0-37.9, adult Start:03-Jan-2020 Instruction Type:Provider Instructions for Treatment How to access health informa tion online Indication:Smoker Start:19-Dec-2019 Instruction Type:Patient Education How to access health informa tion online - Detail Indication:Smoker Start:19-Dec-2019 Instruction Type:Patient Education Patient Instructions Indication:Smoker Start:19-Dec-2019 Instruction Type:Provider Instructions for Treatment How to access health informa tion online Indication:Anxiety Start:11-Dec-2019 Instruction Type:Patient Education How to access health informa tion online - Detail Indication:Anxiety Start:11-Dec-2019 Instruction Type:Patient Education Patient Instructions Indication:Contact dermatitis Start:11-Dec-2019 Instruction Type:Provider Instructions for Treatment Name Dates Details How to access health informa tion online Indication:BMI 37.0-37.9, adult Start:03-Jan-2020 Instruction Type:Patient Education How to access health informa tion online - Detail Indication:BMI 37.0-37.9, adult Start:03-Jan-2020 Instruction Type:Patient Education Patient Instructions Indication:BMI 37.0-37.9, adult Start:03-Jan-2020 Instruction Type:Provider Instructions for Treatment How to access health informa tion online Indication:Smoker Start:19-Dec-2019 Instruction Type:Patient Education How to access health informa tion online - Detail Indication:Smoker Start:19-Dec-2019 Instruction Type:Patient Education Patient Instructions Indication:Smoker Start:19-Dec-2019 Instruction Type:Provider Instructions for Treatment How to access health informa tion online Indication:Anxiety Start:11-Dec-2019 Instruction Type:Patient Education How to access health informa tion online - Detail Indication:Anxiety Start:11-Dec-2019 Instruction Type:Patient Education Patient Instructions Indication:Contact dermatitis Start:11-Dec-2019 Instruction Type:Provider Instructions for Treatment Name Dates Details How to access health informa tion online Indication:Smoker Start:13-Apr-2020 Instruction Type:Patient Education How to access health informa tion online - Detail Indication:Smoker Start:13-Apr-2020 Instruction Type:Patient Education Patient Instructions Indication:Smoker Start:13-Apr-2020 Instruction Type:Provider Instructions for Treatment How to access health informa tion online Indication:BMI 37.0-37.9, adult Start:03-Jan-2020 Instruction Type:Patient Education How to access health informa tion online - Detail Indication:BMI 37.0-37.9, adult Start:03-Jan-2020 Instruction Type:Patient Education Patient Instructions Indication:BMI 37.0-37.9, adult Start:03-Jan-2020 Instruction Type:Provider Instructions for Treatment How to access health informa tion online Indication:Smoker Start:19-Dec-2019 Instruction Type:Patient Education How to access health informa tion online - Detail Indication:Smoker Start:19-Dec-2019 Instruction Type:Patient Education Patient Instructions Indication:Smoker Start:19-Dec-2019 Instruction Type:Provider Instructions for Treatment How to access health informa tion online Indication:Anxiety Start:11-Dec-2019 Instruction Type:Patient Education How to access health informa tion online - Detail Indication:Anxiety Start:11-Dec-2019 Instruction Type:Patient Education Patient Instructions Indication:Contact dermatitis Start:11-Dec-2019 Instruction Type:Provider Instructions for Treatment Name Dates Details How to access health informa tion online Indication:Smoker Start:13-Apr-2020 Instruction Type:Patient Education How to access health informa tion online - Detail Indication:Smoker Start:13-Apr-2020 Instruction Type:Patient Education Patient Instructions Indication:BMI 37.0-37.9, adult Start:13-Apr-2020 Instruction Type:Provider Instructions for Treatment How to access health informa tion online Indication:BMI 37.0-37.9, adult Start:03-Jan-2020 Instruction Type:Patient Education How to access health informa tion online - Detail Indication:BMI 37.0-37.9, adult Start:03-Jan-2020 Instruction Type:Patient Education Patient Instructions Indication:BMI 37.0-37.9, adult Start:03-Jan-2020 Instruction Type:Provider Instructions for Treatment How to access health informa tion online Indication:Smoker Start:19-Dec-2019 Instruction Type:Patient Education How to access health informa tion online - Detail Indication:Smoker Start:19-Dec-2019 Instruction Type:Patient Education Patient Instructions Indication:Smoker Start:19-Dec-2019 Instruction Type:Provider Instructions for Treatment How to access health informa tion online Indication:Anxiety Start:11-Dec-2019 Instruction Type:Patient Education How to access health informa tion online - Detail Indication:Anxiety Start:11-Dec-2019 Instruction Type:Patient Education Patient Instructions Indication:Contact dermatitis Start:11-Dec-2019 Instruction Type:Provider Instructions for Treatment Name Dates Details How to access health informa tion online Indication:Smoker Start:27-May-2020 Instruction Type:Patient Education How to access health informa tion online - Detail Indication:Smoker Start:27-May-2020 Instruction Type:Patient Education Patient Instructions Indication:BMI 37.0-37.9, adult Start:27-May-2020 Instruction Type:Provider Instructions for Treatment How to access health informa tion online Indication:Smoker Start:13-Apr-2020 Instruction Type:Patient Education How to access health informa tion online - Detail Indication:Smoker Start:13-Apr-2020 Instruction Type:Patient Education Patient Instructions Indication:BMI 37.0-37.9, adult Start:13-Apr-2020 Instruction Type:Provider Instructions for Treatment How to access health informa tion online Indication:BMI 37.0-37.9, adult Start:03-Jan-2020 Instruction Type:Patient Education How to access health informa tion online - Detail Indication:BMI 37.0-37.9, adult Start:03-Jan-2020 Instruction Type:Patient Education Patient Instructions Indication:BMI 37.0-37.9, adult Start:03-Jan-2020 Instruction Type:Provider Instructions for Treatment How to access health informa tion online Indication:Smoker Start:19-Dec-2019 Instruction Type:Patient Education How to access health informa tion online - Detail Indication:Smoker Start:19-Dec-2019 Instruction Type:Patient Education Patient Instructions Indication:Smoker Start:19-Dec-2019 Instruction Type:Provider Instructions for Treatment How to access health informa tion online Indication:Anxiety Start:11-Dec-2019 Instruction Type:Patient Education How to access health informa tion online - Detail Indication:Anxiety Start:11-Dec-2019 Instruction Type:Patient Education Patient Instructions Indication:Contact dermatitis Start:11-Dec-2019 Instruction Type:Provider Instructions for Treatment Name Dates Details How to access health informa tion online Indication:Smoker Start:27-May-2020 Instruction Type:Patient Education How to access health informa tion online - Detail Indication:Smoker Start:27-May-2020 Instruction Type:Patient Education Patient Instructions Indication:BMI 37.0-37.9, adult Start:27-May-2020 Instruction Type:Provider Instructions for Treatment How to access health informa tion online Indication:Smoker Start:13-Apr-2020 Instruction Type:Patient Education How to access health informa tion online - Detail Indication:Smoker Start:13-Apr-2020 Instruction Type:Patient Education Patient Instructions Indication:BMI 37.0-37.9, adult Start:13-Apr-2020 Instruction Type:Provider Instructions for Treatment How to access health informa tion online Indication:BMI 37.0-37.9, adult Start:03-Jan-2020 Instruction Type:Patient Education How to access health informa tion online - Detail Indication:BMI 37.0-37.9, adult Start:03-Jan-2020 Instruction Type:Patient Education Patient Instructions Indication:BMI 37.0-37.9, adult Start:03-Jan-2020 Instruction Type:Provider Instructions for Treatment How to access health informa tion online Indication:Smoker Start:19-Dec-2019 Instruction Type:Patient Education How to access health informa tion online - Detail Indication:Smoker Start:19-Dec-2019 Instruction Type:Patient Education Patient Instructions Indication:Smoker Start:19-Dec-2019 Instruction Type:Provider Instructions for Treatment How to access health informa tion online Indication:Anxiety Start:11-Dec-2019 Instruction Type:Patient Education How to access health informa tion online - Detail Indication:Anxiety Start:11-Dec-2019 Instruction Type:Patient Education Patient Instructions Indication:Contact dermatitis Start:11-Dec-2019 Instruction Type:Provider Instructions for Treatment Name Dates Details How to access health informa tion online Indication:Smoker Start:27-May-2020 Instruction Type:Patient Education How to access health informa tion online - Detail Indication:Smoker Start:27-May-2020 Instruction Type:Patient Education Patient Instructions Indication:BMI 37.0-37.9, adult Start:27-May-2020 Instruction Type:Provider Instructions for Treatment How to access health informa tion online Indication:Smoker Start:13-Apr-2020 Instruction Type:Patient Education How to access health informa tion online - Detail Indication:Smoker Start:13-Apr-2020 Instruction Type:Patient Education Patient Instructions Indication:BMI 37.0-37.9, adult Start:13-Apr-2020 Instruction Type:Provider Instructions for Treatment How to access health informa tion online Indication:BMI 37.0-37.9, adult Start:03-Jan-2020 Instruction Type:Patient Education How to access health informa tion online - Detail Indication:BMI 37.0-37.9, adult Start:03-Jan-2020 Instruction Type:Patient Education Patient Instructions Indication:BMI 37.0-37.9, adult Start:03-Jan-2020 Instruction Type:Provider Instructions for Treatment How to access health informa tion online Indication:Smoker Start:19-Dec-2019 Instruction Type:Patient Education How to access health informa tion online - Detail Indication:Smoker Start:19-Dec-2019 Instruction Type:Patient Education Patient Instructions Indication:Smoker Start:19-Dec-2019 Instruction Type:Provider Instructions for Treatment How to access health informa tion online Indication:Anxiety Start:11-Dec-2019 Instruction Type:Patient Education How to access health informa tion online - Detail Indication:Anxiety Start:11-Dec-2019 Instruction Type:Patient Education Patient Instructions Indication:Contact dermatitis Start:11-Dec-2019 Instruction Type:Provider Instructions for Treatment Name Dates Details How to access health informa tion online Indication:Smoker Start:27-May-2020 Instruction Type:Patient Education How to access health informa tion online - Detail Indication:Smoker Start:27-May-2020 Instruction Type:Patient Education Patient Instructions Indication:BMI 37.0-37.9, adult Start:27-May-2020 Instruction Type:Provider Instructions for Treatment How to access health informa tion online Indication:Smoker Start:13-Apr-2020 Instruction Type:Patient Education How to access health informa tion online - Detail Indication:Smoker Start:13-Apr-2020 Instruction Type:Patient Education Patient Instructions Indication:BMI 37.0-37.9, adult Start:13-Apr-2020 Instruction Type:Provider Instructions for Treatment How to access health informa tion online Indication:BMI 37.0-37.9, adult Start:03-Jan-2020 Instruction Type:Patient Education How to access health informa tion online - Detail Indication:BMI 37.0-37.9, adult Start:03-Jan-2020 Instruction Type:Patient Education Patient Instructions Indication:BMI 37.0-37.9, adult Start:03-Jan-2020 Instruction Type:Provider Instructions for Treatment How to access health informa tion online Indication:Smoker Start:19-Dec-2019 Instruction Type:Patient Education How to access health informa tion online - Detail Indication:Smoker Start:19-Dec-2019 Instruction Type:Patient Education Patient Instructions Indication:Smoker Start:19-Dec-2019 Instruction Type:Provider Instructions for Treatment How to access health informa tion online Indication:Anxiety Start:11-Dec-2019 Instruction Type:Patient Education How to access health informa tion online - Detail Indication:Anxiety Start:11-Dec-2019 Instruction Type:Patient Education Patient Instructions Indication:Contact dermatitis Start:11-Dec-2019 Instruction Type:Provider Instructions for Treatment Name Dates Details How to access health informa tion online Indication:Smoker Start:27-May-2020 Instruction Type:Patient Education How to access health informa tion online - Detail Indication:Smoker Start:27-May-2020 Instruction Type:Patient Education Patient Instructions Indication:BMI 37.0-37.9, adult Start:27-May-2020 Instruction Type:Provider Instructions for Treatment How to access health informa tion online Indication:Smoker Start:13-Apr-2020 Instruction Type:Patient Education How to access health informa tion online - Detail Indication:Smoker Start:13-Apr-2020 Instruction Type:Patient Education Patient Instructions Indication:BMI 37.0-37.9, adult Start:13-Apr-2020 Instruction Type:Provider Instructions for Treatment How to access health informa tion online Indication:BMI 37.0-37.9, adult Start:03-Jan-2020 Instruction Type:Patient Education How to access health informa tion online - Detail Indication:BMI 37.0-37.9, adult Start:03-Jan-2020 Instruction Type:Patient Education Patient Instructions Indication:BMI 37.0-37.9, adult Start:03-Jan-2020 Instruction Type:Provider Instructions for Treatment How to access health informa tion online Indication:Smoker Start:19-Dec-2019 Instruction Type:Patient Education How to access health informa tion online - Detail Indication:Smoker Start:19-Dec-2019 Instruction Type:Patient Education Patient Instructions Indication:Smoker Start:19-Dec-2019 Instruction Type:Provider Instructions for Treatment How to access health informa tion online Indication:Anxiety Start:11-Dec-2019 Instruction Type:Patient Education How to access health informa tion online - Detail Indication:Anxiety Start:11-Dec-2019 Instruction Type:Patient Education Patient Instructions Indication:Contact dermatitis Start:11-Dec-2019 Instruction Type:Provider Instructions for Treatment Name Dates Details Patient Instructions Indication:Smoker Start:06-Jan-2021 Instruction Type:Provider Instructions for Treatment How to Access Health Informa tion Online using Patient Portal and [employer] Apps Indication:Smoker Start:06-Jan-2021 Instruction Type:Patient Education How to access health informa tion online Indication:Smoker Start:27-May-2020 Instruction Type:Patient Education How to access health informa tion online - Detail Indication:Smoker Start:27-May-2020 Instruction Type:Patient Education Patient Instructions Indication:BMI 37.0-37.9, adult Start:27-May-2020 Instruction Type:Provider Instructions for Treatment How to access health informa tion online Indication:Smoker Start:13-Apr-2020 Instruction Type:Patient Education How to access health informa tion online - Detail Indication:Smoker Start:13-Apr-2020 Instruction Type:Patient Education Patient Instructions Indication:BMI 37.0-37.9, adult Start:13-Apr-2020 Instruction Type:Provider Instructions for Treatment How to access health informa tion online Indication:BMI 37.0-37.9, adult Start:03-Jan-2020 Instruction Type:Patient Education How to access health informa tion online - Detail Indication:BMI 37.0-37.9, adult Start:03-Jan-2020 Instruction Type:Patient Education Patient Instructions Indication:BMI 37.0-37.9, adult Start:03-Jan-2020 Instruction Type:Provider Instructions for Treatment How to access health informa tion online Indication:Smoker Start:19-Dec-2019 Instruction Type:Patient Education How to access health informa tion online - Detail Indication:Smoker Start:19-Dec-2019 Instruction Type:Patient Education Patient Instructions Indication:Smoker Start:19-Dec-2019 Instruction Type:Provider Instructions for Treatment How to access health informa tion online Indication:Anxiety Start:11-Dec-2019 Instruction Type:Patient Education How to access health informa tion online - Detail Indication:Anxiety Start:11-Dec-2019 Instruction Type:Patient Education Patient Instructions Indication:Contact dermatitis Start:11-Dec-2019 Instruction Type:Provider Instructions for Treatment Additional Source Comments INFORMATION SOURCE (unrecogn ized section and content) DATE CREATED AUTHOR AUTHOR'S ORGANIZ ATION 03/03/2022 [facility] DATE CREATED AUTHOR AUTHOR'S ORGANIZ ATION 12/09/2022 [facility] Source Comments (unrecognize d section and content) In the event this informatio n is protected by the Federal Confidentiality of Alcohol and Drug Abuse Patient Records regulations: The Federal rules restrict any use of the information to criminally investigate or prosecute any alcohol or drug abuse patient[facility] the event this information is protected by the Federal Confidentiality of Alcohol and Drug Abuse Patient Records regulations: The Federal rules restrict any use of the information to criminally investigate or prosecute any alcohol or drug abuse patient.[facility] the event this information is protected by the Federal Confidentiality of Alcohol and Drug Abuse Patient Records regulations: The Federal rules restrict any use of the information to criminally investigate or prosecute any alcohol or drug abuse patient.[facility] Care Teams (unrecognized sec tion and content) Water Ch[employer] Relationship Specialty Start Date End Date Qamar Mcmullen MD [id number] [place], [place] [id number] PCP - General Family Practice 04/19/16 Water Ch[employer] Relationship Specialty Start Date End Date Qamar Mcmullen MD [id number] [place] [address] PCP - General Family Practice 04/19/16 02/15/22 Reason for Visit (unrecogniz ed section and content) Reason Onset Date Comments PHMA/Care Gap Outreach 01/31/2022 FOR RECORDS PERTAINING TO PATIENTS WHO ARE OR HAVE BEEN ENROLLED IN A CHEMICAL DEPENDENCY/SUBSTANCEABUSE PROGRAM, SOME INFORMATION MAY BE OMITTED. This clinical summary was aggregated from multiple sources. Caution should be exercised in using it in the provision of clinical care. This summary normalizes information from multiple sources, and as a consequence, information in this document may materially change the coding, format and clinical context of patient data. In addition, data may be omitted in some cases. CLINICAL DECISIONS SHOULD BE BASED ON THE PRIMARY CLINICAL RECORDS. [facility] [employer] provides no warranty or guarantee of the accuracy or completeness of information in this document.
== END | disposition home or self-care (01) ==
LOC: CT 08:19
PROVIDERS: PCP Nurse Practitioner Family; Referring Provider Nurse Practitioner Acute Care; Visit Provider Nurse Practitioner Acute Care
DX: F17.210 Nicotine dependence, cigarettes, uncomplicated (principal)
CPT/HCPCS: 71271

== ENCOUNTER 2023-12-29 10:19 | Emergency (ER) | payer MEDICARE, SELFPAY ==
[2023-12-29 10:20] VITALS: BP 124/72; PULSE 86; RESP 17; TEMP 35.8; O2SAT 99; BMI 33.3
--- NOTE | 2023-12-29 10:51 | EX.ED.UPPERE ---
HPI History of Present Illness Chief Complaint: Upper Extremity Injury Informant: patient Narrative Narrative: 68-year-old female presenting to the emergency room with right-sided neck upper back pain and paresthesias of the left arm. Patient states about 1 week ago she was moving boxes. She does not recall a particular event during that evolution but states that slowly developed pain afterwards on the right side of her neck upper right back. She states that pain is worse with touch and with movement particularly rotation of the head to the right. She notes that she gets tingling/numb sensation down the back of her arm and into her little finger of the right hand. She states it feels somewhat better if she holds her right arm up against her chest and keeps her head side bent rotated left in slight extension. She denies any fevers or chills. No IVDU. She is a smoker. She denies any immunosuppression. [facility] Medical History Anxiety Arthritis Carpal tunnel syndrome of left wrist COPD (chronic obstructive pulmonary disease) COPD (chronic obstructive pulmonary disease) CPAP (continuous positive airway pressure) dependence Depression Diabetes Fibromyalgia Gastric reflux GERD (gastroesophageal reflux disease) High cholesterol Hyperlipemia Injury of head and neck NHI (obstructive sleep apnea) Osteoarthrosis Pneumonia Restless leg syndrome Rheumatoid arthritis Shortness of breath on exertion Sleep apnea Smoker Thyroid disease Tobacco abuse Trigger finger of left thumb Type 2 diabetes mellitus Wears dentures Wears glasses Home Medications ergocalciferol (vitamin D2) 1,250 mcg (50,000 unit) capsule 1 tab PO QWEEK 11/22/17 [History Last Taken Unknown] famotidine 40 mg tablet 40 mg PO DAILY REFLUX 11/22/17 [History Last Taken Unknown] venlafaxine 150 mg capsule,extended release 24 hr 150 mg PO DAILY 05/29/20 [History Last Taken Unknown] albuterol sulfate 2.5 mg/3 mL (0.083 %) solution for nebulization 2.5 mg (3 mL) inhalation Q4H PRN PRN Wheezing #180 mL 09/11/23 [Rx Last Taken Unknown] albuterol sulfate 90 mcg/actuation aerosol inhaler 1 - 2 puff inhalation Q4H PRN PRN Wheezing #18 grams 11/27/23 [Rx Last Taken Unknown] vitamin E (dl, acetate) 180 mg (400 unit) capsule mg PO DAILY 12/07/23 [History Last Taken Unknown] cyclobenzaprine 10 mg tablet 10 mg PO TID PRN Muscle Spasm #15 TABLETS 12/29/23 [Rx Last Taken Unknown] oxycodone-acetaminophen 5 mg-325 mg tablet 1 tab PO Q6H PRN PRN pain 5 days #20 TABLETS 12/29/23 [Rx Last Taken Unknown] prednisone 20 mg tablet 40 mg (2 x 20 mg) PO DAILY #10 TABLETS 12/29/23 [Rx Last Taken Unknown] Allergy/AdvReac Type Severity Reaction Status Date / Time No Known Allergies Allergy Verified 12/29/23 10:22 Family History Father Colon cancer Kidney disease Mother Diabetes Heart disease Thyroid disorder Grandfather Alcohol abuse Sister Cancer Breast cancer Surgical History History of appendectomy History of carpal tunnel surgery of left wrist History of carpal tunnel surgery of right wrist History of hysterectomy History of tubal ligation Normal colonoscopy S/P laparoscopic cholecystectomy Social History household members: significant other housing: other details: mobile home Smoking Status: Current every day smoker tobacco type: cigarettes second hand exposure: Yes alcohol intake: never substance use type: does not use ROS ROS ED Constitutional Constitutional ED: Denies chills, fever(s) or weight loss Eyes Eyes: Denies change in vision or diplopia ENT ENT ED: Denies ear pain, rhinorrhea or sore throat Cardiovascular Cardiovascular: Denies chest pain, orthopnea, palpitations or racing heartbeat Respiratory/Chest Respiratory/Chest: Denies cough, dyspnea or orthopnea Gastrointestinal Gastrointestinal: Denies abdominal pain, diarrhea, nausea or vomiting Genitourinary Genitourinary ED: Denies dysuria, hematuria or urinary frequency Musculoskeletal Musculoskeletal: Reports back pain and neck pain; Denies arthralgias or myalgias Integumentary Denies abscess or rash Neurologic Neurologic: Reports paresthesias; Denies headache(s) or weakness Psychiatric Psychiatric: Denies anxiety, depression, suicidal ideation or suicidal thoughts Endocrine Endocrinology: Denies polydipsia, polyphagia or polyuria Allergic/Immunologic Allergic/Immunologic ED: Denies mouth swelling, tongue swelling or urticaria EXAM Physical Exam Const Vital Signs: 12/29/23 10:20 12/29/23 10:20 Temperature 96.4 F L 96.4 F L Temperature Source Temporal Temporal Pulse Rate 86 86 Respiratory Rate 17 17 Blood Pressure 124/72 H 124/72 H Blood Pressure Mean 89 89 Pulse Ox 99 99 Oxygen Delivery Method Room Air Room Air Positive well nourished, well developed and obese General Appearance ED: well developed Nutritional Appearance: obese HEENT Reports normocephalic, head/scalp atraumatic and moist mucous membranes Eyes PERRL and EOMs intact bilaterally Neck full ROM, no lymphadenopathy, supple and no JVD Neck Narrative: Patient reports painful range of motion with rotation of the head to the right and really with most motions. I do not appreciate any erythema or rashes. The area of tenderness is in the trapezius distribution from about C3 down to around T4 and around the right medial scapular region. Resp normal respiratory effort and clear to auscultation bilaterally Cardio regular rate, regular rhythm and no murmurs GI normal to inspection, nondistended, normoactive bowel sounds and non-tender Palpation: soft Back/Spine no CVA tenderness Extremity full ROM General Extremety ED: Negative for edema General Extremity: Negative for edema Neuro oriented x3 and CN's II-XII intact bilaterally Neuro Narrative: Patient reports decreased sensation of the right little finger along the ulnar distribution from the elbow down. She reports some tingling in the triceps region of the right arm motor appears intact. Sensorium / Orientation: alert Motor Exam: strength 5/5 throughout Deep Tendon Reflexes: Rt Triceps (C7): 2+, Lt Triceps (C7): 2+, Rt Biceps (C5, C6): 2+, Lt Biceps (C5, C6): 2+, Rt Brachioradialis (C6): 2+ and Lt Brachioradialis (C6): 2+ Psych mental status grossly normal Mood & Affect: Negative for depressed or tearful Skin no rashes or lesions noted and no wounds MDM MDM MDM Narrative Medical decision making narrative: My independent interpretation of the plain films of the cervical spine is degenerative changes noted at C5-C6/C6-C7. This would roughly correspond to the patient's area of complaints. However there still could be a muscular component. When I recommend pain medication anti-inflammatories muscle relaxants and follow-up with spine. Patient is understanding this plan she understands return instructions including changes in neurologic status. History & Record Review Discussion w/independent historian: Patient and Significant other Discharge Plan Triage Chief Complaint: Upper Extremity Injury ED Provider: Vicente Mares Dx/Rx/DC Orders Clinical Impression: Acute neck pain, Cervical radiculopathy Instructions: Cervical Radiculopathy Prescriptions: New cyclobenzaprine [cyclobenzaprine] 10 mg tablet 10 mg PO TID PRN (Reason: Muscle Spasm) Qty: 15 0RF oxycodone-acetaminophen [oxycodone-acetaminophen] 5-325 mg tablet 1 tab PO Q6H PRN PRN (Reason: pain) 5 Days Qty: 20 0RF prednisone 20 mg tablet 40 mg PO DAILY Qty: 10 0RF No Action venlafaxine 150 mg capsule,extended release 24hr 150 mg PO DAILY vitamin E (dl, acetate) 180 mg (400 unit) capsule PO DAILY Patient Comments: TAKE 1 CAPSULE BY MOUTH DAILY famotidine 40 MG tablet 40 mg PO DAILY ergocalciferol (vitamin D2) 50,000 UNIT capsule 1 tab PO QWEEK albuterol sulfate 2.5 mg /3 mL (0.083 %) solution for nebulization 2.5 mg inhalation Q4H PRN PRN (Reason: Wheezing) Qty: 180 3RF albuterol sulfate 90 mcg/actuation HFA aerosol inhaler 1 - 2 puff inhalation Q4H PRN PRN (Reason: Wheezing) Qty: 18 6RF Primary Care Provider: Zunilda Suarez Referrals: Ned Talbot DO [Med Staff - Active Staff] - As soon as possible Zunilda Suarez, [facility] [Primary Care Provider] - Disposition Disposition: Home, Self Care
--- NOTE | 2023-12-29 11:00 | RAD_ITS ---
STUDY: X-RAY - CERVICAL SPINE REASON FOR EXAM: Female, 68 years old. Neck pain and right arm pain. TECHNIQUE: 3 view(s) of the cervical spine were obtained. COMPARISON: None FINDINGS: Normal anterior atlantoaxial articulation. Normal odontoid process. There is reversal of the normal cervical lordosis. Spondylosis and marked degree of disc space narrowing at the C5-C6 and C6-C7 levels. Minimal anterolisthesis of C3 on C4 most likely secondary to the facet joint osteoarthritis. Normal visualized intervertebral neuroforamina. The soft tissue structures are unremarkable. RAD/Cerv Spine 2 or 3 Views IMPRESSION: Reversal of the normal cervical lordosis. Spondylosis and disc space narrowed at the C5-C6 and C6-C7 levels. Electronically Signed: Brandon Lee MD at 11:38 EDT ,
== END 2023-12-29 12:27 | disposition home or self-care (01) ==
PROVIDERS: Emergency Provider Emergency Medicine; PCP Nurse Practitioner Family; Visit Provider Emergency Medicine
DX: M54.12 Radiculopathy, cervical region (principal); J44.9 Chronic obstructive pulmonary disease, unspecified; E11.9 Type 2 diabetes mellitus without complications; M54.2 Cervicalgia; X58.XXXA Exposure to other specified factors, initial encounter; E78.00 Pure hypercholesterolemia, unspecified; G47.33 Obstructive sleep apnea (adult) (pediatric); Z99.89 Dependence on other enabling machines and devices; K21.9 Gastro-esophageal reflux disease without esophagitis; Z79.899 Other long term (current) drug therapy; F32.A Depression, unspecified; F41.9 Anxiety disorder, unspecified; Z90.49 Acquired absence of other specified parts of digestive tract; Z90.710 Acquired absence of both cervix and uterus; Z98.51 Tubal ligation status; F17.210 Nicotine dependence, cigarettes, uncomplicated
CPT/HCPCS: 72040; 99282

== ENCOUNTER → 2024-05-29 | Outpatient (CLI) | payer MEDICARE, MEDICAID, SELFPAY | END | disposition home or self-care (01) | LOC: SL 20:00 | PROVIDERS: PCP Nurse Practitioner Family; Referring Provider Nurse Practitioner Acute Care; Visit Provider Nurse Practitioner Acute Care | DX: G47.33 Obstructive sleep apnea (adult) (pediatric) (principal) | CPT/HCPCS: 95811 ==

== ENCOUNTER → 2025-04-21 | Outpatient (CLI) | payer MEDICARE, MEDICAID, SELFPAY ==
[2025-04-21 16:30] LABS: Hematocrit 37.3 % (37-47); Hemoglobin 12.5 g/dL (12.0-15.0); Immature Granulocytes Count 0.040 X10^3/uL (0.0-0.0); Mean Corp Hgb Conc 33.5 g/dL (32-36); Mean Corpuscular Volume 96.1 fL (81-99); Mean Platelet Vol. 8.5 fl (6.2-12.0); NRBC Flagged by Analyzer 0 % (0-5); Platelet Count 383 K/mm3 (150-450); RBC Distribution Width CV 13.3 % (11.6-14.6); RBC Distribution Width SD 47.0 fl (35.1-43.9); Red Blood Count 3.88 M/mm3 (4.2-5.4); White Blood Count 10.7 K/mm3 (4.4-11.0)
[2025-04-21 17:23] LABS: AST(SGOT) 20 U/L (<=31); Alanine Aminotransfer ALT/SGPT 13 U/L (<=34); Albumin, Serum 4.1 g/dL (3.4-4.8); Alkaline Phosphatase 89 U/L (35-104); Anion Gap 11 (5-15); BUN 13 mg/dL (4-19); BUN/Creat Ratio 11.4 RATIO (10-20); Calcium,Total 9.3 mg/dL (7.6-11.0); Carbon Dioxide 25.0 mmol/L (21.0-32.0); Chloride 102 mmol/L (98-108); Globulin 3.5 g/dL (2.2-4.2); Glucose 132 mg/dL (70-99); Potassium 4.7 mmol/L (3.3-5.1)
== END | disposition home or self-care (01) ==
LOC: VSLAB 16:13
DX: E11.9 Type 2 diabetes mellitus without complications (principal)
CPT/HCPCS: 36415; 80053; 84443; 85025

== ENCOUNTER → 2025-08-09 | Outpatient (CLI) | payer MEDICARE, MEDICAID, SELFPAY ==
--- NOTE | 2025-08-09 08:56 | CT_ITS ---
PROCEDURE: LOW DOSE CT LUNG SCREENING 08/09/2025 REASON FOR EXAM: SMOKER Patient has smoked 1 pack per day for 40 years. COPD. TECHNIQUE: Procedure Code: [id number] Modality: CT Procedure: LOW DOSE CT LUNG SCREENING Coronal and Sagittal reconstruction series were provided. One or more dose reduction techniques were used (e.g., Automated exposure control, adjustment of the mA and/or kV according to patient size, use of iterative reconstruction technique). REFERENCE LINK: [facility] Lung-RADS RADIATION DOSE SUMMARY: CTDlvol: 3.02 mGy DLP: 98.17 mGycm COMPARISON: November 07, 2023. FINDINGS: PULMONARY NODULES: (Only nodules >3mm are reported) Nodules described below are on series 1 unless otherwise specified. Pulmonary Nodules: No pulmonary nodule seen. Hardware:None Lymph Nodes:Small benign-appearing mediastinal lymph nodes. Heart and Vasculature:The heart is nonenlarged.Calcification of the mitral valve annulus. Coronary Artery Calcifications: Present Lungs and Airways: Mild emphysematous changes are present. Pleura:No pleural effusion Upper Abdomen:Unremarkable Bones:Degenerative changes of the thoracic spine. CT/Low Dose CT Lung Screening IMPRESSION: No suspicious pulmonary nodule seen. Coronary artery calcification (CAC) is is present Lung-RADS Category: 2 BENIGN (BASED ON IMAGING FEATURES OR INDOLENT BEHAVIOR). RECOMMEND 12-MONTH SCREENING LDCT. Other Significant Findings: Reading Location: [place] [id number]
--- OUTSIDE RECORDS SUMMARY | 2025-08-09 09:01 | XMS RPT_ITS | CCD ---
Author Organization [facility] Care Team Providers Care Senior Database Administrator Name Role Phone SUE VELA Unavailable Unavailable Ciesa, Leila Unavailable Vicente Armando Unavailable Luis Sesay Unavailable Unavailable Keyona Patel Unavailable Unavailable Unavailable Unavailable Buffy Stone Unavailable Unavailable Thalia Silverio Unavailable Unavailable Luis Mariano Unavailable Unavailable Charlesa Sierra GUADALUPE Unavailable Luis Mariano LPN Unavailable Unavailable Thalia Silverio LPN Unavailable Unavailable Unavailable Unavailable Caro Herrmann Unavailable Qamar Mcmullen MD Primary Care Provider Kellie Sierra Unavailable Qamar Mcmullen MD Primary Care Provider Charlesa Sierra Unavailable Tala Garduno LPN Unavailable Unavailable Zunilda Suarez CNP Unavailable Kellie STRESS ANALYST, STRESS ANALYST-C Sierra Primary Care Provider Kellie STRESS ANALYST, STRESS ANALYST-C Sierra Referring Provider Marline STRESS ANALYST, STRESS ANALYST-C Princess Attending Provider Marline STRESS ANALYST, STRESS ANALYST-C Princess Referring Provider Marline STRESS ANALYST, STRESS ANALYST-C Princess Other Provider Dr. Jasper Lindo Attending Provider Kellie Sierra Attending Unavailable eKllie Sierra Consulting Unavailable Lashell Ferreira MA Unavailable Unavailable JEROD Suarez-C Zunilda Primary Care Provider [phone] Marline STRESS ANALYST, STRESS ANALYST-C Princess Attending Provider Marline NEWSOME NP-C Princess Referring Provider Gaetano RAMIRES, Kristy Espinoza Unavailable FADAI Suarez Primary Care Provider AMIRA SuarezC Zunilda Referring Provider Dr. Jasper Lindo Attending Provider Beam STRESS ANALYST-C, Mo Primary Care Provider Beam STRESS ANALYST-C, Mo Attending Provider Zunilda Suarez Primary Care Unavailable Zunilda Suarez Referring Unavailable Marline STRESS ANALYST, Princess Attending Unavailable Beam [facility], Mo Primary Care Unavailable Beam VSMo Curry Attending Unavailable Princess Horan NP Attending Unavailable Princess Horan NP Referring Unavailable Beam VS, Abdoulayenabila Primary Care Unavailable Medications Current Medications Medication Drug Class(es) Dates Sig (Normalized) Sig (Original) albuterol 0.83 mg/ml inhalation solution (20 sources) beta2-Adrenergic Agonist Start: 11-09-2020 End: 12-09-2024 Albuterol Sulfate 90 mcg/actuation HFA aerosol inhaler Active 1 - 2 NMA INHALATION EVERY 4 HOURS NEEDED as needed for Wheezing 19 03December 09, 2024 9:06am Chronic obstructive pulmonary disease Chronic obstructive pulmonary disease, unspecified Start: 11-09-2020 End: 11-27-2023 take 1 puff(s) by inhalation every four hours as needed Albuterol Sulfate Active 1 - 2 PUFF INHALATION EVERY 4 HOURS NEEDED November 27, 2023 8:51am Start: 07-31-2020 take 2 puff(s) by in halation every four hours as needed for wheezing albuterol HFA (VENTOLIN HFA) 90 mcg/actuation inhaler Indications: Chronic obstructive pulmonary disease, unspecified COPD type (HCC) inhale 2 puffs every 4 hours as needed for shortness of breath and wheezing 18 g 5 07/31/2020 Active Start: 11-22-2017 End: 12-09-2024 take 2.5 mg by inhalation every four hours as needed for wheezing Albuterol Sulfate 2.5 mg /3 mL (0.083 %) solution for nebulization Active 2.5 mg INHALATION EVERY 4 HOURS NEEDED as needed for Wheezing 180 3 December 09, 2024 9:06am Chronic obstructive pulmonary disease Chronic obstructive pulmonary disease, unspecified Start: 11-22-2017 End: 11-09-2020 Albuterol Sulfate 1 INHALER inhaler Discontinued 1 - 2 NMA INHALATION EVERY 4 HOURS NEEDED as needed for Wheezing November 22, 2017 1:00am November 09, 2020 10:43am Start: 11-22-2017 End: 11-09-2020 take 1 puff(s) by inhalation every four hours as needed Albuterol Sulfate Discontinued 1 - 2 PUFF INHALATION EVERY 4 HOURS NEEDED November 22, 2017 1:00am November 09, 2020 10:43am Start: 02-17-2017 take 2.5 mg by inhal ation every six hours as needed albuterol (PROVENTIL) 2.5 mg /3 mL (0.083 %) nebulizer solution Use 3 mL via nebulizer every 6 hours as needed for Wheezing/Shortness of Breath (Use over 5 - 15 minutes). 270 mL 3 02/17/2017 Active Comment on above: Use 3 mL via nebuliz er every 6 hours as needed for Wheezing/Shortness of Breath (Use over 5 - 15 minutes). inhale 2 puffs every 4 hours as needed for shortness of breath and wheezing cyclobenzaprine hydrochloride 10 mg oral tablet (8 sources) Muscle Relaxant Start: 2023 take 1 tablet by mouth three times daily as needed for muscle spasms Cyclobenzaprine 10 mg tablet Active 10 mg PO THREE TIMES A DAY as needed for Muscle Spasm 15 0 December 29, 2023 12:00am Start: 04-18-2023 End: 05-19-2023 take 1 tablet by mouth three times daily cyclobenzaprine 10 mg oral tablet 1 Tablet 3 times per day;muscle spasm for 30 days Quantity: 45 {Tablet} Refills: 0 Ordered: 19-Apr-2023 Elaina Carmichael DO Start : 19-Apr-2023 End : 19-May-2023 Inactive 24 hr venlafaxine 150 mg extended release oral capsule (20 sources) Serotonin and Norepinephrine Reuptake Inhibitor Start: 12-19-2019 take 1 capsule by mouth once daily Venlafaxine 150 mg capsule,extended release 24hr Active 150 mg PO DAILY May 29, 2020 12:00am Start: 11-07-2013 End: 05-29-2020 take 150 mg by mouth once daily Effexor Discontinued 150 mg PO DAILY November 07, 2013 1:00am May 29, 2020 8:28am MOOD/ANXIETY Comment on above: Take 1 capsule by mo [facility] once daily. Completed/Discontinued Medications Medication Drug Class(es) Dates Sig (Normalized) Sig (Original) acetaminophen 325 mg / oxyCODONE hydrochloride 5 mg oral tablet (9 sources) Opioid Agonist Start: 12-29-2023 End: 05-14-2024 Oxycodone-Acetaminop hen 5-325 mg tablet Discontinued 1 {tbl} PO EVERY 6 HOURS NEEDED as needed for pain 20 5 0 December 29, 2023 May 14, 2024 1:33pm Cervical radiculopathy Radiculopathy, cervical region Start: 12-29-2023 take 1 tablet by glenn th every six hours as needed Oxycodone-Acetaminophen Active 1 TABLET PO EVERY 6 HOURS NEEDED 20 5 December 29, 2023 Start: 04-29-2023 End: 12-07-2023 Oxycodone-Acetaminophen (Per cocet) 5-325 mg tablet Discontinued 1 {tbl} PO Q8H as needed for pain 10 3 0 April 29, 2023 December 07, 2023 9:01am Contusion of hip Contusion of unspecified hip, initial encounter Start: 06-11-2020 End: 06-17-2020 Oxycodone-Acetaminophen 1 TA BLET tablet Discontinued 1 - 2 {tbl} PO EVERY 4 HOURS NEEDED as needed for Pain 31 03June 11, 2020 June 16, 2020 12:00am June 17, 2020 12:02am Biliary dyskinesia Other specified diseases of gallbladder Start: 06-11-2020 End: 06-17-2020 take 1 tablet by mouth every four hours as needed Oxycodone-Acetaminophen Discontinued 1 - 2 TABLET PO EVERY 4 HOURS NEEDED 31 03June 11, 2020 June 17, 2020 12:02am amitriptyline hydrochloride 10 mg oral tablet (20 sources) Tricyclic Antidepressant Start: 11-22-2017 End: 12-07-2023 take 1 tablet by mouth at bedtime Amitriptyline 10 MG tablet Discontinued 10 mg PO AT BEDTIME November 22, 2017 1:00am December 07, 2023 9:01am Comment on above: Take 1 tablet by glenn th daily at bedtime. azithromycin 250 mg oral tablet (20 sources) Macrolide Antimicrobial Start: 02-17-2023 End: 04-18-2023 Zithromax Z-Rakesh 250 mg oral tablet 1 Packet as directed on dose pack;For 250 mg dose pack: take 500 mg today (day 1), then 250 mg for 4 days (days 2-5) for 0 days Quantity: 1 {Packet} Refills: 0 Ordered: 18-Apr-2023 Tala Garduno LPN Start : 17-Feb-2023 End : 18-Apr-2023 Inactive Start: 01-03-2020 End: 03-31-2020 take 1 tablet by mouth once daily Zithromax Z-Rakesh 250 MG Oral Tablet tad Tablet qd for 0 days Quantity: 1 {Package} Refills: 0 Ordered: 31-Mar-2020 Luis Mariano LPN Start : 03-Jan-2020 End : 31-Mar-2020 Inactive betamethasone 0.5 mg/ml / clotrimazole 10 mg/ml topical cream (3 sources) Azole Antifungal, Corticosteroid Start: 03-25-2019 clotrimazole-betamethasone (LOTRISONE) cream Apply 1 application to affected area twice daily. 15 g 2 03/25/2019 Active Comment on above: Apply 1 application to affected area twice daily. Blood Glucose Monitor System w/Device Kit (14 sources) Start: 06-14-2022 Blood Glucose Monitor System w/Device Kit 1 (one) Kit test bid for 0 days Quantity: 1 Kit Refills: 0 Ordered: 14-Jun-2022 Tala Garduno LPN Start : 14-Jun-2022 Active Comments: E11.9Pt uses One Touch Ultra Comment on above: E11.9Pt uses One Elier ch Ultra Budesonide-Glycopy r-Formoterol (3 sources) Corticosteroid, beta2-Adrenergic Agonist Start: 03-08-2023 End: 12-07-2023 Tammfhbwjp-Tixaaswa-Nsbwfqmf ol (Breztri Aerosphere) 160-9-4.8 mcg/actuation HFA aerosol inhaler Discontinued 2 NMA INHALATION TWICE A DAY 10.7 6 March 08, 2023 12:00am December 07, 2023 9:01am Smoking greater than 30 pack years Nicotine dependence, cigarettes, uncomplicated Start: 03-08-2023 End: 12-07-2023 Nuzgxdwoyn-Xhyucabz-Kvwggetu ol (Breztri Aerosphere) 160-9-4.8 mcg/actuation HFA aerosol inhaler Discontinued 2 INH INHALATION TWICE A DAY 10.March 08, 2023 12:00am December 07, 2023 9:01am Start: 03-08-2023 Budesonide-Gly copyr-Formoterol (Breztri Aerosphere) 160-9-4.8 mcg/actuation HFA aerosol inhaler Active 2 INH INHALATION TWICE A DAY 10.March 08, 2023 12:00am cholecalciferol 1.25 mg oral capsule (3 sources) Vitamin D Start: 07-31-2020 take 1 capsule by mouth every week cholecalciferol, Vitamin D3, (VITAMIN D3) 1,250 mcg (50,000 unit) cap capsule Indications: Vitamin D deficiency Take 1 capsule by mouth one time a week. 12 capsule 3 07/31/2020 Active Comment on above: Take 1 capsule by [facility] one time a week. clobetasol propionate 0.5 mg/ml topical cream (12 sources) Corticosteroid Start: 08-10-2022 clobetasoL 0.05 % topical cream 1 (one) Application twice a day for 0 days Quantity: 60 {Applicator} Refills: 0 Ordered: 10-Aug-2022 Tala Garduno LPN Start : 10-Aug-2022 Active COMPOUNDED PRESCRIPTION (3 sources) Start: 12-12-2017 COMPOUNDED PRESCRIPTION Indications: NHI (obstructive sleep apnea) Mask, filter, tubing for CPAP; use as directed ICD 10: G47.33 1 Device 0 12/12/2017 Active Comment on above: Mask, filter, tubing for CPAP; use as directed ICD 10: G47.33 CPAP (3 sources) Start: 08-21-2017 CPAP Indications: Sleep apnea, unspecified type Use nightly at 10 cm H20 pressure. 1 Device 0 08/21/2017 Active Comment on above: Use nightly at 10 cm H20 pressure. dicyclomine hydrochloride 20 mg oral tablet (4 sources) Anticholinergic Start: 05-15-2014 End: 05-29-2020 take 1 tablet by mouth four times daily as needed for pain Dicyclomine 20 MG tablet Discontinued 20 mg PO 4 TIMES DAILY as needed for Abdominal Pain May 15, 2014 12:50pm May 29, 2020 8:26am DULoxetine 20 mg delayed release oral capsule (20 sources) Serotonin and Norepinephrine Reuptake Inhibitor Start: 02-09-2021 End: 06-03-2022 take 1 capsule by mouth twice daily DULoxetine HCl 20 MG Oral Capsule Delayed Release Particles 1 (one) Capsule bid for 0 days Quantity: 60 {Capsule} Refills: 6 Ordered: 03-Jun-2022 Zunilda Suarez CNP Start : 22-Mar-2021 End : 03-Jun-2022 Inactive ergocalciferol 1.25 mg oral capsule (17 sources) Provitamin D2 Compound Start: 04-18-2023 take 1 capsule by mouth two times weekly ergocalciferol (vitamin D2) 1,250 mcg (50,000 unit) oral capsule 1 (one) Capsule 1 twice weekly for 30 days Quantity: 8 {Capsule} Refills: 3 Ordered: 18-Apr-2023 Zunilda Suarez CNP Start : 18-Apr-2023 Active Start: 07-12-2022 Vitamin D (Erg ocalciferol) 1.25 MG (94255 UT) Oral Capsule 1 (one) Capsule 1 twice weekly for 30 days Quantity: 8 {Capsule} Refills: 3 Ordered: 12-Jul-2022 Tala Garduno LPN Start : 12-Jul-2022 Active Start: 11-22-2017 Ergocalciferol (Vitamin D2) 50,000 UNIT capsule Active 1 {tbl} PO EVERY WEEK November 22, 2017 1:00am Start: 11-22-2017 take 1 tablet by glenn th every week Ergocalciferol (Vitamin D2) Active 1 TABLET PO EVERY WEEK November 22, 2017 1:00am famotidine 40 mg oral tablet (20 sources) Histamine-2 Receptor Antagonist Start: 04-18-2023 take 1 tablet by mouth once daily famotidine 40 mg oral tablet 1 (one) Tablet daily for 0 days Quantity: 90 {Tablet} Refills: 3 Ordered: 18-Apr-2023 Zunilda Suarez CNP Start : 18-Apr-2023 Active Start: 06-07-2022 take 1 tablet by glenn th once daily Famotidine 40 MG Oral Tablet 1 (one) Tablet daily for 0 days Quantity: 90 {Tablet} Refills: 3 Ordered: 07-Jun-2022 Erick JAKEZunilda Start : 07-Jun-2022 Active Start: 03-08-2022 take 1 tablet by glenn th once daily Famotidine 40 MG Oral Tablet 1 (one) Tablet daily for 0 days Quantity: 90 {Tablet} Refills: 0 Ordered: 08-Mar-2022 Kristy Salter MD Start : 08-Mar-2022 Active Start: 12-27-2021 take 1 tablet by glenn th once daily Famotidine 40 MG Oral Tablet 1 (one) Tablet daily for 0 days Quantity: 90 {Tablet} Refills: 0 Ordered: 27-Dec-2021 Elaina Carmichael DO Start : 27-Dec-2021 Active Start: 10-29-2021 take 1 tablet by glenn th once daily Famotidine 40 MG Oral Tablet 1 (one) Tablet daily for 0 days Quantity: 30 {Tablet} Refills: 0 Ordered: 29-Oct-2021 Kellie GUADALUPE Leila Kellie GUADALUPE Sierra Maradiaga Start : 29-Oct-2021 Active Start: 10-07-2021 take 1 tablet by glenn th once daily Famotidine 40 MG Oral Tablet 1 (one) Tablet daily for 0 days Quantity: 30 {Tablet} Refills: 0 Ordered: 07-Oct-2021 Elaina Carmichael DO Start : 07-Oct-2021 Active Start: 11-22-2017 take 1 tablet by glenn th once daily Famotidine 40 MG tablet Active 40 mg PO DAILY November 22, 2017 1:00am REFLUX Comment on above: Take 1 tablet by glenn th once daily. fexofenadine hydrochloride 180 mg oral tablet (7 sources) Histamine-1 Receptor Antagonist Start: 018 End: 020 take 1 tablet by mouth once daily Fexofenadine (Allergy Relief (Fexofenadine)) 180 mg tablet Discontinued 180 mg PO DAILY September 12, 2018 1:00am May 29, 2020 8:26am Comment on above: TAKE 1 TABLET EVERY DAY fluconazole 150 mg oral tablet (14 sources) Azole Antifungal Start: 022 End: 023 Diflucan 150 mg oral tablet 1 (one) Tablet 150mg PO x1, then repeat in 72 hours for 0 days Quantity: 2 {Tablet} Refills: 0 Ordered: 17-Feb-2023 Tala Garduno LPN Start : 03-Jun-2022 End : 17-Feb-2023 Inactive 120 actuat fluticasone propionate 0.22 mg/actuat metered dose inhaler (7 sources) Corticosteroid Start: 020 take 1 puff(s) by inhalation twice daily fluticasone (FLOVENT HFA) 220 mcg/actuation inhaler Indications: Chronic obstructive pulmonary disease, unspecified COPD type (HCC) Inhale 1 Puff as instructed twice daily. 12 g 5 02/20/2020 Active Start: 09-12-2018 End: 10-03-2018 Fluticasone Propionate (Flov ent Hfa) 220 mcg/actuation HFA aerosol inhaler Discontinued 1 NMA INHALATION TWICE A DAY September 12, 2018 1:00am October 03, 2018 8:40am Start: 09-12-2018 End: 10-03-2018 take 1 puff(s) by inhalation twice daily Fluticasone Propionate (Flovent Hfa) 220 mcg/actuation HFA aerosol inhaler Discontinued 1 PUFF INHALATION TWICE A DAY September 12, 2018 1:00am October 03, 2018 8:40am Comment on above: Inhale 1 Puff as ins tructed twice daily. 12 hr guaiFENesin 600 mg extended release oral tablet (20 sources) Start: 0 End: 0 take 1 tablet by mouth every twelve hours Mucinex 600 MG Oral Tablet Extended Release 12 Hour 1 (one) Tablet q12h for 0 days Quantity: 30 {Tablet} Refills: 0 Ordered: 13-Apr-2020 Luis Mariano LPN Start : 11-Dec-2019 End : 13-Apr-2020 Inactive lidocaine 0.05 mg/mg medicated patch (20 sources) Antiarrhythmic, Amide Local Anesthetic Start: 0 End: 1 Lidocaine 5 % External Patch 1 (one) Patch on 12 hrs off 12 hrs for 0 days Quantity: 15 {Patch} Refills: 0 Ordered: 06-Jan-2021 Luis Mariano LPN Start : 27-May-2020 End : 06-Jan-2021 Inactive lisinopril 5 mg oral tablet (7 sources) Angiotensin Converting Enzyme Inhibitor Start: 8 End: 0 take 1 tablet by mouth once daily Lisinopril 5 MG tablet Discontinued 5 mg PO DAILY November 22, 2017 1:00am May 29, 2020 8:26am BP Comment on above: Take 1 tablet by glenn th once daily. metFORMIN hydrochloride 500 mg oral tablet (18 sources) Biguanide Start: 2 take 1 tablet by mouth twice daily metFORMIN HCl 500 MG Oral Tablet 1 (one) Tablet one tab bid for 0 days Quantity: 60 {Tablet} Refills: 3 Ordered: 08-Jun-2022 Tala Garduno LPN Start : 08-Jun-2022 Active Start: 11-07-2013 End: 05-29-2020 take 500 mg by mouth twice daily Metformin HCl Discontinued 500 mg PO TWICE A DAY November 07, 2013 1:00am May 29, 2020 8:26am DIABETES montelukast 10 mg oral tablet (12 sources) Leukotriene Receptor Antagonist Start: 06-30-2020 End: 12-07-2023 take 1 tablet by mouth once daily in the evening Montelukast 10 mg tablet Discontinued 10 mg PO EVERY EVENING 30 May 19, 2022 11:19am December 07, 2023 9:01am Chronic obstructive pulmonary disease Chronic obstructive pulmonary disease, unspecified Start: 09-12-2018 End: 03-31-2020 take 1 tablet by mouth once daily in the evening Montelukast 10 mg tablet Discontinued 10 mg PO EVERY EVENING September 12, 2018 1:00am March 31, 2020 9:17am Nebulizer (3 sources) Start: 03-14-2017 Nebulizer Indications: Chronic obstructive pulmonary disease, unspecified COPD type (HCC) NEBULIZER FOR HOME USE. DX: (J44.9) Chronic obstructive pulmonary disease, unspecified COPD type (HCC) 1 Device 0 03/14/2017 Active Comment on above: NEBULIZER FOR HOME U SE. DX: (J44.9) Chronic obstructive pulmonary disease, unspecified COPD type (HCC) nystatin 100 unt/mg topical ointment (14 sources) Polyene Antifungal Start: 06-03-2022 End: 02-17-2023 nystatin 100,000 unit/gram topical ointment 1 (one) Application apply to affected area twice per day as needed for 0 days Quantity: 30 {Gram} Refills: 2 Ordered: 17-Feb-2023 Tala Garduno LPN Start : 03-Jun-2022 End : 17-Feb-2023 Inactive Comments: Medication taken as needed. biggest tube you have, treating large area Comment on above: Medication taken as needed. biggest tube you have, treating large area ondansetron 4 mg disintegrating oral tablet (4 sources) Serotonin-3 Receptor Antagonist Start: 05-15-2014 End: 09-12-2018 take 1 tablet by mouth every eight hours as needed for nausea Ondansetron 4 MG tablet Discontinued 4 mg PO EVERY 8 HOURS NEEDED as needed for Nausea May 15, 2014 12:00am September 12, 2018 3:46pm predniSONE 20 mg oral tablet (20 sources) Start: 12-29-2023 End: 05-14-2024 take 2 tablets by mouth once daily Prednisone 20 mg tablet Discontinued 40 mg PO DAILY 10 December 29, 2023 12:00am May 14, 2024 1:34pm Start: 12-29-2023 take 40 mg by mouth once daily Prednisone Active 40 MG PO DAILY December 29, 2023 12:00am Start: 05-05-2023 End: 05-14-2023 predniSONE 20 mg oral tablet 1 (one) Tablet as directed for 9 days Quantity: 11 {Tablet} Refills: 0 Ordered: 05-May-2023 Zunilda Suarez CNP Start : 05-May-2023 End : 14-May-2023 Inactive Start: 03-08-2023 End: 12-07-2023 take 3 tablets by mouth once daily at mealtime Prednisone 20 mg tablet Discontinued 60 mg PO daily 15 March 08, 2023 12:00am December 07, 2023 9:02am Smoking greater than 30 pack years Nicotine dependence, cigarettes, uncomplicated administer with food or milk Start: 03-08-2023 End: 12-07-2023 take 60 mg by mouth once daily at mealtime Prednisone Discontinued 60 MG PO daily March 08, 2023 12:00am December 07, 2023 9:02am administer with food or milk Start: 01-03-2020 End: 03-31-2020 predniSONE 10 MG Oral Tablet 1 (one) Tablet 3 daily x 3 days, 2 dailyx 3 days 1 daily x 3 days for 0 days Quantity: 18 {Tablet} Refills: 0 Ordered: 31-Mar-2020 Luis Mariano LPN Start : 03-Jan-2020 End : 31-Mar-2020 Inactive Comments: with food Start: 12-19-2019 End: 12-25-2019 predniSONE 20 MG Oral Tablet 1 (one) Tablet bid for 2 days then one daily for 4days for 6 days Quantity: 8 {Tablet} Refills: 0 Ordered: 19-Dec-2019 Elaina Carmichael DO Start : 19-Dec-2019 End : 25-Dec-2019 Inactive Comment on above: with food pregabalin 50 mg oral capsule (20 sources) Start: 12-11-2019 End: 01-10-2020 take 3 capsules by mouth once daily Lyrica 50 MG Oral Capsule 3 Capsule daily for 30 days Quantity: 90 {Capsule} Refills: 0 Ordered: 20-Jan-2020 Luis Mariano LPN Start : 11-Dec-2019 End : 10-Jan-2020 Inactive Start: 09-12-2018 End: 05-29-2020 take 1 capsule by mouth three times daily Pregabalin (Lyrica) 50 mg capsule Discontinued 50 mg PO THREE TIMES A DAY September 12, 2018 1:00am May 29, 2020 8:26am Start: 11-22-2017 End: 09-12-2018 take 1 capsule by mouth three times daily Pregabalin 150 MG capsule Discontinued 150 mg PO THREE TIMES A DAY November 22, 2017 1:00am September 12, 2018 3:43pm FIBROMYALGIA rOPINIRole 2 mg oral tablet (20 sources) Nonergot Dopamine Agonist Start: 06-03-2022 take 1 tablet by mouth once daily at bedtime rOPINIRole HCl 2 MG Oral Tablet 1 (one) Tablet qhs for 0 days Quantity: 30 {Tablet} Refills: 3 Ordered: 03-Jun-2022 Zunilda Suarez CNP Start : 03-Jun-2022 Active Start: 09-17-2019 take 1 tablet by glenn th once daily at bedtime rOPINIRole HCl 2 MG Oral Tablet 1 (one) Tablet qhs for 0 days Quantity: 30 {Tablet} Refills: 0 Ordered: 07-Oct-2021 Elaina Carmichael DO Start : 07-Oct-2021 Active Start: 05-15-2014 End: 05-19-2022 take 1 tablet by mouth at bedtime Ropinirole 0.5 MG tablet Discontinued 0.5 mg PO AT BEDTIME May 15, 2014 12:00am May 19, 2022 10:57am RESTLESS LEGS Comment on above: Take 1 tablet by glenn th daily at bedtime. rosuvastatin calcium 10 mg oral tablet (20 sources) HMG-CoA Reductase Inhibitor Start: 2 take 1 tablet by mouth once daily at bedtime Rosuvastatin Calcium 10 MG Oral Tablet 1 (one) Tablet qhs for 0 days Quantity: 90 {Tablet} Refills: 3 Ordered: 08-Jun-2022 Erick GUADALUPEZunilda Start : 08-Jun-2022 Active Comments: increased dose Start: 02-09-2021 take 1 tablet by glenn th once daily at bedtime Rosuvastatin Calcium 5 MG Oral Tablet 1 (one) Tablet qhs for 0 days Quantity: 90 {Tablet} Refills: 3 Ordered: 09-Feb-2021 Luis Mariano LPN Start : 09-Feb-2021 Active Start: 02-06-2020 take 1 tablet by glenn th once daily rosuvastatin (CRESTOR) 20 mg tablet Indications: Hyperlipidemia, unspecified hyperlipidemia type Take 1 tablet by mouth once daily. 90 tablet 3 02/06/2020 Active Start: 09-12-2018 End: 05-29-2020 take 1 tablet by mouth once daily Rosuvastatin 10 mg tablet Discontinued 10 mg PO DAILY September 12, 2018 1:00am May 29, 2020 8:27am Comment on above: Take 1 tablet by glenn th once daily. increased dose Spirometers and Accessories gurwinder (3 sources) Start: 03-14-2017 Spirometers and Accessories gurwinder Indications: Chronic obstructive pulmonary disease, unspecified COPD type (HCC) Incentive spirometer. Use hourly as directed. .(J44.9) Chronic obstructive pulmonary disease, unspecified COPD type (HCC) 1 Device 0 03/14/2017 Active Comment on above: Incentive spirometer . Use hourly as directed. .(J44.9) Chronic obstructive pulmonary disease, unspecified COPD type (HCC) sulfamethoxazole 800 mg / trimethoprim 160 mg oral tablet (4 sources) Dihydrofolate Reductase Inhibitor Antibacterial, Sulfonamide Antimicrobial Start: 04-26-2019 End: 05-29-2020 Sulfamethoxazole-Trime thoprim 1 TABLET tablet Discontinued 1 {tbl} PO TWICE A DAY 28 0 April 26, 2019 12:00am May 29, 2020 8:27am Start: 04-26-2019 End: 05-29-2020 take 1 tablet by mouth twice daily Sulfamethoxazole-Trimethoprim Discontinu ed 1 TABLET PO TWICE A DAY April 26, 2019 12:00am May 29, 2020 8:27am traMADol hydrochloride 50 mg oral tablet (2 sources) Opioid Agonist Start: 05-24-2023 take 1 tablet by mouth three times daily traMADoL 50 mg oral tablet 1 Tablet 3 times per day;pain for 0 days Quantity: 30 {Tablet} Refills: 0 Ordered: 24-May-2023 Zunilda Suarez CNP Start : 24-May-2023 Active Start: 05-11-2023 [facility] daily traMADoL 50 mg oral tablet 1 Tablet 3 times per day;pain for 0 days Quantity: 10 {Tablet} Refills: 0 Ordered: 11-May-2023 Kristy Salter MD Start : 11-May-2023 Active Comments: ten Comment on above: ten vitamin e 180 mg oral capsule (20 sources) Start: 12-07-2023 End: 08-16-2024 take 1 capsule by mouth once daily Vitamin E (Dl, Acetate) 180 mg (400 unit) capsule Discontinued mg PO DAILY December 07, 2023 1:00am August 16, 2024 2:49pm Start: 04-18-2023 take 1 capsule by [facility] once daily vitamin E 268 mg (400 unit) oral capsule 1 (one) Capsule daily for 0 days Quantity: 30 {Capsule} Refills: 3 Ordered: 18-Apr-2023 Zunilda Suarez CNP Start : 18-Apr-2023 Active Start: 06-03-2022 take 1 capsule by [facility] once daily Vitamin E Blend 400 UNIT Oral Capsule 1 (one) Capsule daily for 0 days Quantity: 30 {Capsule} Refills: 3 Ordered: 03-Jun-2022 Zunilda Suarez CNP Start : 03-Jun-2022 Active Start: 06-03-2022 take 1 capsule by [facility] once daily Vitamin E Blend 400 UNIT Oral Capsule 1 (one) Capsule daily for 0 days Quantity: 30 {Capsule} Refills: 3 Ordered: 03-Jun-2022 Zunilda Suarez CNP Start : 03-Jun-2022 Active Start: 10-07-2021 take 1 capsule by [facility] once daily Vitamin E Blend 400 UNIT Oral Capsule 1 (one) Capsule daily for 0 days Quantity: 30 {Capsule} Refills: 0 Ordered: 07-Oct-2021 Elaina Carmichael DO Start : 07-Oct-2021 Active Start: 04-13-2020 take 1 capsule by mo [facility] once daily Vitamin E Blend 400 UNIT Oral Capsule 1 (one) Capsule daily for 0 days Quantity: 30 {Capsule} Refills: 0 Ordered: 27-May-2020 Jean Claude Thalia ZAFAR Start : 13-Apr-2020 Active Problems Active Problems Problem Classification Problem Date Documented Date Episodic/Chronic Abdominal pain (20 sources) Abdominal pain; Translations: [Abdominal pain] Resolved: 1 01-03-2020 Episodic Comment on above: rt upper quad rt upper quad has he patomegaly and fatty liver Allergic reactions (20 sources) Contact dermatitis; Translations: [Contact dermatitis] 01-03-2020 Episodic Anxiety disorders (20 sources) Anxiety; Translations: [Anxiety] Onset: 7 01-03-2020 Chronic Comment on above: stressful personal l barbie, daughter on HD and multiple family issues Biliary tract disease (20 sources) Disorder of gallbladder; Translations: [Gallbladder disease] 05-27-2020 Episodic Comment on above: positve HIda scan Chronic obstructive pulmonary disease and bronchiectasis (20 sources) Chronic obstructive pulmonary disease, unspecified; Translations: [Chronic obstructive lung disease] Onset: 8 01-20-2020 Chronic Comment on above: follows with PMW, johnson ving repeat PFTs and walking oximetry due to SOB treat for COPD exace rbationcall monday if not improving. continue to use nebulizer for now.follows with PMW, repeat PFTs and walking oximetry due to SOB-has upcoming f/u with them FEV1 72% Chronic obstructive pulmonary disease and bronchiectasis (20 sources) Bronchitis; Translations: [Bronchitis] Resolved: 3 01-03-2020 Episodic Conditions associated with dizziness or vertigo (20 sources) Dizziness; Translations: [Dizziness] 01-06-2021 Episodic Comment on above: Dizzi with fumbling backward, not orthostatic. Conditions associated with dizziness or vertigo (20 sources) Conditions associated with dizziness or vertigo Diabetes mellitus without complication (20 sources) Type 2 diabetes mellitus; Translations: [Type II diabetes mellitus, well controlled] Onset: 6 03-31-2020 Chronic Comment on above: A1C 06/2022= 6.6%woul d recommend metformin 500mg bidbeen awhile since blood work. Does not watch diet a whole lot. A1C 06/2022= 6.6%star elizabeth metformin 500mg bid in jun 2022, no reported SE, recheck a1c in 3 mobeen awhile since blood work. Does not watch diet a whole lot. Diabetes mellitus without complication (20 sources) Impaired fasting glycemia; Translations: [Impaired fasting glucose] 02-09-2021 Episodic Diabetes mellitus without complication (20 sources) Diabetes mellitus without complication Disorders of lipid metabolism (20 sources) Hypercholesterolemia; Translations: [Hypercholesteremia] Onset: 7 02-09-2021 Chronic Comment on above: stay on rosuvastatin stay on rosuvastatin , increased in Jun 2022 and rechecking levels in September 2022 E Codes: Fall (3 sources) Fall; Translations: [Unspecified fall, initial encounter] 04-29-2023 Episodic Esophageal disorders (20 sources) Gastroesophageal reflux disease; Translations: [GERD (gastroesophageal reflux disease)] 01-03-2020 Chronic Comment on above: says she didn't rece nichole the refill on famotidine yet, we will call since we have sent it twice. Genitourinary symptoms and ill-defined conditions (20 sources) Urinary symptoms ; Translations: [UTI symptoms] 06-08-2022 Episodic Comment on above: has excoriation only on R lisa-area/vulva, around anus. going to try diflucan and topical nystatin Malaise and fatigue (20 sources) Fatigue; Translations: [Fatigue] 08-10-2022 Episodic Mood disorders (20 sources) Depression; Translations: [Depressive disorder] Onset: 7 03-31-2020 Chronic Comment on above: stable on duloxetine stable on venlafaxin e, amitriptyline Mycoses (20 sources) Candidiasis of vulva; Translations: [Candidiasis of vulva] 06-08-2022 Episodic Nutritional deficiencies (20 sources) Vitamin D deficiency; Translations: [Vitamin D deficiency, unspecified] Onset: 6 Chronic Osteoporosis (20 sources) Osteoporosis; Translations: [Osteoporosis] 01-03-2020 Chronic Other connective tissue disease (20 sources) Primary fibromyalgia syndrome; Translations: [Fibromyalgia] Onset: 7 01-20-2020 Episodic Other connective tissue disease (20 sources) Pain in right hand; Translations: [Right hand pain] Resolved: 1 01-06-2021 Episodic Comment on above: CTS release Oc 2012, Did OT and given HEPsaw DR. Schaeffer for RAHas multifocal erosive arthritis per Dr. Chica Mathur Has been on hydroxychloroquin 200mg bid in past MRI with erosion with edema in thelunate capitate consistent with Rhumatoid Other connective tissue disease (4 sources) Trigger thumb of left hand; Translations: [Trigger thumb, left thumb] 04-26-2019 Episodic Other female genital disorders (20 sources) Leukoplakia of vulva; Translations: [Lichen sclerosus of vulva] 08-10-2022 Episodic Other gastrointestinal disorders (20 sources) Alteration in bowel elimination; Translations: [Change in stool habits] 01-03-2020 Episodic Comment on above: ? unable to push and constipate ? unable to push and constipate, needs diagnostic colonoscopy Other gastrointestinal disorders (4 sources) Constipation; Translations: [Constipation, unspecified] 03-29-2021 Episodic Other gastrointestinal disorders (20 sources) Altered bowel function; Translations: [Change in stool habits] 02-17-2023 Episodic Comment on above: ? unable to push and constipate, needs diagnostic colonoscopy Other hereditary and degenerative nervous system conditions (20 sources) Restless legs; Translations: [Restless legs] 01-20-2020 Chronic Other inflammatory condition of skin (20 sources) Psoriasis; Translations: [Psoriasis] 06-08-2022 Chronic Other liver diseases (20 sources) Fatty liver; Translations: [Steatosis of liver] 04-13-2020 Chronic Comment on above: has been working on diet, cleaning up a bit. was 220#, now 197# Other lower respiratory disease (20 sources) Cough; Translations: [Cough] Resolved: 3 01-03-2020 Episodic Other lower respiratory disease (4 sources) Dyspnea; Translations: [Dyspnea, unspecified] 10-03-2018 Episodic Other nervous system disorders (2 sources) Carpal tunnel syndrome; Translations: [Carpal tunnel syndrome, left upper limb] 04-26-2019 Chronic Other nervous system disorders (2 sources) Carpal tunnel syndrome of left wrist; Translations: [Carpal tunnel syndrome, left upper limb] 04-26-2019 Chronic Other non-traumatic joint disorders (12 sources) Pain in right hip joint; Translations: [Right hip pain] 04-18-2023 Episodic Other nutritional; endocrine; and metabolic disorders (20 sources) Body mass index 30+ - obesity; Translations: [BMI 36.0-36.9,adult] Resolved: 2 03-31-2020 Chronic Other upper respiratory disease (20 sources) Congestion of nasal sinus; Translations: [Sinus congestion] 01-03-2020 Episodic Other upper respiratory infections (14 sources) Sore throat symptom; Translations: [Sore throat] 02-17-2023 Episodic Comment on above: rapid flu, covid, st rep all neg Residual codes; unclassified (5 sources) Tobacco user; Translations: [Tobacco use] 01-20-2020 Chronic Residual codes; unclassified (20 sources) Obstructive sleep apnea syndrome; Translations: [NHI (obstructive sleep apnea)] Onset: 6 01-20-2020 Chronic Comment on above: compliant with cpap, follows with Dr. Lindo CPAP 13 cmH2O Residual codes; unclassified (3 sources) Periodic limb movement disorder; Translations: [Periodic limb movement disorder] Onset: 8 10-25-2017 Chronic Residual codes; unclassified (3 sources) Obstructive sleep apnea (adult) (pediatric); Translations: [Obstructive sleep apnea (adult)(pediatric)] Chronic Residual codes; unclassified (11 sources) History of total hysterectomy; Translations: [History of total abdominal hysterectomy] 01-20-2020 Episodic Residual codes; unclassified (20 sources) Tobacco use; Translations: [Tobacco use and exposure - finding] 01-06-2021 Episodic Residual codes; unclassified (7 sources) Tobacco user; Translations: [Tobacco use] Onset: 7 08-21-2017 Episodic Residual codes; unclassified (4 sources) Family history of cancer of colon; Translations: [Family history of malignant neoplasm of digestive organs] 03-29-2021 Episodic Rheumatoid arthritis and related disease (20 sources) Rheumatoid arthritis; Translations: [Rheumatoid arthritis] 01-20-2020 Chronic Screening and history of mental health and substance abuse codes (6 sources) Tobacco use and exposure - finding; Translations: [Tobacco use] 01-20-2020 Chronic Spondylosis; intervertebral disc disorders; other back problems (20 sources) Sciatica; Translations: [Sciatica] 01-03-2020 Episodic Comment on above: rest, ice, handout g iven. toradol inj today and education provided. no steroids for now d/t diabetes. she has not been seen for f/u in quite some time. make appthad lumbar xray in past. started new exercises now in pain Substance-related disorders (20 sources) Smoker; Translations: [Smoker] Onset: 5 01-03-2020 Chronic Comment on above: cut down to about 10 /day as of 02/17/23. lots of stress in the home. daughter correction, also caring for her spouse strong smell of ciga rettes todaycut down to about 10/day as of 02/17/23. lots of stress in the home. daughter correction, also caring for her spouse Superficial injury; contusion (6 sources) Contusion of hip; Translations: [Contusion of unspecified hip, initial encounter] 04-29-2023 Episodic Unclassified (2 sources) Periodic limb movement disorder; Translations: [Obstructive sleep apnea (adult) (pediatric)] Onset: 6 Chronic Unclassified (20 sources) Right hand pain Unclassified (20 sources) Unclassified (20 sources) BMI 37.0-37.9, adult Unclassified (20 sources) Change in stool habits Unclassified (20 sources) NHI (obstructive sleep apnea) Unclassified (20 sources) History of total abdominal hysterectomy Unclassified (20 sources) BMI 36.0-36.9,adult Unclassified (16 sources) Hypercholesteremia Unclassified (6 sources) BMI 35.0-35.9,adult Urinary tract infections (4 sources) Pyelonephritis; Translations: [Tubulo-interstitial nephritis, not specified as acute or chronic] 04-27-2019 Episodic Urinary tract infections (14 sources) Urinary tract infections Past or Other Problems Problem Classification Problem Date Documented Date Episodic/Chronic Chronic obstructive pulmonary disease and bronchiectasis (20 sources) Chronic obstructive pulmonary disease and bronchiectasis Other connective tissue disease (11 sources) Pain in right hand; Translations: [Right hand pain] 01-20-2020 Comment on above: CTS release Oc 2012, Did OT and given HEPsaw DR. Schaeffer for RAHas multifocal erosive arthritis per Dr. Chica Mathur Has been on hydroxychloroquin 200mg bid in past MRI with erosion with edema in thelunate capitate consistent with Rhumatoid Other upper respiratory disease (3 sources) Deviated nasal septum; Translations: [Deviated nasal septum] Onset: 10-25-2017 10-25-2017 Episodic Other upper respiratory disease (3 sources) Nasal congestion; Translations: [Nasal congestion] Onset: 10-25-2017 10-25-2017 Episodic Unclassified (20 sources) Deliveries (Parity); Translations: [Deliveries (Parity)] 01-03-2020 Comment on above: 4 Unclassified (20 sources) Abortions/Miscarriages; Translations: [Abortions/Miscarriages ] 01-03-2020 Comment on above: 1 Unclassified (20 sources) Pregnancies (); Translations: [Pregnancies ()] 01-03-2020 Comment on above: 5 Unclassified (19 sources) Gallbladder disease Results Test Name Value Interpretation Reference Range Facility Absolute lymphocyte countOrd ered By: Mo Tim on 04-21-2025 Lymphocytes Auto (Unsp spec) [#/Vol] 3.20 10*3/uL 0.83-4.51 [facility] Absolute neutrophil countOrd ered By: Mo Tim on 04-21-2025 Neutrophils (Bld) [#/Vol] 6.5 10*3/uL 2.0-7.7 [facility] Anion gap in Serum or Plasma Ordered By: Mo Tim on 04-21-2025 Anion gap [Moles/Vol] 11 mmol/L 5-15 [facility] Automated lymphocyte count a s percentage of total leukocytesOrdered By: Mo Tim on 04-21-2025 Lymphocytes/100 WBC Auto (Unsp spec) 29.9 % - [facility] BUN/creatinine ratioOrdered By: Mo Tim on 04-21-2025 Urea nitrogen/Creatinine [Mass ratio] 11.4 mg/mg 10-20 [facility] Basophil percentageOrdered B y: Mo Tim on 04-21-2025 Basophils/100 WBC (Bld) 0.7 % 0-1 [facility] Bilirubin, totalOrdered By: Mo Tim on 04-21-2025 Bilirubin [Mass/Vol] 0.26 mg/dL 0.00-1.30 [facility] CBC W/Diff, Automatedon 04-02 Absolute Lymph 3.20 X10 3/uL Normal 0.83-4.51 [facility] Comment on above: Performed By: #### L [id number], [id number], L100.0100 #### [facility] [address] [place], [address] Absolute Neut 6.5 X10 3/uL Normal 2.0-7.7 [facility] Comment on above: Performed By: #### L [id number], [id number], L100.0100 #### [facility] [address] [place], [address] Basophils/100 WBC (Bld) 0.7 % Normal 0-[address] [facility] Comment on above: Performed By: #### L [id number], [id number], L100.0100 #### [facility] [address] [place], [address] Eosinophils/100 WBC (Bld) 1.7 % Normal 0-5 [facility] Comment on above: Performed By: #### L [id number], [id number], L100.0100 #### [facility] [address] [place], [address] Erythrocyte distribution width (RBC) [Ratio] 13.3 % Normal 11.6-14.6 [facility] Comment on above: Performed By: #### L [id number], [id number], L100.0100 #### [facility] [address] [place], [address] Hematocrit (Bld) [Volume fraction] 37.3 % Normal 37-47 [facility] Comment on above: Performed By: #### L [id number], [id number], L100.0100 #### [facility] [address] [place], [address] Hemoglobin (Bld) [Mass/Vol] 12.5 g/dL Normal 12.0-15.0 [facility] Comment on above: Performed By: #### L [id number], [id number], L100.0100 #### [facility] [address] [place], [address] IG% 0.400 Normal 0.0-0.9 [facility] Comment on above: Result Comment: IG% - Immature Granulocytes (promyelocytes, myelocytes and metamyelocytes) > 1% indicates that a LEFT SHIFT is Present. Performed By: #### L [id number], [id number], L100.0100 #### [facility] [address] [place], [address] Lymphocytes/100 WBC (Bld) 29.9 % Normal 19-41 [facility] Comment on above: Performed By: #### L [id number], [id number], L100.0100 #### [facility] [address] [place], [address] MCH (RBC) [Entitic mass] 32.2 pg High 27.0-32.0 [facility] Comment on above: Performed By: #### L [id number], [id number], L100.0100 #### [facility] [address] [place], [address] MCHC (RBC) [Mass/Vol] 33.5 g/dL Normal 32-36 [facility] Comment on above: Performed By: #### L [id number], [id number], L100.0100 #### [facility] [address] [place], [address] MCV (RBC) [Entitic vol] 96.1 fL Normal 81-[address] [facility] Comment on above: Performed By: #### L [id number], [id number], L100.0100 #### [facility] [address] [place], [address] Monocytes/100 WBC (Bld) 7.1 % Normal 0-10 [facility] Comment on above: Performed By: #### L [id number], [id number], L100.0100 #### [facility] [address] [place], [address] Neutrophils/100 WBC (Bld) 60.2 % Normal 47-70 [facility] Comment on above: Performed By: #### L [id number], [id number], L100.0100 #### [facility] [address] [place], [address] Nucleated RBC (Bld) [#/Vol] 0 10*3/uL Normal 0-5 [facility] Comment on above: Performed By: #### L [id number], [id number], L100.0100 #### [facility] [address] [place], [address] Platelet mean volume (Bld) [Entitic vol] 8.5 fL Normal 6.2-12.0 [facility] Comment on above: Performed By: #### L [id number], [id number], L100.0100 #### [facility] [address] [place], [address] Platelets (Bld) [#/Vol] 383 10*3/uL Normal 150-450 [facility] Comment on above: Performed By: #### L [id number], [id number], L100.0100 #### [facility] [address] [place], [address] RBC (Bld) [#/Vol] 3.88 10*6/uL Low 4.2-5.4 [facility] Comment on above: Performed By: #### L [id number], [id number], L100.0100 #### [facility] [address] [place], [address] RDW SD 47.0 fl High 35.1-43.9 [facility] Comment on above: Performed By: #### L [id number], [id number], L100.0100 #### [facility] [address] [place], [address] WBC (Bld) [#/Vol] 10.7 10*3/uL Normal 4.4-11.0 [facility] Comment on above: Performed By: #### L [id number], [id number], L100.0100 #### [facility] [address] [place], [address] Carbon dioxide, total [Moles /volume] in Central venous bloodOrdered By: Mo Tim on 04-21-2025 CO2 [Moles/Vol] 25.0 mmol/L 21.0-32.0 [facility] Chloride assayOrdered By: Abdoulaye Tim on 04-21-2025 Chloride [Moles/Vol] 102 mmol/L 98-108 [facility] Comprehensive Metabolic Prof ilon 04-21-2025 Albumin [Mass/Vol] 4.1 g/dL Normal 3.4-4.[address] [facility] Comment on above: Performed By: #### L [id number], [id number], L100.0100 #### [facility] [address] [place], [address] Albumin/Globulin [Mass ratio] 1.2 {ratio} Normal 0.9-2.4 [facility] Comment on above: Performed By: #### L [id number], [id number], L100.0100 #### [facility] [address] [place], [address] ALK PHOS 89 U/L Normal 35-104 [facility] Comment on above: Performed By: #### L [id number], [id number], L100.0100 #### [facility] [address] [place], [address] ALT [Catalytic activity/Vol] 13 U/L Normal <=34 [facility] Comment on above: Performed By: #### L [id number], [id number], L100.0100 #### [facility] [address] [place], [address] AST [Catalytic activity/Vol] 20 U/L Normal <=31 [facility] Comment on above: Performed By: #### L [id number], [id number], L100.0100 #### [facility] [address] [place], [address] Bilirubin [Mass/Vol] 0.26 mg/dL Normal 0.00-1.30 [facility] Comment on above: Performed By: #### L [id number], [id number], L100.0100 #### [facility] [address] [place], [address] BUN/CRE 11.4 RATIO Normal 10-20 [facility] Comment on above: Performed By: #### L [id number], [id number], L100.0100 #### [facility] [address] [place], [address] Calcium [Mass/Vol] 9.3 mg/dL Normal 7.6-11.[address] [facility] Comment on above: Performed By: #### L [id number], [id number], L100.0100 #### [facility] [address] [place], [address] Chloride [Moles/Vol] 102 mmol/L Normal 98-108 [facility] Comment on above: Performed By: #### L [id number], [id number], L100.0100 #### [facility] [address] [place], [address] CO2 [Moles/Vol] 25.0 mmol/L Normal 21.0-32.0 [facility] Comment on above: Performed By: #### L [id number], [id number], L100.0100 #### [facility] [address] [place], [address] Creatinine [Mass/Vol] 1.13 mg/dL Normal 0.70-1.20 [facility] Comment on above: Performed By: #### L [id number], [id number], L100.0100 #### [facility] [address] [place], [address] GAP 11 Normal 5-15 [facility] Comment on above: Performed By: #### L [id number], [id number], L100.0100 #### [facility] [address] [place], [address] GFR/1.73 sq M.predicted among non-blacks MDRD (S/P/Bld) [Vol rate/Area] 53 mL/min/{1.73_m2} Low >60 [facility] Comment on above: Result Comment: mL/m in/1.73m2 CKD-EPI Creatinine Equation (2020) Performed By: #### L [id number], [id number], L100.0100 #### [facility] [address] [place], [address] Globulin (S) [Mass/Vol] 3.5 g/dL Normal 2.2-4.2 [facility] Comment on above: Performed By: #### L [id number], [id number], L100.0100 #### [facility] [address] [place], [address] Glucose [Mass/Vol] 132 mg/dL High 70-[address] [facility] Comment on above: Performed By: #### L [id number], [id number], L100.0100 #### [facility] [address] [place], [address] Potassium [Moles/Vol] 4.7 mmol/L Normal 3.3-5.1 [facility] Comment on above: Performed By: #### L [id number], [id number], L100.0100 #### [facility] [address] [place], [address] Sodium [Moles/Vol] 137 mmol/L Normal 133-[address] [facility] Comment on above: Performed By: #### L [id number], [id number], L100.0100 #### [facility] [address] [place], [address] T PROT 7.6 g/dL Normal 5.9-8.4 [facility] Comment on above: Performed By: #### L [id number], [id number], L100.0100 #### [facility] [address] [place], [address] Urea nitrogen [Mass/Vol] 13 mg/dL Normal 4-19 [facility] Comment on above: Performed By: #### L [id number], [id number], L100.0100 #### [facility] [address] [place], [address] Eosinophil percentageOrdered By: Mo Tim on 04-21-2025 Eosinophils/100 WBC (Bld) 1.7 % 0-5 [facility] Erythrocyte distribution wid th ratioOrdered By: Abdoulaeybujuann Beam on 04-21-2025 Erythrocyte distribution width (RBC) [Ratio] 13.3 % 11.6-14.6 [facility] Erythrocyte distribution wid th standard deviationOrdered By: Mo Tim on 04-21-2025 Erythrocyte distribution width (RBC) [Ratio] 47.0 fl High 35.1-43.9 [facility] Glomerular filtration rate ( GFR) estimation/1.73 sq m using serum, plasma, or whole bOrdered By: Mo Tim on 04-21-2025 GFR/1.73 sq M.predicted among non-blacks MDRD (S/P/Bld) [Vol rate/Area] 53 mL/min/{1.73_m2} Low >60 [facility] Comment on above: mL/min/1.73m2 CKD-EP I Creatinine Equation (2020) Hematocrit Auto (Bld) [Volum e fraction]Ordered By: Jacquelinelaurita Tim on 04-21-2025 Hematocrit (Bld) [Volume fraction] 37.3 % 37-47 [facility] Hemoglobin measurementOrdere d By: Jacquelinelaurita Tim on 04-21-2025 Hemoglobin (Bld) [Mass/Vol] 12.5 g/dL 12.0-15.0 [facility] Immature granulocytes/100 WB C Auto (Bld)Ordered By: Mo Tim on 04-21-2025 Immature granulocytes/100 WBC (Bld) 0.400 % 0.0-0.9 [facility] Comment on above: IG% - Immature Granu locytes (promyelocytes, myelocytes and metamyelocytes) > 1% indicates that a LEFT SHIFT is Present. Laboratory - Chemistry and C hemistry - challengeOrdered By: Mo Tim on 04-21-2025 AST [Catalytic activity/Vol] 20 U/L <32 [facility] MCV (mean corpuscular volume ) determinationOrdered By: radhalaurita Tim on 04-21-2025 MCV (RBC) [Entitic vol] 96.1 fL 81-[address] [facility] Mean corpuscular hemoglobin (MCH) determinationOrdered By: [facility] [place] on 04-21-2025 MCH (RBC) [Entitic mass] 32.2 pg High 27.0-32.0 [facility] Mean corpuscular hemoglobin concentration (MCHC) determinationOrdered By: [facility] [place] on 04-21-2025 MCHC (RBC) [Mass/Vol] 33.5 g/dL 32-36 [facility] Mean platelet volume determi nationOrdered By: Mo Tim on 04-21-2025 Platelet mean volume (Bld) [Entitic vol] 8.5 fL 6.2-12.0 [facility] Monocyte percentageOrdered B y: Mo Tim on 04-21-2025 Monocytes/100 WBC (Bld) 7.1 % 0-[address] [facility] Neutrophil percentageOrdered By: Zehubert Beam on 04-21-2025 Neutrophils/100 WBC (Bld) 60.2 % 47-70 [facility] Nucleated red blood cell per centageOrdered By: Mo Tim on 04-21-2025 Nucleated RBC/100 WBC (Bld) [Ratio] 0 % 0-5 [facility] Platelet countOrdered By: Abdoulaye Tim on 04-21-2025 Platelets (Bld) [#/Vol] 383 10*3/uL 150-450 [facility] Potassium measurement (mass/ volume)Ordered By: Mo Tim on 04-21-2025 Potassium (Unsp spec) [Mass/Vol] 4.7 mmol/L 3.3-5.1 [facility] RBC Auto (Bld) [#/Vol]Ordere d By: Mo Tim on 04-21-2025 RBC (Bld) [#/Vol] 3.88 10*6/uL Low 4.2-5.4 [facility] Serum creatinine measurement (mass/volume)Ordered By: Mo Tim on 04-21-2025 Creatinine [Mass/Vol] 1.13 mg/dL 0.70-1.20 [facility] Serum globulin measurementOr dered By: Mo Tim on 04-21-2025 Globulin (S) [Mass/Vol] 3.5 g/dL 2.2-4.[address] [facility] Serum glucose measurement (m ass/volume)Ordered By: Mo Tim on 04-21-2025 Glucose [Mass/Vol] 132 mg/dL High 70-[address] [facility] Serum or plasma alanine barillas otransferase (ALT) measurementOrdered By: Mo Tim on 04-21-2025 ALT [Catalytic activity/Vol] 13 U/L <35 [facility] Serum or plasma albumin douglas urement (mass/volume)Ordered By: Mo Tim on 04-21-2025 Albumin [Mass/Vol] 4.1 g/dL 3.4-4.[address] [facility] Serum or plasma albumin/glob ulin mass ratioOrdered By: Mo Tim on 04-21-2025 Albumin/Globulin [Mass ratio] 1.2 {ratio} 0.9-2.4 [facility] Serum or plasma alkaline matti sphatase measurementOrdered By: Mo Tim on 04-21-2025 ALP [Catalytic activity/Vol] 89 U/L 35-104 [facility] Serum or plasma calcium douglas urement (mass/volume)Ordered By: Mo Tim on 04-21-2025 Calcium [Mass/Vol] 9.3 mg/dL 7.6-11.[address] [facility] Serum or plasma urea nitroge n measurement (mass/volume)Ordered By: Mo Tim on 04-21-2025 Urea nitrogen [Mass/Vol] 13 mg/dL 4-19 [facility] Sodium levelOrdered By: Jacqueline Tim on 04-21-2025 Sodium [Moles/Vol] 137 mmol/L 133-[address] [facility] TSH DL <= 0.005 mIU/L QnOrde red By: Mo Tim on 04-21-2025 TSH Qn 3.310 uIU/mL 0.300-4.200 [facility] Thyroid Stim Hormone (TSH)on 04-21-2025 TSH 3.310 uIU/mL Normal 0.300-4.200 [facility] Comment on above: Performed By: #### L 501.9520, L500.4050, L100.0100 #### [facility] Laboratory [facility] [place], [address] Total proteinOrdered By: Merlin Tim on 04-21-2025 Protein [Mass/Vol] 7.6 g/dL 5.9-8.[address] [facility] White blood cell (WBC) count Ordered By: Mo Tim on 04-21-2025 WBC (Bld) [#/Vol] 10.7 10*3/uL 4.4-11.0 [facility] Pulmonary Visit Reporton Pulmonary Visit Report [facility] 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 No change in therapies. The patient does not require a daily maintenance inhaler is necessary at this point. (2) Smoking greater than 30 pack years: Status: Chronic Plan: Encourage complete smoking cessation. The patient remains appropriate for LDCT which she is due in November 2024, ordered accordingly. Follow-up in November 2024 to discuss test results. (3) NHI (obstructive sleep apnea): Status: Chronic Comment: CPAP 13 cmH2O Plan: She is using and benefiting from Pap therapy. No indication for titration study at this time. Her continued fatigue is likely from her fibromyalgia or depression. 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 Contact the office for any new or worsening symptoms in the meantime. Follow-up in late November. (4) Hyperlipemia: Status: Chronic Qualifiers: Hyperlipidemia type: unspecified Qualified Code(s): E78.5 - Hyperlipidemia, unspecified Plan: She would like to establish with a new primary care provider. Referral placed for Dr. Arreola. Orders: Referrals Internal Medicine E78.5 - Hyperlipidemia, unspecified Plan Details Follow Up: 11/30/24 ([facility] HPI 3 M FU Chief Complaint: tired HPI Comments Details: This patient presents to the office today for follow-up of her asthma/COPD overlap syndrome with pulmonary hypertension and obstructive sleep apnea. She is ambulatory and currently on room air. She is accompanied today by her . She has not recently been seen in the ED or urgent care for any respiratory illness. She has not required any antibiotics or prednisone for any breathing problems. She is not currently on any maintenance inhalers. She does routinely use albuterol or DuoNebs 1-2 times daily. She does have shortness of breath on exertion. She reports a daily cough productive of clear- colored sputum but denies any hemoptysis. She denies any wheezing, chest tightness, chest pain or palpitations. She has not had any fever, chills or body aches The patient does report she continues to feel tired even though she is compliant with PAP therapy. She admits to napping daily with the use of her Pap device. She is not having difficulty with dry mouth. She denies morning headaches. She continues to smoke cigarettes. She is currently smoking over a 1.5 packs per day. Compliance report from the last 30 days shows 100% compliance with an average use of 11 hours and 23 minutes per night. Current setting is CPAP 13 cmH2O with residual AHI of 1.7 event per hour. Leaks do not appear to be problematic. Intake Vital Signs 05/14/24 08:29 08/16/24 07:35 Height 5 ft 2 in 5 ft 2 in Weight: 180 lb 184 lb BMI 32.9 33.6 BP 115/67 112/71 Blood Pressure Location Lt brachial Lt brachial Position Sitting Sitting Respiration 20 H 20 H Pulse 88 107 H Pulse Source Monitor Monitor Temp 95.8 F L 97.7 F L Temperature Source Temporal Artery Temporal Artery Pulse Oximetry (%) 96 96 Oxygen Delivery Method room air room air Intake Visit Reasons: 3 M FU Chief Complaint: abn hida/ RUQ pain Box Cutter Required: No DME Vendor: Oliver Accompanied by: Self Allergies No Known Allergies Allergy (Verified 08/16/24 13:48) Medications ???Medication ???Instructions ???Recorded ???Confirmed ???Type ergocalciferol (vitamin D2) 1,250 1 tab PO QWEEK 11/22/17 08/16/24 History mcg (50,000 unit) capsule famotidine 40 mg tablet 40 mg PO DAILY REFLUX 11/22/17 08/16/24 History venlafaxine 150 mg 150 mg PO DAILY 05/29/20 08/16/24 History capsule,extended release 24 hr albuterol sulfate 90 mcg/actuation 1 - 2 puff inhalation Q4H PRN PRN 11/27/23 08/16/24 Rx aerosol inhaler Wheezing #18 grams cyclobenzaprine 10 mg tablet 10 mg PO TID PRN Muscle Spasm #15 12/29/23 08/16/24 Rx TABLETS albuterol sulfate 2.5 mg/3 mL 2.5 mg (3 mL) inhalation Q4H PRN 06/25/24 08/16/24 Rx (0.083 %) solution for nebulization PRN Wheezing #180 mL Have you fallen in the past year?: Yes PFSH Medical History Wears dentures Wears glasses Anxiety Arthritis High cholesterol Injury of head and neck Gastric reflux Smoker CPAP (continuous positive airway pressure) dependence Sleep apnea Shortness of breath on exertion COPD (chronic obstructive (more content not included)... Normal [facility] COVID 19 (ONLY) RAPID ([id number] )Ordered By: Tala Garduno on 02-17-2023 SARS-CoV-2 (COVID-19) RNA VIVI+probe Ql (Unsp spec) Negative Normal [facility]; [facility] Work Phone: Inhouse FLU A+B DIRECT AG, ( RAPID) ([id number])Ordered By: Tala Garduno on 02-17-2023 FLUAV+FLUBV Ag Ql (Unsp spec) Negative Normal [facility]; [facility] Work Phone: Rapid Strep Test, Office ([phone])Ordered By: Tala Garduno on 02-17-2023 S. pyogenes Ag EIA Ql (Throat) Negative Normal [facility]; [facility] Work Phone: THROAT CULTURE ([phone])Ordere d By: Substation Operator Apprentice on 02-17-2023 Bacteria identified Respiratory culture Nom (Unsp spec) Final report Normal [facility]; [facility] Work Phone: Comment on above: PERFORMED BY: [employer] Rnzsee1509 [facility] [id number] Information: SRC:TH Bacteria identified Respiratory culture Nom (Unsp spec) RRF Normal [facility]; [facility] Work Phone: Comment on above: Routine respiratory sasha PERFORMED BY: [employer]6370 RxVantageNorth [facility] Hospital [id number] Information: SRC:TH CALCIFEDIOL ([id number])Ordered B y: Substation Operator Apprentice on 07-11-2022 25-hydroxyvitamin D [Mass/Vol] 27.4 ng/mL Abnormal 30.0-100.0 [facility]; [facility] Work Phone: Comment on above: Vitamin D deficiency has been defined by the [place] ofMedicine and an Endocrine Society practice guideline as alevel of serum 25-OH vitamin D less than 20 ng/mL (1,2).The Endocrine Society went on to further define vitamin Dinsufficiency as a level between 21 and 29 ng/mL (2).1. IOM ([place] of Medicine). 2010. Dietary reference intakes for calcium and D. Marie [place]: The National Academies Press.2. Debbi MF, Ashley [place], Sara JOHNSON, et al. Evaluation, treatment, and prevention of vitamin D deficiency: an Endocrine Society clinical practice guideline. JCEM. 2010; 96(7):1911-30. PATIENT NOT FASTINGP ERFORMED BY: L[employer]i6370 RxVantageblin [place] [id number] CBC, Platelets & Auto Diff ( [id number])Ordered By: Substation Operator Apprentice on 06-03-2022 Basophils (Bld) [#/Vol] 0.1 10*3/uL Normal 0.0-0.2 [facility]; [facility] Work Phone: Comment on above: PATIENT WAS FASTINGP ERFORMED BY: [employer]6370 RxVantagein [place] [id number] Basophils/100 WBC (Bld) 1 % Normal C omprehensive [facility]; [facility] Work Phone: Comment on above: PATIENT WAS FASTINGP ERFORMED BY: L[employer]6370 RxVantageblin [place] [id number] Eosinophils (Bld) [#/Vol] 0.1 10*3/uL Normal 0.0-0.4 [facility]; [facility] Work Phone: Comment on above: PATIENT WAS FASTINGP ERFORMED BY: [facility] Nbdgrd04[address] RoadAtrium Health Huntersvillein [place] [id number] Eosinophils/100 WBC (Bld) 1 % Normal [facility]; [facility] Work Phone: Comment on above: PATIENT WAS FASTINGP ERFORMED BY: [facility] Dfvphr[address] [facility] [place] [id number] Erythrocyte distribution width (RBC) [Ratio] 13.2 % Normal 11.7-15.4 [facility]; [facility] Work Phone: Comment on above: PATIENT WAS FASTINGP ERFORMED BY: [facility]6370 [address] RoadAngel Medical Center [id number] Hematocrit (Bld) [Volume fraction] 39.0 % Normal 34.0-46.6 [facility]; [facility] Work Phone: Comment on above: PATIENT WAS FASTINGP ERFORMED BY: [facility] [facility] [id number] Hemoglobin (Bld) [Mass/Vol] 13.5 g/dL Normal 11.1-15.9 [facility]; [facility] Work Phone: Comment on above: PATIENT WAS FASTINGP ERFORMED BY: [facility] Kzsvdf[address] [facility] [place] [id number] Immature granulocytes (Bld) [#/Vol] 0.0 10*3/uL Normal 0.0-0.1 [facility]; [facility] Work Phone: Comment on above: PATIENT WAS FASTINGP ERFORMED BY: [facility] Mvboxn9975 [address] RoadAtrium Health Huntersvillein [place] [id number] Immature granulocytes/100 WBC (Bld) 0 % Normal [facility]; [facility] Work Phone: Comment on above: PATIENT WAS FASTINGP ERFORMED BY: Lab[facility]6370 Cort[address] Roadblin [place] [id number] Lymphocytes (Bld) [#/Vol] 3.0 10*3/uL Normal 0.7-3.1 [facility]; [facility] Work Phone: Comment on above: PATIENT WAS FASTINGP ERFORMED BY: CB [facility] Pkcaby3179 [address] RoadDublin [place] [id number] Lymphocytes/100 WBC (Bld) 28 % Normal [facility]; [facility] Work Phone: Comment on above: PATIENT WAS FASTINGP ERFORMED BY: CB [facility] Vpodkc5357 [address] RoadDublin [place] [id number] MCH (RBC) [Entitic mass] 32.6 pg Normal 26.6-33.0 [facility]; [facility] Work Phone: Comment on above: PATIENT WAS FASTINGP ERFORMED BY: CB [facility] Pjghkc94[address] RoadDublin [place] [id number] MCHC (RBC) [Mass/Vol] 34.6 g/dL Normal 31.5-35.7 [facility] prehensive Internal Medicine; [facility] Work Phone: Comment on above: PATIENT WAS FASTINGP ERFORMED BY: CB [facility] Asvfhj9752 [address] RoadDublin [place] [id number] MCV (RBC) [Entitic vol] 94 fL Normal 79-97 C omprehensive [facility]; [facility] Work Phone: Comment on above: PATIENT WAS FASTINGP ERFORMED BY: CB [facility] Lcdgyc9657 [address] RoadDublin [place] [id number] Monocytes (Bld) [#/Vol] 1.0 10*3/uL Abnormal 0.1-0.9 [facility]; [facility] Work Phone: Comment on above: PATIENT WAS FASTINGP ERFORMED BY: CB [facility] Pvzcvv3371 [address] RoadDublin [place] [id number] Monocytes/100 WBC (Bld) 9 % Normal C omprehensive [facility]; [facility] Work Phone: Comment on above: PATIENT WAS FASTINGP ERFORMED BY: CB [facility] Avkdrj3549 [address] RoadDublin [place] [id number] Neutrophils (Bld) [#/Vol] 6.7 10*3/uL Normal 1.4-7.0 [facility]; [facility] Work Phone: Comment on above: PATIENT WAS FASTINGP ERFORMED BY: DEEJAY Labcoangie Njvdae4964 [address] RoadDublin [place] [id number] Neutrophils/100 WBC (Bld) 61 % Normal [facility]; [facility] Work Phone: Comment on above: PATIENT WAS FASTINGP ERFORMED BY: CB [facility] Fhmrfr0812 [address]Dublin [place] [id number] Platelets (Bld) [#/Vol] 413 10*3/uL Normal 150-450 [facility]; [facility] Work Phone: Comment on above: PATIENT WAS FASTINGP ERFORMED BY: DEEJAY [facility] Udjpqd1135 [address] RoadDublin [place] [id number] RBC (Bld) [#/Vol] 4.14 10*6/uL Normal 3.77-5.28 [facility]; [facility] Work Phone: Comment on above: PATIENT WAS FASTINGP ERFORMED BY: DEEJAY [facility] Ihokwe0280 [address] RoadDublin [place] [id number] WBC (Bld) [#/Vol] 10.9 10*3/uL Abnormal 3.4-10.8 [facility]; [facility] Work Phone: Comment on above: PATIENT WAS FASTINGP ERFORMED BY: DEEJAY [facility] Rhfnsm[address] [facility]in [place] [id number] HGB A1C ([id number])Ordered By: S ystem Energy Attorney on 06-03-2022 HbA1c (Bld) [Mass fraction] 6.6 % Abnormal 4.8-5.6 [facility]; [facility] Work Phone: Comment on above: . Prediabetes: 5.7 - 6.4 Diabetes: >6.4 Glycemic control for adults with diabetes: <7.0 PATIENT WAS FASTINGP ERFORMED BY: DEEJAY [facility] Rvozgc0967 [address] RoadDublin [place] [id number] Lipid Panel ([id number])Ordered B y: Substation Operator Apprentice on 06-03-2022 Cholesterol [Mass/Vol] 216 mg/dL Abnormal 100-199 [facility]; [facility] Work Phone: Comment on above: PATIENT WAS FASTINGP ERFORMED BY: DEEJAY [facility] Wtypwg2929 [address] Roadblin [place] [id number] Cholesterol in HDL [Mass/Vol] 42 mg/dL Normal [facility]; [facility] Work Phone: Comment on above: PATIENT WAS FASTINGP ERFORMED BY: CB [facility] Ipthng39[address]Dublin [place] [id number] Triglyceride [Mass/Vol] 214 mg/dL Abnormal 0-149 C ompsouthwest general health centerensive [facility]; [facility] Work Phone: Comment on above: PATIENT WAS FASTINGP ERFORMED BY: CB [facility] Xugbdh1965 [address] RoadAtrium Health Huntersvillein [place] [id number] Lipid Panel (66031) 38 mg/dL Normal 5-40 Compr ensive [facility]; [facility] Work Phone: Comment on above: PATIENT WAS FASTINGP ERFORMED BY: CB [facility] Wgzhsf1119 [address]Dublin [place] [id number] Lipid Panel (99455) 136 mg/dL Abnormal 0-99 Compr ensive [facility]; [facility] Work Phone: Comment on above: PATIENT WAS FASTINGP ERFORMED BY: CB [facility] Pwdvzm[address] [facility]in [place] [id number] Lipid Panel (11320) 3.2 {ratio} Normal 0.0-3.2 Comp [facility]erens[facility]; [facility] Work Phone: Comment on above: LDL/HDL Ratio Men Wo men 1/2 Avg.Risk 1.0 1.5 Avg.Risk 3.6 3.2 2X Avg.Risk 6.2 5.0 3X Avg.Risk 8.0 6.1 PATIENT WAS FASTINGP ERFORMED BY: CB [facility] Lqsmvc7614 [address]Dublin [place] [id number] MICROALB;CREAT RATION, RAND UR ([id number])Ordered By: Substation Operator Apprentice on 09-02-2022 Albumin DL <= 20 mg/L (U) [Mass/Vol] 7.9 ug/mL Normal [facility]; [facility] Work Phone: Comment on above: PATIENT WAS FASTINGP ERFORMED BY: DEEJAY [facility] Zgltkn4021 [address] RoadDublin [place] [id number] Albumin/Creatinine (U) [Mass ratio] 12 {mg/g_creat} Normal 0-29 [facility]; [facility] Work Phone: Comment on above: Normal: 0 - 29 Moder ately increased: 30 - 300 Severely increased: >300 PATIENT WAS FASTINGP ERFORMED BY: CB [facility] Xmqert3029 [address]Dublin [place] [id number] Creatinine (U) [Mass/Vol] 64.8 mg/dL Normal [facility]; [facility] Work Phone: Comment on above: PATIENT WAS FASTINGP ERFORMED BY: DEEJAY [facility] Xbbbug6105 [address] RoadDublin [place] [id number] Metabolic Panel, Comprehensi ve ([id number])Ordered By: Substation Operator Apprentice on 06-03-2022 Albumin [Mass/Vol] 4.0 g/dL Normal 3.8-4.8 [facility]; [facility] Work Phone: Comment on above: PATIENT WAS FASTINGP ERFORMED BY: DEEJAY [facility] Mzcfrk4334 [address] RoadDublin [place] [id number] Albumin/Globulin [Mass ratio] 1.2 {ratio} Normal 1.2-2.2 [facility]; [facility] Work Phone: Comment on above: PATIENT WAS FASTINGP ERFORMED BY: CB [facility] Uiqrok2094 [address]Dublin [place] [id number] ALP [Catalytic activity/Vol] 96 U/L Normal 44-121 [facility]; [facility] Work Phone: Comment on above: PATIENT WAS FASTINGP ERFORMED BY: CB [facility] Zzwbym8582 [address] RoadDublin [place] [id number] ALT [Catalytic activity/Vol] 17 U/L Normal 0-32 [facility]; [facility] Work Phone: Comment on above: PATIENT WAS FASTINGP ERFORMED BY: CB [facility] Plsyvn7898 [address] RoadDublin [place] [id number] AST [Catalytic activity/Vol] 15 U/L Normal 0-40 [facility]; [facility] Work Phone: Comment on above: PATIENT WAS FASTINGP ERFORMED BY: CB [facility] Jvlgka7884 [address] RoadDublin [place] [id number] Bilirubin [Mass/Vol] 0.5 mg/dL Normal 0.0-1.2 [facility] rehensive Internal Medicine; [facility] Work Phone: Comment on above: PATIENT WAS FASTINGP ERFORMED BY: CB [facility] Hqvnfb9196 [address]Dublin [place] [id number] Calcium [Mass/Vol] 9.3 mg/dL Normal 8.7-10.3 [facility]; [facility] Work Phone: Comment on above: PATIENT WAS FASTINGP ERFORMED BY: [facility] Qejqpm4886 [address] RoadDublin [place] [id number] Chloride [Moles/Vol] 102 mmol/L Normal 96-106 [facility] rehensive Internal Medicine; [facility] Work Phone: Comment on above: PATIENT WAS FASTINGP ERFORMED BY: [facility] Fazuqc0565 [address] RoadDublin [place] [id number] CO2 [Moles/Vol] 22 mmol/L Normal 20-29 [facility]; [facility] Work Phone: Comment on above: PATIENT WAS FASTINGP ERFORMED BY: [facility] Yoagdg1334 [address]Dublin [place] [id number] Creatinine [Mass/Vol] 0.93 mg/dL Normal 0.57-1.00 [facility]; [facility] Work Phone: Comment on above: PATIENT WAS FASTINGP ERFORMED BY: CB [facility] Lkaval1925 [address]Dublin [place] [id number] GFR/1.73 sq M.predicted among non-blacks MDRD (S/P/Bld) [Vol rate/Area] 68 mL/min/{1.73_m2} Normal Comprehensiv e [facility]; [facility] Work Phone: Comment on above: PATIENT WAS FASTINGP ERFORMED BY: DEEJAY Labfarheen [place] [facility] [id number] Globulin (S) [Mass/Vol] 3.4 g/dL Normal 1.5-4.5 C omprehensive [facility]; [facility] Work Phone: Comment on above: PATIENT WAS FASTINGP ERFORMED BY: DEEJAY [facility] Bkizko[address] [facility]in [place] [id number] Glucose [Mass/Vol] 104 mg/dL Abnormal 65-99 Compre hensive Internal Medicine; [facility] Work Phone: Comment on above: PATIENT WAS FASTINGP ERFORMED BY: DEEJAY Labss[facility] care Xhsncp3418 [facility] [id number] Potassium [Moles/Vol] 5.0 mmol/L Normal 3.5-5.2 [facility] prehensive Internal Medicine; [facility] Work Phone: Comment on above: PATIENT WAS FASTINGP ERFORMED BY: DEEJAY Labjose Xslngo3647 [facility] [id number] Protein [Mass/Vol] 7.4 g/dL Normal 6.0-8.5 [facility] hens[facility]; [facility] Work Phone: Comment on above: PATIENT WAS FASTINGP ERFORMED BY: DEEJAY Labco Cnuprl8325 [address] [facility]in [place] [id number] Sodium [Moles/Vol] 137 mmol/L Normal 134-144 Compre hensive Internal Medicine; [facility] Work Phone: Comment on above: PATIENT WAS FASTINGP ERFORMED BY: DEEJAY Labco Jjoelb0892 [address] [facility] [place] [id number] Urea nitrogen [Mass/Vol] 16 mg/dL Normal 8-27 [facility]; [facility] Work Phone: Comment on above: PATIENT WAS FASTINGP ERFORMED BY: DEEJAY Labco Hvigwv4896 [facility] [id number] Urea nitrogen/Creatinine [Mass ratio] 17 mg/mg Normal 12-28 [facility]; [facility] Work Phone: Comment on above: PATIENT WAS FASTINGP ERFORMED BY: DEEJAY N3TWORK Pebcdv5003 [facility] [id number] TSH ([id number])Ordered By: Cydney Nix on 06-03-2022 TSH Qn 3.020 {uIU/mL} Normal 0.450-4.500 Comprehen sive Internal Medicine; [facility] Work Phone: Comment on above: PATIENT WAS FASTINGP ERFORMED BY: DEEJAY LabXintu Shuju6370 [facility] [id number] Urinalysis, Office ([id number])Or dered By: Allen Del Cid on 06-03-2022 Bilirubin Ql (U) Negative Normal Comprehe nsive Internal Medicine; [facility] Work Phone: Glucose Test strip (U) [Mass/Vol] Negative Normal [facility]; [facility] Work Phone: Hemoglobin Ql (U) Negative Normal Compreh ensive Internal Medicine; [facility] Work Phone: Ketones Ql (U) Negative Normal Comprehens nichole Internal Medicine; [facility] Work Phone: Leukocyte esterase Test strip Ql (U) Negative Normal [facility]; [facility] Work Phone: Nitrite Ql (U) Negative Normal Comprehens nichole Internal Medicine; [facility] Work Phone: pH (U) 5.0 [pH] Normal [facility]; [facility] Work Phone: Protein Ql (U) Negative Normal Comprehens nichole Internal Medicine; [facility] Work Phone: Specific gravity (U) [Rel density] 1.015 1 Normal [facility]; [facility] Work Phone: Urobilinogen (24H U) [Mass/Time] 2 mg/dL Normal [facility]; [facility] Work Phone: CBC, Platelets & Auto Diff ( [id number])Ordered By: Substation Operator Apprentice on 03-17-2021 Basophils (Bld) [#/Vol] 0.1 10*3/uL Normal 0.0-0.2 [facility]; [facility] Work Phone: Comment on above: PATIENT WAS FASTINGP ERFORMED BY: CB [facility] Qjbora4883 [address] RoadDublin [place] [id number] Basophils/100 WBC (Bld) 1 % Normal C omprehensive Internal Medicine; [facility] Work Phone: Comment on above: PATIENT WAS FASTINGP ERFORMED BY: CB [facility] Bvaltk2425 [address] RoadDublin [place] [id number] Eosinophils (Bld) [#/Vol] 0.2 10*3/uL Normal 0.0-0.4 [facility]; [facility] Work Phone: Comment on above: PATIENT WAS FASTINGP ERFORMED BY: CB [facility] Tgdvfs0171 [address] RoadDublin [place] [id number] Eosinophils/100 WBC (Bld) 2 % Normal [facility]; [facility] Work Phone: Comment on above: PATIENT WAS FASTINGP ERFORMED BY: CB [facility] Bfjagv7314 [address] [facility]in [place] [id number] Erythrocyte distribution width (RBC) [Ratio] 14.2 % Normal 11.7-15.4 [facility]; [facility] Work Phone: Comment on above: PATIENT WAS FASTINGP ERFORMED BY: CB [facility] Cbzabb7402 [address] RoadAtrium Health Huntersvillein [place] [id number] Hematocrit (Bld) [Volume fraction] 40.5 % Normal 34.0-46.6 [facility]; [facility] Work Phone: Comment on above: PATIENT WAS FASTINGP ERFORMED BY: CB [facility] Aqtfwx9365 [address] RoadDuin [place] [id number] Hemoglobin (Bld) [Mass/Vol] 13.8 g/dL Normal 11.1-15.9 [facility]; [facility] Work Phone: Comment on above: PATIENT WAS FASTINGP ERFORMED BY: LabMid [facility] Sefryv8857 [address] RoadDublin [place] [id number] Immature granulocytes (Bld) [#/Vol] 0.0 10*3/uL Normal 0.0-0.1 [facility]; [facility] Work Phone: Comment on above: PATIENT WAS FASTINGP ERFORMED BY: LabMymichigan [facility] Sault6[address] Roadblin [place] [id number] Immature granulocytes/100 WBC (Bld) 0 % Normal [facility]; [facility] Work Phone: Comment on above: PATIENT WAS FASTINGP ERFORMED BY: [facility]Mym[facility] [place] [facility] Hospital[facility] [place] [id number] Lymphocytes (Bld) [#/Vol] 3.2 10*3/uL Abnormal 0.7-3.1 [facility]; [facility] Work Phone: Comment on above: PATIENT WAS FASTINGP ERFORMED BY: [facility]6[address] [facility]in [place] [id number] Lymphocytes/100 WBC (Bld) 32 % Normal [facility]; [facility] Work Phone: Comment on above: PATIENT WAS FASTINGP ERFORMED BY: GenaroMymichigan Medical [facility] [place]6[address] [facility]in [place] [id number] MCH (RBC) [Entitic mass] 32.6 pg Normal 26.6-33.0 [facility]; [facility] Work Phone: Comment on above: PATIENT WAS FASTINGP ERFORMED BY: [facility] Sault[address] [facility] Hospitalblin [place] [id number] MCHC (RBC) [Mass/Vol] 34.1 g/dL Normal 31.5-35.7 [facility] prehensive Internal Medicine; [facility] Work Phone: Comment on above: PATIENT WAS FASTINGP ERFORMED BY: LabMid [facility] Zlpwcl2648 [address] [facility] HospitalDublin [place] [id number] MCV (RBC) [Entitic vol] 96 fL Normal 79-97 C omprehensive Internal Medicine; [facility] Work Phone: Comment on above: PATIENT WAS FASTINGP ERFORMED BY: CB [facility] Pissoh6092 [address] RoadDublin [place] [id number] Monocytes (Bld) [#/Vol] 0.7 10*3/uL Normal 0.1-0.9 [facility]; [facility] Work Phone: Comment on above: PATIENT WAS FASTINGP ERFORMED BY: CB [facility] Kodkxr2455 [address] RoadDublin [place] [id number] Monocytes/100 WBC (Bld) 7 % Normal C omprehensive Internal Medicine; [facility] Work Phone: Comment on above: PATIENT WAS FASTINGP ERFORMED BY: CB [facility] Uexers20[address] RoadDublin [place] [id number] Neutrophils (Bld) [#/Vol] 6.0 10*3/uL Normal 1.4-7.0 [facility]; [facility] Work Phone: Comment on above: PATIENT WAS FASTINGP ERFORMED BY: CB [facility] Ucclnw5616 [address] RoadDublin [place] [id number] Neutrophils/100 WBC (Bld) 58 % Normal [facility]; [facility] Work Phone: Comment on above: PATIENT WAS FASTINGP ERFORMED BY: CB [facility] Nkshvb3845 [address] RoadDublin [place] [id number] Platelets (Bld) [#/Vol] 420 10*3/uL Normal 150-450 [facility]; [facility] Work Phone: Comment on above: PATIENT WAS FASTINGP ERFORMED BY: CB [facility] Wmqxyr2940 [address] RoadDublin [place] [id number] RBC (Bld) [#/Vol] 4.23 10*6/uL Normal 3.77-5.28 [facility] ehensive Internal Medicine; [facility] Work Phone: Comment on above: PATIENT WAS FASTINGP ERFORMED BY: CB [facility] Oxtrlq3723 [address] RoadDublin [place] [id number] WBC (Bld) [#/Vol] 10.1 10*3/uL Normal 3.4-10.8 [facility]; [facility] Work Phone: Comment on above: PATIENT WAS FASTINGP ERFORMED BY: DEEJAY GenaroFarheen WheatNxtldk[address] [facility] Hospitalblin [place] [id number] HGB A1C (47219)Ordered By: S [employer] Attorney on 03-17-2021 HbA1c (Bld) [Mass fraction] 6.3 % Abnormal 4.8-5.6 [facility]; [facility] Work Phone: Comment on above: . Prediabetes: 5.7 - 6.4 Diabetes: >6.4 Glycemic control for adults with diabetes: <7.0 PATIENT WAS FASTINGP ERFORMED BY: DEEJAY LabFarheen WheatTxejhv4669 [facility] [id number] Lipid Panel (43548)Ordered B y: Substation Operator Apprentice on 03-17-2021 Cholesterol [Mass/Vol] 204 mg/dL Abnormal 100-199 [facility]; [facility] Work Phone: Comment on above: PATIENT WAS FASTINGP ERFORMED BY: DEEJAY Wheatlin6[address] [facility]in [place] [id number] Cholesterol in HDL [Mass/Vol] 41 mg/dL Normal [facility]; [facility] Work Phone: Comment on above: PATIENT WAS FASTINGP ERFORMED BY: DEEJAY LabFarheen WheatHwmcyo3087 [address] [facility]in [place] [id number] Triglyceride [Mass/Vol] 190 mg/dL Abnormal 0-149 C [facility]ensive [facility]; [facility] Work Phone: Comment on above: PATIENT WAS FASTINGP ERFORMED BY: DEEJAY LabFarheen WheatZfoesn[address] [facility] Hospitalbl[facility] [place] [id number] Lipid Panel (18905) 34 mg/dL Normal 5-40 Compr ensive Internal Medicine; [facility] Work Phone: Comment on above: PATIENT WAS FASTINGP ERFORMED BY: DEEJAY LabCoangie Flnbgk[address] [facility] Hospitalblin [place] [id number] Lipid Panel (16982) 129 mg/dL Abnormal 0-99 [facility] Internal Medicine; [facility] Work Phone: Comment on above: PATIENT WAS FASTINGP ERFORMED BY: DEEJAY GenaroFarheen WheatFgyaze[address] [facility] Hospitalblin [place] [id number] Lipid Panel (45447) 3.1 {ratio} Normal 0.0-3.2 [facility] Internal Medicine; [facility] Work Phone: Comment on above: LDL/HDL Ratio Men Wo men 1/2 Avg.Risk 1.0 1.5 Avg.Risk 3.6 3.2 2X Avg.Risk 6.2 5.0 3X Avg.Risk 8.0 6.1 PATIENT WAS FASTINGP ERFORMED BY: DEEJAY LabFarheen Mendenhall6370 [facility] [place] [id number] Metabolic Panel, Comprehensi ve (00617)Ordered By: Substation Operator Apprentice on 03-17-2021 Albumin [Mass/Vol] 4.2 g/dL Normal 3.8-4.8 [facility] Internal Medicine; [facility] Work Phone: Comment on above: PATIENT WAS FASTINGP ERFORMED BY: DEEJAY Wheatlin6[address] [facility]in [place] [id number] Albumin/Globulin [Mass ratio] 1.3 {ratio} Normal 1.2-2.2 [facility]; [facility] Work Phone: Comment on above: PATIENT WAS FASTINGP ERFORMED BY: DEEJAY LabFarheen WheatHiemmg4566 [facility] [place] [id number] ALP [Catalytic activity/Vol] 86 U/L Normal 48-121 [facility]; [facility] Work Phone: Comment on above: PATIENT WAS FASTINGP ERFORMED BY: DEEJAY LabFarheen Vopwju[address] [facility] Hospitalblin [place] [id number] ALT [Catalytic activity/Vol] 12 U/L Normal 0-32 [facility]; [facility] Work Phone: Comment on above: PATIENT WAS FASTINGP ERFORMED BY: DEEJAY LabCoangie Ztznth3156 [address] [facility]in [place] [id number] AST [Catalytic activity/Vol] 15 U/L Normal 0-40 [facility]; [facility] Work Phone: Comment on above: PATIENT WAS FASTINGP ERFORMED BY: DEEJAY Juventino Ecnblq3072 [address] Roadblin [place] [id number] Bilirubin [Mass/Vol] 0.3 mg/dL Normal 0.0-1.2 [facility] rehensive Internal Medicine; [facility] Work Phone: Comment on above: PATIENT WAS FASTINGP ERFORMED BY: DEEJAY Juventino Lochdb6396 [address] RoadCanby [place] [id number] Calcium [Mass/Vol] 9.2 mg/dL Normal 8.7-10.3 [facility] Internal Medicine; [facility] Work Phone: Comment on above: PATIENT WAS FASTINGP ERFORMED BY: DEEJAY GenaroMid [facility] Pbkbxh5310 [address] RoadCanby [place] [id number] Chloride [Moles/Vol] 104 mmol/L Normal 96-106 [facility] Centerensive Internal Medicine; [facility] Work Phone: Comment on above: PATIENT WAS FASTINGP ERFORMED BY: DEEJAY GenaroMid [facility] Center Xjdavs0150 [address] [facility]in [place] [id number] CO2 [Moles/Vol] 23 mmol/L Normal 20-29 [facility] Internal Medicine; [facility] Work Phone: Comment on above: PATIENT WAS FASTINGP ERFORMED BY: GenaroMid [facility] Fkvnqx8211 [facility] [id number] Creatinine [Mass/Vol] 0.90 mg/dL Normal 0.57-1.00 [facility]ensive [facility]; [facility] Work Phone: Comment on above: PATIENT WAS FASTINGP ERFORMED BY: DEEJAY GenaroMid [facility] Center Fdtsxk7136 [facility] [id number] GFR/1.73 sq M.predicted among blacks CKD-EPI (S/P/Bld) [Vol rate/Area] 78 mL/min/1.73 Normal [facility]; [facility] Work Phone: Comment on above: [facility] currently reports eGFR in compliance with the current recommendations of the National Kidney Foundation. [facility] will update reporting as new guidelines are published from the NKF-ASN Task force. PATIENT WAS FASTINGP ERFORMED BY: GenaroMid [facility] Xbycbc3664 [facility] [id number] GFR/1.73 sq M.predicted among non-blacks CKD-EPI (S/P/Bld) [Vol rate/Area] 67 mL/min/1.73 Normal [facility]; [facility] Work Phone: Comment on above: PATIENT WAS FASTINGP ERFORMED BY: [facility]6370 [facility] [id number] Globulin (S) [Mass/Vol] 3.2 g/dL Normal 1.5-4.5 C omprehensive Internal Medicine; [facility] Work Phone: Comment on above: PATIENT WAS FASTINGP ERFORMED BY: [facility]6370 [facility] [id number] Glucose [Mass/Vol] 113 mg/dL Abnormal 65-99 [facility]; [facility] Work Phone: Comment on above: PATIENT WAS FASTINGP ERFORMED BY: [facility]6370 [facility] [id number] Potassium [Moles/Vol] 5.0 mmol/L Normal 3.5-5.2 [facility] prehensive Internal Medicine; [facility] Work Phone: Comment on above: PATIENT WAS FASTINGP ERFORMED BY: [facility]6370 [facility] [id number] Protein [Mass/Vol] 7.4 g/dL Normal 6.0-8.5 [facility] Internal Medicine; [facility] Work Phone: Comment on above: PATIENT WAS FASTINGP ERFORMED BY: [facility]6370 [facility] [id number] Sodium [Moles/Vol] 139 mmol/L Normal 134-144 [facility] hensive Internal Medicine; [facility] Work Phone: Comment on above: PATIENT WAS FASTINGP ERFORMED BY: DEEJAY [facility] Ygizsj0065 [address] RoadDublin [place] [id number] Urea nitrogen [Mass/Vol] 11 mg/dL Normal 8-27 [facility]; [facility] Work Phone: Comment on above: PATIENT WAS FASTINGP ERFORMED BY: CB [facility] Prutzz5637 [address] RoadDublin [place] [id number] Urea nitrogen/Creatinine [Mass ratio] 12 mg/mg Normal 12-28 [facility]; [facility] Work Phone: Comment on above: PATIENT WAS FASTINGP ERFORMED BY: CB [facility] Ybwhij7726 [address] RoadDublin [place] [id number] TSH ([id number])Ordered By: Cydney espinoza Energy Attorney on 03-17-2021 TSH Qn 2.670 {uIU/mL} Normal 0.450-4.500 [facility] Internal Medicine; [facility] Work Phone: Comment on above: PATIENT WAS FASTINGP ERFORMED BY: [facility] Adadvx7554 [address] RoadDublin [place] [id number] CBC with auto diff ([id number])Or dered By: Substation Operator Apprentice on 04-10-2020 Basophils (Bld) [#/Vol] 0.1 {x10E3/uL} Normal 0.0-0.2 [facility] Work Phone: Comment on above: PATIENT WAS FASTINGP ERFORMED BY: CB [facility] Sjioxa4462 [address] RoadDublin [place] [id number] Basophils (Bld) [#/Vol] 0.1 10*3/uL Normal 0.0-0.2 [facility]; [facility] Work Phone: Comment on above: PATIENT WAS FASTINGP ERFORMED BY: CB [facility] Vtuapi3484 [address] RoadDublin [place] [id number] Basophils/100 WBC (Bld) 1 % Normal C omprehensive Internal Medicine Work Phone: Comment on above: PATIENT WAS FASTINGP ERFORMED BY: CB [facility] Uiewvf3395 [address] RoadDublin [place] [id number] Eosinophils (Bld) [#/Vol] 0.1 {x10E3/uL} Normal 0.0-0.4 [facility] Work Phone: Comment on above: PATIENT WAS FASTINGP ERFORMED BY: DEEJAY LabCo Nslooz[address]66 [address] [facility]in [place] [id number] Eosinophils (Bld) [#/Vol] 0.1 10*3/uL Normal 0.0-0.4 [facility]; [facility] Work Phone: Comment on above: PATIENT WAS FASTINGP ERFORMED BY: LabMymichigan Medical Center Sault6[address] [facility]in [place] [id number] Eosinophils/100 WBC (Bld) 1 % Normal [facility] Work Phone: Comment on above: PATIENT WAS FASTINGP ERFORMED BY: [facility] Tsdcbv4730 [address] [facility] [id number] Erythrocyte distribution width (RBC) [Ratio] 13.5 % Normal 11.7-15.4 [facility] Work Phone: Comment on above: PATIENT WAS FASTINGP ERFORMED BY: LabMymichigan Medical Center Sault6[address] [facility]in [place] [id number] Hematocrit (Bld) [Volume fraction] 42.0 % Normal 34.0-46.6 [facility] Work Phone: Comment on above: PATIENT WAS FASTINGP ERFORMED BY: LabMymichigan Medical Center Sault6370 [facility] [id number] Hemoglobin (Bld) [Mass/Vol] 14.0 g/dL Normal 11.1-15.9 [facility] Work Phone: Comment on above: PATIENT WAS FASTINGP ERFORMED BY: LabCo Dapqms[address] [facility]bl[facility] [place] [id number] Immature granulocytes (Bld) [#/Vol] 0.1 {x10E3/uL} Normal 0.0-0.1 [facility] Work Phone: Comment on above: PATIENT WAS FASTINGP ERFORMED BY: LabCoWilliam Ville 9307370 [facility] [id number] Immature granulocytes (Bld) [#/Vol] 0.1 10*3/uL Normal 0.0-0.1 [facility]; [facility] Work Phone: Comment on above: PATIENT WAS FASTINGP ERFORMED BY: DEEJAY Jauregui Qrxurx[address] [facility]bl[facility] [place] [id number] Immature granulocytes/100 WBC (Bld) 1 % Normal [facility] Work Phone: Comment on above: PATIENT WAS FASTINGP ERFORMED BY: DEEJAY [facility] Zsrvus2152 [address] [facility]in [place] [id number] Lymphocytes (Bld) [#/Vol] 3.5 {x10E3/uL} Abnormal 0.7-3.1 [facility] Work Phone: Comment on above: PATIENT WAS FASTINGP ERFORMED BY: DEEJAY [facility] Llcpie5110 [facility] [id number] Lymphocytes (Bld) [#/Vol] 3.5 10*3/uL Abnormal 0.7-3.1 [facility]; [facility] Work Phone: Comment on above: PATIENT WAS FASTINGP ERFORMED BY: DEEJAY LamMid [facility] Vrqzrc6671 [facility] [id number] Lymphocytes/100 WBC (Bld) 34 % Normal [facility] Work Phone: Comment on above: PATIENT WAS FASTINGP ERFORMED BY: DEEJAY LamMid [facility] Usbubg9909 [facility] [id number] MCH (RBC) [Entitic mass] 32.7 pg Normal 26.6-33.0 [facility] Work Phone: Comment on above: PATIENT WAS FASTINGP ERFORMED BY: DEEJAY [facility]6370 [facility] [id number] MCHC (RBC) [Mass/Vol] 33.3 g/dL Normal 31.5-35.7 [facility] prehensive Internal Medicine Work Phone: Comment on above: PATIENT WAS FASTINGP ERFORMED BY: [place] 8545270 [facility] [place] [id number] MCV (RBC) [Entitic vol] 98 fL Abnormal 79-97 C omprehensive Internal Medicine Work Phone: Comment on above: PATIENT WAS FASTINGP ERFORMED BY: DEEJAY Wheatlin6370 [address] [facility] [id number] Monocytes (Bld) [#/Vol] 0.8 {x10E3/uL} Normal 0.1-0.9 [facility] Work Phone: Comment on above: PATIENT WAS FASTINGP ERFORMED BY: DEEJAY Wheatlin6370 [address] [facility] [id number] Monocytes (Bld) [#/Vol] 0.8 10*3/uL Normal 0.1-0.9 [facility]; [facility] Work Phone: Comment on above: PATIENT WAS FASTINGP ERFORMED BY: DEEJAY Mendenhall6[address] [facility] [id number] Monocytes/100 WBC (Bld) 8 % Normal C omprehensive Internal Medicine Work Phone: Comment on above: PATIENT WAS FASTINGP ERFORMED BY: DEEJAY Mendenhall6[address] [facility] [id number] Neutrophils (Bld) [#/Vol] 6.0 {x10E3/uL} Normal 1.4-7.0 [facility] Work Phone: Comment on above: PATIENT WAS FASTINGP ERFORMED BY: DEEJAY LabFarheen WheatPutwda7322 [address] [facility] [id number] Neutrophils (Bld) [#/Vol] 6.0 10*3/uL Normal 1.4-7.0 [facility]; [facility] Work Phone: Comment on above: PATIENT WAS FASTINGP ERFORMED BY: DEEJAY LabFarheen WheatIuziek1519 [address] [facility] [id number] Neutrophils/100 WBC (Bld) 55 % Normal [facility] Work Phone: Comment on above: PATIENT WAS FASTINGP ERFORMED BY: DEEJAY Wheatlin6370 [address]Dublin [place] [id number] Platelets (Bld) [#/Vol] 421 {x10E3/uL} Normal 150-450 [facility] Internal Medicine Work Phone: Comment on above: PATIENT WAS FASTINGP ERFORMED BY: CB [facility] Xdieac4500 [address] RoadDublin [place] [id number] Platelets (Bld) [#/Vol] 421 10*3/uL Normal 150-450 [facility] Internal Medicine; [facility] Work Phone: Comment on above: PATIENT WAS FASTINGP ERFORMED BY: CB [facility] Nqsens3036 [address] RoadDublin [place] [id number] RBC (Bld) [#/Vol] 4.28 {x10E6/uL} Normal 3.77-5.28 [facility] Internal Medicine Work Phone: Comment on above: PATIENT WAS FASTINGP ERFORMED BY: [facility] Yfglsx4458 [address] RoadDublin [place] [id number] RBC (Bld) [#/Vol] 4.28 10*6/uL Normal 3.77-5.28 [facility]; [facility] Work Phone: Comment on above: PATIENT WAS FASTINGP ERFORMED BY: [facility] Dwbkfm4110 [address]Dublin [place] [id number] WBC (Bld) [#/Vol] 10.5 {x10E3/uL} Normal 3.4-10.8 [facility] Internal Medicine Work Phone: Comment on above: PATIENT WAS FASTINGP ERFORMED BY: CB [facility] Douufs4855 [address] RoadDublin [place] [id number] WBC (Bld) [#/Vol] 10.5 10*3/uL Normal 3.4-10.8 [facility] Internal Medicine; [facility] Work Phone: Comment on above: PATIENT WAS FASTINGP ERFORMED BY: CB [facility] Cxzhcd9978 [address]Dublin [place] [id number] METABOLIC PANEL, COMPREHENSI VE ([id number])Ordered By: Substation Operator Apprentice on 04-10-2020 Albumin [Mass/Vol] 3.9 g/dL Normal 3.8-4.8 [facility] Internal Medicine Work Phone: Comment on above: PATIENT WAS FASTINGP ERFORMED BY: DEEJAY [facility] Cbbytb3962 [address] RoadDublin [place] [id number] Albumin/Globulin [Mass ratio] 1.3 {ratio} Normal 1.2-2.2 [facility] Work Phone: Comment on above: PATIENT WAS FASTINGP ERFORMED BY: CB [facility] Bmlijo4502 [address]Dublin [place] [id number] ALP [Catalytic activity/Vol] 70 [iU]/L Normal 39-117 [facility] Work Phone: Comment on above: PATIENT WAS FASTINGP ERFORMED BY: [facility] Uniada9151 [address] RoadDublin [place] [id number] ALP [Catalytic activity/Vol] 70 U/L Normal 39-117 [facility]; [facility] Work Phone: Comment on above: PATIENT WAS FASTINGP ERFORMED BY: [facility] Clwzgx4146 [address] RoadDublin [place] [id number] ALT [Catalytic activity/Vol] 15 [iU]/L Normal 0-32 [facility] Work Phone: Comment on above: PATIENT WAS FASTINGP ERFORMED BY: [facility] Oonbkp1092 [address]Dublin [place] [id number] ALT [Catalytic activity/Vol] 15 U/L Normal 0-32 [facility]; [facility] Work Phone: Comment on above: PATIENT WAS FASTINGP ERFORMED BY: CB [facility] Xgeskc0402 [address]Dublin [place] [id number] AST [Catalytic activity/Vol] 16 [iU]/L Normal 0-40 [facility] Work Phone: Comment on above: PATIENT WAS FASTINGP ERFORMED BY: CB [facility] Mppjlx0976 [address] RoadDublin [place] [id number] AST [Catalytic activity/Vol] 16 U/L Normal 0-40 [facility]; [facility] Work Phone: Comment on above: PATIENT WAS FASTINGP ERFORMED BY: CB [facility] Gtadrf0407 [address] RoadDublin [place] [id number] Bilirubin [Mass/Vol] 0.3 mg/dL Normal 0.0-1.2 Comp [facility] Work Phone: Comment on above: PATIENT WAS FASTINGP ERFORMED BY: CB [facility] Troapq7973 [address]Dublin [place] [id number] Calcium [Mass/Vol] 9.1 mg/dL Normal 8.7-10.3 [facility] Internal Medicine Work Phone: Comment on above: PATIENT WAS FASTINGP ERFORMED BY: CB [facility] Xojthf8912 [address]Dublin [place] [id number] Chloride [Moles/Vol] 102 mmol/L Normal 96-106 [facility] Work Phone: Comment on above: PATIENT WAS FASTINGP ERFORMED BY: CB [facility] Ooufgz8749 [address] RoadDublin [place] [id number] CO2 [Moles/Vol] 25 mmol/L Normal 20-29 [facility] Internal Medicine Work Phone: Comment on above: PATIENT WAS FASTINGP ERFORMED BY: [facility] Bqthym9459 [address]Dublin [place] [id number] Creatinine [Mass/Vol] 0.82 mg/dL Normal 0.57-1.00 [facility] Work Phone: Comment on above: PATIENT WAS FASTINGP ERFORMED BY: CB [facility] Mzeejg0614 [address] RoadDublin [place] [id number] GFR/1.73 sq M predicted among blacks CKD-EPI (S/P/Bld) [Vol rate/Area] 87 mL/min/1.73 Normal [facility] Work Phone: Comment on above: PATIENT WAS FASTINGP ERFORMED BY: CB [facility] Tuvwpl5675 [address] RoadDublin [place] [id number] GFR/1.73 sq M predicted among non-blacks CKD-EPI (S/P/Bld) [Vol rate/Area] 76 mL/min/1.73 Normal [facility] Internal Medicine Work Phone: Comment on above: PATIENT WAS FASTINGP ERFORMED BY: DEEJAY [facility] Ovbukn7538 [address] RoadDublin [place] [id number] Globulin (S) [Mass/Vol] 3.1 g/dL Normal 1.5-4.5 [facility] Internal Medicine Work Phone: Comment on above: PATIENT WAS FASTINGP ERFORMED BY: CB [facility] Mfqlqs2461 [address]Dublin [place] [id number] Glucose [Mass/Vol] 114 mg/dL Abnormal 65-99 [facility] Internal Medicine Work Phone: Comment on above: PATIENT WAS FASTINGP ERFORMED BY: [facility] Rxeiig2797 [address]Dublin [place] [id number] Potassium [Moles/Vol] 4.9 mmol/L Normal 3.5-5.2 [facility] Internal Medicine Work Phone: Comment on above: PATIENT WAS FASTINGP ERFORMED BY: [facility] Viribk3307 [address]Dublin [place] [id number] Protein [Mass/Vol] 7.0 g/dL Normal 6.0-8.5 [facility] Internal Medicine Work Phone: Comment on above: PATIENT WAS FASTINGP ERFORMED BY: [facility] Zhpfbu1930 [address]Dublin [place] [id number] Sodium [Moles/Vol] 138 mmol/L Normal 134-144 [facility] Internal Medicine Work Phone: Comment on above: PATIENT WAS FASTINGP ERFORMED BY: [facility] Riusvz7701 [address] RoadDublin [place] [id number] Urea nitrogen [Mass/Vol] 12 mg/dL Normal 8- [facility] Internal Medicine Work Phone: Comment on above: PATIENT WAS FASTINGP ERFORMED BY: [facility] Fdixar6167 [address] RoadDublin [place] [id number] Urea nitrogen/Creatinine [Mass ratio] 15 mg/mg Normal 12-28 [facility] Work Phone: Comment on above: PATIENT WAS FASTINGP ERFORMED BY: [facility] Lmcxsj9187 [facility] [id number] TSH (THYROID STIMULATING HOR LIO) ([id number])Ordered By: Substation Operator Apprentice on 04-10-2020 TSH Qn 2.450 {uIU/mL} Normal 0.450-4.500 [facility] Internal Medicine Work Phone: Comment on above: PATIENT WAS FASTINGP ERFORMED BY: LabCoDeborah Heart and Lung CenterYuyibw2227 [facility] [id number] CBC, Platelets & Auto Diff ( [id number])Ordered By: Substation Operator Apprentice on 12-11-2019 Basophils (Bld) [#/Vol] 0.1 {x10E3/uL} Normal 0.0-0.2 [facility] Work Phone: Comment on above: PATIENT NOT FASTINGP ERFORMED BY: LabRobert [place] 8788270 [facility] [id number] Basophils (Bld) [#/Vol] 0.1 10*3/uL Normal 0.0-0.2 [facility]; [facility] Work Phone: Comment on above: PATIENT NOT FASTINGP ERFORMED BY: [facility] Sault6370 [facility] [id number] Basophils/100 WBC (Bld) 1 % Normal C omprehensive Internal Medicine Work Phone: Comment on above: PATIENT NOT FASTINGP ERFORMED BY: LabCoDeborah Heart and Lung CenterCzushp4568 [facility] [id number] Eosinophils (Bld) [#/Vol] 0.2 {x10E3/uL} Normal 0.0-0.4 [facility] Work Phone: Comment on above: PATIENT NOT FASTINGP ERFORMED BY: LabCoDeborah Heart and Lung CenterIpnker6587 [facility] [id number] Eosinophils (Bld) [#/Vol] 0.2 10*3/uL Normal 0.0-0.4 [facility]; [facility] Work Phone: Comment on above: PATIENT NOT FASTINGP ERFORMED BY: CB [facility] Qqgucp6257 [address] RoadDublin [place] [id number] Eosinophils/100 WBC (Bld) 2 % Normal [facility] Work Phone: Comment on above: PATIENT NOT FASTINGP ERFORMED BY: CB [facility] Qspwrb1807 [address] RoadDublin [place] [id number] Erythrocyte distribution width (RBC) [Ratio] 13.5 % Normal 11.7-15.4 [facility] Work Phone: Comment on above: PATIENT NOT FASTINGP ERFORMED BY: CB [facility] Jfpruy2171 [address]Dublin [place] [id number] Hematocrit (Bld) [Volume fraction] 41.0 % Normal 34.0-46.6 [facility] Work Phone: Comment on above: PATIENT NOT FASTINGP ERFORMED BY: CB [facility] Jzzfom0223 [address] RoadDublin [place] [id number] Hemoglobin (Bld) [Mass/Vol] 13.7 g/dL Normal 11.1-15.9 [facility] Work Phone: Comment on above: PATIENT NOT FASTINGP ERFORMED BY: CB [facility] Cgjgix0753 [address] RoadDublin [place] [id number] Immature granulocytes (Bld) [#/Vol] 0.1 {x10E3/uL} Normal 0.0-0.1 [facility] Work Phone: Comment on above: PATIENT NOT FASTINGP ERFORMED BY: CB [facility] Ucvztk1536 [address] RoadDublin [place] [id number] Immature granulocytes (Bld) [#/Vol] 0.1 10*3/uL Normal 0.0-0.1 [facility]; [facility] Work Phone: Comment on above: PATIENT NOT FASTINGP ERFORMED BY: CB [facility] Nqvopk8476 [address] RoadDublin [place] [id number] Immature granulocytes/100 WBC (Bld) 1 % Normal [facility] Work Phone: Comment on above: PATIENT NOT FASTINGP ERFORMED BY: DEEJAY LabCoangie Asdxwj[address] [facility]bl[facility] [place] [id number] Lymphocytes (Bld) [#/Vol] 4.1 {x10E3/uL} Abnormal 0.7-3.1 [facility] Work Phone: Comment on above: PATIENT NOT FASTINGP ERFORMED BY: [facility] Mewbok[address] [facility]in [place] [id number] Lymphocytes (Bld) [#/Vol] 4.1 10*3/uL Abnormal 0.7-3.1 [facility]; [facility] Work Phone: Comment on above: PATIENT NOT FASTINGP ERFORMED BY: LabJose Kdisyf[address] [facility] [id number] Lymphocytes/100 WBC (Bld) 40 % Normal [facility] Work Phone: Comment on above: PATIENT NOT FASTINGP ERFORMED BY: LabMid [facility] Spfldo7[address] [facility] [id number] MCH (RBC) [Entitic mass] 31.6 pg Normal 26.6-33.0 [facility] Work Phone: Comment on above: PATIENT NOT FASTINGP ERFORMED BY: [facility] Dalnts[address] [facility] [id number] MCHC (RBC) [Mass/Vol] 33.4 g/dL Normal 31.5-35.7 [facility]ensive [facility] Work Phone: Comment on above: PATIENT NOT FASTINGP ERFORMED BY: [facility] Msiysq[address] [facility]in [place] [id number] MCV (RBC) [Entitic vol] 95 fL Normal 79-97 [facility] Work Phone: Comment on above: PATIENT NOT FASTINGP ERFORMED BY: DEEJAY LabFarheen WheatJgvgpc39[address] [facility]in [place] [id number] Monocytes (Bld) [#/Vol] 0.9 {x10E3/uL} Normal 0.1-0.9 [facility] Work Phone: Comment on above: PATIENT NOT FASTINGP ERFORMED BY: CB [facility] Rvgrqe5993 [address]Dublin [place] [id number] Monocytes (Bld) [#/Vol] 0.9 10*3/uL Normal 0.1-0.9 [facility]; [facility] Work Phone: Comment on above: PATIENT NOT FASTINGP ERFORMED BY: CB [facility] Wujjpx4676 [address]Dublin [place] [id number] Monocytes/100 WBC (Bld) 9 % Normal C [facility] Work Phone: Comment on above: PATIENT NOT FASTINGP ERFORMED BY: CB [facility] Kalxba3429 [address] RoadDublin [place] [id number] Neutrophils (Bld) [#/Vol] 4.9 {x10E3/uL} Normal 1.4-7.0 [facility] Work Phone: Comment on above: PATIENT NOT FASTINGP ERFORMED BY: CB [facility] Jhlcim3479 [address] RoadDublin [place] [id number] Neutrophils (Bld) [#/Vol] 4.9 10*3/uL Normal 1.4-7.0 [facility]; [facility] Work Phone: Comment on above: PATIENT NOT FASTINGP ERFORMED BY: CB [facility] Goqzjl4078 [address] RoadDublin [place] [id number] Neutrophils/100 WBC (Bld) 47 % Normal [facility] Work Phone: Comment on above: PATIENT NOT FASTINGP ERFORMED BY: CB [facility] Xnlozt6428 [address] RoadDublin [place] [id number] Platelets (Bld) [#/Vol] 416 {x10E3/uL} Normal 150-450 [facility] Work Phone: Comment on above: PATIENT NOT FASTINGP ERFORMED BY: CB [facility] Uchcnb4517 [address] RoadDublin [place] [id number] Platelets (Bld) [#/Vol] 416 10*3/uL Normal 150-450 [facility]; [facility] Work Phone: Comment on above: PATIENT NOT FASTINGP ERFORMED BY: DEEJAY LabFarheen Mendenhall6370 [address] RoadDublin [place] [id number] RBC (Bld) [#/Vol] 4.33 {x10E6/uL} Normal 3.77-5.28 [facility] Internal Medicine Work Phone: Comment on above: PATIENT NOT FASTINGP ERFORMED BY: DEEJAY LabFarheen Mendenhall6370 [address] RoadDublin [place] [id number] RBC (Bld) [#/Vol] 4.33 10*6/uL Normal 3.77-5.28 [facility]; [facility] Work Phone: Comment on above: PATIENT NOT FASTINGP ERFORMED BY: DEEJAY Mendenhall6370 [address]Dublin [place] [id number] WBC (Bld) [#/Vol] 10.2 {x10E3/uL} Normal 3.4-10.8 [facility] Internal Medicine Work Phone: Comment on above: PATIENT NOT FASTINGP ERFORMED BY: DEEJAY LabFarheen WheatLizsux0853 [address] RoadDublin [place] [id number] WBC (Bld) [#/Vol] 10.2 10*3/uL Normal 3.4-10.8 [facility] Internal Medicine; [facility] Work Phone: Comment on above: PATIENT NOT FASTINGP ERFORMED BY: DEEJAY LabJoes Qcpagl[address] [facility] Hospitalblin [place] [id number] Metabolic Panel, Comprehensi ve ([id number])Ordered By: Substation Operator Apprentice on 12-11-2019 Albumin [Mass/Vol] 4.1 g/dL Normal 3.8-4.8 [facility] Internal Medicine Work Phone: Comment on above: PATIENT NOT FASTINGP ERFORMED BY: DEEJAY LabCoangie WheatPgqqpv0200 [address]Dublin [place] [id number] Albumin/Globulin [Mass ratio] 1.2 {ratio} Normal 1.2-2.2 [facility] Work Phone: Comment on above: PATIENT NOT FASTINGP ERFORMED BY: CB [facility] Kvhdnx8143 [address] RoadDublin [place] [id number] ALP [Catalytic activity/Vol] 84 [iU]/L Normal 39-117 [facility] Work Phone: Comment on above: PATIENT NOT FASTINGP ERFORMED BY: DEEJAY [facility] Nexqhz2899 [address] RoadDublin [place] [id number] ALP [Catalytic activity/Vol] 84 U/L Normal 39-117 [facility]; [facility] Work Phone: Comment on above: PATIENT NOT FASTINGP ERFORMED BY: DEEJAY [facility] Ccobkh1565 [address] RoadDublin [place] [id number] ALT [Catalytic activity/Vol] 14 [iU]/L Normal 0-32 [facility] Work Phone: Comment on above: PATIENT NOT FASTINGP ERFORMED BY: DEEJAY [facility] Uqzfca1481 [address] RoadDublin [place] [id number] ALT [Catalytic activity/Vol] 14 U/L Normal 0-32 [facility]; [facility] Work Phone: Comment on above: PATIENT NOT FASTINGP ERFORMED BY: DEEJAY [facility] Kvsjjl4013 [address] RoadDublin [place] [id number] AST [Catalytic activity/Vol] 16 [iU]/L Normal 0-40 [facility] Work Phone: Comment on above: PATIENT NOT FASTINGP ERFORMED BY: DEEJAY [facility] Osduov2853 [address] RoadDublin [place] [id number] AST [Catalytic activity/Vol] 16 U/L Normal 0-40 [facility]; [facility] Work Phone: Comment on above: PATIENT NOT FASTINGP ERFORMED BY: CB [facility] Wquzcd4590 [address] RoadDublin [place] [id number] Bilirubin [Mass/Vol] 0.3 mg/dL Normal 0.0-1.2 Comp [facility]eren[facility] Internal Medicine Work Phone: Comment on above: PATIENT NOT FASTINGP ERFORMED BY: DEEJAY [facility] Pktdnw2472 [address] RoadDublin [place] [id number] Calcium [Mass/Vol] 9.2 mg/dL Normal 8.7-10.3 [facility] Internal Medicine Work Phone: Comment on above: PATIENT NOT FASTINGP ERFORMED BY: DEEJAY [facility] Taoaxc0010 [address] RoadDublin [place] [id number] Chloride [Moles/Vol] 99 mmol/L Normal 96-106 Comp rehensive Internal Medicine Work Phone: Comment on above: PATIENT NOT FASTINGP ERFORMED BY: DEEJAY [facility] Dwochn1643 [address] RoadAtrium Health Huntersvillein [place] [id number] CO2 [Moles/Vol] 23 mmol/L Normal 20-29 [facility] Internal Medicine Work Phone: Comment on above: PATIENT NOT FASTINGP ERFORMED BY: DEEJAY [facility] Rxjyfg3870 [facility] RoadAngel [facility] [id number] Creatinine [Mass/Vol] 0.86 mg/dL Normal 0.57-1.00 [facility] Work Phone: Comment on above: PATIENT NOT FASTINGP ERFORMED BY: DEEJAY [facility] Vfqohr9832 [address] RoadAtrium Health [place]villein [place] [id number] GFR/1.73 sq M predicted among blacks CKD-EPI (S/P/Bld) [Vol rate/Area] 83 mL/min/1.73 Normal [facility] Work Phone: Comment on above: PATIENT NOT FASTINGP ERFORMED BY: DEEJAY [facility] Ingsrl9481 [address] RoadAtrium Health Huntersvillein [place] [id number] GFR/1.73 sq M predicted among non-blacks CKD-EPI (S/P/Bld) [Vol rate/Area] 72 mL/min/1.73 Normal [facility] Work Phone: Comment on above: PATIENT NOT FASTINGP ERFORMED BY: DEEJAY [facility] Jkhhcp4384 [address] RoadAtrium Health Hun[place]villein [place] [id number] Globulin (S) [Mass/Vol] 3.4 g/dL Normal 1.5-4.5 C [facility]mp[facility] Internal Medicine Work Phone: Comment on above: PATIENT NOT FASTINGP ERFORMED BY: DEEJAY [facility] Ojptnu0961 [address] RoadDublin [place] [id number] Glucose [Mass/Vol] 93 mg/dL Normal 65-99 [facility] Internal Medicine Work Phone: Comment on above: PATIENT NOT FASTINGP ERFORMED BY: CB [facility] Hgumhh7825 [address] RoadDublin [place] [id number] Potassium [Moles/Vol] 4.1 mmol/L Normal 3.5-5.2 [facility] Internal Medicine Work Phone: Comment on above: PATIENT NOT FASTINGP ERFORMED BY: CB [facility] Felsws7039 [address] RoadDublin [place] [id number] Protein [Mass/Vol] 7.5 g/dL Normal 6.0-8.5 [facility] Internal Medicine Work Phone: Comment on above: PATIENT NOT FASTINGP ERFORMED BY: DEEJAY [facility] Oiozek9934 [address] RoadDublin [place] [id number] Sodium [Moles/Vol] 137 mmol/L Normal 134-144 [facility] Internal Medicine Work Phone: Comment on above: PATIENT NOT FASTINGP ERFORMED BY: DEEJAY [facility] Tifwgb0069 [address] RoadDublin [place] [id number] Urea nitrogen [Mass/Vol] 11 mg/dL Normal 8-27 [facility] Internal Medicine Work Phone: Comment on above: PATIENT NOT FASTINGP ERFORMED BY: DEEJAY [facility] Oifzkb2300 [address]Dublin [place] [id number] Urea nitrogen/Creatinine [Mass ratio] 13 mg/mg Normal 12-28 [facility] Internal Medicine Work Phone: Comment on above: PATIENT NOT FASTINGP ERFORMED BY: CB [facility] Mwnzqs1126 [address]Dublin [place] [id number] TSH ([id number])Ordered By: Cydney Nix on 12-11-2019 TSH Qn 3.640 {uIU/mL} Normal 0.450-4.500 [facility] Internal Medicine Work Phone: Comment on above: PATIENT NOT FASTINGP ERFORMED BY: [facility] Xojlde7958 [facility] [id number] Vital Signs Date Time Vital Sign Value Performing Clinician Facility 12-29-2023 10:20-0400 Body height 157.48 cm STRESS ANALYST-C Zunildacarol Suarez Work Phone: [facility] 12-29-2023 10:20-0400 Body mass index (BMI) [Ratio] 33.3 kg/m2 STRESS ANALYST-C Zunilda Erick Work Phone: [facility] 12-29-2023 10:20-0400 Body temperature 96.4 [degF] STRESS ANALYST-C Zunilda Erick Work Phone: [facility] 12-29-2023 10:20-0400 Body weight 82.55 kg STRESS ANALYST-C Zunilda Erick Work Phone: [facility] 12-29-2023 10:20-0400 Diastolic blood pressure 72 mm[Hg] STRESS ANALYST-C Zunilda Erick Work Phone: [facility] 12-29-2023 10:20-0400 Heart rate 86 /min STRESS ANALYST-C Zunilda Erick Work Phone: [facility] 12-29-2023 10:20-0400 Respiratory rate 17 /min STRESS ANALYST-C Zunilda Erick Work Phone: [facility] 12-29-2023 10:20-0400 SaO2% (BldA) [Mass fraction] 99 % STRESS ANALYST-C Zunilda Erick Work Phone: [facility] 12-29-2023 10:20-0400 Systolic blood pressure 124 mm[Hg] STRESS ANALYST-C Zunilda Erick Work Phone: [facility] 12-07-2023 05:44-0500 Body mass index (BMI) [Ratio] 33.6 kg/m2 STRESS ANALYST-C Zunilda Erick Work Phone: [facility] 12-07-2023 05:44-0500 Body temperature 98.2 [degF] STRESS ANALYST-C Zunilda Erick Work Phone: [facility] 12-07-2023 05:44-0500 Body weight 83.46 kg STRESS ANALYST-C Zunilda Erick Work Phone: [facility] 12-07-2023 05:44-0500 Diastolic blood pressure 78 mm[Hg] STRESS ANALYST-C Zunilda Erick Work Phone: [facility] 12-07-2023 05:44-0500 Heart rate 81 /min STRESS ANALYST-C Zunilda Erick Work Phone: [facility] 12-07-2023 05:44-0500 Respiratory rate 20 /min STRESS ANALYST-C Zunilda Erick Work Phone: [facility] 12-07-2023 05:44-0500 SaO2% (BldA) [Mass fraction] 95 % STRESS ANALYST-C Zunilda Erick Work Phone: [facility] 12-07-2023 05:44-0500 Systolic blood pressure 138 mm[Hg] STRESS ANALYST-C Zunilda Erick Work Phone: [facility] 04-29-2023 12:36-0400 Respiratory rate 18 /min STRESS ANALYST-C Zunilda Erick Work Phone: [facility] 04-29-2023 10:28-0400 Body height 157.48 cm STRESS ANALYST-C Zunilda Erick Work Phone: [facility] 04-29-2023 10:28-0400 Body mass index (BMI) [Ratio] 38.5 kg/m2 STRESS ANALYST-C Zunilda Erick Work Phone: [facility] 04-29-2023 10:28-0400 Body temperature 97.8 [degF] STRESS ANALYST-C Zunilda Erick Work Phone: [facility] 04-29-2023 10:28-0400 Body weight 95.61 kg STRESS ANALYST-C Zunilda Erick Work Phone: [facility] 04-29-2023 10:28-0400 Diastolic blood pressure 65 mm[Hg] STRESS ANALYST-C Zunilda Erick Work Phone: [facility] 04-29-2023 10:28-0400 Heart rate 73 /min STRESS ANALYST-C Zunilda Suarez Work Phone: [facility] 04-29-2023 10:28-0400 SaO2% (BldA) [Mass fraction] 99 % STRESS ANALYST-C Zunilda Suarez Work Phone: [facility] 04-29-2023 10:28-0400 Systolic blood pressure 118 mm[Hg] STRESS ANALYST-C Zunilda Suarez Work Phone: [facility] 04-18-2023 14:27-0400 Body height 158.75 cm Tala Slarb SOFTWARE QUALITY ENGINEER [facility]; [facility] Work Phone: 04-18-2023 14:27-0400 Body mass index (BMI) [Ratio] 34.74 kg/m2 Tala Slarb SOFTWARE QUALITY ENGINEER [facility]; [facility] Work Phone: 04-18-2023 14:27-0400 Body surface area Derived from formula 1.89 m2 Tala Slarb SOFTWARE QUALITY ENGINEER [facility]; [facility] Work Phone: 04-18-2023 14:27-0400 Body temperature 96.7 [degF] Tala Slarb SOFTWARE QUALITY ENGINEER [facility]; [facility] Work Phone: Comment on above: Method: Temporal 04-18-2023 14:27-0400 Body weight 87.54 kg Tala Slarb SOFTWARE QUALITY ENGINEER [facility]; [facility] Work Phone: 04-18-2023 14:27-0400 Diastolic blood pressure 72 mm[Hg] Tala Slarb SOFTWARE QUALITY ENGINEER [facility]; [facility] Work Phone: Comment on above: Patient Position: Sitting; Cuff Location : Left Arm; Cuff Size: Standard 04-18-2023 14:27-0400 Heart rate 57 /min Tala Slarb SOFTWARE QUALITY ENGINEER [facility]; [facility] Work Phone: Comment on above: Pattern: Regular 04-18-2023 14:27-0400 Respiratory rate 18 /min Tala Slarb SOFTWARE QUALITY ENGINEER [facility]; [facility] Work Phone: Comment on above: Pattern: Unlabored 04-18-2023 14:27-0400 SaO2% (BldA) [Mass fraction] 97 % Tala Garduno CHARISMA [facility]; [facility] Work Phone: Comment on above: Room air 04-18-2023 14:27-0400 Systolic blood pressure 112 mm[Hg] Tala Slagris ZAFAR [facility]; [facility] Work Phone: Comment on above: Patient Position: Sitting; Cuff Location : Left Arm; Cuff Size: Standard 03-08-2023 07:43-0400 Body mass index (BMI) [Ratio] 36.3 kg/m2 STRESS ANALYST-C Zunilda Suarez Work Phone: [facility] 03-08-2023 07:43-0400 Body temperature 97.1 [degF] STRESS ANALYST-C Zunilda Suarez Work Phone: [facility] 03-08-2023 07:43-0400 Body weight 90.26 kg STRESS ANALYST-C Zunilda Armstrongam Work Phone: [facility] 03-08-2023 07:43-0400 Diastolic blood pressure 67 mm[Hg] STRESS ANALYST-C Zunilda Armstrongam Work Phone: [facility] 03-08-2023 07:43-0400 Heart rate 84 /min STRESS ANALYST-C Zunilda Armstrongam Work Phone: [facility] 03-08-2023 07:43-0400 Respiratory rate 18 /min STRESS ANALYST-C Zunilda Armstrongam Work Phone: [facility] 03-08-2023 07:43-0400 SaO2% (BldA) [Mass fraction] 94 % STRESS ANALYST-C Zunilda Armstrongam Work Phone: [facility] 03-08-2023 07:43-0400 Systolic blood pressure 103 mm[Hg] STRESS ANALYST-C Zunilda Armstrongam Work Phone: [facility] 02-17-2023 08:36-0400 Body height 158.75 cm Tala Garduno SOFTWARE QUALITY ENGINEER [facility] Work Phone: 02-17-2023 08:36-0400 Body mass index (BMI) [Ratio] 34.74 kg/m2 Tala Shilohrb SOFTWARE QUALITY ENGINEER [facility]; [facility] Work Phone: 02-17-2023 08:36-0400 Body surface area Derived from formula 1.89 m2 Tala Matamorosrb SOFTWARE QUALITY ENGINEER [facility]; [facility] Work Phone: 02-17-2023 08:36-0400 Body temperature 97.2 [degF] Tala Slarb SOFTWARE QUALITY ENGINEER [facility]; [facility] Work Phone: Comment on above: Method: Temporal 02-17-2023 08:36-0400 Body weight 87.54 kg Tala Matamorosrb SOFTWARE QUALITY ENGINEER [facility]; [facility] Work Phone: 02-17-2023 08:36-0400 Diastolic blood pressure 78 mm[Hg] Tala Slarb SOFTWARE QUALITY ENGINEER [facility]; [facility] Work Phone: Comment on above: Patient Position: Sitting; Cuff Location : Left Arm; Cuff Size: Standard 02-17-2023 08:36-0400 Heart rate 79 /min Tala Shilohrb SOFTWARE QUALITY ENGINEER [facility]; [facility] Work Phone: Comment on above: Pattern: Regular 02-17-2023 08:36-0400 Respiratory rate 18 /min Tala Matamorosrb SOFTWARE QUALITY ENGINEER [facility]; [facility] Work Phone: Comment on above: Pattern: Unlabored 02-17-2023 08:36-0400 SaO2% (BldA) [Mass fraction] 99 % Tala Slarb SOFTWARE QUALITY ENGINEER [facility]; [facility] Work Phone: Comment on above: Room air 02-17-2023 08:36-0400 Systolic blood pressure 118 mm[Hg] Tala Slarb SOFTWARE QUALITY ENGINEER [facility]; [facility] Work Phone: Comment on above: Patient Position: Sitting; Cuff Location : Left Arm; Cuff Size: Standard 08-10-2022 10:10-0500 Body height 158.75 cm Tala Garduno SOFTWARE QUALITY ENGINEER [facility]; [facility] Work Phone: 08-10-2022 10:10-0500 Body mass index (BMI) [Ratio] 34.74 kg/m2 Tala Matamorosrb SOFTWARE QUALITY ENGINEER [facility]; [facility] Work Phone: 08-10-2022 10:10-0500 Body surface area Derived from formula 1.89 m2 Tala Slarb SOFTWARE QUALITY ENGINEER [facility]; [facility] Work Phone: 08-10-2022 10:10-0500 Body temperature 97.3 [degF] Tala Slarb SOFTWARE QUALITY ENGINEER [facility]; [facility] Work Phone: 08-10-2022 10:10-0500 Body weight 87.54 kg Tala Shilohrb SOFTWARE QUALITY ENGINEER [facility]; [facility] Work Phone: 08-10-2022 10:10-0500 Diastolic blood pressure 82 mm[Hg] Tala Slarb SOFTWARE QUALITY ENGINEER [facility]; [facility] Work Phone: Comment on above: Patient Position: Sitting; Cuff Location : Left Arm; Cuff Size: Standard 08-10-2022 10:10-0500 Heart rate 90 /min Tala Shilohrb SOFTWARE QUALITY ENGINEER [facility]; [facility] Work Phone: Comment on above: Pattern: Regular 08-10-2022 10:10-0500 Respiratory rate 16 /min Tala Slarb SOFTWARE QUALITY ENGINEER [facility]; [facility] Work Phone: Comment on above: Pattern: Unlabored 08-10-2022 10:10-0500 SaO2% (BldA) [Mass fraction] 98 % Tala Slarb SOFTWARE QUALITY ENGINEER [facility]; [facility] Work Phone: Comment on above: Room air 08-10-2022 10:10-0500 Systolic blood pressure 124 mm[Hg] Tala Slarb SOFTWARE QUALITY ENGINEER [facility]; [facility] Work Phone: Comment on above: Patient Position: Sitting; Cuff Location : Left Arm; Cuff Size: Standard 06-08-2022 11:48-0400 Body height 158.75 cm Tala Slarb SOFTWARE QUALITY ENGINEER [facility]; [facility] Work Phone: Comment on above: pt did not report 06-08-2022 11:48-0400 Body mass index (BMI) [Ratio] 35.14 kg/m2 Tala Slarb SOFTWARE QUALITY ENGINEER [facility]; [facility] Work Phone: Comment on above: pt did not report 06-08-2022 11:48-0400 Body surface area Derived from formula 1.9 m2 Tala Slarb SOFTWARE QUALITY ENGINEER [facility]; [facility] Work Phone: Comment on above: pt did not report 06-08-2022 11:48-0400 Body weight 88.57 kg Tala Slarb [facility]; [facility] Work Phone: Comment on above: pt did not report 06-03-2022 09:46-0400 Body height 158.75 cm [facility]; [facility] Work Phone: 06-03-2022 09:46-0400 Body mass index (BMI) [Ratio] 35.14 kg/m2 [facility] Work Phone: 06-03-2022 09:46-0400 Body surface area Derived from formula 1.9 m2 [facility]; [facility] Work Phone: 06-03-2022 09:46-0400 Body weight 88.57 kg [facility] Work Phone: 06-03-2022 09:46-0400 Diastolic blood pressure 80 mm[Hg] [facility]; [facility] Work Phone: Comment on above: Patient Position: Sitting; Cuff Location : Left Arm; Cuff Size: Standard 06-03-2022 09:46-0400 Heart rate 79 /min [facility]; [facility] Work Phone: Comment on above: Pattern: Regular 06-03-2022 09:46-0400 Respiratory rate 18 /min Allen Del Cid [facility]; [facility] Work Phone: Comment on above: Pattern: Unlabored 06-03-2022 09:46-0400 SaO2% (BldA) [Mass fraction] 96 % Allen Del Cid [facility]; [facility] Work Phone: Comment on above: Room air 06-03-2022 09:46-0400 Systolic blood pressure 118 mm[Hg] Allen Del Cid [facility]; [facility] Work Phone: Comment on above: Patient Position: Sitting; Cuff Location : Left Arm; Cuff Size: Standard 05-19-2022 08:17-0400 Body height 157.48 cm STRESS ANALYST-C Sierra Hopkins STRESS ANALYST Work Phone: [facility] Work Phone: 05-19-2022 08:17-0400 Body mass index (BMI) [Ratio] 36 kg/m2 STRESS ANALYST-C Sierra Hopkins STRESS ANALYST Work Phone: [facility] Work Phone: 05-19-2022 08:17-0400 Body temperature 97.2 [degF] STRESS ANALYST-C Sierra Hopkins STRESS ANALYST Work Phone: [facility] Work Phone: 05-19-2022 08:17-0400 Body weight 89.41 kg STRESS ANALYST-C Sierra Hopkins STRESS ANALYST Work Phone: [facility] Work Phone: 05-19-2022 08:17-0400 Diastolic blood pressure 70 mm[Hg] STRESS ANALYST-C Sierra Hopkins STRESS ANALYST Work Phone: [facility] Work Phone: 05-19-2022 08:17-0400 Heart rate 71 /min STRESS ANALYST-C Sierra Sotojairo STRESS ANALYST Work Phone: [facility] Work Phone: 05-19-2022 08:17-0400 Respiratory rate 17 /min STRESS ANALYST-C Sierra Hopkins STRESS ANALYST Work Phone: [facility] Work Phone: 05-19-2022 08:17-0400 SaO2% (BldA) [Mass fraction] 95 % STRESS ANALYST-C Sierra Hopkins STRESS ANALYST Work Phone: [facility] Work Phone: 05-19-2022 08:17-0400 Systolic blood pressure 116 mm[Hg] STRESS ANALYST-C Sierra Hopkins STRESS ANALYST Work Phone: [facility] Work Phone: 03-22-2021 08:48-0400 Body height 158.75 cm Luis Mariano LPN [facility]; [facility] Work Phone: 03-22-2021 08:48-0400 Body mass index (BMI) [Ratio] 36.91 kg/m2 Luis Mariano LPN [facility]; [facility] Work Phone: 03-22-2021 08:48-0400 Body mass index (BMI) [Ratio] 35.29 kg/m2 Luis Mariano LPN [facility]; [facility] Work Phone: 03-22-2021 08:48-0400 Body surface area Derived from formula 1.94 m2 Luis Mariano LPN [facility]; [facility] Work Phone: 03-22-2021 08:48-0400 Body surface area Derived from formula 1.91 m2 Luis Mariano LPN [facility]; [facility] Work Phone: 03-22-2021 08:48-0400 Body temperature 97.1 [degF] Luis Mariano LPN [facility]; [facility] Work Phone: Comment on above: Method: Infrared 03-22-2021 08:48-0400 Body weight 93.01 kg Luis Mariano LPN [facility]; [facility] Work Phone: 03-22-2021 08:48-0400 Body weight 88.93 kg Luis Mariano LPN [facility]; [facility] Work Phone: 03-22-2021 08:48-0400 Diastolic blood pressure 72 mm[Hg] Luis Mariano LPN [facility]; [facility] Work Phone: Comment on above: Patient Position: Sitting; Cuff Location : Left Arm; Cuff Size: Standard 03-22-2021 08:48-0400 Heart rate 99 /min Luis Mariano LPN [facility]; [facility] Work Phone: Comment on above: Pattern: Regular 03-22-2021 08:48-0400 Respiratory rate 16 /min Luis Mariano LPN [facility]; [facility] Work Phone: Comment on above: Pattern: Unlabored 03-22-2021 08:48-0400 SaO2% (BldA) [Mass fraction] 94 % Luis Mariano LPN [facility]; [facility] Work Phone: Comment on above: Room air 03-22-2021 08:48-0400 Systolic blood pressure 118 mm[Hg] Luis Mariano LPN [facility]; [facility] Work Phone: Comment on above: Patient Position: Sitting; Cuff Location : Left Arm; Cuff Size: Standard 02-09-2021 09:59-0400 Body height 158.75 cm Luis Mariano LPN [facility]; [facility] Work Phone: 02-09-2021 09:59-0400 Body mass index (BMI) [Ratio] 36.91 kg/m2 Luis Mariano LPN [facility]; [facility] Work Phone: 02-09-2021 09:59-0400 Body surface area Derived from formula 1.94 m2 Luis Mariano LPN [facility]; [facility] Work Phone: 02-09-2021 09:59-0400 Body weight 93.01 kg Luis Mariano LPN [facility]; [facility] Work Phone: 01-27-2021 07:50-0400 Body height 158.75 cm Luis Mariano LPN [facility]; [facility] Work Phone: 01-27-2021 07:50-0400 Body mass index (BMI) [Ratio] 36.91 kg/m2 Luis Mariano LPN [facility]; [facility] Work Phone: 01-27-2021 07:50-0400 Body surface area Derived from formula 1.94 m2 Luis Mariano LPN [facility]; [facility] Work Phone: 01-27-2021 07:50-0400 Body weight 93.01 kg Luis Mariano LPN [facility]; [facility] Work Phone: 01-06-2021 10:34-0400 BMI (Body Mass Index) 36.91 kg/m2 Luis Mariano LPN [facility]; [facility] Work Phone: 01-06-2021 10:34-0400 Body Temperature 97.3 [degF] Luis Mariano LPN [facility]; [facility] Work Phone: Comment on above: Method: Infrared 01-06-2021 10:34-0400 Body weight 93.01 kg Luis Mariano LPN [facility]; [facility] Work Phone: 01-06-2021 10:34-0400 BP Diastolic 68 mm[Hg] Luis Mariano LPN [facility]; [facility] Work Phone: Comment on above: Patient Position: Sitting; Cuff Location : Left Arm; Cuff Size: Standard 01-06-2021 10:34-0400 BP Systolic 138 mm[Hg] Luis Mariano LPN [facility]; [facility] Work Phone: Comment on above: Patient Position: Sitting; Cuff Location : Left Arm; Cuff Size: Standard 01-06-2021 10:34-0400 BSA (Body Surface Area) 1.94 m2 Luis Mariano LPN [facility]; [facility] Work Phone: 01-06-2021 10:34-0400 Height 158.75 cm Luis Mariano LPN [facility]; [facility] Work Phone: 01-06-2021 10:34-0400 Pulse (Heart Rate) 96 /min Luis Mariano LPN [facility]; [facility] Work Phone: Comment on above: Pattern: Regular 01-06-2021 10:34-0400 Pulse Oximetry 95 % Sierra Hopkins [facility]; [facility] Work Phone: Comment on above: Room air 01-06-2021 10:34-0400 Respiratory Rate 16 /min Luis Mariano [facility]; [facility] Work Phone: Comment on above: Pattern: Unlabored 01-06-2021 10:34-0400 SaO2% (BldA) [Mass fraction] 95 % Luis Mariano [facility]; [facility] Work Phone: Comment on above: Room air 05-27-2020 08:32-0400 BMI (Body Mass Index) 37.08 kg/m2 Thalia Silverio [facility] Work Phone: 05-27-2020 08:32-0400 Body weight 93.45 kg Thaliacoral Silverio [facility] Work Phone: 05-27-2020 08:32-0400 BSA (Body Surface Area) 1.95 m2 [facility] Work Phone: 05-27-2020 08:32-0400 Height 158.75 cm Thaliacoral Silverio [facility] Work Phone: 04-13-2020 08:26-0400 BMI (Body Mass Index) 37.08 kg/m2 Buffy Stone RN [facility] Work Phone: 04-13-2020 08:26-0400 Body weight 93.45 kg Buffy L Chase RN [facility] Work Phone: 04-13-2020 08:26-0400 BSA (Body Surface Area) 1.95 m2 Buffy Stone RN [facility] Work Phone: 04-13-2020 08:26-0400 Height 158.75 cm Buffy Stone RN [facility] Work Phone: 01-03-2020 12:34-0400 BMI (Body Mass Index) 37.08 kg/m2 Sierra Hopkins CNP Work Phone: [facility] Work Phone: 01-03-2020 12:34-0400 Body Temperature 99 [degF] Sierra Hopkins MANAGEMENT TRAINEE Work Phone: [facility] Work Phone: 01-03-2020 12:34-0400 Body weight 93.45 kg Sierra Hopkins MANAGEMENT TRAINEE Work Phone: [facility] Work Phone: 01-03-2020 12:34-0400 BP Diastolic 74 mm[Hg] Sierra Hopkins MANAGEMENT TRAINEE Work Phone: [facility] Work Phone: Comment on above: Patient Position: Supine; Cuff Location: Right Arm; Cuff Size: Standard 01-03-2020 12:34-0400 BP Systolic 126 mm[Hg] Sierra Hopkins CNP Work Phone: [facility] Work Phone: Comment on above: Patient Position: Supine; Cuff Location: Right Arm; Cuff Size: Standard 01-03-2020 12:34-0400 BSA (Body Surface Area) 1.95 m2 Sierra Hopkins CNP Work Phone: [facility] Work Phone: 01-03-2020 12:34-0400 Height 158.75 cm Sierra Hopkins MANAGEMENT TRAINEE Work Phone: [facility] Work Phone: 01-03-2020 12:34-0400 Pulse (Heart Rate) 96 /min Sierra Hopkins MANAGEMENT TRAINEE Work Phone: [facility] Work Phone: Comment on above: Pattern: Regular 12-19-2019 13:12-0400 BMI (Body Mass Index) 37.08 kg/m2 Myra Shane [facility] Work Phone: Comment on above: no vitals obtained as this is phone conv o due to kaur virus outbreak 12-19-2019 13:12-0400 Body weight 93.45 kg Myra Shane [facility] Work Phone: Comment on above: no vitals obtained as this is phone conv o due to kaur virus outbreak 12-19-2019 13:12-0400 BSA (Body Surface Area) 1.95 m2 Myra Shane [facility] Work Phone: Comment on above: no vitals obtained as this is phone conv o due to kaur virus outbreak 12-19-2019 13:12-0400 Height 158.75 cm Myra Shane [facility] Work Phone: Comment on above: no vitals obtained as this is phone conv o due to kaur virus outbreak 12-11-2019 14:16-0400 BMI (Body Mass Index) 37.08 kg/m2 Luis Mariano LPN [facility] Work Phone: 12-11-2019 14:16-0400 Body Temperature 97.8 [degF] Luis Mariano LPN [facility] Work Phone: Comment on above: Method: Temporal 12-11-2019 14:16-0400 Body weight 93.45 kg Luis Mariano LPN [facility] Work Phone: 12-11-2019 14:16-0400 BP Diastolic 84 mm[Hg] Luis Mariano LPN [facility] Work Phone: Comment on above: Patient Position: Sitting; Cuff Location : Left Arm; Cuff Size: Standard 12-11-2019 14:16-0400 BP Systolic 132 mm[Hg] Luis Mariano LPN [facility] Work Phone: Comment on above: Patient Position: Sitting; Cuff Location : Left Arm; Cuff Size: Standard 12-11-2019 14:16-0400 BSA (Body Surface Area) 1.95 m2 Luis Mariano LPN [facility] Work Phone: 12-11-2019 14:16-0400 Height 158.75 cm Luis Mariano LPN [facility] Work Phone: 12-11-2019 14:16-0400 Pulse (Heart Rate) 90 /min Luis Mariano LPN [facility] Work Phone: Comment on above: Pattern: Regular 12-11-2019 14:16-0400 Pulse Oximetry 94 % Sierra Hopkins [facility] Work Phone: Comment on above: Room air 12-11-2019 14:16-0400 Respiratory Rate 16 /min Luis Mariano LPN [facility] Work Phone: Comment on above: Pattern: Unlabored 12-11-2019 14:16-0400 SaO2% (BldA) [Mass fraction] 94 % Luis Mariano LPN [facility]; [facility] Work Phone: Comment on above: Room air Encounters Encounter Date Encounter Type Care Provider Facility Start: 04-21-2025 End: 04-21-2025 ambulatory Mo Tim STRESS ANALYST-C Work Phone: -[facility] Start: 04-21-2025 End: 04-21-2025 Patient encounter procedure Mo Tim STRESS ANALYST-C -[facility] Start: 04-21-2025 End: 04-21-2025 ambulatory Mo Tim VSC Facility:[facility] Start: 08-16-2024 End: 08-16-2024 ambulatory Zunlida Suarez Facility[place] Start: 12-29-2023 End: 12-29-2023 Emergency department patient visit STRESS ANALYST-C Zunilda Suarez Work Phone: [facility]-Emergency Department Work Phone: Start: 12-07-2023 End: 12-07-2023 Patient encounter procedure STRESS ANALYST-C Zunilda Suarez Work Phone: [facility] [place] Work Phone: Start: 11-07-2023 End: 11-07-2023 Patient encounter procedure STRESS ANALYST-C Zunilda Suarez Work Phone: [facility], [facility] Work Phone: Start: 05-11-2023 End: 05-11-2023 Phone Encounter Sierra Hopkins Work Phone: [facility] Start: 05-05-2023 End: 05-05-2023 Patient encounter procedure Sierra Hopkins Work Phone: [facility] Start: 04-29-2023 End: 04-29-2023 Emergency department patient visit STRESS ANALYST-C Zunilda Suarez Work Phone: [facility]-Emergency Department Work Phone: Start: 04-18-2023 End: 04-18-2023 Office outpatient visit 15 minutes Sierra Hopkins Work Phone: [facility] Start: 03-08-2023 End: 03-08-2023 Patient encounter procedure STRESS ANALYST-C Zunilda Suarez Work Phone: [facility]-Pulmonary Medicine [facility] Work Phone: Start: 02-20-2023 End: 02-21-2023 Annotation/Addendum Sierra Hopkins Work Phone: [facility] Start: 02-17-2023 End: 02-17-2023 Office outpatient visit 15 minutes Sierra Hopkins Work Phone: [facility] Start: 12-07-2022 ambulatory [facility] Start: 08-10-2022 End: 08-21-2022 Office outpatient visit 25 minutes Sierra Hopkins Work Phone: [facility] Start: 08-10-2022 Review Sierra Hopkins Work Phone: [facility] Start: 07-14-2022 Non-patient / Non-visit STRESS ANALYST-C Jackie Hopkins STRESS ANALYST Work Phone: [facility] Start: 07-14-2022 End: 07-14-2022 ambulatory STRESS ANALYST-C Sierra Hopkins STRESS ANALYST Work Phone: [facility] Work Phone: Start: 07-14-2022 End: 07-14-2022 Patient encounter procedure STRESS ANALYST-C Sierra Sotoa STRESS ANALYST Work Phone: [facility]-Pulmonary Services/Neurology Start: 07-12-2022 End: 07-12-2022 Patient encounter procedure Sierra Hopkins Work Phone: [facility] Start: 06-22-2022 End: 06-22-2022 Patient encounter procedure STRESS ANALYST-C Sierra Sotojairo STRESS ANALYST Work Phone: [facility], [facility] Start: 06-14-2022 End: 06-14-2022 Annotation/Addendum Sierra Hopkins Work Phone: [facility] Start: 06-09-2022 End: 06-09-2022 Prescription Refill Sierra Hopkins Work Phone: [facility] Start: 06-08-2022 End: 06-14-2022 Office outpatient visit 15 minutes Sierra Hopkins Work Phone: [facility] Start: 06-03-2022 End: 06-14-2022 Office outpatient visit 25 minutes Sierra Hopkins Work Phone: [facility] Start: 05-19-2022 End: 05-19-2022 Patient encounter procedure STRESS ANALYST-C Sierra Hopkins STRESS ANALYST Work Phone: [facility]-Pulmonary Medicine [facility] Start: 01-31-2022 ambulatory Melany Chavez [facility] [place] Comment on above: [facility]rea [facility] Start: 01-03-2022 ambulatory Adalberto Askew APRN.MANAGEMENT TRAINEE Work Phone: [facility] Comment on above: [facility] Outrea [facility] Start: 03-22-2021 End: 03-22-2021 Office outpatient visit 15 minutes Sierra Hopkins MANAGEMENT TRAINEE Work Phone: [facility] Start: 03-22-2021 Review Sierra Hopkins MANAGEMENT TRAINEE Work Phone: [facility] Start: 02-09-2021 End: 02-09-2021 Office outpatient visit 15 minutes Sierra Hopkins MANAGEMENT TRAINEE Work Phone: [facility] Start: 01-27-2021 Review Sierra Hopkins MANAGEMENT TRAINEE Work Phone: [facility] Start: 01-06-2021 End: 01-06-2021 Office outpatient visit 25 minutes Sierra Morocho [facility] Start: 05-27-2020 End: 05-27-2020 Office outpatient visit 25 minutes [facility] Start: 04-13-2020 End: 04-13-2020 Office outpatient visit 15 minutes [facility] Start: 04-13-2020 Review Sierra Hopkins Argenis varela [facility] Start: 03-31-2020 End: 03-31-2020 Lab Order Sierra Morocho [facility] Start: 01-20-2020 End: 01-20-2020 Patient encounter procedure [facility] Start: 01-03-2020 End: 01-03-2020 Office outpatient visit 15 minutes [facility] Start: 12-20-2019 End: 12-20-2019 Annotation/Addendum Sierra Charlesjairo Morocho [facility] Start: 12-19-2019 End: 12-19-2019 Office outpatient visit 15 minutes [facility] Start: 12-11-2019 End: 12-11-2019 Office outpatient new 45 minutes [facility] Start: 09-12-2018 Colonoscopy normal STRESS ANALYST-C Sierra dyer STRESS ANALYST Work Phone: [facility] Start: 11-13-2017 End: 12-08-2017 [facility] Procedures Date Procedure Procedure Detail Performing Clinician Start: 12-29-2023 X-ray of cervical spine STRESS ANALYST-C Zunilda Suarez Work Phone: Start: 11-07-2023 CT of chest STRESS ANALYST-C Zunilda Suarez Work Phone: Start: 04-29-2023 End: 04-29-2023 Emergency Department Summary Procedure Note: See Note; NOTES: [facility] Medical Records Department [address] [place] [address] Emergency Department Summary 04/29/23 MR#: [id number] Acct: [id number] Name: ROSA DEAN Kesha Rep #: [id number] : 1955 67 From: Liu LOAIZA PCP: [...] or neck injury. She denies any LOC. [facility] <AMIRA RobbinsC - Last Filed: 04/29/23 18:19> [facility] Medical History Anxiety Arthritis Carpal tunnel syndrome [...] Ox 99 Oxygen Delivery Method Room Air [facility] <FADIA Robbins - Last Filed: 04/29/23 18:19> [facility] Radiography Diagnostic Testing: Clinical Impression(s) from Imaging Studies Hip/Pelvis X-Ray 04/29/23 11:17 IMPRESSION: Normal x-ray examination of the pelvis and hip. Electronically Signed: Jemal Warren MD at 11:56 EDT Reading Location ID and State: [id number] / [employer] , Service support , Knee X-Ray 04/29/23 11:17 IMPRESSION: Normal x-ray examination of the knee. Electronically Signed: Jemal Warren MD at 11:59 EDT Reading Location ID and State: [id number] / [employer] , Service support , Treatment and [...] Bennett DO - Last Filed: 04/29/23 18:20> [facility] Radiography Diagnostic Testing: Clinical Impression(s) from Imaging [...] your Primary Care Provider. Call [facility] ([phone]) or report to the closest Emergency Room. Call 911 if necessary. 04/29/231818 <Electronically signed by Liu LOAIZA> Cosigner Signature (if applicable): 04/29/231819 <Electronically signed by Ned Bennett DO> CC: STRESS ANALYSTRonaldo Suarez Signed Sierra Hopkins Work Phone: Start: 04-29-2023 End: 04-29-2023 HIP, UNI W/ Pelvis 2-3 Views Procedure Note: See Note; NOTES: [facility] Imaging Services [address] [place] [address] HIP, UNI W/ Pelvis 2-3 Views MR#: [id number] Acct: [id number] Name: ROSA DEAN Rep #: [id number] : 1955 F 67 From: Jemal Warren MD PCP: FADIA Gerardo Status: PRE ER Study: HIP, UNI W/ Pelvis 2-3 Views Date of Exam: Exam# [id number] Ordering Dr: Liu Mckeon STUDY: X-RAY - [...] EDT , CC: FADIA Suarez; FADIA Mckeon Cutter First: Signed Sierra Hopkins Work Phone: Start: 04-29-2023 End: 04-29-2023 Knee 4 or More Views Procedure Note: See Note; NOTES: [facility] Imaging Services [address] [place] [address] Knee 4 or More Views MR#: [id number] Acct: [id number] Name: ROSA DEAN Rep #: [id number] : 1955 F 67 From: Jemal Warren MD PCP: FADIA Gerardo Status: PRE ER Study: Knee 4 or More Views Date of Exam: 04/29/23 Exam# [id number] Ordering Dr: Liu Mckeon STUDY: X-RAY - [...] EDT , CC: FADIA Suarez; FADIA Mckeon Cutter First: Signed Sierra Hopkins Work Phone: Start: 04-29-2023 Plain x-ray of pelvis and lower extremity FADIA Suarez Work Phone: Start: 04-29-2023 Radiologic examination of knee FADIA Suarez Work Phone: Start: 03-08-2023 End: 03-08-2023 Pulmonary Visit Report Procedure Note: See Note; NOTES: [facility] of [address] [place] [address] OFFICE VISIT Date of Service: 03/08/23 MR#: [id number] Acct: [id number] Name: ROSA DEAN Rep #: [id number] : 1955 Provider: FADIA Horan Age/Sex: 67/F Location[facility] Status: Signed Assessment and Plan Assessment and [...] - Nicotine dependence, cigarettes, uncomplicated Medications: New isdcpnrvpj-bmsmgzrn-sythldkm ol 160-9-4.8 mcg/actuation (Breztri Aerosphere) 2 inhalations inhalation BID 10.7 grams 6RF F17.210 - Nicotine dependence, cigarettes, uncomplicated prednisone administer with food or milk 60 mg (3 x 20 mg) PO QDAY 15 tabs 0RF F17.210 - Nicotine dependence, cigarettes, uncomplicated Discontinued tiotropium-olodaterol 2.5-2.5 mcg/actuation (Stiolto Respimat) Discontinued Reason: Order Changed [Sample] #2 Plan Details Follow Up: 07/02/23 (USHA) HPI HPI Comments Details: This patient presents [...] days that she believes is related to "pollen". She does report excellent compliance with her [...] problems Chief Complaint: abn hida/ RUQ pain Box Cutter Required: No DME Vendor: c-pap--[employer] Accompanied by: Self Is patient in pain?: [...] 1527 <Electronically signed by Princess Horan NP STRESS ANALYST-C> Date Princess Marley Signature: Date (if applicable) CC: STRESS ANALYST-C Zunilda Suarez Sierra Hopkins Work Phone: Start: 08-17-2022 End: 08-17-2022 Pulmonary Visit Report Procedure Note: See Note; NOTES: [facility] [place] [address] [place] [address] OFFICE VISIT Date of Service: 08/17/22 MR#: [id number] Acct: [id number] Name: ROSA DEAN Rep #: [id number] : 1955 Provider: Dr. Jasper Lindo MD Age/Sex: 67/F [facility] Status: Signed Assessment and Plan Assessment and [...] cessation. Plan Details Follow Up: 6 Months ([facility]) HPI 3 M FU Details: Patient is a 67-year-old female, currently under care of Zunilda Erick, who presents for evaluation secondary to recent [...] albuterol as she feels that this would "be in excess." Patient states that she does continue to smoke approximately a pack a day. Patient states her triggers are watching TV, eating and driving. Patient has attempted to quit in the past. Patient spouse is currently not using tobacco using a patch. Patient feels that this is "not for her." Patient states that her breathing is "not bad enough to worry about it right now." Patient is not reporting any significant desaturation. [...] FU Chief Complaint: abn hida/ RUQ pain Box Cutter Required: No DME Vendor: [employer]-pap-- [employer] Is patient in pain?: No Allergies [...] mcg/actuation Mist#2 Samples 08/17/22 [Sample Confirmed 08/17/22] [facility] Medical History Anxiety Arthritis Carpal tunnel syndrome [...] that she only has mild COPD after "extensive smoking." Did discuss the behavioral options for moving [...] Route Admin Location Lot Number Expiration Date [facility] Manufactu rer 60 mcg IM Right Deltoid [id number] 01/20/23 17705-751-07 [employer]. VIS Given Date VIS Provided VIS Publication [...] Spent - greater than 10 minutes: Yes ([id number]) 08/17/22 1255 <Electronically signed by Jasper Lindo MD> Date Jasper Lindo MD Cosigner Signature: Date (if applicable) CC: STRESS ANALYST-C Zunilda Suarez Sierra Hopkins Work Phone: Start: 07-14-2022 End: 07-14-2022 Pulmonary Function Report Comp Procedure Note: See Note; NOTES: [facility] Pulmonary Services/Neurology [address] [place] [address] MR#: [id number] Acct: [id number] Name: ROSA DEAN Rep #: [id number] : 1955 66 From: Jasper Lindo MD Referring Dr: Princess Horan NP STRESS ANALYST-C Status: REG CLI Location: [facility] Date: 07/14/22 Sex: F C COMPLETE PULMONARY FUNCTION TEST INTERPRETATION Brief HPI: Patient is a 66-year-old female, currently under the care of Princess Horan, who presents to [facility] for complete pulmonary function tests secondary to [...] Lindo MD> Date Jasper Lindo MD CC: STRESS ANALYST-Patricio Horan; STRESS ANALYST-C Sierra Hopkins; Dr. Jasper Lindo MD Date Dictated: 07/14/221437 Date Transcribed: 10/13/22 1438 Cutter First: ESTELA Signed Sierra Hopkins Work Phone: Start: 06-22-2022 CT of chest STRESS ANALYST-C Sierra Hopkins STRESS ANALYST Work Phone: Start: 06-22-2022 End: 06-22-[address] Lung Screening Procedure Note: See Note; NOTES: [facility] Imaging Services [address] [place] [address] Lung Screening MR#: [id number] Acct: [id number] Name: ROSA DEAN Rep #: [id number] : 1955 F 66 From: Josue Allan MD PCP: FADIA Santana Status: REG CLI Study: Low Dose CT Lung Screening Date of Exam: 06/22 Exam# [id number] Ordering Dr: Princess Horan NP STRESS ANALYST-Patricio STUDY: LOW DOSE CT LUNG CANCER SCREENING [...] Signed: Ulysses Allan MD at 8:33 EDT , CC: FADIA Horan; FADIA Hopkins Cutter First: Signed Sierra Hopkins Work Phone: Start: 05-19-2022 End: 05-19-2022 Pulmonary Visit Report Procedure Note: See Note; NOTES: [facility] of [address] [place] [address] OFFICE VISIT Date of Service: 05/19/22 MR#: [id number] Acct: [id number] Name: ROSA DEAN Rep #: [id number] : 1955 Provider: FADIA Horan Age/Sex: 66/F Location[place] [facility] Status: Signed Assessment and Plan Assessment and [...] room air Intake Visit Reasons: 3 M Box Cutter Required: No Accompanied by: None Allergies No [...] QPM #30 tabs 05/19/22 [Rx Confirmed 05/19/22] PFSH Medical History Anxiety Arthritis Carpal tunnel [...] F17.210 05/19/22 1307 <Electronically signed by Princess COLLIERC> Date Princess COLLIERC Cosigner Signature: Date (if applicable) CC: STRESS ANALYSTRonaldo Perazayaimajairo Work Phone: Start: 04-19-2021 End: 04-20-[address] Lung Screening Comments: See Note; NOTES: [facility] Imaging Services [address] [place] [address] Lung Screening MR#: [id number] Acct: [id number] Name: ROSA DEAN Rep #: [id number] : 1955 F 65 From: Brandon hidalgo MD PCP: AMIRA SantanaC Status: REG CLI Study: Low Dose CT Lung Screening Date of Exam: 04/19 Exam# [id number] Ordering Dr: Princess Horan NP STRESS ANALYST-C STUDY: LOW DOSE CT LUNG CANCER SCREENING [...] unrelated to lung cancer) Electronically Signed: Brandon eLe MD at 9:34 EDT , Service support , CC: FADIA Horan; FADIA Hopkins Cutter First: Signed Sierra Hopkins CNP Work Phone: Start: 04-14-2021 End: 04-14-2021 Colonoscopy Report Comments: See Note; NOTES: [facility] Medical Records Department [address] [place] [address] Colonoscopy Report MR#: [id number] Acct: [id number] Name: ROSA DEAN Rep #: [id number] : 1955 65 From: Caro Herrmann MD PCP: FADIA Santana Status:REG [facility] Patient Name: Rosa eDan Procedure Date: 04/14/2021 10:31 AM Date of [...] pathology results. Procedure Code(s): --- Professional --- 39211, Colonoscopy, flexible; with biopsy, single or multiple Diagnosis Code(s): --- Professional --- K64.0, First degree hemorrhoids D12.4, Benign neoplasm of descending colon K62.1, Rectal polyp Z80.0, Family history of malignant neoplasm of digestive organs K59.00, Constipation, unspecified K57.30, Diverticulosis of large intestine without perforation or abscess without bleeding CPT copyright 2017 [employer]. All rights reserved. The codes documented in this report are preliminary and upon reconciler review may be revised to meet current compliance requirements. MD Caro Zhou MD 04/14/2021 11:22:13 AM This report has been signed electronically. Number of Addenda: 0 Note Initiated On: 04/14/2021 10:31 AM 04/14/21 1122 Date Caro Herrmann MD Cosigner Signature: Date (if indicated) CC: STRESS ANALYST-Patricio Hopkins; Dr. Caro Herrmann MD Date Dictated: 04/14/21 1031 Date Transcribed: Cutter First: TR Signed Sierra Hopkins [facility] Work Phone: Start: 04-14-2021 End: 04-14-2021 EGD Report Comments: See Note; NOTES: [facility] Medical Records Department [address] [place] [address] EGD Report MR#: [id number] Acct: [id number] Name: ROSA DEAN Rep #: [id number] : 1955 65 From: Caro Herrmann MD PCP: FADIA Santana Status:REG [facility] Patient Name: Rosa Dean Procedure Date: 04/14/2021 [...] present medications. Procedure Code(s): --- Professional --- 56400, Esophagogastroduodenoscopy, flexible, transoral; with biopsy, single or multiple Diagnosis Code(s): --- Professional --- K31.89, Other diseases of stomach and duodenum K21.9, Gastro-esophageal reflux disease without esophagitis CPT copyright 2017 [employer]. All rights reserved. The codes documented in this report are preliminary and upon reconciler review may be revised to meet current compliance requirements. MD Caro Zhou MD 04/14/2021 11:14:42 AM This report has been signed electronically. Number of Addenda: 0 Note Initiated On: 04/14/2021 10:14 AM 04/14/21 1114 Date Caro Herrmann MD Cosigner Signature: Date (if indicated) CC: STRESS ANALYST-C Sierra Hopkins; Dr. Caro Herrmann MD Date Dictated: 04/14/21 1014 Date Transcribed: Cutter First: TR Signed Sierra Hopkins [facility] Work Phone: Start: 04-14-2021 End: 04-14-2021 History and Physical Exam Comments: See Note; NOTES: [facility] Medical Records Department [address] [place] [address] History Physical Exam 04/14/21 1005 MR#: [id number] Acct: [id number] Name: DEANROSA Kesha Rep #: [id number] : 1955 65 From: Caro Herrmann MD PCP: FADIA Santana Status:REG [facility] Location: [place] [address] History and Physical Date of Admission: 04/14/21 Date of Service: 03/29/21 MR#:[id number] Acct:[id number] Name: ROSA DEAN Kesha :1955 Age/Sex: 65/F Rep #:[id number] Provider:Dr. Caro Herrmann MD Location:[facility] Status:Signed Intake Vital Signs 03/29/21 13:34 03/29/21 13:46 Height 5 ft 2 in Weight: 196 lb BMI 36.6 35.8 BP 108/68 Blood Pressure Location Rt brachial Position Sitting Respiration 16 Intake Visit Reasons: CONSTIPATION ABDOMINAL PAIN Chief Complaint: scopes Box Cutter Required: No Is patient in pain?: No [...] PRN #18 g 11/09/20 [Rx Confirmed 03/16/21] [facility] Medical History (Updated 03/29/21 @ 13:48 by [...] Dulcolax split prep. Caro Herrmann M.D. Pager: [phone] [facility] [address] [place] [address], [address] [place] [address] Office: [phone] Plan Details Other Orders: Orders: Colonoscopy Today EGD Today Coding Level of Care Code Off vis,new,level 3 Diagnoses Constipation K59.00 Family history of colon cancer in father Z80.0 GERD (gastroesophageal reflux disease) K21.9 03/29/21 1351<Electronically signed by Caro Herrmann MD>Date Caro Herrmann MD 04/14/21 1006 <Electronically signed by Caro Herrmann MD> Cosigner Signature (if applicable): CC: STRESS ANALYSTUrvashiC Sierra Hopkins; Dr. Caro Herrmann MD Signed Sierra Hopkins MANAGEMENT TRAINEE Work Phone: Start: 03-29-2021 End: 03-29-2021 Surgery Visit Report Comments: See Note; NOTES: [facility] [address] [place] [address] OFFICE VISIT Date of Service: 03/29/21 MR#: [id number] Acct: [id number] Name: ROSA DEAN Rep #: [id number] : 1955 Provider: Dr. Caro diop MD Age/Sex: 65/F Location: [facility] Status: Signed Intake Vital Signs 03/29/21 13:34 03/29/21 13:46 Height 5 ft 2 in Weight: 196 lb BMI 36.6 35.8 BP 108/68 Blood Pressure Location Rt brachial Position Sitting Respiration 16 Intake Visit Reasons: CONSTIPATION ABDOMINAL PAIN Chief Complaint: scopes Box Cutter Required: No Is patient in pain?: No [...] Dulcolax split prep. Caro Herrmann M.D. Pager: [phone] [facility] [address] [place] [address], [address] [place] [address] Office: [phone] Plan Details Other Orders: Orders: Colonoscopy Today EGD Today Coding Level of Care Code Off vis,new,level 3 Diagnoses Constipation K59.00 Family history of colon cancer in father Z80.0 GERD (gastroesophageal reflux disease) K21.9 03/29/21 1351 <Electronically signed by Caro Herrmann MD> Date Caro Herrmann MD Cosigner Signature: Date (if applicable) CC: FADIA Hopkins [facility] Work Phone: Start: 03-16-2021 End: 03-16-2021 Pulmonary Visit Report Comments: See Note; NOTES: [facility] [place] [address] [place], [place] [address] OFFICE VISIT Date of Service: 03/16/21 MR#: [id number] Acct: [id number] Name: ROSA DEAN Rep #: [id number] : 1955 Provider: Dr. Jasper Lindo MD Age/Sex: 65/F [facility] Status: Signed Assessment and Plan Assessment and [...] but she is convinced that he has "cancer." Patient has been compliant with her NHI [...] air Intake Visit Reasons: 3 M FU [facility] Vendor: [employer] Allergies No Known Allergies Allergy (Verified 03/16/21 [...] Signature: Date (if applicable) CC: FADIA Hopkins MANAGEMENT TRAINEE Work Phone: Start: 11-09-2020 End: 11-09-2020 Pulmonary Visit Report Comments: See Note; NOTES: [facility] [place] [address] [place] [address] OFFICE VISIT Date of Service: 11/09/20 MR#: [id number] Acct: [id number] Name: ROSA DEAN Rep #: [id number] : 1955 Provider: FADIA Horan Age/Sex: 65/F Location[place] [facility] Status: Signed Assessment Plan 1. Chronic obstructive [...] not like the way they made her feel". She reports that they gave her severe [...] smoke 15 cigarettes/day. She is trying to "cut back". She reports that she is under a lot of stress. Her significant other is dealing with respiratory problems. Her brother was recently diagnosed with lung cancer. In the last 12 months she lost 3 friends and a gmdyqzm-wh-yeb to cancer as well. She admits that [...] air Intake Visit Reasons: 3 M FU [facility] Vendor: [employer] Allergies No Known Allergies Allergy (Verified 11/09/20 [...] PRN #18 g 11/09/20 [Rx Confirmed 11/09/20] PFS Medical History Trigger finger of left thumb [...] (Updated 11/09/20 @ 14:38 by Princess Horan STRESS ANALYST, STRESS ANALYST-C) household members: significant other housing: other details: [...] unspecified 11/09/20 1438 <Electronically signed by Princess LOAIZA> Date Princess LOAIZA Cosigner Signature: Date (if applicable) CC: FADIA Esquivel Kellie Hopkins Start: 06-30-2020 End: 06-30-2020 Pulmonary Visit Report Comments: See Note; NOTES: [facility] [place] [address] [place] [address] OFFICE VISIT Date of Service: 06/30/20 MR#: [id number] Acct: [id number] Name: ROSA DEAN Rep #: [id number] : 1955 Provider: FADIA Horan Age/Sex: 64/F Location: [facility] Status: Signed Assessment Plan 1. Chronic obstructive [...] and encourage cessation. You may call the tuul hotline 0-090-ZRTLNOW. People who use this line are THREE [...] 30 tabs 3RF Follow Up 3 Months ([facility]) HPI 3 M FU: Chief Complaint: Shortness [...] She continues to experience shortness of breath "constantly". She is exerted quite easily. She has [...] Complaint: abn hida/ RUQ pain DME Vendor: [employer] Is patient in pain?: No Allergies No [...] (Updated 06/30/20 @ 12:40 by Princess Horan STRESS ANALYST, STRESS ANALYST-C) household members: significant other housing: other details: [...] Codes Time Spent - 3-10 minutes: Yes ([id number]) 06/30/20 1240 <Electronically signed by Princess Horan NP STRESS ANALYST-C> Date Princess Horan NP STRESS ANALYST-C Cosigner Signature: Date (if applicable) CC: STRESS ANALYST-C Sierra Kellie Hopkins Start: 06-17-2020 End: 06-20-2020 Surgery Visit Report Comments: See Note; NOTES: [facility] [address] [place] [address]. [address] [place] [address] OFFICE VISIT Date of Service: 06/17/20 MR#: [id number] Acct: [id number] Name: ROSA DEAN Rep #: [id number] : 1955 Provider: Dr. Vicente khan MD Age/Sex: 64/F Location: [facility] Status: Signed Intake Intake Visit Reasons: ONE WEEK F/U CHOLECYSTECTOMY Chief Complaint: f/u lap adi Box Cutter Required: No Is patient in pain?: No [...] MD Cosigner Signature: Date (if applicable) CC: STRESS ANALYST-C Sierra Hopkins Start: 06-11-2020 End: 06-11-2020 Discharge Instruction Comments: See Note; NOTES: [facility] Medical Records Department [address] [place] [address] Instructions for Home/Discharge Instructions 06/11/20 0852 MR#: [id number] Acct: [id number] Name: VITORROSA L Rep #: [id number] : 1955 64 From: Vicente Rendon MD PCP: Sierra Hopkins, STRESS ANALYST-C Status:REG [facility] Discharge Diet: Light diet - advance as [...] PRN Reason: Pain Transmission Status: Sent to [facility] Primary Care Physician: Sierra Hopkins NP, NP-Patricio [Primary Care Provider] - Test Results: Test results from this visit will be discussed in further detail at your follow-up appointment, if applicable. Please Follow Up With: Vicente Rendon MD - Please call [phone] to schedule an appointment. When: 7 days after your surgery. 06/11/20 0852 <Electronically signed by Vicente Rendon MD> Date Vicente Rendon MD CC: STRESS ANALYST-C Sierra Hopkins; Dr. Iván Garcia MD Signed Sierra Hopkins Start: 06-11-2020 End: 06-11-2020 Operative Report Comments: See Note; NOTES: [facility] Medical Records Department [address] [place] [address] Operative Report 06/11/20 0851 MR#: [id number] Acct: [id number] Name: ROSA DEAN Rep #: [id number] : 1955 64 From: Vicente Rendon MD PCP: FADIA Santana Status:REG [facility] Y Location: [place] [address] Problem List (1) Biliary dyskinesia Status: Acute [...] fascia. The fascia was grasped with a Giovanni. Varies needle was placed inside the abdomen. [...] ligated the duct. I used the suction hostess host to make sure I had good hemostasis. [...] the umbilical port was closed with a csmgtd-sa-qryzu stitch of 0 Vicryl. Skin incisions were closed with subcuticular stitches of 4-0 Monocryl. Steri-Strips were applied sterile dressings were applied and the patient tolerated the procedure well. - Admit VTE Documentation VTE Present on Admission: No VTE Pharm Prophylaxis ordered?: No Reason prophylaxis not ordered:: Treatment Not Indicated [id number]: [id number] Laparoscopic cholecystectomy 06/11/20 1048 <Electronically signed by Vicente Rendon MD> Date Vicente Rendon MD CC: FADIA Hopkins; Dr. Iván Garcia MD; Dr. Vicente Rendon MD Signed Sierra Hopkins Start: 06-03-2020 End: 06-04-2020 12 Lead EKG Comments: See Note; NOTES: [facility] Cardiovascular Services [address] [place] [address] 12 Lead EKG 06/03/20 0847 MR#: [id number] Acct: [id number] Name: ROSA DEAN Rep #: [id number] : 1955 64 From: Josse Villagran MD Attending Dr: Dr. Vicente Rendon MD Status: DC E SD Ordering Dr: Iván Garcia MD Date: 06/03/20 Location: [facility] Sex: F C Admitted: Test Reason : PRE OP Blood Pressure : / mmHG Vent. Rate : 076 BPM Atrial Rate : 076 BPM P-R Int : 148 ms QRS Dur : 072 ms QT Int : 378 ms P-R-T Axes : 065 059 069 degrees QTc Int : 425 ms Normal sinus rhythm Normal ECG Confirmed by RICK RAMIRES, JOSSE ([id number]), assignment editor GABRIELLA GALEANA ([id number]) on 06/04/2020 11:01:00 AM Referred By: Vicente Rendon Confirmed By:JOSSE VILLAGRAN MD 06/04/20 1101 Date Josse Villagran MD CC: STRESS ANALYST-C Sierra Hopkins; Dr. Iván Garcia MD; Dr. Vicente Rendon MD Signed Sierra Hopkins Start: 05-29-2020 End: 06-11-2020 History and Physical Exam Comments: See Note; NOTES: [facility] Medical Records Department [address] [place] [address] History and Physical 05/29/20 [facility] MR#: [id number] Acct: [id number] Name: ROSA DEAN Rep #: [id number] : 1955 64 From: Vicente Rendon MD PCP: FADIA Santana Status:REG [facility] Location: [place] [address] Intake Vital Signs 05/29/20 Height 5 ft [...] Scan Chief Complaint: abn hida/ RUQ pain Box Cutter Required: No Is patient in pain?: No [...] HIDA scan with ejection fraction completed at [facility] on 05/26/2020 this showed an ejection fraction [...] person, oriented to place, oriented to time [facility] Head: normocephalic, atraumatic Ears: external ears normal [...] MD> Date: Time: Vicente Rendon MD CC: STRESS ANALYST-C Sierra Hopkins; Dr. Vicente Rendon MD Date Dictated: 05/29/20 1024 Date Transcribed: 05/29/20 1415 Cutter First: NR Signed Sierra Hopkins Start: 05-29-2020 End: 05-29-2020 Surgery Visit Report Comments: See Note; NOTES: [facility] [address] [place] [address]. [address] [place] [address] OFFICE VISIT Date of Service: 05/29/20 MR#: [id number] Acct: [id number] Name: ROSA DEAN Rep #: [id number] : 1955 Provider: Dr. Vicente khan MD Age/Sex: 64/F Location: [facility] Status: Signed Intake Vital Signs 05/29/20 [...] Scan Chief Complaint: abn hida/ RUQ pain Box Cutter Required: No Is patient in pain?: No [...] HIDA scan with ejection fraction completed at [facility] on 05/26/2020 this showed an ejection fraction [...] person, oriented to place, oriented to time [facility] Head: normocephalic, atraumatic Ears: external ears normal [...] MD Cosigner Signature: Date (if applicable) CC: STRESS ANALYSTUrvashiC Sierra Esquivel Ciesa Start: 05-26-2020 End: 05-26-2020 Hepatobilliary Img w/Pharm Int Comments: See Note; NOTES: [facility] Imaging Services [address] [place] [address] Hepatobilliary Img w/Pharm Int MR#: [id number] Acct: [id number] Name: ROSA DEAN Rep #: [id number] : 1955 F 64 From: Jemal Zhang PCP: FADIA Santana Status: REG CLI Study: Hepatobilliary Img w/Pharm Int Date of Exam: 0 05/26/20 Exam# [id number] Ordering Dr: Sierra Hopkins CLINICAL: 64-year-old female [...] high pretest likelihoods of hepatobiliary illness. (Capo Galvan al, Journal of Nuclear Medicine 32:1695, 1991). Electronically Signed: eJmal Jaramillo DO at 23:34 EDT Tel , Service support , CC: FADIA Hopkins Cutter First: Signed Leila Kellie Work Phone: Start: 05-14-2020 End: 05-14-2020 Pulmonary Function Test Comments: See Note; NOTES: [facility] Services/Neurology [address] [place] [address] MR#: [id number] Acct: [id number] Name: ROSA DEAN Rep #: [id number] : 1955 64 From: Daren Mcintyre DO Referring Dr: Jasper Lindo MD Status: [facility] Location: [facility] Date: 05/13/20 Sex: F C INTRODUCTION: [...] Mcintyre DO> Date Daren Mcintyre DO CC: FADIA Hopkins; Dr. Jasper Lindo MD Date Dictated: 05/14/20900 Date Transcribed: 05/14/20900 Cutter First: DB Signed Sierra Hopkins Start: 04-10-2020 End: 04-10-2020 Abdomen Complete Comments: See Note; NOTES: [facility] Imaging Services [address] [place] [address] Abdomen Complete MR#: [id number] Acct: [id number] Name: ROSA DEAN Rep #: [id number] : 1955 F 64 From: Brandon hidalgo MD PCP: FADIA Santana Status: REG CLI Study: Abdomen Complete Date of Exam: 04/10/20 Exam# [id number] Ordering Dr: Sierra Hopkins STUDY: ABDOMINAL ULTRASOUND [...] , Service support , CC: FADIA Hopkins Cutter First: Signed Sierra Hopkins Work Phone: Start: 04-10-2020 End: 04-10-[address] Lung Screening Comments: See Note; NOTES: [facility] Imaging Services [address] [place] [address] Lung Screening MR#: [id number] Acct: [id number] Name: ROSA DEAN Rep #: [id number] : 1955 F 64 From: Brandon hidalgo MD PCP: FADIA Santana Status: REG CLI Study: Low Dose CT Lung Screening Date of Exam: 04/10 Exam# [id number] Ordering Dr: Jasper Lindo MD STUDY: LOW [...] CC: FADIA Hopkins; Dr. Jasper Lindo MD Cutter First: Signed Sierra Hopkins Start: 03-31-2020 End: 03-31-2020 Pulmonary Visit Report Comments: See Note; NOTES: [facility] of [address] [place] [address] OFFICE VISIT Date of Service: 03/31/20 MR#: [id number] Acct: [id number] Name: ROSA DEAN Rep #: [id number] : 1955 Provider: Dr. Jasper Lindo MD Age/Sex: 64/F Location: [facility] Status: Signed Assessment Plan Problems 1. Dyspnea [...] change in medications, increased alcohol use or thjj-zzy-sjwzpgh sleep aids. Patient is reporting worsening shortness [...] Reasons: cough, rt lung pain DME Vendor: [employer] Allergies No Known Allergies Allergy (Verified 03/31/20 [...] PRN #180 ml 03/31/20 [Rx Confirmed 03/31/20] [facility] Medical History Trigger finger of left thumb [...] Spent - greater than 10 minutes: Yes (89919) 03/31/20 0959 <Electronically signed by Jasper Lindo MD> Date Jasper Lindo MD Cosigner Signature: Date (if applicable) CC: STRESS ANALYST-C Sierra Hopkins Start: 05-04-2012 Colonoscopy Melany Berg MA Appendectomy Luis Sesay Comment on above: 1983 Appendectomy Buffy Stone Comment on above: 1983 Appendectomy Thalia Silverio Comment on above: 1983 Appendectomy Luis Mariano Comment on above: 1983 Appendectomy Luis Mariano LP N Comment on above: 1983 Appendectomy Luis Mariano LP N Comment on above: 1983 Appendectomy Luis Mariano LP N Comment on above: 1983 Appendectomy Tala Slarb LP N Comment on above: 1983 Appendectomy Tala Slarb LP N Comment on above: 1983 Appendectomy Tala Slarb LP N Comment on above: 1983 Appendectomy Tala Slarb LP N Comment on above: 1983 Gallbladder Surgery Luis peter Comment on above: 1983 Gallbladder Surgery Buffy Stone Comment on above: 1983 Gallbladder Surgery Thalia wing Comment on above: 1983 H/O: hysterectomy History of hysterectomy STRESS ANALYST-C Sierra Hopkins STRESS ANALYST Work Phone: H/O: tubal ligation History of tubal liga tion STRESS ANALYST-C Sierra Hopkins STRESS ANALYST Work Phone: History of appendectomy History of append ectomy STRESS ANALYST-C Sierra Hopkins STRESS ANALYST Work Phone: History of decompression of median nerve History of carpal tunnel surgery of left wrist STRESS ANALYST-C Sierra Hopkins STRESS ANALYST Work Phone: History of decompression of median nerve History of carpal tunnel surgery of right wrist STRESS ANALYST-C Sierra Hopkins STRESS ANALYST Work Phone: History of total hysterectomy History of total abdominal hysterectomy Luis Mariano SOFTWARE QUALITY ENGINEER History of total hysterectomy History of total abdominal hysterectomy Luis Mariano SOFTWARE QUALITY ENGINEER History of total hysterectomy History of total abdominal hysterectomy Luis Mariano SOFTWARE QUALITY ENGINEER History of total hysterectomy History of total abdominal hysterectomy Tala Slarb SOFTWARE QUALITY ENGINEER History of total hysterectomy History of total abdominal hysterectomy Sierra Hopkins Work Phone: History of total hysterectomy History of total abdominal hysterectomy Tala Slarb SOFTWARE QUALITY ENGINEER History of total hysterectomy History of total abdominal hysterectomy Tala Slarb SOFTWARE QUALITY ENGINEER History of total hysterectomy History of total abdominal hysterectomy Tala Slarb SOFTWARE QUALITY ENGINEER Operation on gallbladder Thalia Silverio Comment on above: 1983 Operation on gallbladder Luis Mariano Comment on above: 1983 Operation on gallbladder Luis Mariano SOFTWARE QUALITY ENGINEER Comment on above: 1983 Operation on gallbladder Luis Mariano SOFTWARE QUALITY ENGINEER Comment on above: 1983 Operation on gallbladder Luis Mariano SOFTWARE QUALITY ENGINEER Comment on above: 1983 Operation on gallbladder Tala Slarb SOFTWARE QUALITY ENGINEER Comment on above: 1983 Operation on gallbladder Tala Slarb SOFTWARE QUALITY ENGINEER Comment on above: 1983 Operation on gallbladder Tala Slarb SOFTWARE QUALITY ENGINEER Comment on above: 1983 Operation on gallbladder Tala Slarb SOFTWARE QUALITY ENGINEER Comment on above: 1983 Plan of Treatment Date Care Activity Detail Author Start: 08-09-2025 ambulatory Ambulatory Facility:[facility] Start: 03-19-2025 Urine microalbumin profile DTAP,TDAP,TD (2 - Td or Tdap) [facility] Start: 12-29-2023 [facility] Start: 04-18-2023 Procedure Education Eprescribe d prescriptions (G8553) [facility] Work Phone: Start: 04-18-2023 Provider Instruction s for Treatment [facility] Work Phone: Start: 02-17-2023 Procedure Education Eprescribe d prescriptions (G8553) [facility]; [facility] Work Phone: Start: 02-17-2023 Provider Instruction s for Treatment Follow up if no improvement or if symptoms worsen [facility] Work Phone: Start: 08-21-2022 Provider Instruction s for Treatment [facility] Work Phone: Start: 08-10-2022 Procedure Education Eprescribe d prescriptions (G8553) [facility]; [facility] Work Phone: Start: 08-10-2022 Provider Instruction s for Treatment Follow up in 4 months [facility]; [facility] Work Phone: Start: 08-10-2022 25 hydroxy includes fractions if performed CALCIFEDIOL (63548) [facility]; [facility] Work Phone: Start: 08-10-2022 Cyanocobalamin vitam in b-12 VITAMIN B12 AND FOLATES (25643) [facility]; [facility] Work Phone: Start: 07-05-2022 End: 09-04-2022 LIPID PANEL BASIC LIPID PANEL BASIC Lab Routine Hyperlipidemia, unspecified hyperlipidemia type Expected: 07/05/2022 (Approximate), Expires: 09/04/2022 [facility] Work Phone: Comment on above: Expected: 07/05/2022 (Approximate), Expires: 09/04/2022 Start: 06-14-2022 25 hydroxy includes fractions if performed CALCIFEDIOL (17232) [facility]; [facility] Work Phone: Start: 06-08-2022 Hemoglobin glycosyla elizabeth a1c HGB A1C (65460) [facility]; [facility] Work Phone: Comment on above: around 09/07/22 Start: 06-08-2022 Lipid panel LIPID PANEL (83038) [facility] Work Phone: Comment on above: in 3 months (around 09/07/22) Start: 06-08-2022 Procedure Education Eprescribe d prescriptions (G8553) [facility]; [facility] Work Phone: Start: 06-08-2022 Provider Instruction s for Treatment Follow up in 4 months [facility] Work Phone: Start: 06-03-2022 Procedure Education Eprescribe d prescriptions (G8553) [facility]; [facility] Work Phone: Start: 06-03-2022 Provider Instruction s for Treatment Follow up in 2 months [facility]; [facility] Work Phone: Start: 06-02-2022 Influenza vaccination INFLUENZ A (Season Ended) [facility] Start: 05-04-2022 Colonoscopy COLONOSCOPY [facility] Start: 05-04-2022 COLORECTAL CANCER SCREENING COLORECTAL CANCER SCREENING [facility] Start: 01-03-2022 End: 03-05-2022 ALBUMIN/CREAT RATIO RND UR ALBUMIN/CREAT RATIO RND UR Lab Routine Controlled type 2 diabetes mellitus without complication, without long-term current use of insulin (HCC) Expected: 01/03/2022, Expires: 03/05/2022 [facility] Work Phone: Comment on above: Expected: 01/03/2022 , Expires: 03/05/2022 Start: 01-03-2022 End: 03-05-2022 Comprehensive metabolic 2000 panel - Serum or Plasma COMP METABOLIC PANEL Lab Routine Hyperlipidemia, unspecified hyperlipidemia type Expected: 01/03/2022, Expires: 03/05/2022 [facility] Work Phone: Comment on above: Expected: 01/03/2022 , Expires: 03/05/2022 Start: 01-03-2022 End: 03-05-2022 Hemoglobin A1c/Hemoglobin.total in Blood HGB A1C Lab Routine Controlled type 2 diabetes mellitus without complication, without long-term current use of insulin (HCC) Expected: 01/03/2022, Expires: 03/05/2022 [facility] Work Phone: Comment on above: Expected: 01/03/2022 , Expires: 03/05/2022 Start: 01-03-2022 End: 03-05-2022 VITAMIN D 25 HYDROXY VITAMIN D 25 HYDROXY Lab Routine Vitamin D deficiency Expected: 01/03/2022, Expires: 03/05/2022 [facility] Work Phone: Comment on above: Expected: 01/03/2022 , Expires: 03/05/2022 Start: 12-22-2021 PNEUMOVAX AGE 65 AND OVER WITH 5YR LOOKBACK (#1) PNEUMOVAX AGE 65 AND OVER WITH 5YR LOOKBACK (#1) [facility] Start: 12-09-2021 Hepatitis B screening URINE ALBUMIN:CREATININE RATIO [facility] Start: 12-09-2021 Hepatitis B surface antibody level LDL CHOLESTEROL [facility] Start: 10-15-2021 Hepatitis C antibody , confirmatory test DILATED RETINAL EXAM [facility] Start: 10-02-2021 ADVANCE DIRECTIVE DISCUSSION ADVANCE DIRECTIVE DISCUSSION [facility] Start: 06-11-2021 Hemoglobin A1c/Hemoglobin.total in Blood HBA1C [facility] Start: 03-24-2021 Comprehensive metabo lic panel Metabolic Panel, Comprehensive (51376) [facility]; [facility] Work Phone: Start: 03-24-2021 Lipid panel LIPID PANEL (81221) [facility] Work Phone: Start: 03-22-2021 Procedure Education Eprescribe d prescriptions (G8553) [facility]; [facility] Work Phone: Start: 03-22-2021 Provider Instruction s for Treatment Follow up in 4 months [facility]; [facility] Work Phone: Start: 02-19-2021 ANNUAL PCP TEAM INSPECTOR FINAL ASSEMBLY ELECTRICAL ANJANA DISEASE VISIT ANNUAL PCP TEAM CHRONIC DISEASE VISIT [facility] Start: 02-09-2021 Procedure Education Eprescribe d prescriptions (G8553) [facility]; [facility] Work Phone: Start: 02-09-2021 Provider Instruction s for Treatment [facility]; [facility] Work Phone: Start: 01-27-2021 Procedure Education Eprescribe d prescriptions (G8553) [facility]; [facility] Work Phone: Start: 01-27-2021 Provider Instruction s for Treatment COVID SCREENING FORM [facility] Work Phone: Start: 01-06-2021 Procedure Education Eprescribe d prescriptions (G8553) [facility] Work Phone: Start: 01-06-2021 Provider Instruction s for Treatment [facility]; [facility] Work Phone: Start: 01-06-2021 HbA1c (Bld) [Mass fraction] HGB A1C (19181) [facility]; [facility] Work Phone: Start: 01-06-2021 Hemoglobin glycosyla elizabeth a1c HGB A1C (94516) [facility]; [facility] Work Phone: Start: 01-06-2021 Assay of thyroid stimulating hormone tsh TSH (88601) [facility]; [facility] Work Phone: Start: 01-06-2021 TSH Qn TSH (40951) [facility] Work Phone: Start: 01-06-2021 Blood count complete auto&auto difrntl wbc CBC, Platelets & Auto Diff (72722) [facility]; [facility] Work Phone: Start: 01-06-2021 Lipid panel Lipid Panel (89384) [facility] Work Phone: Start: 01-06-2021 Comprehensive metabo lic panel Metabolic Panel, Comprehensive (11829) [facility]; [facility] Work Phone: Start: 2020 BONE DENSITY BONE DENSITY [facility] Start: 05-27-2020 Procedure Education Eprescribe d prescriptions (G8553) [facility] Work Phone: Start: 05-27-2020 Provider Instruction s for Treatment Follow up after consult [facility] Work Phone: Start: 04-13-2020 Procedure Education Eprescribe d prescriptions (G8553) [facility] Work Phone: Start: 04-13-2020 Provider Instruction s for Treatment Reviewed Lab [facility] Work Phone: Start: 03-31-2020 Blood count manual c ell count each CBC with auto diff (78570) [facility] Work Phone: Start: 03-31-2020 Comprehensive metabo lic panel METABOLIC PANEL, COMPREHENSIVE (03055) [facility] Work Phone: Start: 03-31-2020 TSH Qn TSH (THYROID STIMULATING HORMONE) (02919) [facility] Work Phone: Start: 01-03-2020 Procedure Education Eprescribe d prescriptions (G8553) [facility] Work Phone: Start: 01-03-2020 Provider Instruction s for Treatment Follow up if no improvement or if symptoms worsen [facility] Work Phone: Start: 12-19-2019 Procedure Education Eprescribe d prescriptions (G8553) [facility] Work Phone: Start: 12-11-2019 Procedure Education Eprescribe d prescriptions (G8553) [facility] Work Phone: Start: 12-11-2019 Provider Instruction s for Treatment Follow up in 2 weeks [facility] Work Phone: Start: 11-19-2019 3 comp foot exam completed DIABETIC FOOT EXAM [facility] Start: 12-22-2017 PNEUMOCOCCAL: 65+ (2 - PCV) PNEUMOCOCCAL: 65+ (2 - PCV) [facility] Start: 2005 SHINGRIX VACCINE (1 of 2) SHINGRIX VACCINE (1 of 2) [facility] Start: 2000 COLOGUARD (FIT-DNA) COLOGUARD (FIT-D NA) [facility] Start: [address] COLONOGRAPHY [facility] Start: 2000 FECAL OCCULT BLOOD FECAL OCCULT BLOO D [facility] Start: 2000 SIGMOIDOSCOPY SIGMOIDOSCOPY [facility] Start: 1960 COVID-19 VACCINE (#1) COVID-19 VACCI NE (#1) [facility] Start: 1960 COVID-19 VACCINE (1) COVID-19 VACCIN E (1) [facility] CT Chest [facility] Exercise tolerance test [facility] Work Phone: Patient Education [facility] Work Phone: Patient referral [facility] Work Phone: [facility] Work Phone: [facility] Work Phone: [facility] Work Phone: [facility] Work Phone: [facility] Work Phone: [facility] Work Phone: [facility] Work Phone: Immunizations Immunization Date Immunization Notes Care Provider Sarika arnett 08-17-2022 influenza, injectabl e, quadrivalent, preservative free STRESS ANALYST-C Zunilda Suarez Work Phone: [facility] 08-17-2022 influenza, seasonal, injectable STRESS ANALYST-C Zunilda Suarez Work Phone: [facility] 08-21-2017 influenza, injectabl e, quadrivalent, contains preservative Melany Berg MA [facility] 12-22-2016 pneumococcal polysaccharide vaccine, 23 valent Melany Berg MA [facility] 06-24-2016 influenza, injectabl e, quadrivalent, contains preservative Melany Berg MA [facility] 03-19-2015 tetanus toxoid, redu андрей diphtheria toxoid, and acellular pertussis vaccine, adsorbed Melany Berg MA [facility] Payers Date Payer Category Payer Self-pay [id number] 2024 Medicaid [id number] 2024 Unknown [id number] 2020 Unknown [id number] 2019 Medicare UHC AAR MEDICAR E [facility] MEDICARE HMO [id number] 2019-Present [phone] [address] [address] [place] [address] O [id number] 1955 Unknown [id number] 16 Medicaid MEDICAID [id number] Medicare MEDICARE PART A B [id number] Private Health Insurance [id number] Unknown C/MCARE ADV PLAN Unknown [id number] Unknown AARP MCR ADV [id number] Unknown [id number] Unknown [id number] Unknown [id number] Social History Date Type Detail Facility Alcohol Use: Alcohol Use: [facility] Work Phone: Caffeine Use Caffeine Use [facility] Work Phone: Comment on above: 6 cups/day 1 1/2 pack/ 38yrs Drug Use: Drug Use: [facility] Work Phone: Alcohol Use: Alcohol Use: [facility] Work Phone: Drug Use: Drug Use: [facility] Work Phone: Start: 10-02-1982 Tobacco smoking status MDIS Smokes tobacco daily [facility] Work Phone: Start: 10-02-1982 History of tobacco use Cigarette Smoker [facility] Work Phone: Start: 02-20-2020 Alcohol intake Current non-dr sausage linker of alcohol (finding) [facility] Start: 05-10-2018 Tobacco Comment FAther smoked in childhood home. Lives with smoker now. [facility] Start: 1955 Sex Assigned At Not on file [facility] Start: 05-19-2022 End: 12-29-2023 Tobacco smoking status NHIS Unknown if ever smoked [facility] Start: 04-26-2019 None [facility] Start: 04-26-2019 Spouse/ Signif icant Other [facility] Start: 06-01-2020 Cigarettes [facility] Start: 1955 Sex Assigned At Female [facility] Medical Equipment Procedure Code Equipment Code Equipment Origin al Text Equipment Identifier Dates Protcr Nrv 40mm 10mm Axoguard - [id number] Start: 03-23-2015 Comment on above: Description: Site-Le ft Wrist OneTouch Ultra I n Vitro Strip 1 (one) Each two times daily for 30 days Quantity: 60 {Each} Refills: 6 Ordered: 14-Jun-2022 Tala Garduno LPN Start : 14-Jun-2022 Active Comments: pls fill what insurance will cover Start: 06-14-2022 Comment on above: pls fill what insura nce will cover OneTouch Ultra I n Vitro Strip 1 (one) Each two times daily for 30 days Quantity: 60 {Each} Refills: 6 Ordered: 14-Jun-2022 Tala Garduno LPN Start : 14-Jun-2022 Active Comments: pls fill what insurance will cover Start: 06-14-2022 Comment on above: pls fill what insura nce will cover LILIAN [facility] FDA Start: 06-11-2020 LILIAN COUCH FDA Start: 06-11-2020 OneTouch Ultra I n Vitro Strip 1 (one) Each two times daily for 30 days Quantity: 60 {Each} Refills: 6 Ordered: 14-Jun-2022 Tala Garduno LPN Start : 14-Jun-2022 Active Comments: pls fill what insurance will cover Start: 06-14-2022 Comment on above: pls fill what insura nce will cover OneTouch Ultra I n Vitro Strip 1 (one) Each two times daily for 30 days Quantity: 60 {Each} Refills: 6 Ordered: 14-Jun-2022 [employer] SOFTWARE QUALITY ENGINEER, Tala Start : 14-Jun-2022 Active Comments: pls fill what insurance will cover Start: 06-14-2022 Comment on above: pls fill what insura nce will cover OneTouch Ultra I n Vitro Strip 1 (one) Each two times daily for 30 days Quantity: 60 {Each} Refills: 6 Ordered: 14-Jun-2022 Slarb SOFTWARE QUALITY ENGINEER, Tala Start : 14-Jun-2022 Active Comments: pls fill what insurance will cover Start: 06-14-2022 Comment on above: pls fill what insura nce will cover OneTouch Ultra I n Vitro Strip 1 (one) Each two times daily for 30 days Quantity: 60 {Each} Refills: 6 Ordered: 14-Jun-2022 Slarb SOFTWARE QUALITY ENGINEER, Tala Start : 14-Jun-2022 Active Comments: pls fill what insurance will cover Start: 06-14-2022 Comment on above: pls fill what insura nce will cover OneTouch Ultra I n Vitro Strip 1 (one) Each two times daily for 30 days Quantity: 60 {Each} Refills: 6 Ordered: 14-Jun-2022 Slarb SOFTWARE QUALITY ENGINEER, Tala Start : 14-Jun-2022 Active Comments: pls fill what insurance will cover Start: 06-14-2022 Comment on above: pls fill what insura nce will cover OneTouch Ultra I n Vitro Strip 1 (one) Each two times daily for 30 days Quantity: 60 {Each} Refills: 6 Ordered: 14-Jun-2022 Slarb SOFTWARE QUALITY ENGINEER, Tala Start : 14-Jun-2022 Active Comments: pls fill what insurance will cover Start: 06-14-2022 Comment on above: pls fill what insura nce will cover OneTouch UltraSo ft Lancets Miscellaneous 1 (one) Unit as directed for 30 days Quantity: 1 {Packet} Refills: 6 Ordered: 14-Jun-2022 Slarb SOFTWARE QUALITY ENGINEER, Tala Start : 14-Jun-2022 Active Comments: Dispense 1 box, dispense what insurance will cover Start: 06-14-2022 Comment on above: Dispense 1 box, disp ense what insurance will cover OneTouch Ultra I n Vitro Strip 1 (one) Each two times daily for 30 days Quantity: 60 {Each} Refills: 6 Ordered: 14-Jun-2022 Slarb SOFTWARE QUALITY ENGINEER, Tala Start : 14-Jun-2022 Active Comments: pls fill what insurance will cover Start: 06-14-2022 Comment on above: pls fill what insura nce will cover OneTouch UltraSo ft Lancets Miscellaneous 1 (one) Unit as directed for 30 days Quantity: 1 {Packet} Refills: 6 Ordered: 14-Jun-2022 Slarb SOFTWARE QUALITY ENGINEER, Tala Start : 14-Jun-2022 Active Comments: Dispense 1 box, dispense what insurance will cover Start: 06-14-2022 Comment on above: Dispense 1 box, disp ense what insurance will cover OneTouch Ultra I n Vitro Strip 1 (one) Each two times daily for 30 days Quantity: 60 {Each} Refills: 6 Ordered: 14-Jun-2022 Slarb SOFTWARE QUALITY ENGINEER, Tala Start : 14-Jun-2022 Active Comments: pls fill what insurance will cover Start: 06-14-2022 Comment on above: pls fill what insura nce will cover OneTouch UltraSo ft Lancets Miscellaneous 1 (one) Unit as directed for 30 days Quantity: 1 {Packet} Refills: 6 Ordered: 14-Jun-2022 Slarb SOFTWARE QUALITY ENGINEER, Tala Start : 14-Jun-2022 Active Comments: Dispense 1 box, dispense what insurance will cover Start: 06-14-2022 Comment on above: Dispense 1 box, disp ense what insurance will cover LILIAN [employer]CH FDA Start: 06-11-2020 LILIAN COUCH FDA Start: 06-11-2020 OneTouch Ultra I n Vitro Strip 1 (one) Each two times daily for 30 days Quantity: 60 {Each} Refills: 6 Ordered: 14-Jun-2022 Slarb SOFTWARE QUALITY ENGINEER, Tala Start : 14-Jun-2022 Active Comments: pls fill what insurance will cover Start: 06-14-2022 Comment on above: pls fill what insura nce will cover OneTouch UltraSo ft Lancets Miscellaneous 1 (one) Unit as directed for 30 days Quantity: 1 {Packet} Refills: 6 Ordered: 14-Jun-2022 Slarb SOFTWARE QUALITY ENGINEER, Tala Start : 14-Jun-2022 Active Comments: Dispense 1 box, dispense what insurance will cover Start: 06-14-2022 Comment on above: Dispense 1 box, disp ense what insurance will cover OneTouch Ultra I n Vitro Strip 1 (one) Each two times daily for 30 days Quantity: 60 {Each} Refills: 6 Ordered: 14-Jun-2022 Slarb SOFTWARE QUALITY ENGINEER, Tala Start : 14-Jun-2022 Active Comments: pls fill what insurance will cover Start: 06-14-2022 Comment on above: pls fill what insura nce will cover OneTouch UltraSo ft Lancets Miscellaneous 1 (one) Unit as directed for 30 days Quantity: 1 {Packet} Refills: 6 Ordered: 14-Jun-2022 Slarb SOFTWARE QUALITY ENGINEER, Tala Start : 14-Jun-2022 Active Comments: Dispense 1 box, dispense what insurance will cover Start: 06-14-2022 Comment on above: Dispense 1 box, disp ense what insurance will cover OneTouch Ultra I n Vitro Strip 1 (one) Each two times daily for 30 days Quantity: 60 {Each} Refills: 6 Ordered: 14-Jun-2022 Slarb SOFTWARE QUALITY ENGINEER, Tala Start : 14-Jun-2022 Active Comments: pls fill what insurance will cover Start: 06-14-2022 Comment on above: pls fill what insura nce will cover OneTouch UltraSo ft Lancets Miscellaneous 1 (one) Unit as directed for 30 days Quantity: 1 {Packet} Refills: 6 Ordered: 14-Jun-2022 Slarb SOFTWARE QUALITY ENGINEER, Tala Start : 14-Jun-2022 Active Comments: Dispense 1 box, dispense what insurance will cover Start: 06-14-2022 Comment on above: Dispense 1 box, disp ense what insurance will cover OneTouch Ultra I n Vitro Strip 1 (one) Each two times daily for 30 days Quantity: 60 {Each} Refills: 6 Ordered: 14-Jun-2022 Slarb SOFTWARE QUALITY ENGINEER, Tala Start : 14-Jun-2022 Active Comments: pls fill what insurance will cover Start: 06-14-2022 Comment on above: pls fill what insura nce will cover OneTouch UltraSo ft Lancets Miscellaneous 1 (one) Unit as directed for 30 days Quantity: 1 {Packet} Refills: 6 Ordered: 14-Jun-2022 Tala Graduno LPN Start : 14-Jun-2022 Active Comments: Dispense 1 box, dispense what insurance will cover Start: 06-14-2022 Comment on above: Dispense 1 box, disp ense what insurance will cover LILIAN COUCH FDA Start: 06-11-2020 IZAHEMJACK BRISENO FDA Start: 06-11-2020 IZAHEMJACK Ibarra [place] [employer] FDA Start: 06-11-2020 IZAHEMJACK Ibarra [place] [employer] FDA Start: 06-11-2020 Clinical Notes 06-17-2016 to 01-31-2022 Melany Berg Ma - 01/31/2022 1:15 PM EDAnna Berg Ma - 01/03/2022 1:17 PM Rosalina Berg Ma - 01/03/2022 1:16 PM Yulissa Askew APRN.[facility] - 01/03/2022 10:53 AM EDT Note Date & Type Note Facility 01-31-2022 Note HNO ID: [id number] Author: Melany Berg Ma Service: ? Author Type: ? 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 Pt identified by name and : YES, via phone Outreach Outcome/Action Unable to reach patient: Left message Reason for Outreach Care Gap or Scheduling/Wellness visits Payer: Payor: [facility] MEDICARE / Plan: [facility] MEDICARE HMO / Product Type: HMO / [...] Berg Ma January 31, 2022 1:16 PM [facility] 01-31-2022 Note HNO ID: [id number] Author: Melany Berg Ma Service: ? Author Type: ? Type: Progress Notes Filed: 01/31/2022 1:15 PM Note Text: See outreach enc. [facility] 01-31-2022 Note Patient Outreach (FA MPWS) ROSA DEAN ([id number]) 1955 F Date Time Provider Department 01/31/22 [...] Allergies) Date Reviewed: 02/20/2020 Reviewed by: Adalberto Askew - Fully Assessed Prescriptions as of 01/31/2022 [...] Work-related condition [Z56.89] 04/14/2015 12/22/2016 Arthritis of nrqozn-wdgpupnuw-zupbdulva joint [*08/04/2015 12/22/2016 Controlled type 2 diabetes [...] Status:Closed by MELANY BERG MA on 01/31/22 [facility] 01-31-2022 Note Patient Outreach (FA MPWS) ROSA DEAN ([id number]) 1955 F Date Time Provider [facility]/31[facility] During your visit today, we recorded the following information about you: Melany Berg Ma 03/03/2022 3:00 AM Signed POPULATION HEALTH NAVIGATION OUTREACH Action/FYI Pt was left a vm to return call and 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 Pt identified by name and : YES, via phone Outreach Outcome/Action Unable to reach patient: Left message Reason for Outreach Care Gap or Scheduling/Wellness visits Payer: Payor: [facility] MEDICARE / Plan: UHC AARP MEDICARE HMO [...] Allergies) Date Reviewed: 02/20/2020 Reviewed by: Adalberto ([facility]) [place] - Fully Assessed Reason for Visit: PHMA/Care Gap Outreach [[id number]] Prescriptions as of 03/03/2022 - venlafaxine ER [...] Work-related condition [Z56.89] 04/14/2015 12/22/2016 Arthritis of jidfkh-sfkrsmymk-dmkrzcrzc joint [*08/04/2015 12/22/2016 Controlled type 2 diabetes [...] Nasal congestion [R09.81] 10/25/2017 Encounter Status:Closed by EPIC, PRODUSER on 03/03/22 [facility] 01-31-2022 History of Present illness Narrative POPULATION HEALTH NAVIGATION OUTREACH Action/FYI Pt was left a vm to return call and 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 Pt identified by name and : YES, via phone Outreach Outcome/Action Unable to reach patient: Left message Reason for Outreach Care Gap or Scheduling/Wellness visits Payer: Payor: [facility] MEDICARE / Plan: UHC AARP MEDICARE HMO [...] 2022 1:16 PM documented in this encounter [facility] 01-31-2022 Note HNO ID: [id number] Author: Adalberto Askew APRN.JAKE Service: ? Author Type: Nurse Practitioner Type: Progress Notes Filed: 01/31/2022 1:15 PM Note Text: STAMP Please reach out to patient for overdue appointment for chronic disease management with myself, Dr. Mcmullen, or Thalia Alejandra. Labs are ordered. If he/she is no longer following with Dr. Mcmullen, please remove name from PCP field. Adalberto Askew APRN.MANAGEMENT TRAINEE [facility] 01-03-2022 Note HNO ID: [id number] Author: Melany Berg Ma Service: ? Author Type: ? Type: Progress Notes Filed: 01/03/2022 1:22 PM Note Text: POPULATION HEALTH NAVIGATION OUTREACH Action/FYI Pt has been scheduled with [employer], will have lab work done prior to appointment. Pt identified by name and : YES, via phone Outreach Outcome/Action Spoke to patient or caregiver: Patient scheduled Reason for Outreach Care Gap or Scheduling/Wellness visits Payer: Payor: [facility] MEDICARE / Plan: [facility] MEDICARE HMO / Product Type: HMO / [...] Berg Ma January 03, 2022 1:17 PM [facility] 01-03-2022 Note HNO ID: [id number] Author: Melany Berg Ma Service: ? Author Type: ? Type: Progress Notes Filed: 01/03/2022 1:22 PM Note Text: See outreach enc. [facility] 01-03-2022 Note Patient Outreach (SARIKA TIRADOWS) ROSA DEAN ([id number]) 1955 F Date Time Provider Department 01/03/22 MELANY BERG During your visit today, we recorded the following information about you: Melany Berg Ma 01/03/2022 1:22 PM Signed POPULATION HEALTH NAVIGATION OUTREACH Action/ Pt has been scheduled with App[employer] C[employer], will have lab work done prior to appointment. Pt identified by name and : YES, via phone Outreach Outcome/Action Spoke to patient or caregiver: Patient scheduled Reason for Outreach Care Gap or Scheduling/Wellness visits Payer: Payor: [facility] MEDICARE / Plan: UHC AARP MEDICARE HMO [...] Message Sent to Practice: Yes Navigation Signature: Melayn Berg Ma January 03, 2022 1:17 PM Allergies As of Date: 01/03/2022 (No Known Allergies) Date Reviewed: 02/20/2020 Reviewed by: Adalberto ([facility]) [place] - Fully Assessed Reason for Visit: PHMA/Care Gap Outreach [[id number]] Prescriptions as of 01/03/2022 - venlafaxine ER [...] Work-related condition [Z56.89] 04/14/2015 12/22/2016 Arthritis of gqcqlf-ypagylsos-rwnxlshpi joint [*08/04/2015 12/22/2016 Controlled type 2 diabetes [...] Status:Closed by MELANY BERG MA on 01/03/22 [facility] 01-03-2022 Note Patient Outreach (FA MPWS) VITORROSA Kesha ([id number]) 1955 F Date Time Provider Department 01/03/22 [...] name from PCP field. DENI Kim Ma 01/03/2022 1:22 PM Signed See outreach enc. Allergies As of Date: 01/03/2022 (No Known Allergies) Date Reviewed: 02/20/2020 Reviewed by: Adalberto ([facility]) [place] - Fully Assessed Primary Visit Diagnosis:Hyperlipidemia, unspecified hyperlipidemia type [E78.5] Other Visit Diagnoses:Controlled type 2 diabetes mellitus without complication, without long-term current use of insulin (HCC) [E11.9] Vitamin D deficiency [E55.9] Order(s):HGB A1C [SXQHD9V] Order #: [id number] FUTURE ALBUMIN/CREAT RATIO RND UR [SQUACR] Order #: [id number] FUTURE COMP METABOLIC PANEL [SQCMP] Order #: [id number] FUTURE LIPID PANEL BASIC [SQLIPB] Order #: [id number] FUTURE VITAMIN D 25 HYDROXY [SQVITD] Order #: [id number] FUTURE Prescriptions as of 01/03/2022 - venlafaxine [...] Work-related condition [Z56.89] 04/14/2015 12/22/2016 Arthritis of citolp-uwkhcurlk-pltazdrux joint [*08/04/2015 12/22/2016 Controlled type 2 diabetes [...] Status:Closed by MELANY BERG MA on 01/03/22 [facility] 01-03-2022 History of Present illness Narrative POPULATION HEALTH NAVIGATION OUTREACH Action/FYI Pt has been scheduled with App[employer] C[employer], will have lab work done prior to appointment. Pt identified by name and : YES, via phone Outreach Outcome/Action Spoke to patient or caregiver: Patient scheduled Reason for Outreach Care Gap or Scheduling/Wellness visits Payer: Payor: [facility] MEDICARE / Plan: UHC AARP MEDICARE HMO [...] 2022 1:17 PM documented in this encounter [facility] 01-03-2022 History of Present illness Narrative See outreach enc. STAMP Please reach out to patient for overdue appointment for chronic disease management with myself, Dr. Mcmullen, or Thalia Alejandra. Labs are ordered. If he/she is no longer following with Dr. Mcmullen, please remove name from PCP field. Adalberto Askew APRN.CNP documented in this encounter [facility] 01-03-2022 Note HNO ID: [id number] Author: Adalberto Askew APRN.CNP Service: ? Author Type: Nurse Practitioner Type: Progress Notes Filed: 01/03/2022 1:22 PM Note Text: STAMP Please reach out to patient for overdue appointment for chronic disease management with myself, Dr. Mcmullen, or Thalia Alejandra. Labs are ordered. If he/she is no longer following with Dr. Mcmullen, please remove name from PCP field. Adalberto Askew APRN.CNP [facility] 06-17-2016 History of Past i llness Narrative Problem Noted Date Resolved Date Trochanteric bursitis of right hip 06/17/2016 02/27/2019 Arthritis of ywwiww-duuubpbja-urhcrfavy joint 12/22/2016 Work-related condition 04/14/2015 7 Numbness and tingling in left hand 04/06/2015 08/04/2015 Hand pain 12/18/2010 04/14/2015 Carpal tunnel syndrome 03/16/2010 9 Trigger finger 03/16/2010 04/14/2015 Sleep apnea 02/27/2019 Overview: Patient uses [employer] as her [employer] company. documented as of this encounter (statuses as of 01/03/2022) [facility] History of Past illness Narrative* Problem Noted Date Resolved Date Trochanteric bursitis of right hip 06/17/2016 02/27/2019 Arthritis of fpblvq-gtbbpzkil-giqmllefd joint 12/22/2016 Work-related condition 04/14/2015 7 Numbness and tingling in left hand 04/06/2015 08/04/2015 Hand pain 12/18/2010 04/14/2015 Carpal tunnel syndrome 03/16/2010 9 Trigger finger 03/16/2010 04/14/2015 Sleep apnea 02/27/2019 Overview: Patient uses [employer] as her [employer] company. documented as of this encounter (statuses as of 01/03/2022) [facility] History of Past illness Narrative* Problem Noted Date Resolved Date Trochanteric bursitis of right hip 06/17/2016 02/27/2019 Arthritis of kojbpv-gjqpzmvgs-zqukufnxj joint 12/22/2016 Work-related condition 04/14/2015 7 Numbness and tingling in left hand 04/06/2015 08/04/2015 Hand pain 12/18/2010 04/14/2015 Carpal tunnel syndrome 03/16/2010 9 Trigger finger 03/16/2010 04/14/2015 Sleep apnea 02/27/2019 Overview: Patient uses [employer] as her [employer] company. documented as of this encounter (statuses as of 03/03/2022) [facility] Hyperlipidemia, unspecified hyperlipidemia type- Primary Controlled type 2 diabetes mellitus without complication, without long-term current use of insulin (HCC) Vitamin D deficiency Unspecified vitamin D deficiency [facility] Diagnosis Onset Date Resolution Status Smoking greater than 30 pack years acute COPD (chronic obstructive pulmonary disease) chronic NHI (obstructive sleep apnea) chronic [facility] Work Phone: Evaluation note* Diagnosis Onset Date Resolution Status Smoking greater than 30 pack years acute Stage 1 mild COPD by GOLD classification acute NHI (obstructive sleep apnea) chronic [facility] Work Phone: Evaluation note* Diagnosis Onset Date Resolution Status Stage 1 mild COPD by GOLD classification acute NHI (obstructive sleep apnea) chronic Tobacco abuse chronic [facility] Work Phone: Evaluation noteNo assessment information available [facility] Work Phone: Instructions* Name Dates Details Patient Instructions Indication:Smoker Start:06-Jan-2021 Instruction Type:Provider Instructions for Treatment How to Access Health Informa tion Online using Patient Portal and [employer] Apps Indication:Smoker Start:06-Jan-2021 Instruction Type:Patient Education How [...] tion Online using Patient Portal and [employer] Apps Indication:Smoker Start:27-Jan-2021 Instruction Type:Patient Education Patient Instructions Indication:Smoker Start:06-Jan-2021 Instruction Type:Provider Instructions for Treatment How to Access Health Informa tion Online using Patient Portal and [employer] Apps Indication:Smoker Start:06-Jan-2021 Instruction Type:Patient Education How [...] tion Online using Patient Portal and [employer] Apps Indication:Smoker Start:09-Feb-2021 Instruction Type:Patient Education Patient Instructions Indication:Smoker Start:06-Jan-2021 Instruction Type:Provider Instructions for Treatment How to Access Health Informa tion Online using Patient Portal and [employer] Apps Indication:Smoker Start:06-Jan-2021 Instruction Type:Patient Education How [...] tion Online using Patient Portal and [employer] Apps Indication:Smoker Start:22-Mar-2021 Instruction Type:Patient Education Patient Instructions Indication:BMI 36.0-36.9,adult Start:09-Feb-2021 Instruction Type:Provider Instructions for Treatment How to Access Health Informa tion Online using Patient Portal and [employer] Apps Indication:Smoker Start:09-Feb-2021 Instruction Type:Patient Education Patient Instructions Indication:Smoker Start:06-Jan-2021 Instruction Type:Provider Instructions for Treatment How to Access Health Informa tion Online using Patient Portal and [employer] Apps Indication:Smoker Start:06-Jan-2021 Instruction Type:Patient Education How [...] tion Online using Patient Portal and [employer] Apps Indication:Smoker Start:22-Mar-2021 Instruction Type:Patient Education Patient Instructions Indication:BMI 36.0-36.9,adult Start:09-Feb-2021 Instruction Type:Provider Instructions for Treatment How to Access Health Informa tion Online using Patient Portal and [employer] Apps Indication:Smoker Start:09-Feb-2021 Instruction Type:Patient Education Patient Instructions Indication:Smoker Start:06-Jan-2021 Instruction Type:Provider Instructions for Treatment How to Access Health Informa tion Online using Patient Portal and [employer] Apps Indication:Smoker Start:06-Jan-2021 Instruction Type:Patient Education How [...] tion Online using Patient Portal and [employer] Apps Indication:Smoker Start:22-Mar-2021 Instruction Type:Patient Education Patient Instructions Indication:BMI 36.0-36.9,adult Start:09-Feb-2021 Instruction Type:Provider Instructions for Treatment How to Access Health Informa tion Online using Patient Portal and [employer] Apps Indication:Smoker Start:09-Feb-2021 Instruction Type:Patient Education Patient Instructions Indication:Smoker Start:06-Jan-2021 Instruction Type:Provider Instructions for Treatment How to Access Health Informa tion Online using Patient Portal and [employer] Apps Indication:Smoker Start:06-Jan-2021 Instruction Type:Patient Education How [...] tion Online using Patient Portal and [employer] Apps Indication:Smoker Start:22-Mar-2021 Instruction Type:Patient Education Patient Instructions Indication:BMI 36.0-36.9,adult Start:09-Feb-2021 Instruction Type:Provider Instructions for Treatment How to Access Health Informa tion Online using Patient Portal and [employer] Apps Indication:Smoker Start:09-Feb-2021 Instruction Type:Patient Education Patient Instructions Indication:Smoker Start:06-Jan-2021 Instruction Type:Provider Instructions for Treatment How to Access Health Informa tion Online using Patient Portal and [employer] Apps Indication:Smoker Start:06-Jan-2021 Instruction Type:Patient Education How [...] tion Online using Patient Portal and [employer] Apps Indication:Smoker Start:22-Mar-2021 Instruction Type:Patient Education Patient Instructions Indication:BMI 36.0-36.9,adult Start:09-Feb-2021 Instruction Type:Provider Instructions for Treatment How to Access Health Informa tion Online using Patient Portal and [employer] Apps Indication:Smoker Start:09-Feb-2021 Instruction Type:Patient Education Patient Instructions Indication:Smoker Start:06-Jan-2021 Instruction Type:Provider Instructions for Treatment How to Access Health Informa tion Online using Patient Portal and [employer] Apps Indication:Smoker Start:06-Jan-2021 Instruction Type:Patient Education How [...] tion Online using Patient Portal and [employer] Apps Indication:Smoker Start:22-Mar-2021 Instruction Type:Patient Education Patient Instructions Indication:BMI 36.0-36.9,adult Start:09-Feb-2021 Instruction Type:Provider Instructions for Treatment How to Access Health Informa tion Online using Patient Portal and [employer] Apps Indication:Smoker Start:09-Feb-2021 Instruction Type:Patient Education Patient Instructions Indication:Smoker Start:06-Jan-2021 Instruction Type:Provider Instructions for Treatment How to Access Health Informa tion Online using Patient Portal and [employer] Apps Indication:Smoker Start:06-Jan-2021 Instruction Type:Patient Education How [...] tion Online using Patient Portal and [employer] Apps Indication:Smoker Start:08-Jun-2022 Instruction Type:Patient Education Patient Instructions Indication:BMI 35.0-35.9,adult Start:03-Jun-2022 Instruction Type:Provider Instructions for Treatment How to Access Health Informa tion Online using Patient Portal and [employer] Apps Indication:BMI 35.0-35.9,adult Start:03-Jun-2022 Instruction Type:Patient Education Patient Instructions Indication:Smoker Start:22-Mar-2021 Instruction Type:Provider Instructions for Treatment How to Access Health Informa tion Online using Patient Portal and [employer] Apps Indication:Smoker Start:22-Mar-2021 Instruction Type:Patient Education Patient Instructions Indication:BMI 36.0-36.9,adult Start:09-Feb-2021 Instruction Type:Provider Instructions for Treatment How to Access Health Informa tion Online using Patient Portal and [employer] Apps Indication:Smoker Start:09-Feb-2021 Instruction Type:Patient Education Patient Instructions Indication:Smoker Start:06-Jan-2021 Instruction Type:Provider Instructions for Treatment How to Access Health Informa tion Online using Patient Portal and [employer] Apps Indication:Smoker Start:06-Jan-2021 Instruction Type:Patient Education How [...] tion Online using Patient Portal and [employer] Apps Indication:Smoker Start:08-Jun-2022 Instruction Type:Patient Education Patient Instructions Indication:BMI 35.0-35.9,adult Start:03-Jun-2022 Instruction Type:Provider Instructions for Treatment How to Access Health Informa tion Online using Patient Portal and [employer]rd [employer] Apps Indication:BMI 35.0-35.9,adult Start:03-Jun-2022 Instruction Type:Patient Education Patient Instructions Indication:Smoker Start:22-Mar-2021 Instruction Type:Provider Instructions for Treatment How to Access Health Informa tion Online using Patient Portal and [employer]rd [employer] Apps Indication:Smoker Start:22-Mar-2021 Instruction Type:Patient Education Patient Instructions Indication:BMI 36.0-36.9,adult Start:09-Feb-2021 Instruction Type:Provider Instructions for Treatment How to Access Health Informa tion Online using Patient Portal and [employer]rd [employer] Apps Indication:Smoker Start:09-Feb-2021 Instruction Type:Patient Education Patient Instructions Indication:Smoker Start:06-Jan-2021 Instruction Type:Provider Instructions for Treatment How to Access Health Informa tion Online using Patient Portal and [employer]rd [employer] Apps Indication:Smoker Start:06-Jan-2021 Instruction Type:Patient Education How [...] tion Online using Patient Portal and [employer]rd [employer] Apps Indication:Type II diabetes mellitus, well controlled Start:10-Aug-2022 Instruction Type:Patient Education Patient Instructions Indication:Smoker Start:08-Jun-2022 Instruction Type:Provider Instructions for Treatment How to Access Health Informa tion Online using Patient Portal and [employer]rd [employer] Apps Indication:Smoker Start:08-Jun-2022 Instruction Type:Patient Education Patient Instructions Indication:BMI 35.0-35.9,adult Start:03-Jun-2022 Instruction Type:Provider Instructions for Treatment How to Access Health Informa tion Online using Patient Portal and [employer]rd [employer] Apps Indication:BMI 35.0-35.9,adult Start:03-Jun-2022 Instruction Type:Patient Education Patient Instructions Indication:Smoker Start:22-Mar-2021 Instruction Type:Provider Instructions for Treatment How to Access Health Informa tion Online using Patient Portal and [employer]rd [employer] Apps Indication:Smoker Start:22-Mar-2021 Instruction Type:Patient Education Patient Instructions Indication:BMI 36.0-36.9,adult Start:09-Feb-2021 Instruction Type:Provider Instructions for Treatment How to Access Health Informa tion Online using Patient Portal and [employer] Apps Indication:Smoker Start:09-Feb-2021 Instruction Type:Patient Education Patient Instructions Indication:Smoker Start:06-Jan-2021 Instruction Type:Provider Instructions for Treatment How to Access Health Informa tion Online using Patient Portal and [employer]rd [employer] Apps Indication:Smoker Start:06-Jan-2021 Instruction Type:Patient Education How [...] tion Online using Patient Portal and [employer] Apps Indication:Type II diabetes mellitus, well controlled Start:10-Aug-2022 Instruction Type:Patient Education Patient Instructions Indication:Smoker Start:08-Jun-2022 Instruction Type:Provider Instructions for Treatment How to Access Health Informa tion Online using Patient Portal and [employer]rd [employer] Apps Indication:Smoker Start:08-Jun-2022 Instruction Type:Patient Education Patient Instructions Indication:BMI 35.0-35.9,adult Start:03-Jun-2022 Instruction Type:Provider Instructions for Treatment How to Access Health Informa tion Online using Patient Portal and [employer] Apps Indication:BMI 35.0-35.9,adult Start:03-Jun-2022 Instruction Type:Patient Education Patient Instructions Indication:Smoker Start:22-Mar-2021 Instruction Type:Provider Instructions for Treatment How to Access Health Informa tion Online using Patient Portal and [employer] Apps Indication:Smoker Start:22-Mar-2021 Instruction Type:Patient Education Patient Instructions Indication:BMI 36.0-36.9,adult Start:09-Feb-2021 Instruction Type:Provider Instructions for Treatment How to Access Health Informa tion Online using Patient Portal and [employer] Apps Indication:Smoker Start:09-Feb-2021 Instruction Type:Patient Education Patient Instructions Indication:Smoker Start:06-Jan-2021 Instruction Type:Provider Instructions for Treatment How to Access Health Informa tion Online using Patient Portal and [employer] Apps Indication:Smoker Start:06-Jan-2021 Instruction Type:Patient Education How [...] tion Online using Patient Portal and [employer] Apps Indication:Type II diabetes mellitus, well controlled Start:10-Aug-2022 Instruction Type:Patient Education Patient Instructions Indication:Smoker Start:08-Jun-2022 Instruction Type:Provider Instructions for Treatment How to Access Health Informa tion Online using Patient Portal and [employer] Apps Indication:Smoker Start:08-Jun-2022 Instruction Type:Patient Education Patient Instructions Indication:BMI 35.0-35.9,adult Start:03-Jun-2022 Instruction Type:Provider Instructions for Treatment How to Access Health Informa tion Online using Patient Portal and [employer] Apps Indication:BMI 35.0-35.9,adult Start:03-Jun-2022 Instruction Type:Patient Education Patient Instructions Indication:Smoker Start:22-Mar-2021 Instruction Type:Provider Instructions for Treatment How to Access Health Informa tion Online using Patient Portal and [employer] Apps Indication:Smoker Start:22-Mar-2021 Instruction Type:Patient Education Patient Instructions Indication:BMI 36.0-36.9,adult Start:09-Feb-2021 Instruction Type:Provider Instructions for Treatment How to Access Health Informa tion Online using Patient Portal and [employer] Apps Indication:Smoker Start:09-Feb-2021 Instruction Type:Patient Education Patient Instructions Indication:Smoker Start:06-Jan-2021 Instruction Type:Provider Instructions for Treatment How to Access Health Informa tion Online using Patient Portal and [employer] Apps Indication:Smoker Start:06-Jan-2021 Instruction Type:Patient Education How [...] tion Online using Patient Portal and [employer] Apps Indication:Type II diabetes mellitus, well controlled Start:10-Aug-2022 Instruction Type:Patient Education Patient Instructions Indication:Smoker Start:08-Jun-2022 Instruction Type:Provider Instructions for Treatment How to Access Health Informa tion Online using Patient Portal and [employer] Apps Indication:Smoker Start:08-Jun-2022 Instruction Type:Patient Education Patient Instructions Indication:BMI 35.0-35.9,adult Start:03-Jun-2022 Instruction Type:Provider Instructions for Treatment How to Access Health Informa tion Online using Patient Portal and [employer] Apps Indication:BMI 35.0-35.9,adult Start:03-Jun-2022 Instruction Type:Patient Education Patient Instructions Indication:Smoker Start:22-Mar-2021 Instruction Type:Provider Instructions for Treatment How to Access Health Informa tion Online using Patient Portal and [employer] Apps Indication:Smoker Start:22-Mar-2021 Instruction Type:Patient Education Patient Instructions Indication:BMI 36.0-36.9,adult Start:09-Feb-2021 Instruction Type:Provider Instructions for Treatment How to Access Health Informa tion Online using Patient Portal and [employer] Apps Indication:Smoker Start:09-Feb-2021 Instruction Type:Patient Education Patient Instructions Indication:Smoker Start:06-Jan-2021 Instruction Type:Provider Instructions for Treatment How to Access Health Informa tion Online using Patient Portal and [employer] Apps Indication:Smoker Start:06-Jan-2021 Instruction Type:Patient Education How [...] tion Online using Patient Portal and [employer] Apps Indication:Cough Start:17-Feb-2023 Instruction Type:Patient Education Patient Instructions Indication:Type II diabetes mellitus, well controlled Start:10-Aug-2022 Instruction Type:Provider Instructions for Treatment How to Access Health Informa tion Online using Patient Portal and [employer] Apps Indication:Type II diabetes mellitus, well controlled Start:10-Aug-2022 Instruction Type:Patient Education Patient Instructions Indication:Smoker Start:08-Jun-2022 Instruction Type:Provider Instructions for Treatment How to Access Health Informa tion Online using Patient Portal and [employer] Apps Indication:Smoker Start:08-Jun-2022 Instruction Type:Patient Education Patient Instructions Indication:BMI 35.0-35.9,adult Start:03-Jun-2022 Instruction Type:Provider Instructions for Treatment How to Access Health Informa tion Online using Patient Portal and [employer] Apps Indication:BMI 35.0-35.9,adult Start:03-Jun-2022 Instruction Type:Patient Education Patient Instructions Indication:Smoker Start:22-Mar-2021 Instruction Type:Provider Instructions for Treatment How to Access Health Informa tion Online using Patient Portal and [employer] Apps Indication:Smoker Start:22-Mar-2021 Instruction Type:Patient Education Patient Instructions Indication:BMI 36.0-36.9,adult Start:09-Feb-2021 Instruction Type:Provider Instructions for Treatment How to Access Health Informa tion Online using Patient Portal and [employer] Apps Indication:Smoker Start:09-Feb-2021 Instruction Type:Patient Education Patient Instructions Indication:Smoker Start:06-Jan-2021 Instruction Type:Provider Instructions for Treatment How to Access Health Informa tion Online using Patient Portal and [employer] Apps Indication:Smoker Start:06-Jan-2021 Instruction Type:Patient Education How [...] tion Online using Patient Portal and [employer] Apps Indication:Right hip pain Start:18-Apr-2023 Instruction Type:Patient Education Patient Instructions Indication:Cough Start:17-Feb-2023 Instruction Type:Provider Instructions for Treatment How to Access Health Informa tion Online using Patient Portal and [employer] Apps Indication:Cough Start:17-Feb-2023 Instruction Type:Patient Education Patient Instructions Indication:Type II diabetes mellitus, well controlled Start:10-Aug-2022 Instruction Type:Provider Instructions for Treatment How to Access Health Informa tion Online using Patient Portal and [employer] Apps Indication:Type II diabetes mellitus, well controlled Start:10-Aug-2022 Instruction Type:Patient Education Patient Instructions Indication:Smoker Start:08-Jun-2022 Instruction Type:Provider Instructions for Treatment How to Access Health Informa tion Online using Patient Portal and [employer] Apps Indication:Smoker Start:08-Jun-2022 Instruction Type:Patient Education Patient Instructions Indication:BMI 35.0-35.9,adult Start:03-Jun-2022 Instruction Type:Provider Instructions for Treatment How to Access Health Informa tion Online using Patient Portal and [employer] Apps Indication:BMI 35.0-35.9,adult Start:03-Jun-2022 Instruction Type:Patient Education Patient Instructions Indication:Smoker Start:22-Mar-2021 Instruction Type:Provider Instructions for Treatment How to Access Health Informa tion Online using Patient Portal and [employer] Apps Indication:Smoker Start:22-Mar-2021 Instruction Type:Patient Education Patient Instructions Indication:BMI 36.0-36.9,adult Start:09-Feb-2021 Instruction Type:Provider Instructions for Treatment How to Access Health Informa tion Online using Patient Portal and [employer] Apps Indication:Smoker Start:09-Feb-2021 Instruction Type:Patient Education Patient Instructions Indication:Smoker Start:06-Jan-2021 Instruction Type:Provider Instructions for Treatment How to Access Health Informa tion Online using Patient Portal and [employer] Apps Indication:Smoker Start:06-Jan-2021 Instruction Type:Patient Education How [...] tion Online using Patient Portal and [employer] Apps Indication:Right hip pain Start:18-Apr-2023 Instruction Type:Patient Education Patient Instructions Indication:Cough Start:17-Feb-2023 Instruction Type:Provider Instructions for Treatment How to Access Health Informa tion Online using Patient Portal and [employer] Apps Indication:Cough Start:17-Feb-2023 Instruction Type:Patient Education Patient Instructions Indication:Type II diabetes mellitus, well controlled Start:10-Aug-2022 Instruction Type:Provider Instructions for Treatment How to Access Health Informa tion Online using Patient Portal and [employer]rd [employer] Apps Indication:Type II diabetes mellitus, well controlled Start:10-Aug-2022 Instruction Type:Patient Education Patient Instructions Indication:Smoker Start:08-Jun-2022 Instruction Type:Provider Instructions for Treatment How to Access Health Informa tion Online using Patient Portal and [employer] Apps Indication:Smoker Start:08-Jun-2022 Instruction Type:Patient Education Patient Instructions Indication:BMI 35.0-35.9,adult Start:03-Jun-2022 Instruction Type:Provider Instructions for Treatment How to Access Health Informa tion Online using Patient Portal and [employer]rd [employer] Apps Indication:BMI 35.0-35.9,adult Start:03-Jun-2022 Instruction Type:Patient Education Patient Instructions Indication:Smoker Start:22-Mar-2021 Instruction Type:Provider Instructions for Treatment How to Access Health Informa tion Online using Patient Portal and [employer] Apps Indication:Smoker Start:22-Mar-2021 Instruction Type:Patient Education Patient Instructions Indication:BMI 36.0-36.9,adult Start:09-Feb-2021 Instruction Type:Provider Instructions for Treatment How to Access Health Informa tion Online using Patient Portal and [employer] Apps Indication:Smoker Start:09-Feb-2021 Instruction Type:Patient Education Patient Instructions Indication:Smoker Start:06-Jan-2021 Instruction Type:Provider Instructions for Treatment How to Access Health Informa tion Online using Patient Portal and [employer]rd [employer] Apps Indication:Smoker Start:06-Jan-2021 Instruction Type:Patient Education How [...] tion Online using Patient Portal and [employer] Apps Indication:Right hip pain Start:18-Apr-2023 Instruction Type:Patient Education Patient Instructions Indication:Cough Start:17-Feb-2023 Instruction Type:Provider Instructions for Treatment How to Access Health Informa tion Online using Patient Portal and [employer]rd [employer] Apps Indication:Cough Start:17-Feb-2023 Instruction Type:Patient Education Patient Instructions Indication:Type II diabetes mellitus, well controlled Start:10-Aug-2022 Instruction Type:Provider Instructions for Treatment How to Access Health Informa tion Online using Patient Portal and [employer] Apps Indication:Type II diabetes mellitus, well controlled Start:10-Aug-2022 Instruction Type:Patient Education Patient Instructions Indication:Smoker Start:08-Jun-2022 Instruction Type:Provider Instructions for Treatment How to Access Health Informa tion Online using Patient Portal and [employer] Apps Indication:Smoker Start:08-Jun-2022 Instruction Type:Patient Education Patient Instructions Indication:BMI 35.0-35.9,adult Start:03-Jun-2022 Instruction Type:Provider Instructions for Treatment How to Access Health Informa tion Online using Patient Portal and [employer] Apps Indication:BMI 35.0-35.9,adult Start:03-Jun-2022 Instruction Type:Patient Education Patient Instructions Indication:Smoker Start:22-Mar-2021 Instruction Type:Provider Instructions for Treatment How to Access Health Informa tion Online using Patient Portal and [employer] Apps Indication:Smoker Start:22-Mar-2021 Instruction Type:Patient Education Patient Instructions Indication:BMI 36.0-36.9,adult Start:09-Feb-2021 Instruction Type:Provider Instructions for Treatment How to Access Health Informa tion Online using Patient Portal and [employer]rd [employer] Apps Indication:Smoker Start:09-Feb-2021 Instruction Type:Patient Education Patient Instructions Indication:Smoker Start:06-Jan-2021 Instruction Type:Provider Instructions for Treatment How to Access Health Informa tion Online using Patient Portal and [employer] Apps Indication:Smoker Start:06-Jan-2021 Instruction Type:Patient Education How [...] tion Online using Patient Portal and [employer]rd [employer] Apps Indication:Right hip pain Start:18-Apr-2023 Instruction Type:Patient Education Patient Instructions Indication:Cough Start:17-Feb-2023 Instruction Type:Provider Instructions for Treatment How to Access Health Informa tion Online using Patient Portal and [employer]rd [employer] Apps Indication:Cough Start:17-Feb-2023 Instruction Type:Patient Education Patient Instructions Indication:Type II diabetes mellitus, well controlled Start:10-Aug-2022 Instruction Type:Provider Instructions for Treatment How to Access Health Informa tion Online using Patient Portal and [employer] Apps Indication:Type II diabetes mellitus, well controlled Start:10-Aug-2022 Instruction Type:Patient Education Patient Instructions Indication:Smoker Start:08-Jun-2022 Instruction Type:Provider Instructions for Treatment How to Access Health Informa tion Online using Patient Portal and [employer] Apps Indication:Smoker Start:08-Jun-2022 Instruction Type:Patient Education Patient Instructions Indication:BMI 35.0-35.9,adult Start:03-Jun-2022 Instruction Type:Provider Instructions for Treatment How to Access Health Informa tion Online using Patient Portal and [employer]rd [employer] Apps Indication:BMI 35.0-35.9,adult Start:03-Jun-2022 Instruction Type:Patient Education Patient Instructions Indication:Smoker Start:22-Mar-2021 Instruction Type:Provider Instructions for Treatment How to Access Health Informa tion Online using Patient Portal and [employer] Apps Indication:Smoker Start:22-Mar-2021 Instruction Type:Patient Education Patient Instructions Indication:BMI 36.0-36.9,adult Start:09-Feb-2021 Instruction Type:Provider Instructions for Treatment How to Access Health Informa tion Online using Patient Portal and [employer] Apps Indication:Smoker Start:09-Feb-2021 Instruction Type:Patient Education Patient Instructions Indication:Smoker Start:06-Jan-2021 Instruction Type:Provider Instructions for Treatment How to Access Health Informa tion Online using Patient Portal and [employer] Apps Indication:Smoker Start:06-Jan-2021 Instruction Type:Patient Education How [...] tion Online using Patient Portal and [employer] Apps Indication:Right hip pain Start:18-Apr-2023 Instruction Type:Patient Education Patient Instructions Indication:Cough Start:17-Feb-2023 Instruction Type:Provider Instructions for Treatment How to Access Health Informa tion Online using Patient Portal and [employer] Apps Indication:Cough Start:17-Feb-2023 Instruction Type:Patient Education Patient Instructions Indication:Type II diabetes mellitus, well controlled Start:10-Aug-2022 Instruction Type:Provider Instructions for Treatment How to Access Health Informa tion Online using Patient Portal and [employer] Apps Indication:Type II diabetes mellitus, well controlled Start:10-Aug-2022 Instruction Type:Patient Education Patient Instructions Indication:Smoker Start:08-Jun-2022 Instruction Type:Provider Instructions for Treatment How to Access Health Informa tion Online using Patient Portal and [employer] Apps Indication:Smoker Start:08-Jun-2022 Instruction Type:Patient Education Patient Instructions Indication:BMI 35.0-35.9,adult Start:03-Jun-2022 Instruction Type:Provider Instructions for Treatment How to Access Health Informa tion Online using Patient Portal and [employer]rd [employer] Apps Indication:BMI 35.0-35.9,adult Start:03-Jun-2022 Instruction Type:Patient Education Patient Instructions Indication:Smoker Start:22-Mar-2021 Instruction Type:Provider Instructions for Treatment How to Access Health Informa tion Online using Patient Portal and [employer]rd [employer] Apps Indication:Smoker Start:22-Mar-2021 Instruction Type:Patient Education Patient Instructions Indication:BMI 36.0-36.9,adult Start:09-Feb-2021 Instruction Type:Provider Instructions for Treatment How to Access Health Informa tion Online using Patient Portal and [employer] Apps Indication:Smoker Start:09-Feb-2021 Instruction Type:Patient Education Patient Instructions Indication:Smoker Start:06-Jan-2021 Instruction Type:Provider Instructions for Treatment How to Access Health Informa tion Online using Patient Portal and [employer] Apps Indication:Smoker Start:06-Jan-2021 Instruction Type:Patient Education How [...] tion Online using Patient Portal and [employer] Apps Indication:Right hip pain Start:18-Apr-2023 Instruction Type:Patient Education Patient Instructions Indication:Cough Start:17-Feb-2023 Instruction Type:Provider Instructions for Treatment How to Access Health Informa tion Online using Patient Portal and [employer]rd [employer] Apps Indication:Cough Start:17-Feb-2023 Instruction Type:Patient Education Patient Instructions Indication:Type II diabetes mellitus, well controlled Start:10-Aug-2022 Instruction Type:Provider Instructions for Treatment How to Access Health Informa tion Online using Patient Portal and [employer]rd [employer] Apps Indication:Type II diabetes mellitus, well controlled Start:10-Aug-2022 Instruction Type:Patient Education Patient Instructions Indication:Smoker Start:08-Jun-2022 Instruction Type:Provider Instructions for Treatment How to Access Health Informa tion Online using Patient Portal and [employer]rd [employer] Apps Indication:Smoker Start:08-Jun-2022 Instruction Type:Patient Education Patient Instructions Indication:BMI 35.0-35.9,adult Start:03-Jun-2022 Instruction Type:Provider Instructions for Treatment How to Access Health Informa tion Online using Patient Portal and [employer]rd [employer] Apps Indication:BMI 35.0-35.9,adult Start:03-Jun-2022 Instruction Type:Patient Education Patient Instructions Indication:Smoker Start:22-Mar-2021 Instruction Type:Provider Instructions for Treatment How to Access Health Informa tion Online using Patient Portal and [employer] Apps Indication:Smoker Start:22-Mar-2021 Instruction Type:Patient Education Patient Instructions Indication:BMI 36.0-36.9,adult Start:09-Feb-2021 Instruction Type:Provider Instructions for Treatment How to Access Health Informa tion Online using Patient Portal and [employer]rd [employer] Apps Indication:Smoker Start:09-Feb-2021 Instruction Type:Patient Education Patient Instructions Indication:Smoker Start:06-Jan-2021 Instruction Type:Provider Instructions for Treatment How to Access Health Informa tion Online using Patient Portal and [employer]rd [employer] Apps Indication:Smoker Start:06-Jan-2021 Instruction Type:Patient Education How [...] Internal Medicine; [facility] Work Phone: reason for referral (narrative)No reason for referral information available[facility] [place] [facility]: Summary Purpose Family History No Family History Records FoundUnknown Family Member Name Dates Details Alcohol Abuse [...] Comments:Mother. Status:Active Thyroid problems Comments:Mother. Sister. Status:Active Relationship Condition Age at Onset Recorded Date/T wallace father Malignant neoplasm of colon Unknown Kidney disorder Unknown mother Diabetes mellitus Unknown Cardiac disease Unknown Disorder of thyroid Unknown grandfather Alcohol abuse Unknown sister Malignant neoplasm Unknown Malignant neoplasm of breast Unknown Unknown Family Member Name Dates Details Alcohol [...] Status:Active Advance Directives No Advanced Directives Records Found Advance Directive Response Recorded Date/ Time Living Will No April 12, 2021 11:03am Power of Public Service Director No April 12 11:03am Advance Directive Response Recorded Date/ Time Living Will No April 29, 2023 10:32am Power of Public Service Director No April 29 10:32am Advance Directive Response Recorded Date/ Time Living Will No December 29, 2023 11:12am Power of Public Service Director No December 28 11:12am Instructions Name Dates Details How to access [...] tion Online using Patient Portal and [employer] Apps Indication:Smoker Start:06-Jan-2021 Instruction Type:Patient Education How [...] dermatitis Start:11-Dec-2019 Instruction Type:Provider Instructions for Treatment Chief Complaint and Reason for Visit Chief Complaint 3 M FU [place] DEP CHRONIC OBSTRUCTIVE PULMONARY DISEASE CHRONIC OBSTRUCTIVE PULMONARY DISEASE Reason for Visit Smoking greater than 30 pack years COPD (chronic obstructive pulmonary disease) NHI (obstructive sleep apnea) Chief Complaint Sleep problems BACK Reason for Visit Smoking greater than 30 pack years Stage 1 mild COPD by GOLD classification NHI (obstructive sleep apnea) Chief Complaint NICOTINE DEPENDENCE, SMOKER >30 PK YRS follow up/test results R ARM/SHOULDER/NECK PAIN Reason for Visit Stage 1 mild COPD by GOLD classification NHI (obstructive sleep apnea) Tobacco abuse Additional Source Comments INFORMATION SOURCE (unrecogn ized section and content) DATE CREATED AUTHOR 03/23/2018 [facility] DATE CREATED AUTHOR AUTHOR'S ORGANIZ ATION 03/03/2022 [facility] DATE CREATED AUTHOR AUTHOR'S ORGANIZ ATION 12/09/2022 [facility] DATE CREATED AUTHOR AUTHOR'S ORGANIZ ATION 08/05/2025 [facility] Source Comments (unrecognize d section and content) In the event this informatio n is protected by the Federal Confidentiality of Alcohol and Drug Abuse Patient Records regulations: The Federal rules restrict any use of the information to criminally investigate or prosecute any alcohol or drug abuse patient.[facility] the event this information is protected by the Federal Confidentiality of Alcohol and Drug Abuse Patient Records regulations: The Federal rules restrict any use of the information to criminally investigate or prosecute any alcohol or drug abuse patient.[facility] the event this information is protected by the Federal Confidentiality of Alcohol and Drug Abuse Patient Records regulations: The Federal rules restrict any use of the information to criminally investigate or prosecute any alcohol or drug abuse patient.[facility] Care Teams (unrecognized sec tion and content) Senior Database Administrator Relationship Specialty Start Date End Date Qamar Mcmullen MD [address], [place] [id number] PCP - General Family Practice 04/19/16 Senior Database Administrator Relationship Specialty Start Date End Date Qamar Mcmullen MD [address], [place] [id number] PCP - General Family Practice 04/19/16 Senior Database Administrator Relationship Specialty Start Date End Date Qamar Mcmullen MD [address], [place] [id number] PCP - General Family Practice 04/19/16 02/15/22 Team Status: Active Member Role Status Dates Dr. Qamar Mcmullen MD Family Provider Active Zunilda Erick , STRESS ANALYST-C Primary Care Provider Active Team Status: Inactive Member Role Status Dates Zunilda Suarez , STRESS ANALYST-C Primary Care Provider Active Princess Horan STRESS ANALYST, STRESS ANALYST-C Attending Provider, [facility] Active Team Status: Inactive Member Role Status Dates Zunilda Suarez , STRESS ANALYST-C Primary Care Provider Active Dr. Ned Bennett DO Emergency Provider Active Team Status: Inactive Member Role Status Dates Zunilda Suarez STRESS ANALYST-C Primary Care Provider, Referring Provider Active Dr. Jasper Lindo MD Attending Provider Active Team Status: Inactive Member Role Status Dates Zunilda Suarez , STRESS ANALYST-C Primary Care Provider Active Dr. Vicente Mares DO Emergency Provider Active Team Status: Active Member Role/Relationship Status Dates Zebulun Beam VSC, STRESS ANALYST-C Primary Care Provider Active Team Status: Inactive Member Role/Relationship Status Dates Zebulun Beam VSC, STRESS ANALYST-C Primary Care Provider Active Start: April 21, 2025 End: April 21, 2025 Zebulun Beam VSC, STRESS ANALYST-C Attending Provider Active Start: April 21, 2025 End: April 21, 2025 Reason for Visit (unrecogniz ed section and content) Reason Onset Date Comments [facility] 01/03/2022 Reason Onset Date Comments [facility] 01/31/2022 Goals (unrecognized section and content) Goals may be documented in a n alternate sectionGoals may be documented in an alternate sectionGoals may be documented in an alternate sectionGoals may be documented in an alternate section FOR RECORDS PERTAINING TO PATIENTS WHO ARE [...] BE BASED ON THE PRIMARY CLINICAL RECORDS. [employer] provides no warranty or guarantee of the accuracy or completeness of information in this document.
== END | disposition home or self-care (01) ==
LOC: CT 08:53
PROVIDERS: Referring Provider Nurse Practitioner Acute Care; Visit Provider Nurse Practitioner Acute Care
DX: F17.210 Nicotine dependence, cigarettes, uncomplicated (principal)
CPT/HCPCS: 71271